=== PATIENT | female | born 1945 | race Caucasian/White ===

== ENCOUNTER 2023-05-17 10:37 | Outpatient (OUT) | payer MEDICARE, SELFPAY ==
[2023-05-17 11:01] LABS: Basophils Absolute Auto 0.1 10^3/uL (0.0-0.1); Basophils Percent Auto 0.9 % (0.2-2.0); Eosinophils Absolute Auto 0.1 10^3/uL (0.0-0.7); Eosinophils Percent Auto 1.3 % (0.9-7.0); Hematocrit 40.5 % (36.0-48.0); Hemoglobin 12.4 g/dL (12.0-16.0); Immature Granulocytes Abs Auto 0.04 10^3/uL (0.00-0.03); Immature Granulocytes Pct Auto 0.4 % (0.0-0.5); Lymphocytes Absolute Auto 2.2 10^3/uL (1.2-3.8); Lymphocytes Percent Auto 21.2 % (20.5-60.0); Mean Corpuscular HGB Conc 30.6 g/dL (29.9-35.2); Mean Corpuscular Hemoglobin 28.2 pg (26.7-34.0); Mean Corpuscular Volume 92.3 fL (81.0-99.0); Monocytes Absolute Auto 0.7 10^3/uL (0.3-0.8); Monocytes Percent Auto 6.4 % (1.7-12.0); Neutrophils Absolute Auto 7.4 10^3/uL (1.4-6.5); Neutrophils Percent Auto 69.8 % (43.0-75.0); Platelet Count 379 10^3/uL (150-450); Red Blood Count 4.39 10^6/uL (4.20-5.40); Red Cell Distribution Width 14.9 % (11.0-15.0); White Blood Count 10.5 10^3/uL (4.0-11.0)
[2023-05-17 11:23] LABS: Estimated Average Glucose 120 mg/dL; Glycohemoglobin A1C 5.8 % (4.5-6.2)
[2023-05-17 11:45] LABS: Alanine Aminotransferase 16 U/L (14-59); Albumin Globulin Ratio 0.5; Albumin Level 2.5 g/dL (3.4-5.0); Alkaline Phosphatase 118 U/L (46-116); Anion Gap 14.3; Aspartate Amino Transferase 25 U/L (15-37); BUN Creatinine Ratio 16.2; Bilirubin Total 0.4 mg/dL (0.2-1.0); Calcium 8.9 mg/dL (8.5-10.1); Carbon Dioxide 26.9 mmol/L (21.0-32.0); Chloride 106 mmol/L (98-107); Chol HDL Ratio 2.9; Cholesterol 156 mg/dL (<=200); Estimated GFR (African America 58 (>=60); Estimated GFR (Non-African Ame 48 (>=60); Free T3 1.83 pg/mL (2.18-3.98); Globulin 4.8 g/dL; Glucose 113 mg/dL (74-106); HDL Cholesterol 53 mg/dL (40-60); LDL Cholesterol Calculated 79.8 mg/dL; Magnesium 1.6 mg/dL (1.8-2.4); Potassium 4.2 mmol/L (3.5-5.1); Sodium 143 mmol/L (136-145); Thyroid Stimulating Hormone 2.045 uIU/mL (0.358-3.740); Total Protein 7.3 g/dL (6.4-8.2); Triglycerides 116 mg/dL (<=150); VLDL CHOLESTEROL 23.2 mg/dL
[2023-05-18 10:10] LABS: Insulin 40.9 uIU/mL (2.6-24.9)
== END 2023-05-17 10:38 | disposition home or self-care (01) ==
LOC: LAB 10:37
PROVIDERS: PCP Family Medicine; Visit Provider Family Medicine
DX: R00.2 Palpitations (principal); R53.83 Other fatigue; I10 Essential (primary) hypertension; E66.9 Obesity, unspecified; M10.9 Gout, unspecified; F41.1 Generalized anxiety disorder; E11.9 Type 2 diabetes mellitus without complications; Z79.899 Other long term (current) drug therapy; E78.5 Hyperlipidemia, unspecified
CPT/HCPCS: 36415; 80053; 80061; 82533; 82728; 83036; 83525; 83540; 83735; 84436; 84443; 84481; 85025

== ENCOUNTER 2023-05-31 11:02 | Outpatient (OUT) | payer MEDICARE, SELFPAY ==
--- OUTSIDE RECORDS SUMMARY | 2023-05-31 11:05 | XMS_ITS | CCD ---
Author Name Unknown Address [address] [facility] [address] [facility] [address] [place] [address] Organization [facility] Care Team Providers Care Molecular Modeler Name Role Phone ABHIJITY ., DR JACOB Admitting Unavailable HOY ., DR JACOB Attending Unavailable HOY ., DR JACOB Primary Care Unavailable HOY ., DR JACOB Admitting Unavailable HOY ., DR JACOB Attending Unavailable HOY ., DR JACOB Primary Care Unavailable HOY ., DR JACOB Consulting Unavailable HOY ., DR JACOB Admitting Unavailable HOY ., DR JACOB Attending Unavailable HOY ., DR JACOB Primary Care Unavailable HOY ., DR JACOB Consulting Unavailable Problems Active Problems Problem Classification Problem Date Documented Da te Episodic/Chronic Deficiency and other anemia (1 source) Anemia, unspecified; Translations: [ANEMIA UNSPECIFIED] Onset: 05-11-2022 Episodic Diabetes mellitus without complication (1 source) Other abnormal glucose; Translations: [OTHER ABNORMAL GLUCOSE] Onset: 05-11-2022 Episodic Disorders of lipid metabolism (1 source) Hyperlipidemia, unspecified; Translations: [HYPERLIPIDEMIA UNSPECIFIED] Onset: 11-14-2021 Chronic Essential hypertension (1 source) Essential (primary) hypertension; Translations: [ESSENTIAL PRIMARY HYPERTENSION] Onset: 11-14-2021 Chronic 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) Gout, unspecified; Translations: [GOUT UNSPECIFIED] Onset: 11-14-2021 Chronic Malaise and fatigue (5 sources) Other fatigue; Translations: [OTHER FATIGUE] Onset: 11-14-2021 Episodic Nutritional deficiencies (1 source) Vitamin D deficiency, unspecified; Translations: [VITAMIN D DEFICIENCY UNSPECIFIED] Onset: 11-14-2021 Chronic Past or Other Problems Problem Classification Problem Date Documented Da te Episodic/Chronic Cardiac dysrhythmias (4 sources) Palpitations; Translations: [PALPITATIONS] Onset: 11-12-2021 Episodic Results Test Name Value Interpretation Reference Range Facil ity INSULINon 05-07-2022 Insulin 45.8 uIU/mL Critically high 2.6-24.9 [facility] Comment on above: Performed By: #### M G, T7, TSH, CMP #### [facility] [address] [place] [address] Dr. Nida Hall CBC AUTO DIFFon 05-06-2022 BASO # 0.1 103/ul Normal 0.0-0.1 [facility] Comment on above: Performed By: #### M G, T7, TSH, CMP #### [facility] [address] [place] [address] Dr. Nida Hall Basophils/100 WBC (Bld) 1.2 % Normal 0.2-2.0 [facility] Comment on above: Performed By: #### M G, T7, TSH, CMP #### [facility] [address] [place] [address] Dr. Nida Hall EO # 0.3 103/ul Normal 0.0-0.7 [facility] Comment on above: Performed By: #### M G, T7, TSH, CMP #### [facility] [address] [place] [address] Dr. Nida Hall Eosinophils/100 WBC (Bld) 2.8 % Normal 0.9-7.0 [facility] Comment on above: Performed By: #### M G, T7, TSH, CMP #### [facility] [address] [place] [address] Dr. Nida Hall Erythrocyte distribution width (RBC) [Ratio] 15.0 % Normal 11.0-15.0 [facility] Comment on above: Performed By: #### M G, T7, TSH, CMP #### [facility] [address] [place] [address] Dr. Nida Hall Hematocrit (Bld) [Volume fraction] 41.1 % Normal 36.0-48.0 [facility] Comment on above: Performed By: #### M G, T7, TSH, CMP #### [facility] [address] [place] [address] Dr. Nida Hall Hemoglobin (Bld) [Mass/Vol] 12.7 g/dL Normal 12.0-16.0 [facility] Comment on above: Performed By: #### M G, T7, TSH, CMP #### [facility] [address] [place] [address] Dr. Nida Hall IG # 0.03 10e3/ul Normal 0.00-0.03 [facility] Comment on above: Performed By: #### M G, T7, TSH, CMP #### [facility] [address] [place] [address] Dr. Nida Hall IG % 0.3 % Normal 0.0-0.5 [facility] Comment on above: Performed By: #### M G, T7, TSH, CMP #### [facility] [address] [place] [address] Dr. Nida Hall LYMPH # 2.3 103/ul Normal 1.2-3.8 [facility] Comment on above: Performed By: #### M G, T7, TSH, CMP #### [facility] [address] [place] [address] Dr. Nida Hall Lymphocytes/100 WBC (Bld) 24.8 % Normal 20.5-60.0 [facility] Comment on above: Performed By: #### M G, T7, TSH, CMP #### [facility] [address] [place] [address] Dr. Nida Hall MANUAL DIFF REQ NO Normal [facility] Comment on above: Performed By: #### M G, T7, TSH, CMP #### [facility] [address] [place] [address] Dr. Nida Hall MCH (RBC) [Entitic mass] 26.9 pg Normal 26.7-34.0 [facility] Comment on above: Performed By: #### M G, T7, TSH, CMP #### [facility] [address] [place] [address] Dr. Nida Hall MCHC (RBC) [Mass/Vol] 30.9 g/dL Normal 29.9-35.2 [facility] Comment on above: Performed By: #### M G, T7, TSH, CMP #### [facility] [address] [place] [address] Dr. Nida Hall MCV (RBC) [Entitic vol] 87.1 fL Normal 81.0-99.0 [facility] Comment on above: Performed By: #### M G, T7, TSH, CMP #### [facility] [address] [place] [address] Dr. Nida Hall MONO # 0.7 103/ul Normal 0.3-0.8 [facility] Comment on above: Performed By: #### M G, T7, TSH, CMP #### [facility] [address] [place] [address] Dr. Nida Hall Monocytes/100 WBC (Bld) 7.8 % Normal 1.7-12.0 [facility] Comment on above: Performed By: #### M G, T7, TSH, CMP #### [facility] [address] [place] [address] Dr. Nida Hall NEUT # 5.9 103/ul Normal 1.4-6.5 [facility] Comment on above: Performed By: #### M G, T7, TSH, CMP #### [facility] [address] [place] [address] Dr. Nida Hall Neutrophils/100 WBC (Bld) 63.1 % Normal 43.0-75.0 [facility] Comment on above: Performed By: #### M G, T7, TSH, CMP #### [facility] [address] [place] [address] Dr. Nida Hall Platelet mean volume (Bld) [Entitic vol] 9.6 fL Normal 9.5-13.5 [facility] Comment on above: Performed By: #### M G, T7, TSH, CMP #### [facility] [address] [place] [address] Dr. Nida Hall PLT 385 103/ul Normal 150-450 [facility] Comment on above: Performed By: #### M G, T7, TSH, CMP #### [facility] [address] [place] [address] Dr. Nida Hall RBC 4.72 106/ul Normal 4.20-5.40 [facility] Comment on above: Performed By: #### M G, T7, TSH, CMP #### [facility] [address] [place] [address] Dr. Nida Hall WBC 9.3 103/ul Normal 4.0-11.0 [facility] Comment on above: Performed By: #### M G, T7, TSH, CMP #### [facility] [address] [place] [address] Dr. Nida Hall FERRITINon 05-06-2022 Ferritin [Mass/Vol] 16.0 ng/mL Normal 8.0-252.0 [facility] Comment on above: Performed By: #### I ENRIQUE, FERR #### [facility] [address] [place] [address] Dr. Nida Hall FREE THYROXINE INDEX T7on FTI 3.37 Normal 1.30-4.50 [facility] Comment on above: Performed By: #### M G, T7, TSH, CMP #### [facility] [address] [place] [address] Dr. Nida Hall T3U 34.0 % Normal 30.0-39.0 [facility] Comment on above: Performed By: #### M G, T7, TSH, CMP #### [facility] [address] [place] [address] Dr. Nida Hall T4 [Mass/Vol] 9.90 ug/dL Normal 4.80-13.90 [facility] Comment on above: Performed By: #### M G, T7, TSH, CMP #### [facility] [address] [place] [address] Dr. Nida Hall GLYCOHEMOGLOBIN A1Con 2022 ADA RECOMMENDATION SEE BELOW Normal [facility] Comment on above: Result Comment: ADA RECOMMENDED LIMIT 4.0 - 6.0 ADA THERAPEUTIC TARGET < 7.0 ACTION SUGGESTED > 7.0 Performed By: #### M G, T7, TSH, CMP #### [facility] [address] [place] [address] Dr. Nida Hall Glucose [Mass/Vol] 123 mg/dL Normal [facility] Comment on above: Performed By: #### M G, T7, TSH, CMP #### [facility] [address] [place] [address] Dr. Nida Hall HbA1c (Bld) [Mass fraction] 5.9 % Normal 4.5-6.2 [facility] Comment on above: Performed By: #### M G, T7, TSH, CMP #### [facility] [address] [address] [address] Nida Hall IRONon 05-06-2022 Iron [Mass/Vol] 54.0 ug/dL Normal 50.0-170.0 [facility] Comment on above: Performed By: #### I ENRIQUE, FERR #### [facility] [address] [place] [address] Dr. Nida Hall MAGNESIUMon 05-06-2022 Magnesium [Mass/Vol] 1.7 mg/dL Critically low 1.8-2.4 [facility] Comment on above: Performed By: #### M G, T7, TSH, CMP #### [facility] [address] [place] [address] Dr. Nida Hall PROF 14(COMP METB)on 023 Albumin [Mass/Vol] 2.8 g/dL Critically low 3.4-5.0 [facility] Comment on above: Performed By: #### M G, T7, TSH, CMP #### [facility] [address] [place] [address] Dr. Nida Hall Albumin/Globulin [Mass ratio] 0.6 {ratio} Normal [facility] Comment on above: Performed By: #### M G, T7, TSH, CMP #### [facility] [address] [place] [address] Dr. Nida Hall ALP [Catalytic activity/Vol] 113 U/L Normal 46-116 [facility] Comment on above: Performed By: #### M G, T7, TSH, CMP #### [facility] [address] [place] [address] Dr. Nida Hall ALT [Catalytic activity/Vol] 16 U/L Normal 14-59 [facility] Comment on above: Performed By: #### M G, T7, TSH, CMP #### [facility] [address] [address] [address] Nida Hall Anion gap [Moles/Vol] 9.9 mmol/L Normal [facility] Comment on above: Performed By: #### M G, T7, TSH, CMP #### [facility] [address] [address] [address] Nida Hall AST [Catalytic activity/Vol] 28 U/L Normal 15-37 [facility] Comment on above: Performed By: #### M G, T7, TSH, CMP #### [facility] [address] [place] [address] Dr. Nida Hall Bilirubin [Mass/Vol] 0.5 mg/dL Normal 0.2-1.0 [facility] Comment on above: Performed By: #### M G, T7, TSH, CMP #### [facility] [address] [place] [address] Dr. Nida Hall Calcium [Mass/Vol] 9.3 mg/dL Normal 8.5-10.1 [facility] Comment on above: Performed By: #### M G, T7, TSH, CMP #### [facility] [address] [place] [address] Dr. Nida Hall Chloride [Moles/Vol] 105 mmol/L Normal 98-107 [facility] Comment on above: Performed By: #### M G, T7, TSH, CMP #### [facility] [address] [place] [address] Dr. Nida Hall CO2 [Moles/Vol] 29.3 mmol/L Normal 21.0-32.0 [facility] Comment on above: Performed By: #### M G, T7, TSH, CMP #### [facility] [address] [place] [address] Dr. Nida Hall Creatinine [Mass/Vol] 0.95 mg/dL Normal 0.55-1.02 [facility] Comment on above: Performed By: #### M G, T7, TSH, CMP #### [facility] [address] [address] [address] Nida Hall EGFR-AF GUAMANIAN >60 Normal >=60 [facility] Comment on above: Performed By: #### M G, T7, TSH, CMP #### [facility] [address] [address] [address] Nida Hall EGFR-NON AF GUAMANIAN 57 mL/min/1.73m2 Critically low >=60 [facility] Comment on above: Performed By: #### M G, T7, TSH, CMP #### [facility] [address] [address] [address] Nida Hall Globulin (S) [Mass/Vol] 4.5 g/dL Normal [facility] Comment on above: Performed By: #### M G, T7, TSH, CMP #### [facility] [address] [address] [address] Nida Hall Glucose [Mass/Vol] 120 mg/dL Critically high 74-106 [facility] Comment on above: Performed By: #### M G, T7, TSH, CMP #### [facility] [address] [address] [address] Nida Hall Potassium [Moles/Vol] 4.2 mmol/L Normal 3.5-5.1 [facility] Comment on above: Performed By: #### M G, T7, TSH, CMP #### [facility] [address] [address] [address] Nida Hall Protein [Mass/Vol] 7.3 g/dL Normal 6.4-8.2 [facility] Comment on above: Performed By: #### M G, T7, TSH, CMP #### [facility] [address] [address] [address] Nida Hall Sodium [Moles/Vol] 140 mmol/L Normal 136-145 [facility] Comment on above: Performed By: #### M G, T7, TSH, CMP #### [facility] [address] [address] [address] Nida Hall Urea nitrogen [Mass/Vol] 18.0 mg/dL Normal 7.0-18.0 [facility] Comment on above: Performed By: #### M G, T7, TSH, CMP #### [facility] [address] [place] [address] Dr. Nida Hall Urea nitrogen/Creatinine [Mass ratio] 18.9 mg/mg Normal [facility] Comment on above: Performed By: #### M G, T7, TSH, CMP #### [facility] [address] [place] [address] Dr. Nida Hall TSHon 05-06-2022 TSH 2.920 uIU/mL Normal 0.358-3.740 [facility] Comment on above: Performed By: #### M G, T7, TSH, CMP #### [facility] [address] [place] [address] Dr. Nida Hall INSULINon 11-13-2021 Insulin 26.8 uIU/mL Critically high 2.6-24.9 [facility] Comment on above: Performed By: #### I NSULIN #### [facility] [address] [place] [address] Dr. Nida Hall T4, T3U, FTI LABCORPon 11-13 Free Thyroxine Index 2.3 Normal 1.2-4.9 [facility] Comment on above: Performed By: #### M G, T7, TSH, CMP #### [facility] [address] [place] [address] Dr. Nida Hall T3 Uptake 26 % Normal 24-39 [facility] Comment on above: Performed By: #### M G, T7, TSH, CMP #### [facility] [address] [place] [address] Dr. Nida Hall T4 [Mass/Vol] 8.9 ug/dL Normal 4.5-12.0 [facility] Comment on above: Performed By: #### M G, T7, TSH, CMP #### [facility] [address] [place] [address] Dr. Nida Hall VIT D 25-OH LABCORPon 2021 Vitamin D, 25-Hydroxy 55.8 ng/mL Normal 30.0-100.0 [facility] Comment on above: Result Comment: [place] min D deficiency has been defined by the [place] of [employer] and an Endocrine Society practice guideline as a level of serum 25-OH vitamin D less than 20 ng/mL (1,2). The Endocrine Society went on to further define vitamin D insufficiency as a level between 21 and 29 ng/mL (2). 1. IOM ([place] of [employer]). 2010. Dietary reference intakes for calcium and D. [place]: The National Academies Press. 2. Cristopher MF, Salazar SMITH, Carmel BETTENCOURT, et al. Evaluation, treatment, and prevention of vitamin D deficiency: an Endocrine Society clinical practice guideline. JCEM. 2010; 96(7):1911-30. Performed By: #### V ITADLC #### [facility] [address] [place] [address] Dr. Nida Hall CBC AUTO DIFFon 11-12-2021 BASO # 0.1 103/ul Normal 0.0-0.1 [facility] Comment on above: Performed By: #### C BC #### [facility] [address] [place] [address] Dr. Nida Hall Basophils/100 WBC (Bld) 0.9 % Normal 0.2-2.0 [facility] Comment on above: Performed By: #### C BC #### [facility] [address] [place] [address] Dr. Nida Hall EO # 0.1 103/ul Normal 0.0-0.7 [facility] Comment on above: Performed By: #### C BC #### [facility] [address] [place] [address] Dr. Nida Hall Eosinophils/100 WBC (Bld) 1.7 % Normal 0.9-7.0 [facility] Comment on above: Performed By: #### C BC #### [facility] [address] [place] [address] Dr. Nida Hall Erythrocyte distribution width (RBC) [Ratio] 16.1 % Critically high 11.0-15.0 [facility] Comment on above: Performed By: #### C BC #### [facility] [address] [place] [address] Dr. Nida Hall Hematocrit (Bld) [Volume fraction] 42.8 % Normal 36.0-48.0 [facility] Comment on above: Performed By: #### C BC #### [facility] [address] [place] [address] Dr. Nida Hall Hemoglobin (Bld) [Mass/Vol] 13.0 g/dL Normal 12.0-16.0 [facility] Comment on above: Performed By: #### C BC #### [facility] [address] [place] [address] Dr. Nida Hall IG # 0.04 10e3/ul Critically high 0.00-0.03 [facility] Comment on above: Performed By: #### C BC #### [facility] [address] [place] [address] Dr. Nida Hall IG % 0.5 % Normal 0.0-0.5 [facility] Comment on above: Performed By: #### C BC #### [facility] [address] [place] [address] Dr. Nida Hall LYMPH # 2.1 103/ul Normal 1.2-3.8 [facility] Comment on above: Performed By: #### C BC #### [facility] [address] [place] [address] Dr. Nida Hall Lymphocytes/100 WBC (Bld) 25.6 % Normal 20.5-60.0 [facility] Comment on above: Performed By: #### C BC #### [facility] [address] [place] [address] Dr. Nida Hall MANUAL DIFF REQ NO Normal [facility] Comment on above: Performed By: #### C BC #### [facility] [address] [place] [address] Dr. Nida Hall MCH (RBC) [Entitic mass] 27.8 pg Normal 26.7-34.0 [facility] Comment on above: Performed By: #### C BC #### [facility] [address] [place] [address] Dr. Nida Hall MCHC (RBC) [Mass/Vol] 30.4 g/dL Normal 29.9-35.2 [facility] Comment on above: Performed By: #### C BC #### [facility] [address] [place] [address] Dr. Nida Hall MCV (RBC) [Entitic vol] 91.5 fL Normal 81.0-99.0 [facility] Comment on above: Performed By: #### C BC #### [facility] [address] [place] [address] Dr. Nida Hall MONO # 0.5 103/ul Normal 0.3-0.8 [facility] Comment on above: Performed By: #### C BC #### [facility] [address] [place] [address] Dr. Nida Hall Monocytes/100 WBC (Bld) 6.5 % Normal 1.7-12.0 [facility] Comment on above: Performed By: #### C BC #### [facility] [address] [place] [address] Dr. Nida Hall NEUT # 5.3 103/ul Normal 1.4-6.5 [facility] Comment on above: Performed By: #### C BC #### [facility] [address] [place] [address] Dr. Nida Hall Neutrophils/100 WBC (Bld) 64.8 % Normal 43.0-75.0 [facility] Comment on above: Performed By: #### C BC #### [facility] [address] [place] [address] Dr. Nida Hall Platelet mean volume (Bld) [Entitic vol] 10.3 fL Normal 9.5-13.5 [facility] Comment on above: Performed By: #### C BC #### [facility] [address] [place] [address] Dr. Nida Hall PLT 336 103/ul Normal 150-450 [facility] Comment on above: Performed By: #### C BC #### [facility] [address] [place] [address] Dr. Nida Hall RBC 4.68 106/ul Normal 4.20-5.40 [facility] Comment on above: Performed By: #### C BC #### [facility] [address] [address] [address] Nida Hall WBC 8.2 103/ul Normal 4.0-11.0 [facility] Comment on above: Performed By: #### C BC #### [facility] [address] [address] [address] Nida Hall GLYCOHEMOGLOBIN A1Con 2021 ADA RECOMMENDATION SEE BELOW Normal [facility] Comment on above: Result Comment: ADA RECOMMENDED LIMIT 4.0 - 6.0 ADA THERAPEUTIC TARGET < 7.0 ACTION SUGGESTED > 7.0 Performed By: #### A 1C #### [facility] [address] [place] [address] Dr. Nida Hall Glucose [Mass/Vol] 120 mg/dL Normal [facility] Comment on above: Performed By: #### A 1C #### [facility] [address] [address] [address] Nida Hall HbA1c (Bld) [Mass fraction] 5.8 % Normal 4.5-6.2 [facility] Comment on above: Performed By: #### A 1C #### [facility] [address] [place] [address] Dr. Nida Hall IRONon 11-12-2021 Iron [Mass/Vol] 51.0 ug/dL Normal 50.0-170.0 [facility] Comment on above: Performed By: #### M G, T7, TSH, CMP #### [facility] [address] [address] [address] Nida Hall LIPID PROFILEon 11-12-2021 CHOL-HDL RATIO NORM SEE BELOW Normal [facility] Comment on above: Result Comment: 3.3 - 4.4 LOW RISK 4.4 - 7.1 AVERAGE RISK 7.1 - 11.0 MODERATE RISK >11.0 HIGH RISK Performed By: #### M G, T7, TSH, CMP #### [facility] [address] [address] [address] Nida Hall Cholesterol [Mass/Vol] 168 mg/dL Normal <=200 [facility] Comment on above: Performed By: #### M G, T7, TSH, CMP #### [facility] [address] [place] [address] Dr. Nida Hall Cholesterol in HDL [Mass/Vol] 47 mg/dL Normal 40-60 [facility] Comment on above: Performed By: #### M G, T7, TSH, CMP #### [facility] [address] [address] [address] Nida Hall Cholesterol in LDL [Mass/Vol] 102.4 mg/dL Normal [facility] Comment on above: Performed By: #### M G, T7, TSH, CMP #### [facility] [address] [place] [address] Dr. Nida Hall Cholesterol.total/Cho lesterol in HDL [Mass ratio] 3.6 {ratio} Normal [facility] Comment on above: Performed By: #### M G, T7, TSH, CMP #### [facility] [address] [place] [address] Dr. Nida Hall HDL NORMAL > or = 60 mg/dl - LOW CARDIOVASCULAR RISK <40 mg/dl - HIGH CARDIOVASCULAR RISK Normal [facility] Comment on above: Performed By: #### M G, T7, TSH, CMP #### [facility] [address] [place] [address] Dr. Nida Hall LDL CALC NORMAL SEE BELOW Normal [facility] Comment on above: Result Comment: <100 mg/dl OPTIMAL 100 - 129 mg/dl NEAR OR ABOVE OPTIMAL 130 - 159 mg/dl BORDERLINE HIGH 160 - 189 mg/dl HIGH >190 mg/dl VERY HIGH Performed By: #### M G, T7, TSH, CMP #### [facility] [address] [place] [address] Dr. Niad Hall Triglyceride [Mass/Vol] 93 mg/dL Normal <=150 [facility] Comment on above: Performed By: #### M G, T7, TSH, CMP #### [facility] [address] [place] [address] Dr. Nida Hall VLDL CALC 18.6 mg/dL Normal [facility] Comment on above: Performed By: #### M G, T7, TSH, CMP #### [facility] [address] [address] [address] Nida Hall PROF 14(COMP METB)on 022 Albumin [Mass/Vol] 2.7 g/dL Critically low 3.4-5.0 [facility] Comment on above: Performed By: #### M G, T7, TSH, CMP #### [facility] [address] [address] [address] Nida Hall Albumin/Globulin [Mass ratio] 0.6 {ratio} Normal [facility] Comment on above: Performed By: #### M G, T7, TSH, CMP #### [facility] [address] [place] [address] Dr. Nida Hall ALP [Catalytic activity/Vol] 108 U/L Normal 46-116 [facility] Comment on above: Performed By: #### M G, T7, TSH, CMP #### [facility] [address] [place] [address] Dr. Nida Hall ALT [Catalytic activity/Vol] 17 U/L Normal 14-59 [facility] Comment on above: Performed By: #### M G, T7, TSH, CMP #### [facility] [address] [place] [address] Dr. Nida Hall Anion gap [Moles/Vol] 10.9 mmol/L Normal [facility] Comment on above: Performed By: #### M G, T7, TSH, CMP #### [facility] [address] [address] [address] Nida Hall AST [Catalytic activity/Vol] 23 U/L Normal 15-37 [facility] Comment on above: Performed By: #### M G, T7, TSH, CMP #### [facility] [address] [address] [address] Nida Hall Bilirubin [Mass/Vol] 0.3 mg/dL Normal 0.2-1.0 [facility] Comment on above: Performed By: #### M G, T7, TSH, CMP #### [facility] [address] [address] [address] Nida Hall Calcium [Mass/Vol] 8.7 mg/dL Normal 8.5-10.1 [facility] Comment on above: Performed By: #### M G, T7, TSH, CMP #### [facility] [address] [address] [address] Nida Hall Chloride [Moles/Vol] 107 mmol/L Normal 98-107 [facility] Comment on above: Performed By: #### M G, T7, TSH, CMP #### [facility] [address] [place] [address] Dr. Nida Hall CO2 [Moles/Vol] 27.9 mmol/L Normal 21.0-32.0 [facility] Comment on above: Performed By: #### M G, T7, TSH, CMP #### [facility] [address] [place] [address] Dr. Nida Hall Creatinine [Mass/Vol] 0.88 mg/dL Normal 0.55-1.02 [facility] Comment on above: Performed By: #### M G, T7, TSH, CMP #### [facility] [address] [place] [address] Dr. Nida Hall EGFR-AF GUAMANIAN >60 Normal >=60 [facility] Comment on above: Performed By: #### M G, T7, TSH, CMP #### [facility] [address] [place] [address] Dr. Nida Hall EGFR-NON AF GUAMANIAN >60 Normal >=60 [facility] Comment on above: Performed By: #### M G, T7, TSH, CMP #### [facility] [address] [place] [address] Dr. Nida Hall Globulin (S) [Mass/Vol] 4.2 g/dL Normal [facility] Comment on above: Performed By: #### M G, T7, TSH, CMP #### [facility] [address] [place] [address] Dr. Nida Hall Glucose [Mass/Vol] 101 mg/dL Normal 74-106 [facility] Comment on above: Performed By: #### M G, T7, TSH, CMP #### [facility] [address] [place] [address] Dr. Nida Hall Potassium [Moles/Vol] 3.8 mmol/L Normal 3.5-5.1 [facility] Comment on above: Performed By: #### M G, T7, TSH, CMP #### [facility] [address] [place] [address] Dr. Nida Hall Protein [Mass/Vol] 6.9 g/dL Normal 6.4-8.2 [facility] Comment on above: Performed By: #### M G, T7, TSH, CMP #### [facility] [address] [place] [address] Dr. Nida Hall Sodium [Moles/Vol] 142 mmol/L Normal 136-145 [facility] Comment on above: Performed By: #### M G, T7, TSH, CMP #### [facility] [address] [place] [address] Dr. Nida Hall Urea nitrogen [Mass/Vol] 21.0 mg/dL Critically high 7.0-18.0 [facility] Comment on above: Performed By: #### M G, T7, TSH, CMP #### [facility] [address] [place] [address] Dr. Nida Hall Urea nitrogen/Creatinine [Mass ratio] 23.9 mg/mg Normal [facility] Comment on above: Performed By: #### M G, T7, TSH, CMP #### [facility] [address] [place] [address] Dr. Nida Hall TSHon 11-12-2021 TSH 0.865 uIU/mL Normal 0.358-3.740 [facility] Comment on above: Performed By: #### M G, T7, TSH, CMP #### [facility] [address] [place] [address] Dr. Nida Hall URIC ACID SERUMon 11-12-2021 Urate [Mass/Vol] 4.7 mg/dL Normal 2.6-6.0 [facility] Comment on above: Performed By: #### M G, T7, TSH, CMP #### [facility] [address] [id number] Nida Hall Encounters Encounter Date Encounter Type Care Provider Facility Start: 05-06-2022 End: 05-07-[address] CECLI ESQUEDA . Facility:[facility] Start: 11-12-2021 End: 11-13-[address] CECIL ESQUEDA . Facility:[facility] Start: 10-03-[address] CECIL ESQUEDA . Facili ty:[facility] Payers Date Payer Category Payer Medicare [id number] 1958 Self-pay 1945 Unknown [id number] 1945 Unknown [id number] 1945 Unknown [id number] Summary Purpose Family History No Family History Records Found Advance Directives No Advanced Directives Records Found Additional Source Comments INFORMATION SOURCE (unrecogn ized section and content) DATE CREATED AUTHOR 05/11/2022 [facility] FOR RECORDS PERTAINING TO PATIENTS WHO ARE OR HAVE BEEN ENROLLED IN A CHEMICAL DEPENDENCY/SUBSTANCEABUSE PROGRAM, SOME INFORMATION MAY BE OMITTED. This clinical summary was aggregated from multiple sources. Caution should be exercised in using it in the provision of clinical care. This summary normalizes information from multiple sources, and as a consequence, information in this document may materially change the coding, format and clinical context of patient data. In addition, data may be omitted in some cases. CLINICAL DECISIONS SHOULD BE BASED ON THE PRIMARY CLINICAL RECORDS. [employer] provides no warranty or guarantee of the accuracy or completeness of information in this document.
[2023-06-01 13:08] LABS: ACTH, Plasma 19.6 pg/mL (7.2-63.3)
[2023-06-10 14:35] LABS: Aldosterone LCMS, Serum 18.8 ng/dL (0.0-30.0)
== END 2023-05-31 11:03 | disposition home or self-care (01) ==
LOC: LAB 11:02
PROVIDERS: PCP Family Medicine; Visit Provider Family Medicine
DX: E34.9 Endocrine disorder, unspecified (principal)
CPT/HCPCS: 36415; 82024; 82088; 82533

== ENCOUNTER 2023-09-03 08:34 | Outpatient (OUT) | payer MEDICARE, SELFPAY ==
--- OUTSIDE RECORDS SUMMARY | 2023-09-03 08:42 | XMS_ITS | CCD ---
Author Organization [facility] Care Team Providers Care Defense Attorney Name Role Phone YIN ., DR JACOB Admitting Unavailable HOY ., [...] 05-07-2022 Insulin 45.8 uIU/mL Critically high 2.6-24.[address] [facility] Comment on above: Performed By: #### M G, T7, TSH, CMP #### [facility] [address] [place] [address] Dr. Nida Hall CBC AUTO DIFFon 05-06-2022 BASO # 0.1 103/ul Normal 0.0-0.1 [facility] Comment on above: Performed By: #### M G, T7, TSH, CMP #### [facility] [address] [place] [address] Dr. Nida Hall Basophils/100 WBC (Bld) 1.2 % Normal 0.2-2.0 [facility] Comment on above: Performed By: #### M G, T7, TSH, CMP #### [facility] [address] [place] [address] Dr. Nida Hall EO # 0.3 103/ul Normal 0.0-0.7 [facility] Comment on above: Performed By: #### M G, T7, TSH, CMP #### [facility] [address] [place] [address] Dr. Nida Hall Eosinophils/100 WBC (Bld) 2.8 % Normal 0.9-7.0 [facility] Comment on above: Performed By: #### M G, T7, TSH, CMP #### [facility] [address] [place] [address] Dr. Nida Hall Erythrocyte distribution width (RBC) [Ratio] 15.0 % Normal 11.0-15.0 [facility] Comment on above: Performed By: #### M G, T7, TSH, CMP #### [facility] [address] [place] [address] Dr. Nida Hall Hematocrit (Bld) [Volume fraction] 41.1 % Normal 36.0-48.0 [facility] Comment on above: Performed By: #### M G, T7, TSH, CMP #### [facility] [address] [place] [address] Dr. Nida Hall Hemoglobin (Bld) [Mass/Vol] 12.7 g/dL Normal 12.0-16.0 [facility] Comment on above: Performed By: #### M G, T7, TSH, CMP #### [facility] [address] [place] [address] Dr. Nida Hall IG # 0.03 10e3/ul Normal 0.00-0.03 [facility] Comment on above: Performed By: #### M G, T7, TSH, CMP #### [facility] [address] [place] [address] Dr. Nida Hall IG % 0.3 % Normal 0.0-0.5 [facility] Comment on above: Performed By: #### M G, T7, TSH, CMP #### [facility] [address] [place] [address] Dr. Nida Hall LYMPH # 2.3 103/ul Normal 1.2-3.8 [facility] Comment on above: Performed By: #### M G, T7, TSH, CMP #### [facility] [address] [place] [address] Dr. Nida Hall Lymphocytes/100 WBC (Bld) 24.8 % Normal 20.5-60.0 [facility] Comment on above: Performed By: #### M G, T7, TSH, CMP #### [facility] [address] [place] [address] Dr. Nida Hall MANUAL DIFF REQ NO Normal [facility] Comment on above: Performed By: #### M G, T7, TSH, CMP #### [facility] [address] [place] [address] Dr. Nida Hall MCH (RBC) [Entitic mass] 26.9 pg Normal 26.7-34.0 [facility] Comment on above: Performed By: #### M G, T7, TSH, CMP #### [facility] [address] [place] [address] Dr. Nida Hall MCHC (RBC) [Mass/Vol] 30.9 g/dL Normal 29.9-35.2 [facility] Comment on above: Performed By: #### M G, T7, TSH, CMP #### [facility] [address] [place] [address] Dr. Nida Hall MCV (RBC) [Entitic vol] 87.1 fL Normal 81.0-99.0 [facility] Comment on above: Performed By: #### M G, T7, TSH, CMP #### [facility] [address] [place] [address] Dr. Nida Hall MONO # 0.7 103/ul Normal 0.3-0.8 [facility] Comment on above: Performed By: #### M G, T7, TSH, CMP #### [facility] [address] [place] [address] Dr. Nida Hall Monocytes/100 WBC (Bld) 7.8 % Normal 1.7-12.0 [facility] Comment on above: Performed By: #### M G, T7, TSH, CMP #### [facility] [address] [place] [address] Dr. Nida Hall NEUT # 5.9 103/ul Normal 1.4-6.5 [facility] Comment on above: Performed By: #### M G, T7, TSH, CMP #### [facility] [address] [place] [address] Dr. Nida Hall Neutrophils/100 WBC (Bld) 63.1 % Normal 43.0-75.0 [facility] Comment on above: Performed By: #### M G, T7, TSH, CMP #### [facility] [address] [place] [address] Dr. Nida Hall Platelet mean volume (Bld) [Entitic vol] 9.6 fL Normal 9.5-13.5 [facility] Comment on above: Performed By: #### M G, T7, TSH, CMP #### [facility] [address] [place] [address] Dr. Nida Hall PLT 385 103/ul Normal 150-450 [facility] Comment on above: Performed By: #### M G, T7, TSH, CMP #### [facility] [address] [place] [address] Dr. Nida Hall RBC 4.72 106/ul Normal 4.20-5.40 [facility] Comment on above: Performed By: #### M G, T7, TSH, CMP #### [facility] [address] [address] [address] Nida Hall WBC 9.3 103/ul Normal 4.0-11.0 [facility] Comment on above: Performed By: #### M G, T7, TSH, CMP #### [facility] [address] [address] [address] Nida Hall FERRITINon 05-06-2022 Ferritin [Mass/Vol] 16.0 ng/mL Normal 8.0-252.0 [facility] Comment on above: Performed By: #### I ENRIQUE, FERR #### [facility] [address] [place] [address] Dr. Nida Hall FREE THYROXINE INDEX T7on FTI 3.37 Normal 1.30-4.50 [facility] Comment on above: Performed By: #### M G, T7, TSH, CMP #### [facility] [address] [address] [address] Nida Hall T3U 34.0 % Normal 30.0-39.0 [facility] Comment on above: Performed By: #### M G, T7, TSH, CMP #### [facility] [address] [place] [address] Dr. Nida Hall T4 [Mass/Vol] 9.90 ug/dL Normal 4.80-13.90 [facility] Comment on above: Performed By: #### M G, T7, TSH, CMP #### [facility] [address] [place] [address] Dr. Nida Hall GLYCOHEMOGLOBIN A1Con 2022 ADA RECOMMENDATION SEE BELOW Normal [facility] Comment on above: Result Comment: ADA RECOMMENDED LIMIT 4.0 - 6.0 ADA THERAPEUTIC TARGET < 7.0 ACTION SUGGESTED > 7.0 Performed By: #### M G, T7, TSH, CMP #### [facility] [address] [place] [address] Dr. Nida Hall Glucose [Mass/Vol] 123 mg/dL Normal [facility] Comment on above: Performed By: #### M G, T7, TSH, CMP #### [facility] [address] [address] [address] Nida Hall HbA1c (Bld) [Mass fraction] 5.9 % Normal 4.5-6.2 [facility] Comment on above: Performed By: #### M G, T7, TSH, CMP #### [facility] [address] [place] [address] Dr. Nida Hall IRONon 05-06-2022 Iron [Mass/Vol] 54.0 ug/dL Normal 50.0-170.0 [facility] Comment on above: Performed By: #### I ENRIQUE, FERR #### [facility] [address] [place] [address] Dr. Nida Hall MAGNESIUMon 05-06-2022 Magnesium [Mass/Vol] 1.7 mg/dL Critically low 1.8-2.4 [facility] Comment on above: Performed By: #### M G, T7, TSH, CMP #### [facility] [address] [place] [address] Dr. Nida Hall PROF 14(COMP METB)on 023 Albumin [Mass/Vol] 2.8 g/dL Critically low 3.4-5.0 [facility] Comment on above: Performed By: #### M G, T7, TSH, CMP #### [facility] [address] [place] [address] Dr. Nida Hall Albumin/Globulin [Mass ratio] 0.6 {ratio} Normal [facility] Comment on above: Performed By: #### M G, T7, TSH, CMP #### [facility] [address] [place] [address] Dr. Nida Hall ALP [Catalytic activity/Vol] 113 U/L Normal 46-116 [facility] Comment on above: Performed By: #### M G, T7, TSH, CMP #### [facility] [address] [place] [address] Dr. Nida Hall ALT [Catalytic activity/Vol] 16 U/L Normal 14-59 [facility] Comment on above: Performed By: #### M G, T7, TSH, CMP #### [facility] [address] [address] [address] Nida Hall Anion gap [Moles/Vol] 9.9 mmol/L Normal [facility] Comment on above: Performed By: #### M G, T7, TSH, CMP #### [facility] [address] [address] [address] Nida Hall AST [Catalytic activity/Vol] 28 U/L Normal 15-37 [facility] Comment on above: Performed By: #### M G, T7, TSH, CMP #### [facility] [address] [address] [address] Nida Hall Bilirubin [Mass/Vol] 0.5 mg/dL Normal 0.2-1.0 [facility] Comment on above: Performed By: #### M G, T7, TSH, CMP #### [facility] [address] [place] [address] Dr. Nida Hall Calcium [Mass/Vol] 9.3 mg/dL Normal 8.5-10.1 [facility] Comment on above: Performed By: #### M G, T7, TSH, CMP #### [facility] [address] [place] [address] Dr. Nida Hall Chloride [Moles/Vol] 105 mmol/L Normal 98-107 [facility] Comment on above: Performed By: #### M G, T7, TSH, CMP #### [facility] [address] [address] [address] Nida Hall CO2 [Moles/Vol] 29.3 mmol/L Normal 21.0-32.[address] [facility] Comment on above: Performed By: #### M G, T7, TSH, CMP #### [facility] [address] [place] [address] Dr. Nida Hall Creatinine [Mass/Vol] 0.95 mg/dL Normal 0.55-1.02 [facility] Comment on above: Performed By: #### M G, T7, TSH, CMP #### [facility] [address] [address] [address] Nida Hall EGFR-AF NIGERIEN >60 Normal >=[address] [facility] Comment on above: Performed By: #### M G, T7, TSH, CMP #### [facility] [address] [address] [address] Nida Hall EGFR-NON AF NIGERIEN 57 mL/min/1.73m2 Critically low >=60 [facility] Comment on above: Performed By: #### M G, T7, TSH, CMP #### [facility] [address] [place] [address] Dr. Nida Hall Globulin (S) [Mass/Vol] 4.5 g/dL Normal [facility] Comment on above: Performed By: #### M G, T7, TSH, CMP #### [facility] [address] [place] [address] Dr. Nida Hall Glucose [Mass/Vol] 120 mg/dL Critically high 74-106 [facility] Comment on above: Performed By: #### M G, T7, TSH, CMP #### [facility] [address] [place] [address] Dr. Nida Hall Potassium [Moles/Vol] 4.2 mmol/L Normal 3.5-5.1 [facility] Comment on above: Performed By: #### M G, T7, TSH, CMP #### [facility] [address] [place] [address] Dr. Nida Hall Protein [Mass/Vol] 7.3 g/dL Normal 6.4-8.2 [facility] Comment on above: Performed By: #### M G, T7, TSH, CMP #### [facility] [address] [place] [address] Dr. Nida Hlal Sodium [Moles/Vol] 140 mmol/L Normal 136-145 [facility] Comment on above: Performed By: #### M G, T7, TSH, CMP #### [facility] [address] [address] [address] Nida Hall Urea nitrogen [Mass/Vol] 18.0 mg/dL Normal 7.0-18.0 [facility] Comment on above: Performed By: #### M G, T7, TSH, CMP #### [facility] [address] [address] [address] iNda Hall Urea nitrogen/Creatinine [Mass ratio] 18.9 mg/mg Normal [facility] Comment on above: Performed By: #### M G, T7, TSH, CMP #### [facility] [address] [address] [address] Nida Hall TSHon 05-06-2022 TSH 2.920 uIU/mL Normal 0.358-3.740 [facility] Comment on above: Performed By: #### M G, T7, TSH, CMP #### [facility] [address] [place] [address] Dr. Nida Hall INSULINon 11-13-2021 Insulin 26.8 uIU/mL Critically high 2.6-24.[address] [facility] Comment on above: Performed By: #### I NSULIN #### [facility] [address] [place] [address] Dr. Nida Hall T4, T3U, FTI LABC[facility]Pon 11-13 Free Thyroxine Index 2.3 Normal 1.2-4.9 [facility] Comment on above: Performed By: #### M G, T7, TSH, CMP #### [facility] [address] [place] [address] Dr. Nida Hall T3 Uptake 26 % Normal 24-39 [facility] Comment on above: Performed By: #### M G, T7, TSH, CMP #### [facility] [address] [place] [address] Dr. Nida Hall T4 [Mass/Vol] 8.9 ug/dL Normal 4.5-12.0 [facility] Comment on above: Performed By: #### M G, T7, TSH, CMP #### [facility] [address] [place] [address] Dr. Nida Hall VIT D 25-OH LABCORPon 2021 Vitamin D, 25-Hydroxy 55.8 ng/mL Normal 30.0-100.0 [facility] Comment on above: Result Comment: [place] min D deficiency has been defined by the [place] [employer] and an Endocrine Society practice guideline as a level of serum 25-OH vitamin D less than 20 ng/mL (1,2). The Endocrine Society went on to further define vitamin D insufficiency as a level between 21 and 29 ng/mL (2). 1. IOM ([place] [employer]). 2010. Dietary reference intakes for calcium and D. [place]: The National Academies Press. 2. Cristopher MF, Salazar SMITH, Carmel BETTENCOURT, et al. Evaluation, treatment, and prevention of vitamin D deficiency: an Endocrine Society clinical practice guideline. JCEM. 2010; 96(7):1911-30. Performed By: #### V ITADLC #### [facility] [address] [place] [address] Dr. Nida Hall CBC AUTO DIFFon 11-12-2021 BASO # 0.1 103/ul Normal 0.0-0.1 [facility] Comment on above: Performed By: #### C BC #### [facility] [address] [place] [address] Dr. Nida Hall Basophils/100 WBC (Bld) 0.9 % Normal 0.2-2.0 [facility] Comment on above: Performed By: #### C BC #### [facility] [address] [place] [address] Dr. Nida Hall EO # 0.1 103/ul Normal 0.0-0.7 [facility] Comment on above: Performed By: #### C BC #### [facility] [address] [place] [address] Dr. Nida Hall Eosinophils/100 WBC (Bld) 1.7 % Normal 0.9-7.0 [facility] Comment on above: Performed By: #### C BC #### [facility] [address] [place] [address] Dr. Nida Hall Erythrocyte distribution width (RBC) [Ratio] 16.1 % Critically high 11.0-15.0 [facility] Comment on above: Performed By: #### C BC #### [facility] [address] [place] [address] Dr. Nida Hall Hematocrit (Bld) [Volume fraction] 42.8 % Normal 36.0-48.0 [facility] Comment on above: Performed By: #### C BC #### [facility] [address] [place] [address] Dr. Nida Hall Hemoglobin (Bld) [Mass/Vol] 13.0 g/dL Normal 12.0-16.0 [facility] Comment on above: Performed By: #### C BC #### [facility] [address] [place] [address] Dr. Nida Hall IG # 0.04 10e3/ul Critically high 0.00-0.03 [facility] Comment on above: Performed By: #### C BC #### [facility] [address] [place] [address] Dr. Nida Hall IG % 0.5 % Normal 0.0-0.5 [facility] Comment on above: Performed By: #### C BC #### [facility] [address] [place] [address] Dr. Nida Hall LYMPH # 2.1 103/ul Normal 1.2-3.8 [facility] Comment on above: Performed By: #### C BC #### [facility] [address] [place] [address] Dr. Nida Hall Lymphocytes/100 WBC (Bld) 25.6 % Normal 20.5-60.0 [facility] Comment on above: Performed By: #### C BC #### [facility] [address] [place] [address] Dr. Nida Hall MANUAL DIFF REQ NO Normal [facility] Comment on above: Performed By: #### C BC #### [facility] [address] [place] [address] Dr. Nida Hall MCH (RBC) [Entitic mass] 27.8 pg Normal 26.7-34.0 [facility] Comment on above: Performed By: #### C BC #### [facility] [address] [place] [address] Dr. Nida Hall MCHC (RBC) [Mass/Vol] 30.4 g/dL Normal 29.9-35.2 [facility] Comment on above: Performed By: #### C BC #### [facility] [address] [address] [address] Nida Hall MCV (RBC) [Entitic vol] 91.5 fL Normal 81.0-99.0 [facility] Comment on above: Performed By: #### C BC #### [facility] [address] [address] [address] Nida Hall MONO # 0.5 103/ul Normal 0.3-0.8 [facility] Comment on above: Performed By: #### C BC #### [facility] [address] [place] [address] Dr. Nida Hall Monocytes/100 WBC (Bld) 6.5 % Normal 1.7-12.0 [facility] Comment on above: Performed By: #### C BC #### [facility] [address] [place] [address] Dr. Nida Hall NEUT # 5.3 103/ul Normal 1.4-6.5 [facility] Comment on above: Performed By: #### C BC #### [facility] [address] [place] [address] Dr. Nida Hall Neutrophils/100 WBC (Bld) 64.8 % Normal 43.0-75.0 [facility] Comment on above: Performed By: #### C BC #### [facility] [address] [place] [address] Dr. Nida Hall Platelet mean volume (Bld) [Entitic vol] 10.3 fL Normal 9.5-13.5 [facility] Comment on above: Performed By: #### C BC #### [facility] [address] [place] [address] Dr. Nida Hall PLT 336 103/ul Normal 150-450 [facility] Comment on above: Performed By: #### C BC #### [facility] [address] [place] [address] Dr. Nida Hall RBC 4.68 106/ul Normal 4.20-5.40 [facility] Comment on above: Performed By: #### C BC #### [facility] [address] [address] [address] Nida Hall WBC 8.2 103/ul Normal 4.0-11.0 [facility] Comment on above: Performed By: #### C BC #### [facility] [address] [address] [address] Niad Hall GLYCOHEMOGLOBIN A1Con 2021 ADA RECOMMENDATION SEE BELOW Normal [facility] Comment on above: Result Comment: ADA RECOMMENDED LIMIT 4.0 - 6.0 ADA THERAPEUTIC TARGET < 7.0 ACTION SUGGESTED > 7.0 Performed By: #### A 1C #### [facility] [address] [place] [address] Dr. Nida Hall Glucose [Mass/Vol] 120 mg/dL Normal [facility] Comment on above: Performed By: #### A 1C #### [facility] [address] [place] [address] Dr. Nida Hlal HbA1c (Bld) [Mass fraction] 5.8 % Normal 4.5-6.2 [facility] Comment on above: Performed By: #### A 1C #### [facility] [address] [place] [address] Dr. Nida Hall IRONon 11-12-2021 Iron [Mass/Vol] 51.0 ug/dL Normal 50.0-170.0 [facility] Comment on above: Performed By: #### M G, T7, TSH, CMP #### [facility] [address] [place] [address] Dr. Nida Hall LIPID PROFILEon 11-12-2021 CHOL-HDL RATIO NORM SEE BELOW Normal [facility] Comment on above: Result Comment: 3.3 - 4.4 LOW RISK 4.4 - 7.1 AVERAGE RISK 7.1 - 11.0 MODERATE RISK >11.0 HIGH RISK Performed By: #### M G, T7, TSH, CMP #### [facility] [address] [place] [address] Dr. Nida Hall Cholesterol [Mass/Vol] 168 mg/dL Normal <=200 [facility] Comment on above: Performed By: #### M G, T7, TSH, CMP #### [facility] [address] [address] [address] Nida Hall Cholesterol in HDL [Mass/Vol] 47 mg/dL Normal 40-60 [facility] Comment on above: Performed By: #### M G, T7, TSH, CMP #### [facility] [address] [address] [address] Nida Hall Cholesterol in LDL [Mass/Vol] 102.4 mg/dL Normal [facility] Comment on above: Performed By: #### M G, T7, TSH, CMP #### [facility] [address] [address] [address] Nida Hall Cholesterol.total/Cho lesterol in HDL [Mass ratio] 3.6 {ratio} Normal [facility] Comment on above: Performed By: #### M G, T7, TSH, CMP #### [facility] [address] [address] [address] Nida Hall HDL NORMAL > or = 60 mg/dl - LOW CARDIOVASCULAR RISK <40 mg/dl - HIGH CARDIOVASCULAR RISK Normal [facility] Comment on above: Performed By: #### M G, T7, TSH, CMP #### [facility] [address] [address] [address] Nida Hall LDL CALC NORMAL SEE BELOW Normal [facility] Comment on above: Result Comment: <100 mg/dl OPTIMAL 100 - 129 mg/dl NEAR OR ABOVE OPTIMAL 130 - 159 mg/dl BORDERLINE HIGH 160 - 189 mg/dl HIGH >190 mg/dl VERY HIGH Performed By: #### M G, T7, TSH, CMP #### [facility] [address] [address] [address] Nida Hall Triglyceride [Mass/Vol] 93 mg/dL Normal <=150 [facility] Comment on above: Performed By: #### M G, T7, TSH, CMP #### [facility] [address] [address] [address] Nida Hall VLDL CALC 18.6 mg/dL Normal [facility] Comment on above: Performed By: #### M G, T7, TSH, CMP #### [facility] [address] [address] [address] Nida Hall PROF 14(COMP METB)on 022 Albumin [Mass/Vol] 2.7 g/dL Critically low 3.4-5.0 [facility] Comment on above: Performed By: #### M G, T7, TSH, CMP #### [facility] [address] [place] [address] Dr. Nida Hall Albumin/Globulin [Mass ratio] 0.6 {ratio} Normal [facility] Comment on above: Performed By: #### M G, T7, TSH, CMP #### [facility] [address] [place] [address] Dr. Nida Hall ALP [Catalytic activity/Vol] 108 U/L Normal 46-116 [facility] Comment on above: Performed By: #### M G, T7, TSH, CMP #### [facility] [address] [place] [address] Dr. Nida Hall ALT [Catalytic activity/Vol] 17 U/L Normal 14-59 [facility] Comment on above: Performed By: #### M G, T7, TSH, CMP #### [facility] [address] [place] [address] Dr. Nida Hall Anion gap [Moles/Vol] 10.9 mmol/L Normal [facility] Comment on above: Performed By: #### M G, T7, TSH, CMP #### [facility] [address] [place] [address] Dr. Nida Hall AST [Catalytic activity/Vol] 23 U/L Normal 15-37 [facility] Comment on above: Performed By: #### M G, T7, TSH, CMP #### [facility] [address] [place] [address] Dr. Nida Hall Bilirubin [Mass/Vol] 0.3 mg/dL Normal 0.2-1.0 [facility] Comment on above: Performed By: #### M G, T7, TSH, CMP #### [facility] [address] [address] [address] Nida Hall Calcium [Mass/Vol] 8.7 mg/dL Normal 8.5-10.1 [facility] Comment on above: Performed By: #### M G, T7, TSH, CMP #### [facility] [address] [address] [address] Nida Hall Chloride [Moles/Vol] 107 mmol/L Normal 98-107 [facility] Comment on above: Performed By: #### M G, T7, TSH, CMP #### [facility] [address] [address] [address] Nida Hall CO2 [Moles/Vol] 27.9 mmol/L Normal 21.0-32.[address] [facility] Comment on above: Performed By: #### M G, T7, TSH, CMP #### [facility] [address] [place] [address] Dr. Nida Hall Creatinine [Mass/Vol] 0.88 mg/dL Normal 0.55-1.02 [facility] Comment on above: Performed By: #### M G, T7, TSH, CMP #### [facility] [address] [address] [address] Nida Hall EGFR-AF NIGERIEN >60 Normal >=[address] [facility] Comment on above: Performed By: #### M G, T7, TSH, CMP #### [facility] [facility] [address] [place] [address] Dr. Nida Hall EGFR-NON AF NIGERIEN >60 Normal >=60 [facility] Comment on above: Performed By: #### M G, T7, TSH, CMP #### [facility] [address] [address] [address] Nida Hall Globulin (S) [Mass/Vol] 4.2 g/dL Normal [facility] Comment on above: Performed By: #### M G, T7, TSH, CMP #### [facility] [address] [place] [address] Dr. Nida Hall Glucose [Mass/Vol] 101 mg/dL Normal 74-106 [facility] Comment on above: Performed By: #### M G, T7, TSH, CMP #### [facility] [address] [address] [address] Nida Hall Potassium [Moles/Vol] 3.8 mmol/L Normal 3.5-5.1 [facility] Comment on above: Performed By: #### M G, T7, TSH, CMP #### [facility] [address] [address] [address] Nida Hall Protein [Mass/Vol] 6.9 g/dL Normal 6.4-8.2 [facility] Comment on above: Performed By: #### M G, T7, TSH, CMP #### [facility] [address] [place] [address] Dr. Nida Hall Sodium [Moles/Vol] 142 mmol/L Normal 136-145 [facility] Comment on above: Performed By: #### M G, T7, TSH, CMP #### [facility] [address] [place] [address] Dr. Nida Hall Urea nitrogen [Mass/Vol] 21.0 mg/dL Critically high 7.0-18.0 [facility] Comment on above: Performed By: #### M G, T7, TSH, CMP #### [facility] [address] [place] [address] Dr. Nida Hall Urea nitrogen/Creatinine [Mass ratio] 23.9 mg/mg Normal [facility] Comment on above: Performed By: #### M G, T7, TSH, CMP #### [facility] [address] [place] [address] Dr. Nida Hall TSHon 11-12-2021 TSH 0.865 uIU/mL Normal 0.358-3.740 [facility] Comment on above: Performed By: #### M G, T7, TSH, CMP #### [facility] [address] [place] [address] Dr. Nida Hall URIC ACID SERUMon 11-12-2021 Urate [Mass/Vol] 4.7 mg/dL Normal 2.6-6.[address] [facility] Comment on above: Performed By: #### M G, T7, TSH, CMP #### [facility] [address] [address] [address] Nida Hall Encounters Encounter Date Encounter Type Care Provider Facility Start: 05-06-2022 End: 05-07-[address] CECIL ESQUEDA . Facility:[facility] Start: 11-12-2021 End: 11-13-[address] CECIL ESQUEDA . Facility:[facility] Start: 10-03-[address] CECIL ESQUEDA . Facili ty:[facility] Payers Date Payer Category Payer Medicare [id number] 1958 Self-pay 1945 Unknown [id number] 1945 Unknown [id number] 1945 Unknown [id number] Summary Purpose Family History No Family History [...] BE BASED ON THE PRIMARY CLINICAL RECORDS. [employer] provides no warranty or guarantee of the accuracy or completeness of information in this document.
[2023-09-03 09:27] LABS: Basophils Absolute Auto 0.1 10^3/uL (0.0-0.1); Basophils Percent Auto 0.9 % (0.2-2.0); Eosinophils Absolute Auto 0.1 10^3/uL (0.0-0.7); Eosinophils Percent Auto 1.4 % (0.9-7.0); Hematocrit 41.8 % (36.0-48.0); Hemoglobin 12.9 g/dL (12.0-16.0); Immature Granulocytes Abs Auto 0.02 10^3/uL (0.00-0.03); Immature Granulocytes Pct Auto 0.2 % (0.0-0.5); Lymphocytes Absolute Auto 2.4 10^3/uL (1.2-3.8); Lymphocytes Percent Auto 26.1 % (20.5-60.0); Mean Corpuscular HGB Conc 30.9 g/dL (29.9-35.2); Mean Corpuscular Hemoglobin 27.6 pg (26.7-34.0); Mean Corpuscular Volume 89.3 fL (81.0-99.0); Mean Platelet Volume 10.7 fL (9.5-13.5); Monocytes Absolute Auto 0.6 10^3/uL (0.3-0.8); Monocytes Percent Auto 6.3 % (1.7-12.0); Neutrophils Absolute Auto 6.1 10^3/uL (1.4-6.5); Neutrophils Percent Auto 65.1 % (43.0-75.0); Platelet Count 360 10^3/uL (150-450); Red Blood Count 4.68 10^6/uL (4.20-5.40); Red Cell Distribution Width 15.9 % (11.0-15.0); White Blood Count 9.3 10^3/uL (4.0-11.0)
[2023-09-03 09:50] LABS: Alanine Aminotransferase 13 U/L (14-59); Albumin Globulin Ratio 0.6; Albumin Level 2.6 g/dL (3.4-5.0); Alkaline Phosphatase 117 U/L (46-116); Anion Gap 11.3; Aspartate Amino Transferase 23 U/L (15-37); BUN Creatinine Ratio 18.9; Bilirubin Total 0.5 mg/dL (0.2-1.0); Calcium 9.1 mg/dL (8.5-10.1); Carbon Dioxide 27.2 mmol/L (21.0-32.0); Chloride 106 mmol/L (98-107); Estimated GFR (African America 58 (>=60); Estimated GFR (Non-African Ame 48 (>=60); Globulin 4.3 g/dL; Glucose 124 mg/dL (74-106); Potassium 4.5 mmol/L (3.5-5.1); Sodium 140 mmol/L (136-145); Total Protein 6.9 g/dL (6.4-8.2)
== END 2023-09-03 08:35 | disposition home or self-care (01) ==
LOC: LAB 08:34
PROVIDERS: PCP Family Medicine; Visit Provider Family Medicine
DX: R53.83 Other fatigue (principal)
CPT/HCPCS: 36415; 80053; 85025

== ENCOUNTER 2024-07-06 12:58 | Inpatient (IN) | payer MEDICARE, SELFPAY ==
[2024-07-06] VITALS (38 sets, daily range): BP systolic 90–143; BP diastolic 47–82; PULSE 112–128; TEMP 36.4–36.7; O2SAT 85–97; BMI 66.7; BMI 67.1
--- NOTE | 2024-07-06 13:09 | ECG_ITS ---
[facility] Test Date: 2024-07-06 Pat Name: GRACIE SLAUGHTER Department: Room: - Gender: Female [employer]: : 1945 Requested By: 1030 Order Number: [id number] Reading MD: JOSE MIGUEL ADAMS M.D. Measurements Intervals Soso Rate: 116 P: 45 TX: 122 QRS: -4 QRSD: 102 T: 142 QT: 340 QTc: 409 Interpretive Statements 1120 Sinus tachycardia 1470 with occasional supraventricular premature complexes Left ventricular hypertrophy by voltage criteria 9150 abnormal ECG Compared to ECG 06/19/2019 10:27:44 Short TX interval no longer present Electronically Signed On 07-06-2024 17:15:40 EDT by JSOE MIGUEL ADAMS M.D.
--- NOTE | 2024-07-06 13:11 | ED_ITS ---
HPI HPI - General Adult General Chief complaint: Abdominal Pain Stated complaint: ABDOMINAL PAIN Time Seen by Provider: 07/06/24 13:04 Source: patient Mode of arrival: ambulance Limitations: no limitations History of Present Illness HPI narrative: 79-year-old female presents for abdominal pain. It is all over her abdomen but she points to the middle part. It is not clear how long she has had this. She was at another hospital and was discharged from there to [facility] about a week ago. No trauma or fever or vomiting. She has not been able to eat and states she has been vomiting when she tries to eat or drink something. Related Data Allergies Allergy/AdvReac Type Severity Reaction Status Date / Time No Known Drug Allergies Allergy Verified 07/06/24 13:23 Opioid HPI Opioid Management Most Recent Opioid Data: No Data to Display Review of Systems ROS Narrative A ten point review of systems is negative except as noted above. PFSH PFSH Social History Little interest or pleasure in doing things: not at all Feeling down, depressed, or hopeless: not at all Exam Narrative Exam Narrative: Nurses note and vital signs reviewed and patient is not hypoxic. General: The patient appears in no apparent distress. Skin: Warm, dry, no pallor noted. There is no rash noted. Head: Normocephalic, atraumatic Eye: Normal conjunctiva, no drainage Ears, Nose, Mouth, and Throat: oral mucosa is moist. Nares patent. Cardiovascular: Regular Rate and Rhythm Respiratory: Patient is in no distress, no accessory muscle use, lungs are clear to auscultation, no wheezing, rales or rhonchi GI: Morbidly obese. Mild diffuse tenderness present Musculoskeletal: Lower extremities are obese and have wrappings around the lower legs. Neurological: A&O x4, normal speech Psychiatric: Cooperative Constitutional Vital Signs, click to edit/add: Last Vital Signs Temp 97.9 F 07/06/24 14:01 Pulse 116 H 07/06/24 15:01 Resp 18 07/06/24 15:01 BP 104/73 07/06/24 15:01 Pulse Ox 93 L 07/06/24 15:03 O2 Del Method Room Air 07/06/24 12:59 Course Vital Signs Vital signs: Vital Signs Pulse Rate 117 H 07/06/24 12:59 Respiratory Rate 22 H 07/06/24 12:59 Blood Pressure 90/66 07/06/24 12:59 Pulse Oximetry 97 07/06/24 12:59 Oxygen Delivery Method Room Air 07/06/24 12:59 Temperature 97.9 F 07/06/24 14:01 Pulse Rate 116 H 07/06/24 15:01 Respiratory Rate 18 07/06/24 15:01 Blood Pressure 104/73 07/06/24 15:01 Pulse Oximetry 93 L 07/06/24 15:03 Oxygen Delivery Method Room Air 07/06/24 12:59 Medical Decision Making MDM Narrative Medical decision making narrative: Her BUN and creatinine are elevated well above her baseline. She also has a mild increase in her amylase and lipase but her CT of the abdomen is negative. She was given IV fluids and is being admitted. Findings are discussed thoroughly with the patient and her family. WBC is elevated and she is on oral steroids. She was recently treated for cellulitis of her leg. Differential Diagnosis Differential Diagnosis: Diverticulitis, constipation, acute kidney injury Lab Data Lab results reviewed: Yes I reviewed the patient's lab results Labs: Lab Results 07/06/24 07/06/24 07/06/24 Range/Units 13:34 13:34 13:34 WBC 20.5 H (4.0-11.0) 10^3/uL RBC 3.71 L (4.20-5.40) 10^6/uL Hgb 10.9 L (12.0-16.0) g/dL Hct 36.1 (36.0-48.0) % MCV 97.3 (81.0-99.0) fL MCH 29.4 (26.7-34.0) pg MCHC 30.2 (29.9-35.2) g/dL RDW 16.9 H (11.0-15.0) % Plt Count 298 (150-450) 10^3/uL MPV 10.9 (9.5-13.5) fL Neut % (Auto) 86.6 H (43.0-75.0) % Lymph % (Auto) 5.2 L (20.5-60.0) % Island % (Auto) 7.2 (1.7-12.0) % Eos % (Auto) 0.1 L (0.9-7.0) % Baso % (Auto) 0.2 (0.2-2.0) % Neut # (Auto) 17.7 H (1.4-6.5) 10^3/uL Lymph # (Auto) 1.1 L (1.2-3.8) 10^3/uL Island # (Auto) 1.5 H (0.3-0.8) 10^3/uL Eos # (Auto) 0.0 (0.0-0.7) 10^3/uL Baso # (Auto) 0.0 (0.0-0.1) 10^3/uL Abs Immat Gran (auto) 0.15 H (0.00-0.03) 10^3/uL Imm/Tot Granulo (auto) 0.7 H (0.0-0.5) % Sodium 139 (136-145) mmol/L Potassium 4.3 (3.5-5.1) mmol/L Chloride 103 (98-107) mmol/L Carbon Dioxide 20.5 L (21.0-32.0) mmol/L Anion Gap 19.8 BUN 91.0 H* (7.0-18.0) mg/dL Creatinine 3.39 H (0.55-1.02) mg/dL Est GFR ( Amer) 16 L (>=60 mL/min/1.73m^2) Est GFR (Non-Af Amer) 13 L (>=60 mL/min/1.73m^2) BUN/Creatinine Ratio 26.8 Glucose 113 H (74-106) mg/dL Calcium 8.9 (8.5-10.1) mg/dL Total Bilirubin 0.7 0.7 (0.2-1.0) mg/dL Direct Bilirubin 0.3 H (0.0-0.2) mg/dL AST 37 40 H (15-37) U/L ALT 26 (14-59) U/L Alkaline Phosphatase (46-116) U/L Total Protein (6.4-8.2) g/dL Albumin (3.4-5.0) g/dL Globulin g/dL Albumin/Globulin Ratio Amylase (25-115) U/L Lipase (16.0-77.0) U/L 07/06/24 07/06/24 07/06/24 Range/Units 13:34 13:34 13:34 WBC (4.0-11.0) 10^3/uL RBC (4.20-5.40) 10^6/uL Hgb (12.0-16.0) g/dL Hct (36.0-48.0) % MCV (81.0-99.0) fL MCH (26.7-34.0) pg MCHC (29.9-35.2) g/dL RDW (11.0-15.0) % Plt Count (150-450) 10^3/uL MPV (9.5-13.5) fL Neut % (Auto) (43.0-75.0) % Lymph % (Auto) (20.5-60.0) % Island % (Auto) (1.7-12.0) % Eos % (Auto) (0.9-7.0) % Baso % (Auto) (0.2-2.0) % Neut # (Auto) (1.4-6.5) 10^3/uL Lymph # (Auto) (1.2-3.8) 10^3/uL Island # (Auto) (0.3-0.8) 10^3/uL Eos # (Auto) (0.0-0.7) 10^3/uL Baso # (Auto) (0.0-0.1) 10^3/uL Abs Immat Gran (auto) (0.00-0.03) 10^3/uL Imm/Tot Granulo (auto) (0.0-0.5) % Sodium (136-145) mmol/L Potassium (3.5-5.1) mmol/L Chloride (98-107) mmol/L Carbon Dioxide (21.0-32.0) mmol/L Anion Gap BUN (7.0-18.0) mg/dL Creatinine (0.55-1.02) mg/dL Est GFR ( Amer) (>=60 mL/min/1.73m^2) Est GFR (Non-Af Amer) (>=60 mL/min/1.73m^2) BUN/Creatinine Ratio Glucose (74-106) mg/dL Calcium (8.5-10.1) mg/dL Total Bilirubin (0.2-1.0) mg/dL Direct Bilirubin (0.0-0.2) mg/dL AST (15-37) U/L ALT 29 (14-59) U/L Alkaline Phosphatase 344 H 342 H (46-116) U/L Total Protein 6.0 L 6.0 L (6.4-8.2) g/dL Albumin 1.9 L (3.4-5.0) g/dL Globulin g/dL Albumin/Globulin Ratio Amylase (25-115) U/L Lipase (16.0-77.0) U/L 07/06/24 07/06/24 07/06/24 Range/Units 13:34 13:34 13:34 WBC (4.0-11.0) 10^3/uL RBC (4.20-5.40) 10^6/uL Hgb (12.0-16.0) g/dL Hct (36.0-48.0) % MCV (81.0-99.0) fL MCH (26.7-34.0) pg MCHC (29.9-35.2) g/dL RDW (11.0-15.0) % Plt Count (150-450) 10^3/uL MPV (9.5-13.5) fL Neut % (Auto) (43.0-75.0) % Lymph % (Auto) (20.5-60.0) % Island % (Auto) (1.7-12.0) % Eos % (Auto) (0.9-7.0) % Baso % (Auto) (0.2-2.0) % Neut # (Auto) (1.4-6.5) 10^3/uL Lymph # (Auto) (1.2-3.8) 10^3/uL Island # (Auto) (0.3-0.8) 10^3/uL Eos # (Auto) (0.0-0.7) 10^3/uL Baso # (Auto) (0.0-0.1) 10^3/uL Abs Immat Gran (auto) (0.00-0.03) 10^3/uL Imm/Tot Granulo (auto) (0.0-0.5) % Sodium (136-145) mmol/L Potassium (3.5-5.1) mmol/L Chloride (98-107) mmol/L Carbon Dioxide (21.0-32.0) mmol/L Anion Gap BUN (7.0-18.0) mg/dL Creatinine (0.55-1.02) mg/dL Est GFR ( Amer) (>=60 mL/min/1.73m^2) Est GFR (Non-Af Amer) (>=60 mL/min/1.73m^2) BUN/Creatinine Ratio Glucose (74-106) mg/dL Calcium (8.5-10.1) mg/dL Total Bilirubin (0.2-1.0) mg/dL Direct Bilirubin (0.0-0.2) mg/dL AST (15-37) U/L ALT (14-59) U/L Alkaline Phosphatase (46-116) U/L Total Protein (6.4-8.2) g/dL Albumin 1.9 L (3.4-5.0) g/dL Globulin 4.1 4.1 g/dL Albumin/Globulin Ratio 0.5 0.5 Amylase 273 H (25-115) U/L Lipase 404.0 H (16.0-77.0) U/L Imaging Data CT scan - abdomen: Radiologist's impression: System left kidney, no evidence of urinary tract calculi, no hydronephrosis, no local inflammatory changes, no free air or fluid seen, no dilated small or large bowel, visualized lung bases are negative ECG Data Attestation: I personally reviewed and interpreted this ECG as follows: (EKG on my interpretation shows sinus rhythm with a rate of 116) Discharge Plan Discharge Chief Complaint: Abdominal Pain Clinical Impression: Acute kidney injury Patient Disposition: Admitted As Inpatient Time of Disposition Decision: 16:42 Condition: Fair Print Language: Marshallese Referrals: Tony Clancy MD [Primary Care Provider] - 1 week
[2024-07-06] MEDS: 0.9 % SODIUM CHLORIDE 1,000 ML 125 ML IV (13:41)
[2024-07-06] MEDS: MORPHINE SULFATE 4 MG/ML VIAL IV (13:41)
[2024-07-06] MEDS: ONDANSETRON PF 4 MG/2 ML VIAL IV (13:41)
[2024-07-06 13:43] LABS: Basophils Percent Auto 0.2 % (0.2-2.0); Eosinophils Percent Auto 0.1 % (0.9-7.0); Hematocrit 36.1 % (36.0-48.0); Hemoglobin 10.9 g/dL (12.0-16.0); Immature Granulocytes Abs Auto 0.15 10^3/uL (0.00-0.03); Immature Granulocytes Pct Auto 0.7 % (0.0-0.5); Lymphocytes Absolute Auto 1.1 10^3/uL (1.2-3.8); Lymphocytes Percent Auto 5.2 % (20.5-60.0); Mean Corpuscular HGB Conc 30.2 g/dL (29.9-35.2); Mean Corpuscular Hemoglobin 29.4 pg (26.7-34.0); Mean Corpuscular Volume 97.3 fL (81.0-99.0); Mean Platelet Volume 10.9 fL (9.5-13.5); Monocytes Absolute Auto 1.5 10^3/uL (0.3-0.8); Monocytes Percent Auto 7.2 % (1.7-12.0); Neutrophils Absolute Auto 17.7 10^3/uL (1.4-6.5); Neutrophils Percent Auto 86.6 % (43.0-75.0); Platelet Count 298 10^3/uL (150-450); Red Blood Count 3.71 10^6/uL (4.20-5.40); Red Cell Distribution Width 16.9 % (11.0-15.0); White Blood Count 20.5 10^3/uL (4.0-11.0)
[2024-07-06 13:56] LABS: Alanine Aminotransferase 26 U/L (14-59); Albumin Globulin Ratio 0.5; Albumin Level 1.9 g/dL (3.4-5.0); Alkaline Phosphatase 344 U/L (46-116); Amylase 273 U/L (25-115); Aspartate Amino Transferase 37 U/L (15-37); Bilirubin Direct 0.3 mg/dL (0.0-0.2); Bilirubin Total 0.7 mg/dL (0.2-1.0); Globulin 4.1 g/dL
[2024-07-06 14:49] LABS: Alanine Aminotransferase 29 U/L (14-59); Albumin Globulin Ratio 0.5; Albumin Level 1.9 g/dL (3.4-5.0); Alkaline Phosphatase 342 U/L (46-116); Anion Gap 19.8; Aspartate Amino Transferase 40 U/L (15-37); BUN Creatinine Ratio 26.8; Bilirubin Total 0.7 mg/dL (0.2-1.0); Calcium 8.9 mg/dL (8.5-10.1); Carbon Dioxide 20.5 mmol/L (21.0-32.0); Chloride 103 mmol/L (98-107); Estimated GFR (African America 16 (>=60 mL/min/1.73m^2); Estimated GFR (Non-African Ame 13 (>=60 mL/min/1.73m^2); Globulin 4.1 g/dL; Glucose 113 mg/dL (74-106); Potassium 4.3 mmol/L (3.5-5.1); Sodium 139 mmol/L (136-145)
[2024-07-06] MEDS: 0.9 % SODIUM CHLORIDE 500 ML IV (15:30)
--- NOTE | 2024-07-06 17:02 | PC.NURSE ---
Called [facility] at this time to inform them of pt being admitted. Pt family remains at bedside. Pt states pain is tolerable at this time
--- OUTSIDE RECORDS SUMMARY | 2024-07-06 17:31 | XMS_ITS | CCD ---
Author Organization [facility] Care Team Providers Care Rack Cleaner Name Role Phone YIN ., DR JACOB [...] Unavailable HOY ., DR JACOB Consulting Unavailable Terry Trevizo DO Emergency Provider [phone] Cecil Clancy MD Primary Care Provider [phone] Alex Fishman MD Admit Provider [phone] Sravanthi PETERSON, Alex Attending Provider Jass Naqvi MD Other Provider Max Pacheco MD Other Provider Anne Marie Pedroza DPM Other Provider Alex Fishman Attending Unavailable Alex Fishman Admitting Unavailable Jass Naqvi Consulting Unavailable Cecil Clancy Primary Care Unavailable Max Pacheco Consulting Unavailable Anne Marie Pedroza Unavailable Medications Current Medications Medication Drug Class(es) Dates Sig (Normalized) Sig (Original) acetaminophen 500 mg oral tablet (1 source) Start: 5 take 1-3 tablets by mouth every six hours as needed for pain Acetaminophen 500 mg Tablet Active 1000 MG PO Every 6 hours as needed for Pain Scale 1 - 3 or fever 0 June 26, 2024 12:00am clopidogrel 75 mg oral tablet (2 sources) P2Y12 Platelet Inhibitor Start: 5 take 1 tablet by mouth once daily in the morning Clopidogrel 75 mg tablet Active 75 MG PO Every morning June 20, 2024 12:00am DULoxetine 60 mg delayed release oral capsule (2 sources) Serotonin and Norepinephrine Reuptake Inhibitor Start: 5 take 1 capsule by mouth once daily in the morning Duloxetine 60 mg capsule,delayed release(DR/EC) Active 60 MG PO Every morning June 20, 2024 12:00am lansoprazole 30 mg delayed release oral capsule (2 sources) Proton Pump Inhibitor Start: 5 take 1 capsule by mouth once daily at bedtime Lansoprazole 30 mg capsule,delayed release(DR/EC) Active 30 MG PO Daily at bedtime June 20, 2024 12:00am latanoprost 0.05 mg/ml ophthalmic solution (2 sources) Prostaglandin Analog Start: 5 take 1 drop(s) into the eye(s) once daily at bedtime Latanoprost 0.005 % drops Active 1 DROPS EYE-BOTH Daily at bedtime June 20, 2024 12:00am levothyroxine sodium 0.1 mg oral tablet (2 sources) l-Thyroxine Start: 5 take 1 tablet by mouth once daily in the morning Levothyroxine (Synthroid) 100 mcg tablet Active 100 MCG PO Every morning June 20, 2024 12:00am melatonin 5 mg oral tablet (1 source) Start: 5 take 1 tablet by mouth once daily at bedtime as needed Melatonin 5 mg Tablet Active 5 MG PO Daily at bedtime as needed for Insomnia 0 June 26, 2024 12:00am meloxicam 15 mg oral tablet (2 sources) Nonsteroidal Anti-inflammatory Drug Start: 5 take 1 tablet by mouth once daily in the morning Meloxicam 15 mg tablet Active 15 MG PO Every morning June 20, 2024 12:00am methylPREDNISolone 4 mg oral tablet (1 source) Corticosteroid Start: 5 take 2 tablets by mouth once daily Methylprednisolone 4 mg Tablet Active 8 MG PO Daily 0 June 26, 2024 12:00am metoprolol tartrate 50 mg oral tablet (2 sources) beta-Adrenergic Gordy Start: 5 take 1 tablet by mouth twice daily Metoprolol Tartrate 50 mg tablet Active 50 MG PO Twice daily June 20, 2024 12:00am 24 hr mirabegron 25 mg extended release oral tablet (2 sources) beta3-Adrenergic Agonist Start: take 1 tablet by mouth once daily in the morning Mirabegron (Myrbetriq) 50 mg tablet extended release 24 hr Active 25 MG PO Every morning June 20, 2024 12:00am raloxifene hydrochloride 60 mg oral tablet (2 sources) Estrogen Agonist/Antagonist Start: take 1 tablet by mouth once daily in the morning Raloxifene 60 mg tablet Active 60 MG PO Every morning June 20, 2024 12:00am Completed/Discontinued Medications Medication Drug Class(es) Dates Sig (Normalized) Sig (Original) predniSONE 10 mg oral tablet (2 sources) Start: 06-20-2024 End: 06-26-2024 take 1 tablet by mouth once daily in the morning Prednisone 10 mg tablet Discontinued 10 MG PO Every morning June 20, 2024 12:00am June 26, 2024 3:27pm Problems Active Problems Problem Classification Problem Date Documented Date Episodic/Chronic Deficiency and other anemia (1 source) Anemia, unspecified; Translations: [ANEMIA UNSPECIFIED] Onset: 05-11-2022 Episodic Diabetes mellitus without complication (1 source) Other abnormal glucose; Translations: [OTHER ABNORMAL GLUCOSE] Onset: 05-11-2022 Episodic Diseases of white blood cells (3 sources) Leukocytosis; Translations: [Elevated white blood cell count, unspecified] Onset: 06-20-2024 06-23-2024 Chronic Disorders of lipid metabolism (1 source) Hyperlipidemia, unspecified; Translations: [HYPERLIPIDEMIA UNSPECIFIED] Onset: 11-14-2021 Chronic Essential hypertension (6 sources) Essential (primary) hypertension; Translations: [Hypertensive disorder] Onset: 11-14-2021 06-20-2024 Chronic Fracture of lower limb (3 sources) Metatarsal bone fracture; Translations: [Displaced fracture of fifth metatarsal bone, left foot, initial encounter for closed fracture] Onset: 06-20-2024 06-22-2024 Episodic 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) Gout, unspecified; Translations: [GOUT UNSPECIFIED] Onset: 11-14-2021 Chronic Malaise and fatigue (10 sources) Other fatigue; Translations: [Asthenia] Onset: 11-14-2021 Episodic Nutritional deficiencies (1 source) Vitamin D deficiency, unspecified; Translations: [VITAMIN D DEFICIENCY UNSPECIFIED] Onset: 11-14-2021 Chronic Open wounds of head; neck; and trunk (8 sources) Laceration - injury; Translations: [Open wound(s) (multiple) of unspecified site(s), without mention of complication] 06-20-2024 Episodic Other aftercare (2 sources) Long-term current use of steroid; Translations: [Long-term (current) use of steroids] 06-23-2024 Episodic Other connective tissue disease (2 sources) Recurrent falls ; Translations: [Repeated falls] 06-20-2024 Episodic Other connective tissue disease (3 sources) Repeated falls; Translations: [History of fall] Onset: 06-20-2024 06-20-2024 Episodic Other diseases of veins and lymphatics (1 source) Lymphedema; Translations: [Lymphedema, not elsewhere classified] 06-20-2024 Chronic Other diseases of veins and lymphatics (2 sources) Lymphedema, not elsewhere classified; Translations: [Other lymphedema] Onset: 06-20-2024 06-26-2024 Chronic Other diseases of veins and lymphatics (1 source) Venous insufficiency of leg; Translations: [Venous insufficiency (chronic) (peripheral)] 06-23-2024 Episodic Other diseases of veins and lymphatics (2 sources) Venous insufficiency (chronic) (peripheral); Translations: [Venous (peripheral) insufficiency, unspecified] Onset: 06-20-2024 06-26-2024 Episodic Other injuries and conditions due to external causes (1 source) Injury of lower extremity; Translations: [Unspecified injury of unspecified lower leg, initial encounter] 06-20-2024 Episodic Other injuries and conditions due to external causes (1 source) Contusion; Translations: [Unspecified multiple injuries, initial encounter] 06-23-2024 Episodic Other injuries and conditions due to external causes (2 sources) Unspecified multiple injuries, initial encounter; Translations: [Contusion of multiple sites, not elsewhere classified] Onset: 06-20-2024 06-26-2024 Episodic Other injuries and conditions due to external causes (1 source) Unspecified injury of unspecified lower leg, initial encounter; Translations: [Knee, leg, ankle, and foot injury] 06-26-2024 Episodic Other injuries and conditions due to external causes (1 source) Unspecified injury of left lower leg, initial encounter; Translations: [Unspecified injury of left lower leg, initial encounter] Onset: 06-20-2024 Episodic Other nervous system disorders (1 source) Reduced mobility; Translations: [Other abnormalities of gait and mobility] 06-20-2024 Episodic Other nervous system disorders (2 sources) Other abnormalities of gait and mobility; Translations: [Other symptoms involving nervous and musculoskeletal systems] Onset: 06-20-2024 06-26-2024 Episodic Spondylosis; intervertebral disc disorders; other back problems (3 sources) Backache; Translations: [Dorsalgia, unspecified] Onset: 06-20-2024 06-23-2024 Episodic Unclassified (1 source) A [facility] screening has identified you as FRAIL or AT RISK FOR FRAILTY. This puts you at a higher risk for infection, illness, falls, and other injuries. Here are four ways to help you reduce your risk of frailty: 1. IDENTIFY EARLY SIGNS OF FRAILTY Discuss contributing factors and concerns with your doctor 2. BE ACTIVE Walking and light strengthening exercises will help reduce weakness 3. EAT WELL Aim for three healthy meals a day that are high in protein 4. THINK POSITIVE Keep your mind active by being sociable and continuing to learn References: Stay Strong: Four Ways to Beat the Frailty Risk [email or web address].org/health/wel xibsf-teo-ohaunbhbfl/ wbfy-grorcw-nlqr-ways -ei-mhiy-uad-fra ilty-risk 06-21-2024 Urinary tract infections (3 sources) Urinary tract infectious disease; Translations: [Urinary tract infection, site not specified] Onset: 06-20-2024 06-23-2024 Episodic Past or Other Problems Problem Classification Problem Date Documented Da te Episodic/Chronic Cardiac dysrhythmias (4 sources) Palpitations; Translations: [PALPITATIONS] Onset: 11-12-2021 Episodic Results Test Name Value Interpretation Reference Range Facility Anisocytosis LM Ql (Bld)Orde red By: Fco Buck on 06-26-2024 Anisocytosis Ql (Bld) Anisocytosis [Presence] in Blood by Light microscopy [facility] B-Type Natriuretic Peptideon 06-26-2024 Natriuretic peptide B (Bld) [Mass/Vol] 35.0 pg/mL Normal 5-100 [facility] Comment on above: Order Comment: Comme nt addon Result Comment: PERF ORMED BY: [place] [address] PATHOLOGIST SUPERVISOR HOUSECLEANER KATHERYN CRISTINA M.D. Performed By: #### C BC, CMP #### [address] Basic Metabolic Panelon 04-0 Anion gap [Moles/Vol] 12.3 mmol/L Normal 6.0-15.0 [facility] Comment on above: Performed By: #### C BC, CMP #### [address] Calcium [Mass/Vol] 8.3 mg/dL Low 8.6-10.3 [facility] Comment on above: Performed By: #### C BC, CMP #### [address] Chloride [Moles/Vol] 104 mmol/L Normal 98-107 [facility] Comment on above: Performed By: #### C BC, CMP #### [address] CO2 [Moles/Vol] 24.8 mmol/L Normal 21.0-31.0 [facility] Comment on above: Performed By: #### C BC, CMP #### [address] Creatinine [Mass/Vol] 1.30 mg/dL High 0.60-1.20 [facility] Comment on above: Performed By: #### C BC, CMP #### [address] Creatinine Clr Calc Pharmacy 55.85 Normal [facility] Comment on above: Result Comment: PERF ORMED BY: [place] [address] PATHOLOGIST SUPERVISOR HOUSECLEANER KATHERYN CRISTINA M.D. Performed By: #### C BC, CMP #### [place] [address] [place] Estimated GFR 42.090 mL/Min Normal [facility] Comment on above: Performed By: #### C BC, CMP #### [facility] [address] Glucose [Mass/Vol] 137 mg/dL High 70-100 [facility] Comment on above: Result Comment: [facility][note 3] Glucose Reference Range is dependent on time and content of last meal. Glucose of more than 200 mg/dL in a nonstressed, ambulatory subject supports the diagnosis of Diabetes Mellitus. ADA recommended reference range Performed By: #### C BC, CMP #### [facility] [address] Potassium [Moles/Vol] 4.1 mmol/L Normal 3.5-5.1 [facility] Comment on above: Performed By: #### C BC, CMP #### [address] Sodium [Moles/Vol] 137 mmol/L Normal 136-145 [facility] Comment on above: Performed By: #### C BC, CMP #### [address] Urea nitrogen [Mass/Vol] 46 mg/dL High 7-25 [facility] Comment on above: Performed By: #### C BC, CMP #### [address] Basophils Auto (Bld) [#/Vol] Ordered By: Fco Buck on 06-26-2024 Basophils (Bld) [#/Vol] Automated basoph il count [facility] Basophils/100 WBC Auto (Bld) Ordered By: Fco Buck on 06-26-2024 Basophils/100 WBC (Bld) Automated basophil % [facility] Basophils/100 WBC Manual cnt (Bld)Ordered By: Fco Buck on 06-26-2024 Basophils/100 WBC (Bld) Basophils/100 leukocytes in Blood by Manual count 0-2 [facility] Calcium [Mass/volume] in Ser um or PlasmaOrdered By: Fco Buck on 06-26-2024 Calcium [Mass/Vol] Calcium [Mass/volume] in Serum or Plasma Low 8.6-10.3 [facility] Carbon dioxide, total [Moles /volume] in Serum or PlasmaOrdered By: Fco Buck on 06-26-2024 CO2 [Moles/Vol] Carbon dioxide, total [Moles/volume] in Serum or Plasma 21.0-31.0 [facility] Chloride [Moles/volume] in S janet or PlasmaOrdered By: Fco Buck on 06-26-2024 Chloride [Moles/Vol] Chloride [Moles/volume] in Serum or Plasma 98-107 [facility] Cortisolon 06-26-2024 Cortisol 4.5 ug/dL Normal [facility] Comment on above: Result Comment: Refe rence range: AM 6 - 24 ug/dl PM <10 ug/dl [facility] cloth mercerizer back tender and method: ApeniMEDEL DXI, POLYCLONAL ANTIBODY CORTISOL ASSAY. PERFORMED BY: [address] [place] [address] PATHOLOGIST SUPERVISOR HOUSECLEANER KATHERYN CRISTINA M.D. Performed By: #### C BC, CMP #### [facility] [address] [place] [address] Cortisol [Mass/volume] in Se rum or PlasmaOrdered By: Fco Buck on 06-26-2024 Cortisol [Mass/Vol] Random cortisol measurement [facility] Comment on above: [facility] cloth mercerizer back tender and method:[facility] UNICEL DXI, POLYCLONAL ANTIBODY CORTISOL ASSAY.Reference range: AM 6 - 24 ug/dl PM <10 ug/dl Creatinine [Mass/volume] in Serum or PlasmaOrdered By: Fco Buck on 06-26-2024 Creatinine [Mass/Vol] Creatinine [Mass/volume] in Serum or Plasma High 0.60-1.20 [facility] Diff and CBCon 06-26-2024 Anisocytosis Ql (Bld) Slight Normal [facility] Comment on above: Performed By: #### D IFF CBC #### [facility] [address] [place] [address] [place] Basophils/100 WBC (Bld) 1 % Normal 0-2 [facility] Comment on above: Performed By: #### D IFF CBC #### [address] Erythrocyte distribution width (RBC) [Ratio] 16.7 % High 11.9-15.3 [facility] Comment on above: Performed By: #### D IFF CBC #### [address] Giant Platelet Tally 1 /100{WBC} Normal [facility] Comment on above: Performed By: #### D IFF CBC #### [address] Hematocrit (Bld) [Volume fraction] 29.1 % Low 34.0-46.4 [facility] Comment on above: Performed By: #### D IFF CBC #### [address] Hemoglobin (Bld) [Mass/Vol] 9.3 g/dL Low 11.8-15.4 [facility] Comment on above: Performed By: #### D IFF CBC #### [address] Lymphocytes/100 WBC (Bld) 13 % Low 18-42 [facility] Comment on above: Performed By: #### D IFF CBC #### [address] MCH (RBC) [Entitic mass] 29.7 pg Normal 24.7-34.3 [facility] Comment on above: Performed By: #### D IFF CBC #### [address] MCV (RBC) [Entitic vol] 92.7 fL Normal 80-100 [facility] Comment on above: Performed By: #### D IFF CBC #### [address] Mean Corpuscular HGB Conc 32.0 g/dL Normal 32.0-35.0 [facility] Comment on above: Performed By: #### D IFF CBC #### [place] [address] [place] Microcytosis Slight Normal [facility] Comment on above: Performed By: #### D IFF CBC #### [facility] [address] [place] [address] [place] Monocytes/100 WBC (Bld) 8 % Normal 2-11 [facility] Comment on above: Performed By: #### D IFF CBC #### [facility] [address] [place] [address] [place] Nucleated Red Blood Cell 1 /100{WBC} High 0-0 [facility] Comment on above: Performed By: #### D IFF CBC #### [facility] [address] Platelet Estimate Normal Normal Normal [facility] Comment on above: Performed By: #### D IFF CBC #### [facility] [address] Platelet mean volume (Bld) [Entitic vol] 8.3 fL Normal 6.3-10.7 [facility] Comment on above: Result Comment: PERF ORMED BY: [place] [address] PATHOLOGIST SUPERVISOR HOUSECLEANER KATHERYN CRISTINA M.D. Performed By: #### D IFF CBC #### [address] Platelet Morphology Normal Normal Normal [facility] Comment on above: Result Comment: PERF ORMED BY: [place] [address] PATHOLOGIST SUPERVISOR HOUSECLEANER KATHERYN CRISTINA M.D. Performed By: #### D IFF CBC #### [facility] [address] [place] [address] [place] Platelets (Bld) [#/Vol] 327 10*3/uL Normal 150-450 [facility] Comment on above: Performed By: #### D IFF CBC #### [facility] [address] [place] [address] [place] Polychromasia Slight Normal [facility] Comment on above: Performed By: #### D IFF CBC #### [facility] [address] Promyelocytes 1 % High 0-0 [facility] Comment on above: Performed By: #### D IFF CBC #### [facility] [address] RBC (Bld) [#/Vol] 3.14 10*6/uL Low 3.60-5.00 [facility] Comment on above: Performed By: #### D IFF CBC #### [facility] [address] [place] [address] Segmented neutrophils/100 WBC (Bld) 78 % High 50-70 [facility] Comment on above: Performed By: #### D IFF CBC #### [facility] [address] [place] [address] WBC (Bld) [#/Vol] 12.5 10*3/uL High 3.8-11.6 [facility] Comment on above: Performed By: #### D IFF CBC #### [address] Eosinophils Auto (Bld) [#/Vo l]Ordered By: Fco Buck on 06-26-2024 Eosinophils (Bld) [#/Vol] Automated eosinophil count [facility] Eosinophils/100 WBC Auto (Bl d)Ordered By: Fco Buck on 06-26-2024 Eosinophils/100 WBC (Bld) Automated eosinophil % [facility] Erythrocyte distribution wid th Auto (RBC) [Ratio]Ordered By: Fco Buck on 06-26-2024 Erythrocyte distribution width (RBC) [Ratio] Erythrocyte distribution width [Ratio] by Automated count High 11.9-15.3 [facility] Erythrocyte morphology findi ng [Identifier] in BloodOrdered By: Fco Buck on 06-26-2024 RBC morphology finding Nom (Bld) RBC morphology [facility] Giant platelets/100 leukocyt es [Ratio] in Blood by Manual countOrdered By: Fco Buck on 06-26-2024 Giant platelets/100 WBC Manual cnt (Bld) [Ratio] Giant platelets/100 leukocytes [Ratio] in Blood by Manual count [facility] Glucose [Mass/volume] in Ser um or PlasmaOrdered By: Fco Buck on 06-26-2024 Glucose [Mass/Vol] Glucose [Mass/volume] in Serum or Plasma High 70-100 [facility] Comment on above: ADA recommended refe rence rangeRandom Glucose Reference Range is dependent on time and content of last meal. Glucose of more than 200 mg/dL in a nonstressed, ambulatory subject supports the diagnosis of Diabetes Mellitus. Hematocrit Auto (Bld) [Volum e fraction]Ordered By: Fco Buck on 06-26-2024 Hematocrit (Bld) [Volume fraction] Hematocrit [Volume Fraction] of Blood by Automated count Low 34.0-46.4 [facility] Hemoglobin [Mass/volume] in BloodOrdered By: Fco Buck on 06-26-2024 Hemoglobin (Bld) [Mass/Vol] Hemoglobin [Mass/volume] in Blood Low 11.8-15.4 [facility] Leukocytes [#/volume] correc maryanne for nucleated erythrocytes in Blood by Automated counOrdered By: Fco Buck on 06-26-2024 WBC corrected for nucl RBC Auto (Bld) [#/Vol] Leukocytes [#/volume] corrected for nucleated erythrocytes in Blood by Automated coun High 3.8-11.6 [facility] Lymphocytes Auto (Bld) [#/Vo l]Ordered By: Fco Buck on 06-26-2024 Lymphocytes (Bld) [#/Vol] Lymphocytes [#/volume] in Blood by Automated count [facility] Lymphocytes/100 WBC Auto (Bl d)Ordered By: Fco Buck on 06-26-2024 Lymphocytes/100 WBC (Bld) Lymphocytes/100 leukocytes in Blood by Automated count [facility] Lymphocytes/100 WBC Manual c nt (Bld)Ordered By: Fco Buck on 06-26-2024 Lymphocytes/100 WBC (Bld) Lymphocytes/100 leukocytes in Blood by Manual count Low 18-42 [facility] MCH Auto (RBC) [Entitic mass ]Ordered By: Fco Buck on 06-26-2024 MCH (RBC) [Entitic mass] MCH [Entitic ma ss] by Automated count 24.7-34.3 [facility] MCHC Auto (RBC) [Mass/Vol]Or dered By: Fco Buck on 06-26-2024 MCHC (RBC) [Mass/Vol] MCHC [Mass/volume] by Automated count 32.0-35.0 [facility] MCV Auto (RBC) [Entitic vol] Ordered By: Fco Buck on 06-26-2024 MCV (RBC) [Entitic vol] MCV [Entitic vol ume] by Automated count 80-100 [facility] Microcytes LM Ql (Bld)Ordere d By: Fco Buck on 06-26-2024 Microcytes Ql (Bld) Microcytes [Presence] in Blood by Light microscopy [facility] Monocytes Auto (Bld) [#/Vol] Ordered By: Fco Buck on 06-26-2024 Monocytes (Bld) [#/Vol] Automated blood monocyte count [facility] Monocytes/100 WBC Auto (Bld) Ordered By: Fco Bcuk on 06-26-2024 Monocytes/100 WBC (Bld) Automated monocyte % [facility] Monocytes/100 WBC Manual cnt (Bld)Ordered By: Fco Buck on 06-26-2024 Monocytes/100 WBC (Bld) Monocytes/100 leukocytes in Blood by Manual count 2-11 [facility] NM bone scan whole bodyon NM bone scan whole body [facility] [place] [address] Nuclear Medicine Report Signed Patient: Molly Navas MR#: [id number] 75 : 1945 Acct:[id number] Age/Sex: 79 / F ADM Date: 06/20/24 Loc: Room: [address] [place] [address] Type: ADM IN Attending Dr: Alex Fishman MD Copies to: MD Kingston Andrade Jr, DO Max Pacheco MD Ordering Provider: Max Pacheco MD Date of Service: 06/26/24 NM/NM bone scan whole body: low back pain after fall DOSE ORDERD WHOLE-BODY BONE SCAN: CLINICAL HISTORY: Fall 6 days ago, back pain. COMPARISON: CT abdomen and pelvis 06/22/2024 TECHNIQUE: Following the intravenous administration of 24.1 mCi of technetium 99m labeled MDP, delayed minified views of the entire skeleton were obtained. FINDINGS: There is normal distribution of radionucleotide within the axial and appendicular skeleton. Focal area of increased radiotracer activity is seen involving 2 vertebral bodies in the region of the thoracolumbar junction. No acute fracture line or significant vertebral body height loss is seen on the concurrent CT within this region. Additional activity is seen involving the shoulder and SC joints suggestive of degenerative change. NM/NM bone scan whole body IMPRESSION: FOCAL AREA OF INCREASED RADIOTRACER ACTIVITY IS SEEN INVOLVING 2 VERTEBRAL BODIES IN THE REGION OF THE THORACOLUMBAR JUNCTION WITHOUT DEFINITIVE FRACTURE LINE OR SIGNIFICANT VERTEBRAL BODY HEIGHT LOSS ON THE CONCURRENT CT. GIVEN THE HISTORY, UNDERLYING OCCULT FRACTURES CANNOT BE EXCLUDED. Impression dictated by: Kingston Linder Jr., D.O.06/26/2024 3:02 PM Dictation Location: [place] [address] Transcribed By: [facility] 06/26/24 1502 Dictated By: Kingston Linder Jr, DO 06/26/24 1500 Signed By: 06/26/24 1502 Normal [facility] Natriuretic peptide B [Mass/ Vol]Ordered By: Alex Fishman on 06-26-2024 Natriuretic peptide B (Bld) [Mass/Vol] BNP ser/plas 5-100 [facility] Neutrophils Auto (Bld) [#/Vo l]Ordered By: Fco Buck on 06-26-2024 Neutrophils (Bld) [#/Vol] Neutrophils [#/volume] in Blood by Automated count [facility] Neutrophils/100 WBC Auto (Bl d)Ordered By: Fco Buck on 06-26-2024 Neutrophils/100 WBC (Bld) Automated neutrophil % [facility] No Panel InformationOrdered By: Fco Buck on 06-26-2024 Estimated GFR (CKD-EPI) 42.090 mL/Min [facility] Creatinine Clearance (Chem 55.85 [facility] Nucleated RBC/100 WBC Manual cnt (Bld) [Ratio]Ordered By: Fco Buck on 06-26-2024 Nucleated RBC/100 WBC (Bld) [Ratio] Nucleated erythrocytes/100 leukocytes [Ratio] in Blood by Manual count High 0-0 [facility] Nucleated erythrocytes [Pres ence] in Blood by Automated countOrdered By: Fco Buck on 06-26-2024 Nucleated RBC Auto Ql (Bld) Nucleated erythrocytes [Presence] in Blood by Automated count [facility] Platelet adequacy [Presence] in Blood by Light microscopyOrdered By: Fco Buck on 06-26-2024 Platelets LM Ql (Bld) Platelet adequacy [Presence] in Blood by Light microscopy Normal [facility] Platelet mean volume Auto (B ld) [Entitic vol]Ordered By: Fco Buck on 06-26-2024 Platelet mean volume (Bld) [Entitic vol] Platelet mean volume [Entitic volume] in Blood by Automated count 6.3-10.7 [facility] Platelet morphology finding [Identifier] in BloodOrdered By: Fco Buck on 06-26-2024 Platelet morphology finding Nom (Bld) Platelet morphology finding [Identifier] in Blood Normal [facility] Platelets Auto (Bld) [#/Vol] Ordered By: Fco Buck on 06-26-2024 Platelets (Bld) [#/Vol] Platelets [#/vol ume] in Blood by Automated count 150-450 [facility] Polychromasia [Presence] in Blood by Light microscopyOrdered By: Fco Buck on 06-26-2024 Polychromasia LM Ql (Bld) Polychromasia [Presence] in Blood by Light microscopy [facility] Potassium [Moles/volume] in Serum or PlasmaOrdered By: Fco Buck on 06-26-2024 Potassium [Moles/Vol] Potassium [Moles/volume] in Serum or Plasma 3.5-5.1 [facility] Promyelocytes/100 WBC Manual cnt (Bld)Ordered By: Fco Buck on 06-26-2024 Promyelocytes/100 WBC (Bld) Promyelocytes/100 leukocytes in Blood by Manual count High 0-0 [facility] RBC Auto (Bld) [#/Vol]Ordere d By: Fco Buck on 06-26-2024 RBC (Bld) [#/Vol] Erythrocytes [#/volume] in Blood by Automated count Low 3.60-5.00 [facility] Segmented neutrophils/100 WB C Manual cnt (Bld)Ordered By: Fco Buck on 06-26-2024 Segmented neutrophils/100 WBC (Bld) Manual blood segmented neutrophils/100 leukocytes High 50-70 [facility] Serum or plasma anion gap de terminationOrdered By: Fco Buck on 06-26-2024 Anion gap [Moles/Vol] Serum or plasma anion gap determination 6.0-15.0 [facility] Sodium [Moles/volume] in Ser um or PlasmaOrdered By: cFo Buck on 06-26-2024 Sodium [Moles/Vol] Sodium [Moles/volume] in Serum or Plasma 136-145 [facility] Urea nitrogen [Mass/volume] in Serum or PlasmaOrdered By: Fco Buck on 06-26-2024 Urea nitrogen [Mass/Vol] Urea nitrogen [Mass/volume] in Serum or Plasma High 7-25 [facility] WBC Auto (Bld) [#/Vol]Ordere d By: Fco Buck on 06-26-2024 WBC (Bld) [#/Vol] Leukocytes [#/volume] in Blood by Automated count High 3.8-11.6 [facility] Band form neutrophils/100 WB C Manual cnt (Bld)Ordered By: Fco Buck on 06-25-2024 Band form neutrophils/100 WBC (Bld) Peripheral white blood cell differential % bands, microscopic exam 0-5 [facility] Basic Metabolic Panelon 04-0 Anion gap [Moles/Vol] 11.0 mmol/L Normal 6.0-15.0 [facility] Comment on above: Performed By: #### B MP #### [facility] [address] [place] [address] [place] Calcium [Mass/Vol] 8.4 mg/dL Low 8.6-10.3 [facility] Comment on above: Performed By: #### B MP #### [facility] [address] [place] [address] [place] Chloride [Moles/Vol] 104 mmol/L Normal 98-107 [facility] Comment on above: Performed By: #### B MP #### [address] CO2 [Moles/Vol] 25.1 mmol/L Normal 21.0-31.0 [facility] Comment on above: Performed By: #### B MP #### [address] Creatinine [Mass/Vol] 1.45 mg/dL High 0.60-1.20 [facility] Comment on above: Performed By: #### B MP #### [address] Creatinine Clr Calc Pharmacy 50.03 Normal [facility] Comment on above: Result Comment: PERF ORMED BY: [place] [address] PATHOLOGIST SUPERVISOR [employer]SECLE[employer] KATHERYN CRISTINA M.D. Performed By: #### B MP #### [address] Estimated GFR 36.921 mL/Min Normal [facility] Comment on above: Performed By: #### B MP #### [address] Glucose [Mass/Vol] 131 mg/dL High 70-100 [facility] Comment on above: Result Comment: [place] Glucose Reference Range is dependent on time and content of last meal. Glucose of more than 200 mg/dL in a nonstressed, ambulatory subject supports the diagnosis of Diabetes Mellitus. ADA recommended reference range Performed By: #### B MP #### [address] Potassium [Moles/Vol] 4.1 mmol/L Normal 3.5-5.1 [facility] Comment on above: Performed By: #### B MP #### [place] [address] [place] Sodium [Moles/Vol] 136 mmol/L Normal 136-145 [facility] Comment on above: Performed By: #### B MP #### [address] Urea nitrogen [Mass/Vol] 49 mg/dL High 7-25 [facility] Comment on above: Performed By: #### B MP #### [address] Diff and CBCon 06-25-2024 Anisocytosis Ql (Bld) Slight Normal [facility] Comment on above: Performed By: #### C BC, CMP #### [address] Band form neutrophils/100 WBC (Bld) 5 % Normal 0-5 [facility] Comment on above: Performed By: #### C BC, CMP #### [address] Basophils/100 WBC (Bld) 1 % Normal 0-2 [facility] Comment on above: Performed By: #### C BC, CMP #### [address] Erythrocyte distribution width (RBC) [Ratio] 16.3 % High 11.9-15.3 [facility] Comment on above: Performed By: #### C BC, CMP #### [address] Hematocrit (Bld) [Volume fraction] 27.0 % Low 34.0-46.4 [facility] Comment on above: Performed By: #### C BC, CMP #### [address] Hemoglobin (Bld) [Mass/Vol] 8.8 g/dL Low 11.8-15.4 [facility] Comment on above: Performed By: #### C BC, CMP #### [address] Lymphocytes/100 WBC (Bld) 5 % Low 18-42 [facility] Comment on above: Performed By: #### C BC, CMP #### [address] MCH (RBC) [Entitic mass] 30.3 pg Normal 24.7-34.3 [facility] Comment on above: Performed By: #### C BC, CMP #### [address] MCV (RBC) [Entitic vol] 93.1 fL Normal 80-100 [facility] Comment on above: Performed By: #### C BC, CMP #### [address] Mean Corpuscular HGB Conc 32.5 g/dL Normal 32.0-35.0 [facility] Comment on above: Performed By: #### C BC, CMP #### [address] Metamyelocytes 2 % High 0-0 [facility] Comment on above: Performed By: #### C BC, CMP #### [address] Microcytosis Slight Normal [facility] Comment on above: Performed By: #### C BC, CMP #### [place] [address] [place] Monocytes/100 WBC (Bld) 5 % Normal 2-11 [facility] Comment on above: Performed By: #### C BC, CMP #### [place] [address] [place] Nucleated Red Blood Cell 4 /100{WBC} High 0-0 [facility] Comment on above: Performed By: #### C BC, CMP #### [place] [address] [place] Platelet Estimate Normal Normal Normal [facility] Comment on above: Performed By: #### C BC, CMP #### [place] [address] [place] Platelet mean volume (Bld) [Entitic vol] 8.2 fL Normal 6.3-10.7 [facility] Comment on above: Performed By: #### C BC, CMP #### [address] Platelet Morphology Normal Normal Normal [facility] Comment on above: Result Comment: PERF ORMED BY: [place] [phone] PATHOLOGIST SUPERVISOR [employer]SECLE[employer] KATHERYN CRISTINA M.D. Performed By: #### C BC, CMP #### [address] Platelets (Bld) [#/Vol] 290 10*3/uL Normal 150-450 [facility] Comment on above: Performed By: #### C BC, CMP #### [address] Polychromasia Slight Normal [facility] Comment on above: Performed By: #### C BC, CMP #### [address] RBC (Bld) [#/Vol] 2.91 10*6/uL Low 3.60-5.00 [facility] Comment on above: Performed By: #### C BC, CMP #### [address] RBC morphology finding Nom (Bld) Normal Normal Normal [facility] Comment on above: Performed By: #### C BC, CMP #### [address] Segmented neutrophils/100 WBC (Bld) 83 % High 50-70 [facility] Comment on above: Performed By: #### C BC, CMP #### [address] WBC (Bld) [#/Vol] 12.6 10*3/uL High 3.8-11.6 [facility] Comment on above: Performed By: #### C BC, CMP #### [address] Metamyelocytes/100 WBC Manua l cnt (Bld)Ordered By: Fco Buck on 06-25-2024 Metamyelocytes/100 WBC (Bld) Metamyelocytes/100 leukocytes in Blood by Manual count High 0-0 [facility] Basic Metabolic Panelon 04 Anion gap [Moles/Vol] 11.8 mmol/L Normal 6.0-15.0 [facility] Comment on above: Performed By: #### C BC, CMP #### [address] Calcium [Mass/Vol] 8.0 mg/dL Low 8.6-10.3 [facility] Comment on above: Performed By: #### C BC, CMP #### [place] [address] [place] Chloride [Moles/Vol] 103 mmol/L Normal 98-107 [facility] Comment on above: Performed By: #### C BC, CMP #### [place] [address] [place] CO2 [Moles/Vol] 24.3 mmol/L Normal 21.0-31.0 [facility] Comment on above: Performed By: #### C BC, CMP #### [place] [address] [place] Creatinine [Mass/Vol] 1.52 mg/dL High 0.60-1.20 [facility] Comment on above: Performed By: #### C BC, CMP #### [place] [address] [place] Creatinine Clr Calc Pharmacy 47.73 Normal [facility] Comment on above: Result Comment: PERF ORMED BY: [place] [address] PATHOLOGIST SUPERVISOR [employer]LE[employer] KATHERYN CRISTINA M.D. Performed By: #### C BC, CMP #### [address] Estimated GFR 34.889 mL/Min Normal [facility] Comment on above: Performed By: #### C BC, CMP #### [place] [address] [place] Glucose [Mass/Vol] 129 mg/dL High 70-100 [facility] Comment on above: Result Comment: [place] Glucose Reference Range is dependent on time and content of last meal. Glucose of more than 200 mg/dL in a nonstressed, ambulatory subject supports the diagnosis of Diabetes Mellitus. ADA recommended reference range Performed By: #### C BC, CMP #### [address] Potassium [Moles/Vol] 4.1 mmol/L Normal 3.5-5.1 [facility] Comment on above: Performed By: #### C BC, CMP #### [address] Sodium [Moles/Vol] 135 mmol/L Low 136-145 [facility] Comment on above: Performed By: #### C BC, CMP #### [address] Urea nitrogen [Mass/Vol] 45 mg/dL High 7-25 [facility] Comment on above: Performed By: #### C BC, CMP #### [address] Complete Blood Count Auto Di ffon 06-24-2024 Basophils (Bld) [#/Vol] 0.1 10*3/uL Normal 0.0-0.2 [facility] Comment on above: Result Comment: PERF ORMED BY: [place] [address] PATHOLOGIST SUPERVISOR [employer]LE[employer] KATHERYN CRISTINA M.D. Performed By: #### C BC, CMP #### [address] Basophils/100 WBC (Bld) 0.8 % Normal . T addie [facility] Comment on above: Performed By: #### C BC, CMP #### [address] Eosinophils (Bld) [#/Vol] 0.2 10*3/uL Normal 0.0-0.45 [facility] Comment on above: Performed By: #### C BC, CMP #### [address] Eosinophils/100 WBC (Bld) 1.7 % Normal . [facility] Comment on above: Performed By: #### C BC, CMP #### [place] [address] Erythrocyte distribution width (RBC) [Ratio] 16.1 % High 11.9-15.3 [facility] Comment on above: Performed By: #### C BC, CMP #### [address] Hematocrit (Bld) [Volume fraction] 26.2 % Low 34.0-46.4 [facility] Comment on above: Performed By: #### C BC, CMP #### [address] Hemoglobin (Bld) [Mass/Vol] 8.7 g/dL Low 11.8-15.4 [facility] Comment on above: Performed By: #### C BC, CMP #### [address] Lymphocytes (Bld) [#/Vol] 1.3 10*3/uL Normal 1.00-4.8 [facility] Comment on above: Performed By: #### C BC, CMP #### [address] Lymphocytes/100 WBC (Bld) 9.0 % Normal . [facility] Comment on above: Performed By: #### C BC, CMP #### [address] MCH (RBC) [Entitic mass] 30.9 pg Normal 24.7-34.3 [facility] Comment on above: Performed By: #### C BC, CMP #### [address] MCV (RBC) [Entitic vol] 93.2 fL Normal 80-100 [facility] Comment on above: Performed By: #### C BC, CMP #### [address] Mean Corpuscular HGB Conc 33.2 g/dL Normal 32.0-35.0 [facility] Comment on above: Performed By: #### C BC, CMP #### [address] Monocytes (Bld) [#/Vol] 1.2 10*3/uL High 0.0-0.8 [facility] Comment on above: Performed By: #### C BC, CMP #### [address] Monocytes/100 WBC (Bld) 8.2 % Normal . [facility] Comment on above: Performed By: #### C BC, CMP #### [address] Neutrophils (Bld) [#/Vol] 11.3 10*3/uL High 1.8-7.7 [facility] Comment on above: Performed By: #### C BC, CMP #### [address] Neutrophils/100 WBC (Bld) 80.3 % Normal . [facility] Comment on above: Performed By: #### C BC, CMP #### [address] NRBC% 0.8 /100{WBC} High 0-0.5 [facility] Comment on above: Performed By: #### C BC, CMP #### [address] Platelet mean volume (Bld) [Entitic vol] 8.6 fL Normal 6.3-10.7 [facility] Comment on above: Performed By: #### C BC, CMP #### [address] Platelets (Bld) [#/Vol] 305 10*3/uL Normal 150-450 [facility] Comment on above: Performed By: #### C BC, CMP #### [address] RBC (Bld) [#/Vol] 2.81 10*6/uL Low 3.60-5.00 [facility] Comment on above: Performed By: #### C BC, CMP #### [place] [address] [place] WBC (Bld) [#/Vol] 14.1 10*3/uL High 3.8-11.6 [facility] Comment on above: Performed By: #### C BC, CMP #### [address] A1C with Estimated Average G judy 06-23-2024 Glucose [Mass/Vol] 123 mg/dL Normal [facility] Comment on above: Order Comment: Comme nt add-on Result Comment: PERF ORMED BY: [place] [address] PATHOLOGIST SUPERVISOR [employer]SECLE[employer] KATHERYN CRISTINA M.D. Performed By: #### C BC, CMP #### [address] HbA1c (Bld) [Mass fraction] 5.9 % High 4.3-5.6 [facility] Comment on above: Order Comment: Comme nt add-on Result Comment: Incr eased risk for diabetes: 5.7 - 6.4 diabetes: >6.4 glycemic control for adults with diabetes: <7.0 Performed By: #### C BC, CMP #### [address] Basic Metabolic Panelon Anion gap [Moles/Vol] 14.2 mmol/L Normal 6.0-15.0 [facility] Comment on above: Performed By: #### B MP #### [address] Calcium [Mass/Vol] 7.9 mg/dL Low 8.6-10.3 [facility] Comment on above: Performed By: #### B MP #### [address] Chloride [Moles/Vol] 104 mmol/L Normal 98-107 [facility] Comment on above: Performed By: #### B MP #### [address] CO2 [Moles/Vol] 24.5 mmol/L Normal 21.0-31.0 [facility] Comment on above: Performed By: #### B MP #### [address] Creatinine [Mass/Vol] 1.60 mg/dL High 0.60-1.20 [facility] Comment on above: Performed By: #### B MP #### [place] [address] [place] Creatinine Clr Calc Pharmacy 45.16 Normal [facility] Comment on above: Result Comment: PERF ORMED BY: [place] [address] PATHOLOGIST SUPERVISOR [employer]LE[employer] KATHERYN CRISTINA M.D. Performed By: #### B MP #### [address] Estimated GFR 32.807 mL/Min Normal [facility] Comment on above: Performed By: #### B MP #### [address] Glucose [Mass/Vol] 132 mg/dL High 70-100 [facility] Comment on above: Result Comment: [place] Glucose Reference Range is dependent on time and content of last meal. Glucose of more than 200 mg/dL in a nonstressed, ambulatory subject supports the diagnosis of Diabetes Mellitus. ADA recommended reference range Performed By: #### B MP #### [place] [address] [place] Potassium [Moles/Vol] 4.7 mmol/L Normal 3.5-5.1 [facility] Comment on above: Performed By: #### B MP #### [place] [address] [place] Sodium [Moles/Vol] 138 mmol/L Normal 136-145 [facility] Comment on above: Performed By: #### B MP #### [place] [address] [place] Urea nitrogen [Mass/Vol] 45 mg/dL High 7-25 [facility] Comment on above: Performed By: #### B MP #### [address] Blood estimated average gluc ose determination by estimation from glycated hemoglobinOrdered By: Twyla Grace on 06-23-2024 Average glucose Estimated from glycated hemoglobin (Bld) [Mass/Vol] Glucose mean value [Mass/volume] in Blood Estimated from glycated hemoglobin [facility] Complete Blood Count Auto Di ffon 06-23-2024 Basophils (Bld) [#/Vol] 0.1 10*3/uL Normal 0.0-0.2 [facility] Comment on above: Result Comment: PERF ORMED BY: [place] [address] PATHOLOGIST SUPERVISOR [employer]SECLE[employer] KATHERYN CRISTINA M.D. Performed By: #### C BC #### [address] Basophils/100 WBC (Bld) 0.4 % Normal . [facility] Comment on above: Performed By: #### C BC #### [address] Eosinophils (Bld) [#/Vol] 0.1 10*3/uL Normal 0.0-0.45 [facility] Comment on above: Performed By: #### C BC #### [address] Eosinophils/100 WBC (Bld) 0.6 % Normal . [facility] Comment on above: Performed By: #### C BC #### [address] Erythrocyte distribution width (RBC) [Ratio] 15.5 % High 11.9-15.3 [facility] Comment on above: Performed By: #### C BC #### [address] Hematocrit (Bld) [Volume fraction] 27.8 % Low 34.0-46.4 [facility] Comment on above: Performed By: #### C BC #### [address] Hemoglobin (Bld) [Mass/Vol] 8.9 g/dL Low 11.8-15.4 [facility] Comment on above: Performed By: #### C BC #### [address] Lymphocytes (Bld) [#/Vol] 1.1 10*3/uL Normal 1.00-4.8 [facility] Comment on above: Performed By: #### C BC #### [address] Lymphocytes/100 WBC (Bld) 6.3 % Normal . [facility] Comment on above: Performed By: #### C BC #### [address] MCH (RBC) [Entitic mass] 29.7 pg Normal 24.7-34.3 [facility] Comment on above: Performed By: #### C BC #### [address] MCV (RBC) [Entitic vol] 92.5 fL Normal 80-100 [facility] Comment on above: Performed By: #### C BC #### [address] Mean Corpuscular HGB Conc 32.1 g/dL Normal 32.0-35.0 [facility] Comment on above: Performed By: #### C BC #### [address] Monocytes (Bld) [#/Vol] 1.1 10*3/uL High 0.0-0.8 [facility] Comment on above: Performed By: #### C BC #### [address] Monocytes/100 WBC (Bld) 6.3 % Normal . [facility] Comment on above: Performed By: #### C BC #### [address] Neutrophils (Bld) [#/Vol] 14.5 10*3/uL High 1.8-7.7 [facility] Comment on above: Performed By: #### C BC #### [address] Neutrophils/100 WBC (Bld) 86.4 % Normal . [facility] Comment on above: Performed By: #### C BC #### [address] NRBC% 0.8 /100{WBC} High 0-0.5 [facility] Comment on above: Performed By: #### C BC #### [address] Platelet mean volume (Bld) [Entitic vol] 8.5 fL Normal 6.3-10.7 [facility] Comment on above: Performed By: #### C BC #### [address] Platelets (Bld) [#/Vol] 283 10*3/uL Normal 150-450 [facility] Comment on above: Performed By: #### C BC #### [address] RBC (Bld) [#/Vol] 3.00 10*6/uL Low 3.60-5.00 [facility] Comment on above: Performed By: #### C BC #### [address] WBC (Bld) [#/Vol] 16.8 10*3/uL High 3.8-11.6 [facility] Comment on above: Performed By: #### C BC #### [address] Hemoglobin A1c/Hemoglobin.to sonia in BloodOrdered By: Twyla Grace on 06-23-2024 HbA1c (Bld) [Mass fraction] Hemoglobin A1c percentage High 4.3-5.6 [facility] Comment on above: Increased risk for d iabetes: 5.7 - 6.4diabetes: >6.4glycemic control for adults with diabetes: <7.0 Basic Metabolic Panelon Anion gap [Moles/Vol] 10.8 mmol/L Normal 6.0-15.0 [facility] Comment on above: Performed By: #### C BC, CMP #### [address] Calcium [Mass/Vol] 8.2 mg/dL Low 8.6-10.3 [facility] Comment on above: Performed By: #### C BC, CMP #### [address] Chloride [Moles/Vol] 105 mmol/L Normal 98-107 [facility] Comment on above: Performed By: #### C BC, CMP #### [address] CO2 [Moles/Vol] 26.0 mmol/L Normal 21.0-31.0 [facility] Comment on above: Performed By: #### C BC, CMP #### [address] Creatinine [Mass/Vol] 1.61 mg/dL High 0.60-1.20 [facility] Comment on above: Performed By: #### C BC, CMP #### [address] Creatinine Clr Calc Pharmacy 45.24 Normal [facility] Comment on above: Result Comment: PERF ORMED BY: [place] [address] PATHOLOGIST SUPERVISOR HOUSECLEANER KATHERYN CRISTINA M.D. Performed By: #### C BC, CMP #### [address] Estimated GFR 32.563 mL/Min Normal [facility] Comment on above: Performed By: #### C BC, CMP #### [address] Glucose [Mass/Vol] 124 mg/dL High 70-100 [facility] Comment on above: Result Comment: [place] Glucose Reference Range is dependent on time and content of last meal. Glucose of more than 200 mg/dL in a nonstressed, ambulatory subject supports the diagnosis of Diabetes Mellitus. ADA recommended reference range Performed By: #### C BC, CMP #### [facility] [address] Potassium [Moles/Vol] 4.8 mmol/L Normal 3.5-5.1 [facility] Comment on above: Performed By: #### C BC, CMP #### [address] Sodium [Moles/Vol] 137 mmol/L Normal 136-145 [facility] Comment on above: Performed By: #### C BC, CMP #### [facility] [address] Urea nitrogen [Mass/Vol] 46 mg/dL High 7-25 [facility] Comment on above: Performed By: #### C BC, CMP #### [address] abdomen pelvis wo conon 0 06-22-2024 CT abdomen pelvis wo con [facility] [place] [address] [place] [address] CT Scan Report Signed Patient: Molly Navas MR#: [id number] 75 : 1945 Acct:[id number] Age/Sex: 79 / F ADM Date: 06/20/24 Loc: Room: [address] [place] [address] Type: ADM IN Attending Dr: Fco Buck MD Copies to: Fco Buck MD Ordering Provider: Fco Buck MD Date of Service: 06/22/24 CT/CT abdomen pelvis wo con: back pain and rising creatinine CT ABDOMEN AND PELVIS WITHOUT INTRAVENOUS CONTRAST: CLINICAL HISTORY: Back pain, rising creatinine COMPARISON: None TECHNIQUE: Spiral images were obtained through the abdomen and pelvis without intravenous contrast. This CT exam was performed using one or more following dose reduction techniques: Automated exposure control, adjustment of the mA and/or kV according to patient size, or use of iterative reconstruction technique. FINDINGS: Lung Bases: [Bibasilar atelectasis.] Organs:Suboptimal evaluation due to lack of IV contrast. Gallbladder has been removed. Liver spleen pancreas and adrenal glands all appear unremarkable. Right kidney appears unremarkable. Presumed left parapelvic and cortical cysts. Aorta appears normal in caliber.[ GI: Stomach is grossly unremarkable. Small bowel appears nondilated. Appendix is normal. Left colon diverticulosis.[ Pelvis:[Urinary bladder is grossly unremarkable. Uterus is atrophic. No adnexal mass.] Peritoneum/Retroperi toneum:No free air or free fluid or lymphadenopathy.[ Abd wall/Bones:Abdominal wall demonstrate no acute findings. Osseous structures demonstrate degenerative change.[ CT/CT abdomen pelvis wo con IMPRESSION: No acute process. Impression dictated by: Kingston Linder Jr., D.OChichi06/22/2024 3:20 PM Dictation Location: [place] [address] Transcribed By: [facility] 06/22/24 1520 Dictated By: Kingston Linder Jr, DO 06/22/24 1517 Signed By: 06/22/24 1520 Normal [facility] Complete Blood Count Auto Di ffon 06-22-2024 Basophils (Bld) [#/Vol] 0.2 10*3/uL Normal 0.0-0.2 [facility] Comment on above: Result Comment: PERF ORMED BY: [place] [address] PATHOLOGIST SUPERVISOR HOUSECLEANER KATHERYN CRISTINA M.D. Performed By: #### C BC #### [address] Basophils/100 WBC (Bld) 0.9 % Normal . [facility] Comment on above: Performed By: #### C BC #### [place] [address] [place] Eosinophils (Bld) [#/Vol] 0.1 10*3/uL Normal 0.0-0.45 [facility] Comment on above: Performed By: #### C BC #### [address] Eosinophils/100 WBC (Bld) 0.7 % Normal . [facility] Comment on above: Performed By: #### C BC #### [address] Erythrocyte distribution width (RBC) [Ratio] 15.7 % High 11.9-15.3 [facility] Comment on above: Performed By: #### C BC #### [address] Hematocrit (Bld) [Volume fraction] 27.3 % Low 34.0-46.4 [facility] Comment on above: Performed By: #### C BC #### [address] Hemoglobin (Bld) [Mass/Vol] 8.8 g/dL Low 11.8-15.4 [facility] Comment on above: Performed By: #### C BC #### [address] Lymphocytes (Bld) [#/Vol] 1.5 10*3/uL Normal 1.00-4.8 [facility] Comment on above: Performed By: #### C BC #### [address] Lymphocytes/100 WBC (Bld) 8.0 % Normal . [facility] Comment on above: Performed By: #### C BC #### [address] MCH (RBC) [Entitic mass] 29.6 pg Normal 24.7-34.3 [facility] Comment on above: Performed By: #### C BC #### [address] MCV (RBC) [Entitic vol] 91.5 fL Normal 80-100 [facility] Comment on above: Performed By: #### C BC #### [address] Mean Corpuscular HGB Conc 32.3 g/dL Normal 32.0-35.0 [facility] Comment on above: Performed By: #### C BC #### [address] Monocytes (Bld) [#/Vol] 0.8 10*3/uL Normal 0.0-0.8 [facility] Comment on above: Performed By: #### C BC #### [place] [address] [place] Monocytes/100 WBC (Bld) 4.4 % Normal . [facility] Comment on above: Performed By: #### C BC #### [address] Neutrophils (Bld) [#/Vol] 15.9 10*3/uL High 1.8-7.7 [facility] Comment on above: Performed By: #### C BC #### [address] Neutrophils/100 WBC (Bld) 86.0 % Normal . [facility] Comment on above: Performed By: #### C BC #### [address] NRBC% 0.1 /100{WBC} Normal 0-0.5 [facility] Comment on above: Performed By: #### C BC #### [address] Platelet mean volume (Bld) [Entitic vol] 8.3 fL Normal 6.3-10.7 [facility] Comment on above: Performed By: #### C BC #### [place] [address] [place] Platelets (Bld) [#/Vol] 267 10*3/uL Normal 150-450 [facility] Comment on above: Performed By: #### C BC #### [place] [address] [place] RBC (Bld) [#/Vol] 2.98 10*6/uL Low 3.60-5.00 [facility] Comment on above: Performed By: #### C BC #### [address] WBC (Bld) [#/Vol] 18.5 10*3/uL High 3.8-11.6 [facility] Comment on above: Performed By: #### C BC #### [address] X-ray reportOrdered By: Danie Linder on 06-22-2024 Study report [facility] [place] [address] XRay Report Signed Patient: Molly Navas MR#: [id number] : 1945 Acct:[id number] Age/Sex: 79 / F ADM Date: 5 Loc: 3T Room: [address] [place] [address] Type: ADM IN Attending Dr: Fco Buck MD Copies to: Fco Buck MD~ Ordering Provider: Fco Buck MD Date of Service: 06/22/24 XR/XR foot RT min 3V*: 5th metatarsal fracture RIGHT FOOT - 3 views CLINICAL HISTORY: Follow-up fifth metatarsal fracture COMPARISON: None FINDINGS: Diffuse soft tissue swelling. Scattered degenerative changes with plantar spurring worst at the first MTP joint.. A mildly displaced fracture is seen involving the base of the fifth metatarsal. Presumed chronic deformity involving the base of the proximal phalanx of the third digit suggesting prior injury. XR/XR foot RT min 3V* IMPRESSION: A MILDLY DISPLACED FRACTURE IS SEEN INVOLVING THE BASE OF THE FIFTH METATARSAL. NO SURROUNDING PERIOSTEAL REACTION IS SEEN TO SUGGEST HEALING RESPONSE. Impression dictated by: Kingston Linder Jr., BasilioOChichi06/22/2024 3:57 PM Dictation Location: [place] [address] Transcribed By: [facility] 06/22/24 1557 Dictated By: Kingston Linder Jr, DO 06/22/24 1554 Signed By: 06/22/24 1557 [facility] XR foot RT min 3V*on 025 XR foot RT min 3V* [facility] [place] [address] XRay Report Signed Patient: Molly Navas MR#: [id number] 75 : 1945 Acct:[id number] Age/Sex: 79 / F ADM Date: 06/20/24 Loc: 3T Room: [address] [place] [address] Type: ADM IN Attending Dr: Fco Buck MD Copies to: Fco Buck MD Ordering Provider: Fco Buck MD Date of Service: 06/22/24 XR/XR foot RT min 3V*: 5th metatarsal fracture RIGHT FOOT - 3 views CLINICAL HISTORY: Follow-up fifth metatarsal fracture COMPARISON: None FINDINGS: Diffuse soft tissue swelling. Scattered degenerative changes with plantar spurring worst at the first MTP joint.. A mildly displaced fracture is seen involving the base of the fifth metatarsal. Presumed chronic deformity involving the base of the proximal phalanx of the third digit suggesting prior injury. XR/XR foot RT min 3V* IMPRESSION: A MILDLY DISPLACED FRACTURE IS SEEN INVOLVING THE BASE OF THE FIFTH METATARSAL. NO SURROUNDING PERIOSTEAL REACTION IS SEEN TO SUGGEST HEALING RESPONSE. Impression dictated by: Kingston Linder Jr., D.OChichi06/22/2024 3:57 PM Dictation Location: [place] [address] Transcribed By: [facility] 06/22/24 1557 Dictated By: Kingston Linder Jr, DO 06/22/24 1554 Signed By: 06/22/24 1557 Normal [facility] Appearance of UrineOrdered B y: Fco Buck on 06-21-2024 Appearance (U) Urine appearance Abnormal [facility] Bacteria [Presence] in Urine by AutomatedOrdered By: Fco Buck on 06-21-2024 Bacteria Auto Ql (U) Bacteria [Presence] in Urine by Automated None Seen [facility] Basic Metabolic Panelon 04 Anion gap [Moles/Vol] 13.0 mmol/L Normal 6.0-15.0 [facility] Comment on above: Performed By: #### C BC, CMP #### [facility] [address] [place] [id number] [place] Calcium [Mass/Vol] 7.9 mg/dL Low 8.6-10.3 [facility] Comment on above: Performed By: #### C BC, CMP #### [facility] [address] [place] [id number] [place] Chloride [Moles/Vol] 105 mmol/L Normal 98-107 [facility] Comment on above: Performed By: #### C BC, CMP #### [address] CO2 [Moles/Vol] 23.9 mmol/L Normal 21.0-31.0 [facility] Comment on above: Performed By: #### C BC, CMP #### [address] Creatinine [Mass/Vol] 1.46 mg/dL High 0.60-1.20 [facility] Comment on above: Performed By: #### C BC, CMP #### [address] Creatinine Clr Calc Pharmacy 49.35 Normal [facility] Comment on above: Result Comment: PERF ORMED BY: [place] [address] PATHOLOGIST SUPERVISOR HOUSECLEANER KATHERYN CRISTINA M.D. Performed By: #### C BC, CMP #### [address] Estimated GFR 36.617 mL/Min Normal [facility] Comment on above: Performed By: #### C BC, CMP #### [address] Glucose [Mass/Vol] 177 mg/dL High 70-100 [facility] Comment on above: Result Comment: [place] Glucose Reference Range is dependent on time and content of last meal. Glucose of more than 200 mg/dL in a nonstressed, ambulatory subject supports the diagnosis of Diabetes Mellitus. ADA recommended reference range Performed By: #### C BC, CMP #### [address] Potassium [Moles/Vol] 4.9 mmol/L Normal 3.5-5.1 [facility] Comment on above: Result Comment: Hemo lysis is present at a level that could interfere with the result. Contact lab if redraw is required Performed By: #### C BC, CMP #### [address] Sodium [Moles/Vol] 137 mmol/L Significant change down 136-145 [facility] Comment on above: Performed By: #### C BC, CMP #### [address] Urea nitrogen [Mass/Vol] 43 mg/dL High 7-25 [facility] Comment on above: Performed By: #### C BC, CMP #### [address] Bilirubin Test strip Ql (U)O rdered By: Fco Buck on 06-21-2024 Bilirubin Ql (U) Bilirubin.total [Presence] in Urine by Test strip Negative [facility] Color Auto (U)Ordered By: Ra selma Buck on 06-21-2024 Color (U) Color of Urine by Auto Yellow [facility] Complete Blood Count Auto Di ffon 06-21-2024 Basophils (Bld) [#/Vol] 0.1 10*3/uL Normal 0.0-0.2 [facility] Comment on above: Result Comment: PERF ORMED BY: [place] [address] PATHOLOGIST SUPERVISOR HOUSECLEANER KATHERYN CRISTINA M.D. Performed By: #### C BC #### [address] Basophils/100 WBC (Bld) 0.6 % Normal . T addie [facility] Comment on above: Performed By: #### C BC #### [address] Eosinophils (Bld) [#/Vol] 0.1 10*3/uL Normal 0.0-0.45 [facility] Comment on above: Performed By: #### C BC #### [address] Eosinophils/100 WBC (Bld) 0.4 % Normal . [facility] Comment on above: Performed By: #### C BC #### [address] Erythrocyte distribution width (RBC) [Ratio] 16.4 % High 11.9-15.3 [facility] Comment on above: Performed By: #### C BC #### [address] Hematocrit (Bld) [Volume fraction] 28.5 % Low 34.0-46.4 [facility] Comment on above: Performed By: #### C BC #### [address] Hemoglobin (Bld) [Mass/Vol] 9.3 g/dL Low 11.8-15.4 [facility] Comment on above: Performed By: #### C BC #### [address] Lymphocytes (Bld) [#/Vol] 1.4 10*3/uL Normal 1.00-4.8 [facility] Comment on above: Performed By: #### C BC #### [address] Lymphocytes/100 WBC (Bld) 7.9 % Normal . [facility] Comment on above: Performed By: #### C BC #### [address] MCH (RBC) [Entitic mass] 30.0 pg Normal 24.7-34.3 [facility] Comment on above: Performed By: #### C BC #### [address] MCV (RBC) [Entitic vol] 92.0 fL Normal 80-100 [facility] Comment on above: Performed By: #### C BC #### [address] Mean Corpuscular HGB Conc 32.6 g/dL Normal 32.0-35.0 [facility] Comment on above: Performed By: #### C BC #### [address] Monocytes (Bld) [#/Vol] 0.7 10*3/uL Normal 0.0-0.8 [facility] Comment on above: Performed By: #### C BC #### [address] Monocytes/100 WBC (Bld) 4.3 % Normal . [facility] Comment on above: Performed By: #### C BC #### [address] Neutrophils (Bld) [#/Vol] 15.1 10*3/uL High 1.8-7.7 [facility] Comment on above: Performed By: #### C BC #### [address] Neutrophils/100 WBC (Bld) 86.8 % Normal . [facility] Comment on above: Performed By: #### C BC #### [address] NRBC% 0.2 /100{WBC} Normal 0-0.5 [facility] Comment on above: Performed By: #### C BC #### [address] Platelet mean volume (Bld) [Entitic vol] 8.3 fL Normal 6.3-10.7 [facility] Comment on above: Performed By: #### C BC #### [address] Platelets (Bld) [#/Vol] 274 10*3/uL Normal 150-450 [facility] Comment on above: Performed By: #### C BC #### [address] RBC (Bld) [#/Vol] 3.10 10*6/uL Low 3.60-5.00 [facility] Comment on above: Performed By: #### C BC #### [address] WBC (Bld) [#/Vol] 17.4 10*3/uL High 3.8-11.6 [facility] Comment on above: Performed By: #### C BC #### [place] [address] [place] Crystals [Presence] in Urine by AutomatedOrdered By: Fco Buck on 06-21-2024 Crystals Auto Ql (U) Crystals [Presence] in Urine by Automated [facility] Dipstick and Microscopicon 0 06-21-2024 Appearance (U) Cloudy Critically abnormal Clear [facility] Comment on above: Order Comment: Name Collection Type:: Clean-Voided Midstream Performed By: #### C UU, ADDONUAPLUS #### [address] Bacteria,Urine Rare Normal None Seen [facility] Comment on above: Order Comment: Name Collection Type:: Clean-Voided Midstream Performed By: #### C UU, ADDONUAPLUS #### [place] [address] [place] Bilirubin,Urine Negative Normal Negative [facility] Comment on above: Order Comment: Name Collection Type:: Clean-Voided Midstream Performed By: #### C UU, ADDONUAPLUS #### [address] Color (U) Yellow Normal Yellow [facility] Comment on above: Order Comment: Name Collection Type:: Clean-Voided Midstream Performed By: #### C UU, ADDONUAPLUS #### [address] Glucose Ql (U) Normal Normal Normal [facility] Comment on above: Order Comment: Name Collection Type:: Clean-Voided Midstream Performed By: #### C UU, ADDONUAPLUS #### [place] [address] [place] Hyaline Casts,Urine 0-8 Normal 0-8 [facility] Comment on above: Order Comment: Name Collection Type:: Clean-Voided Midstream Result Comment: PERF ORMED BY: [place] [address] PATHOLOGIST SUPERVISOR HOUSECLEANER KATHERYN CRISTINA M.D. Performed By: #### C UU, ADDONUAPLUS #### [place] [address] [place] Ketones Ql (U) Negative Normal Negative [facility] Comment on above: Order Comment: Name Collection Type:: Clean-Voided Midstream Performed By: #### C UU, ADDONUAPLUS #### [address] Leukocyte esterase Test strip Ql (U) 4+ High Negative [facility] Comment on above: Order Comment: Name Collection Type:: Clean-Voided Midstream Performed By: #### C UU, ADDONUAPLUS #### [place] [address] [place] Nitrite,Urine Negative Normal Negative [facility] Comment on above: Order Comment: Name Collection Type:: Clean-Voided Midstream Performed By: #### C UU, ADDONUAPLUS #### [place] [address] [place] Occult Blood,Urine Negative Normal Negative [facility] Comment on above: Order Comment: Name Collection Type:: Clean-Voided Midstream Result Comment: PERF ORMED BY: [place] [address] PATHOLOGIST SUPERVISOR HOUSECLEANER KATHERYN CRISTINA M.D. Performed By: #### C UU, ADDONUAPLUS #### [place] [address] [place] Othe Crystals,Urine 1+ Normal [facility] Comment on above: Order Comment: Name Collection Type:: Clean-Voided Midstream Performed By: #### C UU, ADDONUAPLUS #### [place] [address] [place] pH (U) 6.0 [pH] Normal 5.0-9.0 [facility] Comment on above: Order Comment: Name Collection Type:: Clean-Voided Midstream Performed By: #### C UU, ADDONUAPLUS #### [place] [address] [place] Protein (U) [Mass/Vol] 20 mg/dL High Negative [facility] Comment on above: Order Comment: Name Collection Type:: Clean-Voided Midstream Performed By: #### C UU, ADDONUAPLUS #### [address] RBC,Urine 5-9 High 0-4 [facility] Comment on above: Order Comment: Name Collection Type:: Clean-Voided Midstream Performed By: #### C UU, ADDONUAPLUS #### [address] Specificy [place],Urine 1.029 Normal 1.001-1.030 [facility] Comment on above: Order Comment: Name Collection Type:: Clean-Voided Midstream Performed By: #### C UU, ADDONUAPLUS #### [address] Squamous Epithelial Cell,Urine 3-4 High 0-2 [facility] Comment on above: Order Comment: Name Collection Type:: Clean-Voided Midstream Performed By: #### C UU, ADDONUAPLUS #### [address] Urobilinogen,Urine Normal Normal Normal [facility] Comment on above: Order Comment: Name Collection Type:: Clean-Voided Midstream Performed By: #### C UU, ADDONUAPLUS #### [address] WBC CLUMP, Urine Occasional High None Seen [facility] Comment on above: Order Comment: Name Collection Type:: Clean-Voided Midstream Performed By: #### C UU, ADDONUAPLUS #### [address] WBC,Urine 20-49 High 0-4 [facility] Comment on above: Order Comment: Name Collection Type:: Clean-Voided Midstream Performed By: #### C UU, ADDONUAPLUS #### [address] Epithelial cells.squamous [# /area] in Urine sediment by Automated countOrdered By: Fco Buck on 06-21-2024 Epithelial cells.squamous Auto (Urine sed) [#/Area] Epithelial cells.squamous [#/area] in Urine sediment by Automated count High 0-2 [facility] Erythrocytes [#/area] in Uri ne sediment by Automated countOrdered By: Fco Buck on 06-21-2024 RBC Auto (Urine sed) [#/Area] Erythrocytes [#/area] in Urine sediment by Automated count High 0-4 [facility] Glucose [Mass/volume] in Uri ne by Test stripOrdered By: Fco Buck on 06-21-2024 Glucose Test strip (U) [Mass/Vol] Glucose [Mass/volume] in Urine by Test strip Normal [facility] Hemoglobin Test strip Ql (U) Ordered By: Fco Buck on 06-21-2024 Hemoglobin Ql (U) Hemoglobin [Presence] in Urine by Test strip Negative [facility] Hyaline casts [#/area] in Ur ine sediment by Automated countOrdered By: Fco Buck on 06-21-2024 Hyaline casts Auto (Urine sed) [#/Area] Hyaline casts [#/area] in Urine sediment by Automated count 0-8 [facility] Ketones Test strip Ql (U)Ord ered By: Fco Buck on 06-21-2024 Ketones Ql (U) Ketones [Presence] in Urine by Test strip Negative [facility] Leukocyte clumps [Presence] in Urine by AutomatedOrdered By: Fco Buck on 06-21-2024 Leukocyte clumps Auto Ql (U) Leukocyte clumps [Presence] in Urine by Automated High None Seen [facility] Leukocyte esterase [Presence ] in Urine by Test stripOrdered By: Fco Buck on 06-21-2024 Leukocyte esterase Test strip Ql (U) Leukocyte esterase [Presence] in Urine by Test strip High Negative [facility] Leukocytes [#/area] in Urine sediment by Automated countOrdered By: Fco Buck on 06-21-2024 WBC Auto (Urine sed) [#/Area] Leukocytes [#/area] in Urine sediment by Automated count High 0-4 [facility] Nitrite Test strip Ql (U)Ord ered By: Fco Buck on 06-21-2024 Nitrite Ql (U) Nitrite [Presence] in Urine by Test strip Negative [facility] Protein Test strip (U) [Mass /Vol]Ordered By: Fco Buck on 06-21-2024 Protein (U) [Mass/Vol] Protein [Mass/volume] in Urine by Test strip High Negative [facility] Specific gravity Test strip (U) [Rel density]Ordered By: Fco Buck on 06-21-2024 Specific gravity (U) [Rel density] Specific gravity of Urine by Test strip 1.001-1.030 [facility] Urine Cultureon 06-21-2024 Bacteria identified Cx Nom (U) ORGANISM: Enterobacter cloacae complex (O:ENTCLOCPLX) [place] Count >100,000 Possible Staphylococcus species removed from report on 06/23/24. Aerobic ALBERT Charge ([id number]) ----- SUSCEPTIBILITY ---- ORGANISM: O:ENTCLOCPLX ANTIBIOTIC INTERPRETATION ALBERT Amikacin S <16 Aztreonam IB <4 Cefepime S <2 Ceftazidime IB <1 Ceftriaxone IB <1 Cefuroxime R* 16 Ciprofloxacin S <0.25 Ertapenem S <0.5 Gentamicin S <2 Levofloxacin S <0.5 Meropenem S <1 Meropenem/Vaborbacta m S <2 Nitrofurantoin I 64 Piperacillin/Tazobac mendez IB <8 Tetracycline S <4 Tigecycline S <2 Tobramycin S <2 Trimethoprim/Sulfame thoxazole S <0.5 S = SUSCEPTIBLE I = INTERMEDIATE R = RESISTANT BLANK = DATA NOT AVAILABLE, OR DRUG NOT ADVISABLE OR TESTED R* = RESISTANCE DUE TO EXTENDED SPECTRUM BETA-LACTAMASES ESBL = EXTENDED SPECTRUM BETA-LACTAMASE TFG = THYMIDINE-DEPENDENT STRAIN SOLOMON = BETA-LACTAMASE POSITIVE IB = INDUCIBLE BETA-LACTAMASE. APPEARS IN PLACE OF 'S' WITH SPECIES KNOWN TO POSSESS INDUCIBLE BETA-LACTAMASES. POTENTIALLY THEY MAY BECOME RESISTANT TO ALL B-LACTAM DRUGS. PERFORMED BY: [address] [place] [address] PATHOLOGIST SUPERVISOR HOUSECLEANER KATHERYN CRISTINA M.D. Normal [facility] Comment on above: Performed By: #### C UU, ADDCHARUUAPLUS #### [address] Urine cultureOrdered By: Lasha Buck on 06-21-2024 Bacteria identified Cx Nom (U) Abnormal [facility] Urobilinogen Test strip (U) [Mass/Vol]Ordered By: Fco Buck on 06-21-2024 Urobilinogen (U) [Mass/Vol] Urobilinogen [Mass/volume] in Urine by Test strip Normal [facility] X-ray reportOrdered By: Kevin Tomlinson on 06-21-2024 Study report [facility] [place] [address] [place] [address] XRay Report Signed Patient: Molly Navas MR#: [id number] : 1945 Acct:[id number] Age/Sex: 79 / F ADM Date: 5 Loc: Room: [address] [place] [address] Type: ADM IN Attending Dr: Fco Buck MD Copies to: Fco Buck MD~ Ordering Provider: Fco Buck MD Date of Service: 06/21/24 XR/XR tibia fibula LT 2V*: rule out fracture LEFT TIBIA AND FIBULA - - 2 views CLINICAL HISTORY: Wound to left lower leg, rule out fracture COMPARISON: None FINDINGS: There is skin isabel anteriorly. Diffuse soft tissue swelling identified greatest anteriorly. Severe medial current mild to moderate lateral degenerative changes of the knee. Mild to moderate degenerative changes of the ankle partially visualized. No fracture no fracture dislocation involving the tibia and fibula. There is however a fracture involving the base of the fifth metatarsal. XR/XR tibia fibula LT 2V* IMPRESSION: Nondisplaced Fracture of the base of the fifth metatarsal partially visualized. No additional fractures identified. Impression dictated by: Wesley Tomlinson M.D.06/21/2024 4:30 PM Dictation Location: [place] [address] Transcribed By: [facility] 06/21/24 2650 Dictated By: Wesley Tomlinson MD 06/21/24 1628 Signed By: 06/21/24 1630 [facility] Work Phone: XR tibia fibula LT 2V*on XR tibia fibula LT 2V* [facility] [place] [address] [place] [id number] XRay Report Signed Patient: Molly Navas MR#: [id number] : 1945 Acct:[id number] Age/Sex: 79 / F ADM Date: 06/20/24 Loc: Room: [address] [place] [address] Type: ADM IN Attending Dr: Fco Buck MD Copies to: Fco Buck MD Ordering Provider: Fco Buck MD Date of Service: 06/21/24 XR/XR tibia fibula LT 2V*: rule out fracture LEFT TIBIA AND FIBULA - - 2 views CLINICAL HISTORY: Wound to left lower leg, rule out fracture COMPARISON: None FINDINGS: There is skin isabel anteriorly. Diffuse soft tissue swelling identified greatest anteriorly. Severe medial current mild to moderate lateral degenerative changes of the knee. Mild to moderate degenerative changes of the ankle partially visualized. No fracture no fracture dislocation involving the tibia and fibula. There is however a fracture involving the base of the fifth metatarsal. XR/XR tibia fibula LT 2V* IMPRESSION: Nondisplaced Fracture of the base of the fifth metatarsal partially visualized. No additional fractures identified. Impression dictated by: Wesley Tomlinson M.D.06/21/2024 4:30 PM Dictation Location: [place] [address] Transcribed By: [facility] 06/21/24 1630 Dictated By: Wesley Tomlinson MD 06/21/24 1628 Signed By: 06/21/24 1630 Normal [facility] pH Test strip (U)Ordered By: Fco Buck on 06-21-2024 pH (U) pH of Urine by Test strip 5.0-9.0 [facility] Alanine aminotransferase [En zymatic activity/volume] in Serum or PlasmaOrdered By: Terry Trevizo on 06-20-2024 ALT [Catalytic activity/Vol] Alanine aminotransferase [Enzymatic activity/volume] in Serum or Plasma 7-52 [facility] Albumin [Mass/volume] in Ser um or Plasma by Bromocresol green (BCG) dye binding methoOrdered By: Terry Trevizo on 06-20-2024 Albumin BCG dye [Mass/Vol] Albumin [Mass/volume] in Serum or Plasma by Bromocresol green (BCG) dye binding metho Low 3.5-5.7 [facility] Alkaline phosphatase [Enzyma tic activity/volume] in Serum or PlasmaOrdered By: Terry Trevizo on 06-20-2024 ALP [Catalytic activity/Vol] Alkaline phosphatase [Enzymatic activity/volume] in Serum or Plasma High 34-104 [facility] Aspartate aminotransferase [ Enzymatic activity/volume] in Serum or PlasmaOrdered By: Terry Trevizo on 06-20-2024 AST [Catalytic activity/Vol] Aspartate aminotransferase [Enzymatic activity/volume] in Serum or Plasma High 13-39 [facility] Basophils Auto (Bld) [#/Vol] Ordered By: Terry Trevizo on 06-20-2024 Basophils (Bld) [#/Vol] Automated basoph il count 0.0-0.2 [facility] Basophils/100 WBC Auto (Bld) Ordered By: Terry Trevizo on 06-20-2024 Basophils/100 WBC (Bld) Automated basophil % . [facility] Bilirubin.total [Mass/volume ] in Serum or PlasmaOrdered By: Terry Trevizo on 06-20-2024 Bilirubin [Mass/Vol] Bilirubin.total [Mass/volume] in Serum or Plasma 0.3-1.0 [facility] Calcium [Mass/volume] in Ser um or PlasmaOrdered By: Terry Trevizo on 06-20-2024 Calcium [Mass/Vol] Calcium [Mass/volume] in Serum or Plasma 8.6-10.3 [facility] Carbon dioxide, total [Moles /volume] in Serum or PlasmaOrdered By: Terry Trevizo 06-20-2024 CO2 [Moles/Vol] Carbon dioxide, total [Moles/volume] in Serum or Plasma 21.0-31.0 [facility] Chloride [Moles/volume] in S janet or PlasmaOrdered By: Terry Trevizo on 06-20-2024 Chloride [Moles/Vol] Chloride [Moles/volume] in Serum or Plasma High 98-107 [facility] Complete Blood Count Auto Di ffon 06-20-2024 Basophils (Bld) [#/Vol] 0.1 10*3/uL Normal 0.0-0.2 [facility] Comment on above: Result Comment: PERF ORMED BY: [place] [address] PATHOLOGIST SUPERVISOR [employer]SECLE[employer] KATHERYN CRISTINA M.D. Performed By: #### C BC, CMP #### [address] Basophils/100 WBC (Bld) 0.5 % Normal . T addie [facility] Comment on above: Performed By: #### C BC, CMP #### [place] [address] [place] Eosinophils (Bld) [#/Vol] 0.0 10*3/uL Normal 0.0-0.45 [facility] Comment on above: Performed By: #### C BC, CMP #### [place] [address] [place] Eosinophils/100 WBC (Bld) 0.1 % Normal . [facility] Comment on above: Performed By: #### C BC, CMP #### [address] Erythrocyte distribution width (RBC) [Ratio] 16.2 % High 11.9-15.3 [facility] Comment on above: Performed By: #### C BC, CMP #### [address] Hematocrit (Bld) [Volume fraction] 34.3 % Normal 34.0-46.4 [facility] Comment on above: Performed By: #### C BC, CMP #### [address] Hemoglobin (Bld) [Mass/Vol] 11.1 g/dL Low 11.8-15.4 [facility] Comment on above: Performed By: #### C BC, CMP #### [facility] [address] Lymphocytes (Bld) [#/Vol] 1.1 10*3/uL Normal 1.00-4.8 [facility] Comment on above: Performed By: #### C BC, CMP #### [facility] [address] [place] [address] [place] Lymphocytes/100 WBC (Bld) 5.8 % Normal . [facility] Comment on above: Performed By: #### C BC, CMP #### [address] MCH (RBC) [Entitic mass] 30.0 pg Normal 24.7-34.3 [facility] Comment on above: Performed By: #### C BC, CMP #### [address] MCV (RBC) [Entitic vol] 92.6 fL Normal 80-100 [facility] Comment on above: Performed By: #### C BC, CMP #### [address] Mean Corpuscular HGB Conc 32.4 g/dL Normal 32.0-35.0 [facility] Comment on above: Performed By: #### C BC, CMP #### [place] [address] [place] Monocytes (Bld) [#/Vol] 1.1 10*3/uL High 0.0-0.8 [facility] Comment on above: Performed By: #### C BC, CMP #### [place] [address] [place] Monocytes/100 WBC (Bld) 17.41 % Normal 0.00-20.00 [facility] Comment on above: Performed By: #### C BC, CMP #### [place] [address] [place] Monocytes/100 WBC (Bld) 5.9 % Normal . [facility] Comment on above: Performed By: #### C BC, CMP #### [facility] [address] [place] [address] [place] Neutrophils (Bld) [#/Vol] 16.2 10*3/uL High 1.8-7.7 [facility] Comment on above: Performed By: #### C YENNIFER, CMP #### [facility] [address] [place] [address] [place] Neutrophils/100 WBC (Bld) 87.7 % Normal . [facility] Comment on above: Performed By: #### C YENNIFER, CMP #### [facility] [address] NRBC% 0.0 /100{WBC} Normal 0-0.5 [facility] Comment on above: Performed By: #### C YENNIFER, CMP #### [address] Platelet mean volume (Bld) [Entitic vol] 8.1 fL Normal 6.3-10.7 [facility] Comment on above: Performed By: #### C YENNIFER, CMP #### [place] [address] [place] Platelets (Bld) [#/Vol] 334 10*3/uL Normal 150-450 [facility] Comment on above: Performed By: #### C YENNIFER, CMP #### [address] RBC (Bld) [#/Vol] 3.70 10*6/uL Normal 3.60-5.00 [facility] Comment on above: Performed By: #### C YENNIFER, CMP #### [place] [address] [place] WBC (Bld) [#/Vol] 18.5 10*3/uL High 3.8-11.6 [facility] Comment on above: Performed By: #### C YENNIFER, CMP #### [address] Comprehensive Metabolic Pane christina 06-20-2024 Albumin [Mass/Vol] 3.0 g/dL Low 3.5-5.7 [facility] Comment on above: Performed By: #### C BC, CMP #### [address] Albumin/Globulin [Mass ratio] 1.0 {ratio} Normal [facility] Comment on above: Performed By: #### C BC, CMP #### [address] ALP [Catalytic activity/Vol] 247 U/L High 34-104 [facility] Comment on above: Performed By: #### C BC, CMP #### [address] ALT [Catalytic activity/Vol] 32 U/L Normal 7-52 [facility] Comment on above: Performed By: #### C BC, CMP #### [address] Anion gap [Moles/Vol] 11.5 mmol/L Normal 6.0-15.0 [facility] Comment on above: Performed By: #### C BC, CMP #### [address] AST [Catalytic activity/Vol] 40 U/L High 13-39 [facility] Comment on above: Performed By: #### C BC, CMP #### [address] Bilirubin [Mass/Vol] 0.7 mg/dL Normal 0.3-1.0 [facility] Comment on above: Performed By: #### C BC, CMP #### [address] Calcium [Mass/Vol] 8.7 mg/dL Normal 8.6-10.3 [facility] Comment on above: Performed By: #### C BC, CMP #### [place] [address] [place] Chloride [Moles/Vol] 111 mmol/L High 98-107 [facility] Comment on above: Performed By: #### C BC, CMP #### [place] [address] [place] CO2 [Moles/Vol] 25.8 mmol/L Normal 21.0-31.0 [facility] Comment on above: Performed By: #### C BC, CMP #### [address] Creatinine [Mass/Vol] 1.21 mg/dL High 0.60-1.20 [facility] Comment on above: Performed By: #### C BC, CMP #### [address] Creatinine Clr Calc Pharmacy 59.40 Normal [facility] Comment on above: Result Comment: PERF ORMED BY: [place] [address] PATHOLOGIST SUPERVISOR HOUSECLEANER KATHERYN CRISTINA M.D. Performed By: #### C BC, CMP #### [address] Estimated GFR 45.874 mL/Min Normal [facility] Comment on above: Performed By: #### C BC, CMP #### [address] Globulin (S) [Mass/Vol] 3.0 g/dL Normal [facility] Comment on above: Performed By: #### C BC, CMP #### [address] Glucose [Mass/Vol] 147 mg/dL High 70-100 [facility] Comment on above: Result Comment: [place] Glucose Reference Range is dependent on time and content of last meal. Glucose of more than 200 mg/dL in a nonstressed, ambulatory subject supports the diagnosis of Diabetes Mellitus. ADA recommended reference range Performed By: #### C BC, CMP #### [address] Potassium [Moles/Vol] 5.3 mmol/L High 3.5-5.1 [facility] Comment on above: Performed By: #### C BC, CMP #### [address] Protein [Mass/Vol] 6.0 g/dL Low 6.4-8.9 [facility] Comment on above: Performed By: #### C BC, CMP #### [facility] [address] Sodium [Moles/Vol] 143 mmol/L Normal 136-145 [facility] Comment on above: Performed By: #### C BC, CMP #### [facility] [address] Urea nitrogen [Mass/Vol] 45 mg/dL High 7-25 [facility] Comment on above: Performed By: #### C BC, CMP #### [address] Creatinine [Mass/volume] in Serum or PlasmaOrdered By: Terry Trevizo on 06-20-2024 Creatinine [Mass/Vol] Creatinine [Mass/volume] in Serum or Plasma High 0.60-1.20 [facility] ECG 12 lead ECGon 06-20-2024 ECG 12 lead ECG [facility] [place] [address] [place] [address] Electrocardiograph Report Signed Patient: Molly Navas MR#: [id number] 75 : 1945 Acct:[id number] Age/Sex: 79 / F ADM Date: 06/20/24 Loc: ER Room: Type: [facility] Attending Dr: Ordering Provider: Terry Trevizo DO Date of Service: 06/20/2404/15/35 ECG/ECG 12 lead ECG: Skin/Abscess/Foreign Body Copies to: Test Reason : Blood Pressure : 127/60 mmHG Vent. Rate : 93 BPM Atrial Rate : 93 BPM P-R Int : 132 ms QRS Dur : 84 ms QT Int : 340 ms P-R-T Axes : 66 -18 74 degrees QTcB Int : 422 ms Sinus rhythm with premature atrial complexes with aberrant conduction Nonspecific ST abnormality Abnormal ECG No previous ECGs available Confirmed by TERRY TREVIZO DO ([id number]) on 06/20/2024 3:20:31 AM Referred By: Electronically Signed By: TERRY TREVIZO DO Transcribed By: [facility] Signed By Terry Trevizo DO 0320 Normal [facility] Eosinophils Auto (Bld) [#/Vo l]Ordered By: Terry Trevizo on 06-20-2024 Eosinophils (Bld) [#/Vol] Automated eosinophil count 0.0-0.45 [facility] Eosinophils/100 WBC Auto (Bl d)Ordered By: Terry Trevizo on 06-20-2024 Eosinophils/100 WBC (Bld) Automated eosinophil % . [facility] Erythrocyte distribution wid th Auto (RBC) [Ratio]Ordered By: Terry Trevizo on 06-20-2024 Erythrocyte distribution width (RBC) [Ratio] Erythrocyte distribution width [Ratio] by Automated count High 11.9-15.3 [facility] Globulin Calc (S) [Mass/Vol] Ordered By: Terry Trevizo on 06-20-2024 Globulin (S) [Mass/Vol] Serum globulin measurement by calculation (mass/volume) [facility] Glucose [Mass/volume] in Ser um or PlasmaOrdered By: Terry Trevizo on 06-20-2024 Glucose [Mass/Vol] Glucose [Mass/volume] in Serum or Plasma High 70-100 [facility] Comment on above: ADA recommended refe rence rangeRandom Glucose Reference Range is dependent on time and content of last meal. Glucose of more than 200 mg/dL in a nonstressed, ambulatory subject supports the diagnosis of Diabetes Mellitus. Hematocrit Auto (Bld) [Volum e fraction]Ordered By: Terry Trevizo on 06-20-2024 Hematocrit (Bld) [Volume fraction] Hematocrit [Volume Fraction] of Blood by Automated count 34.0-46.4 [facility] Hemoglobin [Mass/volume] in BloodOrdered By: Terry Trevizo on 06-20-2024 Hemoglobin (Bld) [Mass/Vol] Hemoglobin [Mass/volume] in Blood Low 11.8-15.4 [facility] Leukocytes [#/volume] correc maryanne for nucleated erythrocytes in Blood by Automated counOrdered By: Terry Trevizo on 06-20-2024 WBC corrected for nucl RBC Auto (Bld) [#/Vol] Leukocytes [#/volume] corrected for nucleated erythrocytes in Blood by Automated coun High 3.8-11.6 [facility] Lymphocytes Auto (Bld) [#/Vo l]Ordered By: Terry Trevizo on 06-20-2024 Lymphocytes (Bld) [#/Vol] Lymphocytes [#/volume] in Blood by Automated count 1.00-4.8 [facility] Lymphocytes/100 WBC Auto (Bl d)Ordered By: Terry Trevizo on 06-20-2024 Lymphocytes/100 WBC (Bld) Lymphocytes/100 leukocytes in Blood by Automated count . [facility] MCH Auto (RBC) [Entitic mass ]Ordered By: Terry Trevizo on 06-20-2024 MCH (RBC) [Entitic mass] MCH [Entitic ma ss] by Automated count 24.7-34.3 [facility] MCHC Auto (RBC) [Mass/Vol]Or dered By: Terry Trevizo on 06-20-2024 MCHC (RBC) [Mass/Vol] MCHC [Mass/volume] by Automated count 32.0-35.0 [facility] MCV Auto (RBC) [Entitic vol] Ordered By: Terry Trevizo on 06-20-2024 MCV (RBC) [Entitic vol] MCV [Entitic vol ume] by Automated count 80-100 [facility] Monocyte distribution width [Entitic volume] in Blood by AutomatedOrdered By: Terry Trevizo on 06-20-2024 Monocyte distribution width Auto (Bld) [Entitic vol] Monocyte distribution width [Entitic volume] in Blood by Automated 0.00-20.00 [facility] Monocytes Auto (Bld) [#/Vol] Ordered By: Terry Trevizo on 06-20-2024 Monocytes (Bld) [#/Vol] Automated blood monocyte count High 0.0-0.8 [facility] Monocytes/100 WBC Auto (Bld) Ordered By: Terry Trevizo on 06-20-2024 Monocytes/100 WBC (Bld) Automated monocyte % . [facility] Neutrophils Auto (Bld) [#/Vo l]Ordered By: Terry Trevizo on 06-20-2024 Neutrophils (Bld) [#/Vol] Neutrophils [#/volume] in Blood by Automated count High 1.8-7.7 [facility] Neutrophils/100 WBC Auto (Bl d)Ordered By: Terry Trevizo on 06-20-2024 Neutrophils/100 WBC (Bld) Automated neutrophil % . [facility] No Panel InformationOrdered By: Terry Trevizo on 06-20-2024 Estimated GFR (CKD-EPI) 45.874 mL/Min [facility] Creatinine Clearance (Chem 59.40 [facility] Nucleated erythrocytes [Pres ence] in Blood by Automated countOrdered By: Terry Trevizo on 06-20-2024 Nucleated RBC Auto Ql (Bld) Nucleated erythrocytes [Presence] in Blood by Automated count 0-0.5 [facility] Platelet mean volume Auto (B ld) [Entitic vol]Ordered By: Terry Trevizo on 06-20-2024 Platelet mean volume (Bld) [Entitic vol] Platelet mean volume [Entitic volume] in Blood by Automated count 6.3-10.7 [facility] Platelets Auto (Bld) [#/Vol] Ordered By: Terry Trevizo on 06-20-2024 Platelets (Bld) [#/Vol] Platelets [#/vol ume] in Blood by Automated count 150-450 [facility] Potassium [Moles/volume] in Serum or PlasmaOrdered By: Terry Trevizo on 06-20-2024 Potassium [Moles/Vol] Potassium [Moles/volume] in Serum or Plasma High 3.5-5.1 [facility] Protein [Mass/volume] in Ser um or PlasmaOrdered By: Terry Trevizo on 06-20-2024 Protein [Mass/Vol] Protein [Mass/volume] in Serum or Plasma Low 6.4-8.9 [facility] RBC Auto (Bld) [#/Vol]Ordere d By: Terry Trevizo on 06-20-2024 RBC (Bld) [#/Vol] Erythrocytes [#/volume] in Blood by Automated count 3.60-5.00 [facility] Serum or plasma albumin/glob ulin mass ratioOrdered By: Terry Trevizo on 06-20-2024 Albumin/Globulin [Mass ratio] Serum or plasma albumin/globulin mass ratio [facility] Serum or plasma anion gap de terminationOrdered By: Terry Trevizo on 06-20-2024 Anion gap [Moles/Vol] Serum or plasma anion gap determination 6.0-15.0 [facility] Sodium [Moles/volume] in Ser um or PlasmaOrdered By: Terry Trevizo on 06-20-2024 Sodium [Moles/Vol] Sodium [Moles/volume] in Serum or Plasma 136-145 [facility] Urea nitrogen [Mass/volume] in Serum or PlasmaOrdered By: Terry Trevizo on 06-20-2024 Urea nitrogen [Mass/Vol] Urea nitrogen [Mass/volume] in Serum or Plasma High 7-25 [facility] WBC Auto (Bld) [#/Vol]Ordere d By: Terry Trevizo on 06-20-2024 WBC (Bld) [#/Vol] Leukocytes [#/volume] in Blood by Automated count High 3.8-11.6 [facility] INSULINon 05-07-2022 Insulin 45.8 uIU/mL Critically high 2.6-24.9 [facility] Comment on above: Performed By: #### M G, T7, TSH, CMP #### [facility] [address] [place] [address] Dr. Nida Hall CBC AUTO DIFFon 05-06-2022 BASO # 0.1 103/ul Normal 0.0-0.1 [facility] Comment on above: Performed By: #### M G, T7, TSH, CMP #### [facility] [address] [place] [address] Dr. Nida Hall Basophils/100 WBC (Bld) 1.2 % Normal 0.2-2.0 [facility] Comment on above: Performed By: #### M G, T7, TSH, CMP #### [facility] [address] [place] [address] Dr. Nida Hall EO # 0.3 103/ul Normal 0.0-0.7 [facility] Comment on above: Performed By: #### M G, T7, TSH, CMP #### [facility] [address] [place] [address] Dr. Nida Hall Eosinophils/100 WBC (Bld) 2.8 % Normal 0.9-7.0 [facility] Comment on above: Performed By: #### M G, T7, TSH, CMP #### [facility] [address] [place] [address] Dr. Nida Hall Erythrocyte distribution width (RBC) [Ratio] 15.0 % Normal 11.0-15.0 [facility] Comment on above: Performed By: #### M G, T7, TSH, CMP #### [facility] Laboratory [address] [place] [address] Dr. Nida Hall Hematocrit (Bld) [Volume fraction] 41.1 % Normal 36.0-48.0 [facility] Comment on above: Performed By: #### M G, T7, TSH, CMP #### [facility] [address] [place] [address] Dr. Nida Hall Hemoglobin (Bld) [Mass/Vol] 12.7 g/dL Normal 12.0-16.0 [facility] Comment on above: Performed By: #### M G, T7, TSH, CMP #### [facility] [address] [place] [address] Dr. Nida Hall IG # 0.03 10e3/ul Normal 0.00-0.03 [facility] Comment on above: Performed By: #### M G, T7, TSH, CMP #### [facility] [address] [place] [address] Dr. Nida Hall IG % 0.3 % Normal 0.0-0.5 [facility] Comment on above: Performed By: #### M G, T7, TSH, CMP #### [facility] [address] [place] [address] Dr. Nida Hall LYMPH # 2.3 103/ul Normal 1.2-3.8 [facility] Comment on above: Performed By: #### M G, T7, TSH, CMP #### [facility] [address] [place] [address] Dr. Nida Hall Lymphocytes/100 WBC (Bld) 24.8 % Normal 20.5-60.0 [facility] Comment on above: Performed By: #### M G, T7, TSH, CMP #### [facility] [address] [place] [address] Dr. Nida Hall MANUAL DIFF REQ NO Normal [facility] Comment on above: Performed By: #### M G, T7, TSH, CMP #### [facility] [address] [place] [address] Dr. Nida Hall MCH (RBC) [Entitic mass] 26.9 pg Normal 26.7-34.0 [facility] Comment on above: Performed By: #### M G, T7, TSH, CMP #### [facility] [address] [place] [address] Dr. Nida Hall MCHC (RBC) [Mass/Vol] 30.9 g/dL Normal 29.9-35.2 [facility] Comment on above: Performed By: #### M G, T7, TSH, CMP #### [facility] [address] [place] [address] Dr. Nida Hall MCV (RBC) [Entitic vol] 87.1 fL Normal 81.0-99.0 [facility] Comment on above: Performed By: #### M G, T7, TSH, CMP #### [facility] [address] [place] [address] Dr. Nida Hall MONO # 0.7 103/ul Normal 0.3-0.8 [facility] Comment on above: Performed By: #### M G, T7, TSH, CMP #### [facility] [address] [place] [address] Dr. Nida Hall Monocytes/100 WBC (Bld) 7.8 % Normal 1.7-12.0 [facility] Comment on above: Performed By: #### M G, T7, TSH, CMP #### [facility] [address] [place] [address] Dr. Nida Hall NEUT # 5.9 103/ul Normal 1.4-6.5 [facility] Comment on above: Performed By: #### M G, T7, TSH, CMP #### [facility] [address] [place] [address] Dr. Nida Hall Neutrophils/100 WBC (Bld) 63.1 % Normal 43.0-75.0 [facility] Comment on above: Performed By: #### M G, T7, TSH, CMP #### [facility] [address] [place] [address] Dr. Nida Hall Platelet mean volume (Bld) [Entitic vol] 9.6 fL Normal 9.5-13.5 [facility] Comment on above: Performed By: #### M G, T7, TSH, CMP #### [facility] [address] [place] [address] Dr. Nida Hall PLT 385 103/ul Normal 150-450 [facility] Comment on above: Performed By: #### M G, T7, TSH, CMP #### [facility] [address] [place] [address] Dr. Nida Hall RBC 4.72 106/ul Normal 4.20-5.40 [facility] Comment on above: Performed By: #### M G, T7, TSH, CMP #### [facility] [address] [place] [address] Dr. Nida Hall WBC 9.3 103/ul Normal 4.0-11.0 [facility] Comment on above: Performed By: #### M G, T7, TSH, CMP #### [facility] [address] [place] [address] Dr. Nida Hall FERRITINon 05-06-2022 Ferritin [Mass/Vol] 16.0 ng/mL Normal 8.0-252.0 [facility] Comment on above: Performed By: #### I ENRIQUE, FERR #### [facility] [address] [place] [address] Dr. Nida Hall FREE THYROXINE INDEX T7on FTI 3.37 Normal 1.30-4.50 [facility] Comment on above: Performed By: #### M G, T7, TSH, CMP #### [facility] [address] [place] [address] Dr. Nida Hall T3U 34.0 % Normal 30.0-39.0 [facility] Comment on above: Performed By: #### M G, T7, TSH, CMP #### [facility] [address] [place] [address] Dr. Nida Hall T4 [Mass/Vol] 9.90 ug/dL Normal 4.80-13.[address] [facility] Comment on above: Performed By: #### M G, T7, TSH, CMP #### [facility] [address] [address] [address] Nida Hall GLYCOHEMOGLOBIN A1Con 2022 ADA RECOMMENDATION SEE BELOW Normal [facility] Comment on above: Result Comment: ADA RECOMMENDED LIMIT 4.0 - 6.0 ADA THERAPEUTIC TARGET < 7.0 ACTION SUGGESTED > 7.0 Performed By: #### M G, T7, TSH, CMP #### [facility] [address] [address] [address] Nida Hall Glucose [Mass/Vol] 123 mg/dL Normal [facility] Comment on above: Performed By: #### M G, T7, TSH, CMP #### [facility] [address] [place] [address] Dr. Nida Hall HbA1c (Bld) [Mass fraction] 5.9 % Normal 4.5-6.2 [facility] Comment on above: Performed By: #### M G, T7, TSH, CMP #### [facility] [address] [address] [address] Nida Hall IRONon 05-06-2022 Iron [Mass/Vol] 54.0 ug/dL Normal 50.0-170.0 [facility] Comment on above: Performed By: #### I ENRIQUE, FERR #### [facility] [address] [place] [address] Dr. Nida Hall MAGNESIUMon 05-06-2022 Magnesium [Mass/Vol] 1.7 mg/dL Critically low 1.8-2.4 [facility] Comment on above: Performed By: #### M G, T7, TSH, CMP #### [facility] [address] [address] [address] Nida Hall PROF 14(COMP METB)on 023 Albumin [Mass/Vol] 2.8 g/dL Critically low 3.4-5.0 [facility] Comment on above: Performed By: #### M G, T7, TSH, CMP #### [facility] [address] [address] [address] Nida Hall Albumin/Globulin [Mass ratio] 0.6 {ratio} Normal [facility] Comment on above: Performed By: #### M G, T7, TSH, CMP #### [facility] [address] [address] [address] Nida Hall ALP [Catalytic activity/Vol] 113 U/L Normal 46-116 [facility] Comment on above: Performed By: #### M G, T7, TSH, CMP #### [facility] [address] [address] [address] Nida Hall ALT [Catalytic activity/Vol] 16 U/L Normal 14-59 [facility] Comment on above: Performed By: #### M G, T7, TSH, CMP #### [facility] [address] [place] [address] Dr. Nida Hall Anion gap [Moles/Vol] 9.9 mmol/L Normal [facility] Comment on above: Performed By: #### M G, T7, TSH, CMP #### [facility] [address] [address] [address] Nida Hall AST [Catalytic activity/Vol] 28 U/L Normal 15-37 [facility] Comment on above: Performed By: #### M G, T7, TSH, CMP #### [facility] [address] [address] [address] Nida Hall Bilirubin [Mass/Vol] 0.5 mg/dL Normal 0.2-1.0 [facility] Comment on above: Performed By: #### M G, T7, TSH, CMP #### [facility] [address] [address] [address] Nida Hall Calcium [Mass/Vol] 9.3 mg/dL Normal 8.5-10.1 [facility] Comment on above: Performed By: #### M G, T7, TSH, CMP #### [facility] [address] [address] [address] Nida Hall Chloride [Moles/Vol] 105 mmol/L Normal 98-107 [facility] Comment on above: Performed By: #### M G, T7, TSH, CMP #### [facility] [address] [place] [address] Dr. Nida Hall CO2 [Moles/Vol] 29.3 mmol/L Normal 21.0-32.0 [facility] Comment on above: Performed By: #### M G, T7, TSH, CMP #### [facility] [address] [place] [address] Dr. Nida Hall Creatinine [Mass/Vol] 0.95 mg/dL Normal 0.55-1.02 [facility] Comment on above: Performed By: #### M G, T7, TSH, CMP #### [facility] [address] [place] [address] Dr. Nida Hall EGFR-AF NIGERIAN >60 Normal >=60 [facility] Comment on above: Performed By: #### M G, T7, TSH, CMP #### [facility] [address] [place] [address] Dr. Nida Hall EGFR-NON AF NIGERIAN 57 mL/min/1.73m2 Critically low >=60 [facility] Comment on above: Performed By: #### M G, T7, TSH, CMP #### [facility] [address] [place] [address] Dr. Nida Hall Globulin (S) [Mass/Vol] 4.5 g/dL Normal [facility] Comment on above: Performed By: #### M G, T7, TSH, CMP #### [facility] [address] [place] [address] Dr. Nida Hall Glucose [Mass/Vol] 120 mg/dL Critically high 74-106 [facility] Comment on above: Performed By: #### M G, T7, TSH, CMP #### [facility] [address] [place] [address] Dr. Nida Hall Potassium [Moles/Vol] 4.2 mmol/L Normal 3.5-5.1 [facility] Comment on above: Performed By: #### M G, T7, TSH, CMP #### [facility] [address] [address] [address] Nida Hall Protein [Mass/Vol] 7.3 g/dL Normal 6.4-8.2 [facility] Comment on above: Performed By: #### M G, T7, TSH, CMP #### [facility] [address] [address] [address] Nida Hall Sodium [Moles/Vol] 140 mmol/L Normal 136-145 [facility] Comment on above: Performed By: #### M G, T7, TSH, CMP #### [facility] [address] [place] [address] Dr. Nida Hall Urea nitrogen [Mass/Vol] 18.0 mg/dL Normal 7.0-18.0 [facility] Comment on above: Performed By: #### M G, T7, TSH, CMP #### [facility] [address] [place] [address] Dr. Nida Hall Urea nitrogen/Creatinine [Mass ratio] 18.9 mg/mg Normal [facility] Comment on above: Performed By: #### M G, T7, TSH, CMP #### [facility] [address] [place] [address] Dr. Nida Hall TSHon 05-06-2022 TSH 2.920 uIU/mL Normal 0.358-3.[address] [facility] Comment on above: Performed By: #### M G, T7, TSH, CMP #### [facility] [address] [place] [address] Dr. Nida Hall INSULINon 11-13-2021 Insulin 26.8 uIU/mL Critically high 2.6-24.9 [facility] Comment on above: Performed By: #### I NSULIN #### [facility] [address] [place] [address] Dr. Nida Hall T4, T3U, FTI [facility] 11-13 Free Thyroxine Index 2.3 Normal 1.2-4.9 [facility] Comment on above: Performed By: #### M G, T7, TSH, CMP #### [facility] [address] [address] [address] Nida Hall T3 Uptake 26 % Normal 24-39 [facility] Comment on above: Performed By: #### M G, T7, TSH, CMP #### [facility] [address] [id number] Nida Hall T4 [Mass/Vol] 8.9 ug/dL Normal 4.5-12.0 [facility] Comment on above: Performed By: #### M G, T7, TSH, CMP #### [facility] [address] [address] [address] Nida Hall VIT D 25-OH [facility] 2021 Vitamin D, 25-Hydroxy 55.8 ng/mL Normal 30.0-100.0 [facility] Comment on above: Result Comment: [place] min D deficiency has been defined by the [place] of [employer] and an Endocrine Society practice guideline as a level of serum 25-OH vitamin D less than 20 ng/mL (1,2). The Endocrine Society went on to further define vitamin D insufficiency as a level between 21 and 29 ng/mL (2). 1. IOM ([place] of [employer]). 2010. Dietary reference intakes for calcium and D. [place]: The National Academies Press. 2. Cristopher [place], Salazar [place], [place] BETTENCOURT, et al. Evaluation, treatment, and prevention of vitamin D deficiency: an Endocrine Society clinical practice guideline. JCEM. 2010; 96(7):1911-30. Performed By: #### V ITADLC #### [facility] [address] [address] [address] Nida Hall CBC AUTO DIFFon 11-12-2021 BASO # 0.1 103/ul Normal 0.0-0.1 [facility] Comment on above: Performed By: #### C BC #### [facility] [address] [address] [address] Nida Hall Basophils/100 WBC (Bld) 0.9 % Normal 0.2-2.0 [facility] Comment on above: Performed By: #### C BC #### [facility] [address] [place] [address] Dr. Nida Hall EO # 0.1 103/ul Normal 0.0-0.7 [facility] Comment on above: Performed By: #### C BC #### [facility] [address] [place] [address] Dr. Nida Hall Eosinophils/100 WBC (Bld) 1.7 % Normal 0.9-7.0 [facility] Comment on above: Performed By: #### C BC #### [facility] [address] [place] [address] Dr. Nida Hall Erythrocyte distribution width (RBC) [Ratio] 16.1 % Critically high 11.0-15.0 [facility] Comment on above: Performed By: #### C BC #### [facility] [address] [place] [address] Dr. Nida Hall Hematocrit (Bld) [Volume fraction] 42.8 % Normal 36.0-48.0 [facility] Comment on above: Performed By: #### C BC #### [facility] [address] [place] [address] Dr. Nida Hall Hemoglobin (Bld) [Mass/Vol] 13.0 g/dL Normal 12.0-16.0 [facility] Comment on above: Performed By: #### C BC #### [facility] [address] [place] [address] Dr. Nida Hall IG # 0.04 10e3/ul Critically high 0.00-0.03 [facility] Comment on above: Performed By: #### C BC #### [facility] [address] [place] [address] Dr. Nida Hall IG % 0.5 % Normal 0.0-0.5 [facility] Comment on above: Performed By: #### C BC #### [facility] [address] [place] [address] Dr. Nida Hall LYMPH # 2.1 103/ul Normal 1.2-3.8 [facility] Comment on above: Performed By: #### C BC #### [facility] [address] [place] [address] Dr. Nida Hall Lymphocytes/100 WBC (Bld) 25.6 % Normal 20.5-60.0 [facility] Comment on above: Performed By: #### C BC #### [facility] [address] [place] [address] Dr. Nida Hall MANUAL DIFF REQ NO Normal [facility] Comment on above: Performed By: #### C BC #### [facility] [address] [place] [address] Dr. Nida Hall MCH (RBC) [Entitic mass] 27.8 pg Normal 26.7-34.0 [facility] Comment on above: Performed By: #### C BC #### [facility] [address] [place] [address] Dr. Nida Hall MCHC (RBC) [Mass/Vol] 30.4 g/dL Normal 29.9-35.2 [facility] Comment on above: Performed By: #### C BC #### [facility] [address] [place] [address] Dr. Nida Hall MCV (RBC) [Entitic vol] 91.5 fL Normal 81.0-99.0 [facility] Comment on above: Performed By: #### C BC #### [facility] [address] [place] [address] Dr. Nida Hall MONO # 0.5 103/ul Normal 0.3-0.8 [facility] Comment on above: Performed By: #### C BC #### [facility] [address] [place] [address] Dr. Nida Hall Monocytes/100 WBC (Bld) 6.5 % Normal 1.7-12.0 [facility] Comment on above: Performed By: #### C BC #### [facility] [address] [place] [address] Dr. Nida Hall NEUT # 5.3 103/ul Normal 1.4-6.5 [facility] Comment on above: Performed By: #### C BC #### [facility] [address] [place] [address] Dr. Nida Hall Neutrophils/100 WBC (Bld) 64.8 % Normal 43.0-75.0 [facility] Comment on above: Performed By: #### C BC #### [facility] [address] [place] [address] Dr. Nida Hall Platelet mean volume (Bld) [Entitic vol] 10.3 fL Normal 9.5-13.5 [facility] Comment on above: Performed By: #### C BC #### [facility] [address] [place] [address] Dr. Nida Hall PLT 336 103/ul Normal 150-450 [facility] Comment on above: Performed By: #### C BC #### [facility] [address] [place] [address] Dr. Nida Hall RBC 4.68 106/ul Normal 4.20-5.40 [facility] Comment on above: Performed By: #### C BC #### [facility] [address] [place] [address] Dr. Nida Hall WBC 8.2 103/ul Normal 4.0-11.0 [facility] Comment on above: Performed By: #### C BC #### [facility] [address] [place] [address] Dr. Nida Hall GLYCOHEMOGLOBIN A1Con 2021 ADA RECOMMENDATION SEE BELOW Normal [facility] Comment on above: Result Comment: ADA RECOMMENDED LIMIT 4.0 - 6.0 ADA THERAPEUTIC TARGET < 7.0 ACTION SUGGESTED > 7.0 Performed By: #### A 1C #### [facility] [address] [place] [address] Dr. Nida Hall Glucose [Mass/Vol] 120 mg/dL Normal [facility] Comment on above: Performed By: #### A 1C #### [facility] [address] [place] [address] Dr. Nida Hall HbA1c (Bld) [Mass fraction] 5.8 % Normal 4.5-6.2 [facility] Comment on above: Performed By: #### A 1C #### [facility] [address] [place] [address] Dr. Nida Hall IRONon 11-12-2021 Iron [Mass/Vol] 51.0 ug/dL Normal 50.0-170.0 [facility] Comment on above: Performed By: #### M G, T7, TSH, CMP #### [facility] [address] [address] [address] Nida Hall LIPID PROFILEon 11-12-2021 CHOL-HDL RATIO NORM SEE BELOW Normal [facility] Comment on above: Result Comment: 3.3 - 4.4 LOW RISK 4.4 - 7.1 AVERAGE RISK 7.1 - 11.0 MODERATE RISK >11.0 HIGH RISK Performed By: #### M G, T7, TSH, CMP #### [facility] [address] [address] [address] Nida Hall Cholesterol [Mass/Vol] 168 mg/dL Normal <=200 [facility] Comment on above: Performed By: #### M G, T7, TSH, CMP #### [facility] [address] [address] [address] Nida Hall Cholesterol in HDL [Mass/Vol] 47 mg/dL Normal 40-60 [facility] Comment on above: Performed By: #### M G, T7, TSH, CMP #### [facility] [address] [address] [address] Nida Hall Cholesterol in LDL [Mass/Vol] 102.4 mg/dL Normal [facility] Comment on above: Performed By: #### M G, T7, TSH, CMP #### [facility] [address] [address] [address] Nida Hall Cholesterol.total/Choles terol in HDL [Mass ratio] 3.6 {ratio} Normal [facility] Comment on above: Performed By: #### M G, T7, TSH, CMP #### [facility] [address] [address] [address] Nida Hall HDL NORMAL > or = 60 mg/dl - LOW CARDIOVASCULAR RISK <40 mg/dl - HIGH CARDIOVASCULAR RISK Normal [facility] Comment on above: Performed By: #### M G, T7, TSH, CMP #### [facility] [address] [address] [address] Nida Hall LDL CALC NORMAL SEE BELOW Normal [facility] Comment on above: Result Comment: <100 mg/dl OPTIMAL 100 - 129 mg/dl NEAR OR ABOVE OPTIMAL 130 - 159 mg/dl BORDERLINE HIGH 160 - 189 mg/dl HIGH >190 mg/dl VERY HIGH Performed By: #### M G, T7, TSH, CMP #### [facility] [address] [address] [address] Nida Hall Triglyceride [Mass/Vol] 93 mg/dL Normal <=150 [facility] Comment on above: Performed By: #### M G, T7, TSH, CMP #### [facility] [address] [place] [address] Dr. Nida Hall VLDL CALC 18.6 mg/dL Normal [facility] Comment on above: Performed By: #### M G, T7, TSH, CMP #### [facility] [address] [place] [address] Dr. Nida Hall PROF 14(COMP METB)on 022 Albumin [Mass/Vol] 2.7 g/dL Critically low 3.4-5.0 [facility] Comment on above: Performed By: #### M G, T7, TSH, CMP #### [facility] [address] [place] [address] Dr. Nida Hall Albumin/Globulin [Mass ratio] 0.6 {ratio} Normal [facility] Comment on above: Performed By: #### M G, T7, TSH, CMP #### [facility] [address] [place] [address] Dr. Nida Hall ALP [Catalytic activity/Vol] 108 U/L Normal 46-116 [facility] Comment on above: Performed By: #### M G, T7, TSH, CMP #### [facility] [address] [place] [address] Dr. Nida Hall ALT [Catalytic activity/Vol] 17 U/L Normal 14-59 [facility] Comment on above: Performed By: #### M G, T7, TSH, CMP #### [facility] [address] [address] [address] Nida Hall Anion gap [Moles/Vol] 10.9 mmol/L Normal [facility] Comment on above: Performed By: #### M G, T7, TSH, CMP #### [facility] [address] [address] [address] Nida Hall AST [Catalytic activity/Vol] 23 U/L Normal 15-37 [facility] Comment on above: Performed By: #### M G, T7, TSH, CMP #### [facility] [address] [place] [address] Dr. Nida Hall Bilirubin [Mass/Vol] 0.3 mg/dL Normal 0.2-1.0 [facility] Comment on above: Performed By: #### M G, T7, TSH, CMP #### [facility] [address] [address] [address] Nida Hall Calcium [Mass/Vol] 8.7 mg/dL Normal 8.5-10.1 [facility] Comment on above: Performed By: #### M G, T7, TSH, CMP #### [facility] [address] [address] [address] Nida Hall Chloride [Moles/Vol] 107 mmol/L Normal 98-107 [facility] Comment on above: Performed By: #### M G, T7, TSH, CMP #### [facility] [address] [address] [address] Nida Hall CO2 [Moles/Vol] 27.9 mmol/L Normal 21.0-32.0 [facility] Comment on above: Performed By: #### M G, T7, TSH, CMP #### [facility] [address] [address] [address] Nida Hall Creatinine [Mass/Vol] 0.88 mg/dL Normal 0.55-1.02 [facility] Comment on above: Performed By: #### M G, T7, TSH, CMP #### [facility] [address] [address] [address] Nida Hall EGFR-AF NIGERIAN >60 Normal >=60 [facility] Comment on above: Performed By: #### M G, T7, TSH, CMP #### [facility] [address] [address] [address] Nida Hall EGFR-NON AF NIGERIAN >60 Normal >=60 [facility] Comment on above: Performed By: #### M G, T7, TSH, CMP #### [facility] [address] [address] [address] Nida Hall Globulin (S) [Mass/Vol] 4.2 g/dL Normal T [facility] Comment on above: Performed By: #### M G, T7, TSH, CMP #### [facility] [address] [address] [address] Nida Hall Glucose [Mass/Vol] 101 mg/dL Normal 74-106 [facility] Comment on above: Performed By: #### M G, T7, TSH, CMP #### [facility] [address] [address] [address] Nida Hall Potassium [Moles/Vol] 3.8 mmol/L Normal 3.5-5.1 [facility] Comment on above: Performed By: #### M G, T7, TSH, CMP #### [facility] [address] [address] [address] Nida Hall Protein [Mass/Vol] 6.9 g/dL Normal 6.4-8.2 [facility] Comment on above: Performed By: #### M G, T7, TSH, CMP #### [facility] [address] [address] [address] Nida Hall Sodium [Moles/Vol] 142 mmol/L Normal 136-145 [facility] Comment on above: Performed By: #### M G, T7, TSH, CMP #### [facility] [address] [place] [address] Dr. Nida Hall Urea nitrogen [Mass/Vol] 21.0 mg/dL Critically high 7.0-18 .0 [facility] Comment on above: Performed By: #### M G, T7, TSH, CMP #### [facility] Laboratory [address] [address] [address] Nida Hall Urea nitrogen/Creatinine [Mass ratio] 23.9 mg/mg Normal [facility] Comment on above: Performed By: #### M G, T7, TSH, CMP #### [facility] [address] [address] [address] Nida Hall TSHon 11-12-2021 TSH 0.865 uIU/mL Normal 0.358-3.740 [facility] Comment on above: Performed By: #### M G, T7, TSH, CMP #### [facility] [address] [address] [address] Nida Hall URIC ACID SERUMon 11-12-2021 Urate [Mass/Vol] 4.7 mg/dL Normal 2.6-6.0 [facility] Comment on above: Performed By: #### M G, T7, TSH, CMP #### [facility] [address] [address] [address] Nida Hall Vital Signs Date Time Vital Sign Value Performing Clinician Faci lity 06-26-2024 16:00-0400 Body temperature 98.1 [degF] Terry Trevizo DO Work Phone: [facility] 06-26-2024 16:00-0400 Diastolic blood pressure 89 mm[Hg] Terry Tupa DO Work Phone: [facility] 06-26-2024 16:00-0400 Heart rate 80 /min Terry Tupa DO Work Phone: [facility] 06-26-2024 16:00-0400 Respiratory rate 18 /min Terry Arredondopa DO Work Phone: [facility] 06-26-2024 16:00-0400 SaO2% (BldA) [Mass fraction] 93 % Terry Tupa DO Work Phone: [facility] 06-26-2024 16:00-0400 Systolic blood pressure 158 mm[Hg] Terry Arredondopa DO Work Phone: [facility] 06-26-2024 10:26-0400 Body weight 173.7 kg Terry Arredondopa DO Work Phone: [facility] 06-23-2024 14:09-0400 Body height 154.94 cm Terry Tupa DO Work Phone: [facility] 06-20-2024 03:42-0400 Diastolic blood pressure 81 mm[Hg] Terry Tupa DO Work Phone: [facility] 06-20-2024 03:42-0400 Heart rate 101 /min Terry Tupa DO Work Phone: [facility] 06-20-2024 03:42-0400 Respiratory rate 18 /min Terry Tupa DO Work Phone: [facility] 06-20-2024 03:42-0400 SaO2% (BldA) [Mass fraction] 97 % Terry Tupa DO Work Phone: [facility] 06-20-2024 03:42-0400 Systolic blood pressure 138 mm[Hg] Terry Tupa DO Work Phone: [facility] 06-20-2024 00:32-0400 Body height 154.94 cm Terry Tupa DO Work Phone: [facility] 06-20-2024 00:32-0400 Body temperature 98.9 [degF] Terry Tupa DO Work Phone: [facility] 06-20-2024 00:32-0400 Body weight 173.8 kg Terry Tupa DO Work Phone: [facility] Encounters Encounter Date Encounter Type Care Provider Facility Start: 06-23-2024 Non-patient / Non-visit Gonzalo fernandez Tupa DO Work Phone: [facility] Work Phone: Start: 06-20-2024 End: 06-26-2024 Evaluation and management of inpatient Terry Tupa DO Work Phone: [facility] [place] [facility] Work Phone: Start: 05-06-2022 End: 05-07-[address] CECIL CLANCY . Facility: Start: 11-12-2021 End: 11-13-[address] CECIL CLANCY . Facility: Start: 10-03-[address] CECIL CLANCY . Facili ty:H1 Procedures Date Procedure Procedure Detail Performing Clinician Start: 06-26-2024 NM bone scan whole body Terry Arredondopa DO Work Phone: Start: 06-22-2024 CT of abdomen and pe lvis without contrast Terry Tupa DO Work Phone: Start: 06-22-2024 X-ray of right foot Pat sher Tupa DO Work Phone: Start: 06-21-2024 Urine culture Terry Hall upa DO Work Phone: Start: 06-21-2024 Plain X-ray of left tibia and left fibula Terry Arredondopa DO Work Phone: Plan of Treatment Date Care Activity Detail Author Start: 06-26-2024 [facility] Start: 06-22-2024 Referral to utility driver [facility] Start: 06-22-2024 Referral to infectio us diseases physician [facility] Start: 06-20-2024 Administration of prophylactic treatment [facility] Start: 06-20-2024 Repair Left Lower Le g Skin, External Approach Repair Left Lower Leg Skin, External Approach [facility] Start: 06-20-2024 Physical therapy procedure [facility] Start: 06-20-2024 Referral to general surgeon [facility] Start: 06-20-2024 Referral to occupati onal therapist [facility] Start: 06-20-2024 End: 06-20-2024 [facility] Start: 06-20-2024 Hospital admission [facility] Patient referral [facility] Work Phone: Immunizations Immunization Date Immunization Notes Care Provider Fa cility 06-20-2024 tetanus toxoid, redu karol diphtheria toxoid, and acellular pertussis vaccine, adsorbed Terry Trevizo DO Work Phone: [facility] Payers Date Payer Category Payer Medicare [id number] 1958 Medicare [id number] 1958 Self-pay 1945 Unknown [id number] 1945 Unknown [id number] 1945 Unknown [id number] Private Health Insurance [employer] [facility] PFFS 1 [id number] Unknown [id number] Social History Date Type Detail Facility Start: 06-20-2024 Tobacco smoking status NHIS Never smoked tobacco (finding) [facility] Start: 06-20-2024 End: 06-26-2024 Sex Female (finding) [facility] Start: 1945 Sex Assigned At Female [facility] Start: 06-23-2024 Tobacco smoking status NHIS Ex-smoker (finding) [facility] Start: 06-21-2024 End: 06-21-2024 SDOH Follow up SDOH Follow up [facility] Work Phone: NEGATED: Highlighted row [facility] Goals Date Patient Goal Desired Activity /State Functional Status Date Assessment Result Facility 06-26-2024 Functional status Patient at Baseline [facility] Work Phone: Mental Status Date Assessment Result Facility 06-26-2024 Cognitive function Cognitive Sta tus Patient at Baseline [facility] Work Phone: Clinical Notes 06-20-2024 to 06-26-2024 Note Date & Type Note Facility 06-26-2024 Nuclear medicine Diagnostic study note [facility] [place] [address] [place], [place] [id number] Nuclear Medicine Report Signed Patient: Molly Navas MR#: [id number] : 1945 Acct:[id number] Age/Sex: 79 / F ADM Date: 5 Loc: Room: [address] [place] [address] Type: ADM IN Attending Dr: Alex Fihsman MD Copies to: MD Kingston Andrade Jr, DO Max Pacheco MD~ Ordering Provider: Max Pacheco MD Date of Service: 06/26/24 NM/NM bone scan whole body: low back pain after fall DOSE ORDERD WHOLE-BODY BONE SCAN: CLINICAL HISTORY: Fall 6 days ago, back pain. COMPARISON: CT abdomen and pelvis 06/22/2024 TECHNIQUE: Following the intravenous administration of 24.1 mCi of technetium 99m labeled MDP, delayed minified views of the entire skeleton were obtained. FINDINGS: There is normal distribution of radionucleotide within the axial and appendicular skeleton. Focal area of increased radiotracer activity is seen involving 2 vertebral bodies in the region of the thoracolumbar junction. No acute fracture line or significant vertebral body height loss is seen on the concurrent CT within this region. Additional activity is seen involving the shoulder and SC joints suggestive of degenerative change. NM/NM bone scan whole body IMPRESSION: FOCAL AREA OF INCREASED RADIOTRACER ACTIVITY IS SEEN INVOLVING 2 VERTEBRAL BODIES IN THE REGION OF THE THORACOLUMBAR JUNCTION WITHOUT DEFINITIVE FRACTURE LINE OR SIGNIFICANT VERTEBRAL BODY HEIGHT LOSS ON THE CONCURRENT CT. GIVEN THE HISTORY, UNDERLYING OCCULT FRACTURES CANNOT BE EXCLUDED. Impression dictated by: Kingston Linder Jr., D.O.06/26/2024 3:02 PM Dictation Location: [address] [address] Transcribed By: [facility] 06/26/24 1502 Dictated By: Kingston Linder Jr, DO 06/26/24 1500 Signed By: 06/26/24 1502 [facility] 06-26-2024 Progress note Note Date/Time June 26, 2024 11:2 1am [facility] [address] [place], [place] [id number] Infect. Disease Progress Note Signed Patient: Molly Navas MR#: [id number] : 1945 Acct:[id number] Age/Sex: 79 / F Adm Date: Loc: 3T Room: [address] [place] [address] Type: ADM IN Attending Dr: Alex Fishman MD Copies to: ~ Date of Service: 06/26/2024 Subjective Interval history: Is complaining of feeling achy all over. Still has back pain but it is more noticeable when she is being turned. She states she still screams. Bone scan has been ordered. Antibiotics switched to ertapenem over the weekend Exam Physical Exam Vital Signs: Temp Pulse Resp BP Pulse Ox O2 Del Method 97.8 F 110 H 20 142/75 H 93 L Room Air 06/26/24 08:00 06/26/24 08:00 06/26/24 08:00 06/26/24 08:00 06/26/24 08:00 06/26/24 08:00 Const General: comfortable Orientation: oriented x3 HEENT Head: normal to inspection Ears: hearing grossly normal bilaterally Nose: external nose normal Eyes General: appearance normal, both eyes and all related structures Neck Neck: normal visual inspection Chest Chest palpation & inspection: normal inspection of the chest Resp Effort & Inspection: normal respiratory effort Cardio Palpation: normal PMI Rate: regular rate GI Inspection: normal to inspection Palpation: soft and nontender Neuro General: patient oriented x3 Objective Labs CBC/BMP: CBC, BMP 06/26/24 06:31 Corrected WBC 12.5 H Uncorrected WBC Count 12.5 H RBC 3.14 L Hgb 9.3 L Hct 29.1 L Plt Count 327 Sodium 137 Potassium 4.1 Chloride 104 Carbon Dioxide 24.8 Anion Gap 12.3 BUN 46 H Creatinine 1.30 H Calcium 8.3 L Labs: 06/26/24 06:31 BUN 46 H Creatinine 1.30 H Microbiology Microbiology: Microbiology - Results from entire visit 06/21/24 05:00 Urine - Clean-Voided Midstream Urine Culture - Final Enterobacter cloacae complex Allergies and Medications Allergies and Active Meds Allergies No Known Allergies Allergy (Verified 06/20/24 00:40) Active Medications Acetaminophen (Acetaminophen 500 Mg Tablet) 1,000 mg PO Q6HR PRN PRN Reason: Pain Scale 1 - 3 or fever Stop: 06/20/25 03:40 Last Admin: 06/22/24 06:34 Dose: 1,000 mg Clopidogrel Bisulfate (Clopidogrel Bisulfate 75 Mg Tablet) [facility] [place] Stop: 06/20/25 08:59 Last Admin: 06/26/24 10:17 Dose: 75 mg Duloxetine HCl (Duloxetine 60 Mg Capsule.Dr) 60 [facility] [place] Stop: 06/20/25 08:59 Last Admin: 06/26/24 10:17 Dose: 60 mg Heparin Sodium (Porcine) (Heparin 5,000 Unit/Ml Vial) 5,000 unit SUBCUT Q8HR [facility] Stop: 06/22/25 13:59 Last Admin: 06/26/24 06:33 Dose: 5,000 unit Hydromorphone HCl (Hydromorphone 1 Mg/Ml Syringe) 1 mg IV-PUSH Q2H PRN PRN Reason: Pain Scale 7 - 10 Last Admin: 06/22/24 13:07 Dose: 1 mg Ertapenem (Invanz) 1 gm in 100 mls @ 200 mls/hr IV Q24H [facility] Last Admin: 06/25/24 15:56 Dose: 200 mls/hr Latanoprost (Latanoprost 0.005% Op Soln 50 Drops/2.5 Ml Bottle) 1 drops EYE-BOTH QHS [facility] Stop: 06/20/25 21:59 Last Admin: 06/25/24 22:09 Dose: 1 drops Levothyroxine Sodium (Levothyroxine 100 Mcg Tablet) 100 mcg PO DAILY.0630 [facility] Stop: 06/20/25 06:29 Last Admin: 06/26/24 06:33 Dose: 100 mcg Melatonin (Melatonin 5 Mg Tablet) 5 mg PO QHS PRN PRN Reason: Insomnia Stop: 06/20/25 03:46 Last Admin: 06/24/24 22:16 Dose: 5 mg Metoprolol Tartrate (Metoprolol Tartrate 50 Mg Tablet) 50 mg PO BID [facility] Stop: 06/20/25 08:59 Last Admin: 06/26/24 10:17 Dose: 50 mg Mirabegron (Mirabegron 25 Mg Tab.Er.24h) 25 mg PO [facility] Stop: 06/20/25 08:59 Last Admin: 06/26/24 10:17 Dose: 25 mg Nystatin (Nystatin 100,000 Unit/Gram Powder 15 Gm Bottle) 1 applic TOPICAL BID [facility] Stop: 06/21/25 13:14 Last Admin: 06/26/24 10:18 Dose: 1 applic Ondansetron HCl (Ondansetron 4 Mg/2 Ml Vial) 4 mg IV-PUSH Q6H PRN PRN Reason: Nausea And Vomiting Stop: 06/20/25 03:46 Oxycodone HCl (Oxycodone Ir 5 Mg Tablet) 5 mg PO Q6HR PRN PRN Reason: Pain Scale 4 - 7 Last Admin: 06/24/24 22:15 Dose: 5 mg Pantoprazole Sodium (Pantoprazole 40 Mg Tablet.Dr) 40 mg PO QHS [facility] Stop: 06/20/25 21:59 Last Admin: 06/25/24 22:08 Dose: 40 mg Raloxifene HCl (Raloxifene 60 Mg Tablet) 60 mg PO QAM [facility] Stop: 06/20/25 08:59 Last Admin: 06/26/24 10:23 Dose: 60 mg Sodium Chloride (Sodium Chloride 0.9 % 10 Ml Syringe) 0 ml IV-PUSH PRN PRN PRN Reason: Flush Stop: 06/20/25 00:39 Last Admin: 06/22/24 12:28 Dose: 5 ml Sodium Chloride (Sodium Chloride 0.9 % 10 Ml Syringe) 0 ml IV-PUSH PRN PRN PRN Reason: Flush Stop: 06/20/25 03:46 Sodium Chloride (Sodium Chloride 0.9 % 10 Ml Syringe) 0 ml IV-PUSH QSHIFT [facility] Stop: 06/20/25 05:59 Last Admin: 06/26/24 06:33 Dose: 10 ml A&P - Infectious Disease Assessment/Plan (1) Traumatic leg injury: Qualifiers: Encounter type: initial encounter Laterality: left Qualified Code(s): S89.92XA - Unspecified injury of left lower leg, initial encounter (2) Lymphedema: (3) Back pain: (4) Leukocytosis: (5) Frequent falls: (6) Laceration: (7) UTI (urinary tract infection): (8) Chronic use of steroids: Plan Left lower extremity traumatic injury addressed on Wednesday without local signs ofinfection. Urine culture came back with Enterobacter cloacae over the weekend and ceftriaxone was therefore broadened to ertapenem based on possibility of inducible beta-lactamase. Given back pain and fall though CT scan abdomen pelvis not seem to think acute bone scan was ordered and awaiting for this to bedone. Antibiotics will likely be discontinued if bone scan does not show any thing suggesting a possible infection. White count has trended down some. She is on chronic steroids which could keep her baseline and elevated value to beginwith. Documented By: Max Pacheco MD 06/26/24 1116 Signed By: <Electronically signed by MD Max Pacheco> 06/26/24 1121 [facility] Work Phone: 1(461) 882-802304-07-2025 [place] [address] Infect. Disease Progress Note Signed Patient: Molly Navas MR#: [id number] : 1945 Acct:[id number] Age/Sex: 79 / F Adm Date: 5 Loc: Room: [address] [place] [address] Type: ADM IN Attending Dr: Alex Fishman MD Copies to: ~ Date of Service: 06/26/2024 Subjective Interval history: Is complaining of feeling achy all over. Still has back pain but it is more noticeable when she is being turned. She states she still screams. Bone scan has been ordered. Antibiotics switched to ertapenem over the weekend Exam Physical Exam Vital Signs: Temp Pulse Resp BP Pulse Ox O2 Del Method 97.8 F 110 H 20 142/75 H 93 L Room Air 06/26/24 08:00 06/26/24 08:00 06/26/24 08:00 06/26/24 08:00 06/26/24 08:00 06/26/24 08:00 Const General: comfortable Orientation: oriented x3 HEENT Head: normal to inspection Ears: hearing grossly normal bilaterally Nose: external nose normal Eyes General: appearance normal, both eyes and all related structures Neck Neck: normal visual inspection Chest Chest palpation & inspection: normal inspection of the chest Resp Effort & Inspection: normal respiratory effort Cardio Palpation: normal PMI Rate: regular rate GI Inspection: normal to inspection Palpation: soft and nontender Neuro General: patient oriented x3 Objective Labs CBC/BMP: CBC, BMP 06/26/24 06:31 Corrected WBC 12.5 H Uncorrected WBC Count 12.5 H RBC 3.14 L Hgb 9.3 L Hct 29.1 L Plt Count 327 Sodium 137 Potassium 4.1 Chloride 104 Carbon Dioxide 24.8 Anion Gap 12.3 BUN 46 H Creatinine 1.30 H Calcium 8.3 L Labs: 06/26/24 06:31 BUN 46 H Creatinine 1.30 H Microbiology Microbiology: Microbiology - Results from entire visit 06/21/24 05:00 Urine - Clean-Voided Midstream Urine Culture - Final Enterobacter cloacae complex Allergies and Medications Allergies and Active Meds Allergies No Known Allergies Allergy (Verified 06/20/24 00:40) Active Medications Acetaminophen (Acetaminophen 500 Mg Tablet) 1,000 mg PO Q6HR PRN PRN Reason: Pain Scale 1 - 3 or fever Stop: 06/20/25 03:40 Last Admin: 06/22/24 06:34 Dose: 1,000 mg Clopidogrel Bisulfate (Clopidogrel Bisulfate 75 Mg Tablet) 75 mg PO [facility] Stop: 06/20/25 08:59 Last Admin: 06/26/24 10:17 Dose: 75 mg Duloxetine HCl (Duloxetine 60 Mg Capsule.Dr) 60 mg PO [facility] Stop: 06/20/25 08:59 Last Admin: 06/26/24 10:17 Dose: 60 mg Heparin Sodium (Porcine) (Heparin 5,000 Unit/Ml Vial) 5,000 unit SUBCUT Q8HR [facility] Stop: 06/22/25 13:59 Last Admin: 06/26/24 06:33 Dose: 5,000 unit Hydromorphone HCl (Hydromorphone 1 Mg/Ml Syringe) 1 mg IV-PUSH Q2H PRN PRN Reason: Pain Scale 7 - 10 Last Admin: 06/22/24 13:07 Dose: 1 mg Ertapenem (Invanz) 1 gm in 100 mls @ 200 mls/hr IV Q24H [facility] Last Admin: 06/25/24 15:56 Dose: 200 mls/hr Latanoprost (Latanoprost 0.005% Op Soln 50 Drops/2.5 Ml Bottle) 1 drops EYE-BOTH QHS [facility] Stop: 06/20/25 21:59 Last Admin: 06/25/24 22:09 Dose: 1 drops Levothyroxine Sodium (Levothyroxine 100 Mcg Tablet) 100 mcg PO DAILY.629 [facility] Stop: 06/20/25 06:29 Last Admin: 06/26/24 06:33 Dose: 100 mcg Melatonin (Melatonin 5 Mg Tablet) 5 mg PO QHS PRN PRN Reason: Insomnia Stop: 06/20/25 03:46 Last Admin: 06/24/24 22:16 Dose: 5 mg Metoprolol Tartrate (Metoprolol Tartrate 50 Mg Tablet) 50 mg PO BID [facility] Stop: 06/20/25 08:59 Last Admin: 06/26/24 10:17 Dose: 50 mg Mirabegron (Mirabegron 25 Mg Tab.Er.24h) 25 mg PO QAM [facility] Stop: 06/20/25 08:59 Last Admin: 06/26/24 10:17 Dose: 25 mg Nystatin (Nystatin 100,000 Unit/Gram Powder 15 Gm Bottle) 1 applic TOPICAL BID [facility] Stop: 06/21/25 13:14 Last Admin: 06/26/24 10:18 Dose: 1 applic Ondansetron HCl (Ondansetron 4 Mg/2 Ml Vial) 4 mg IV-PUSH Q6H PRN PRN Reason: Nausea And Vomiting Stop: 06/20/25 03:46 Oxycodone HCl (Oxycodone Ir 5 Mg Tablet) 5 mg PO Q6HR PRN PRN Reason: Pain Scale 4 - 7 Last Admin: 06/24/24 22:15 Dose: 5 mg Pantoprazole Sodium (Pantoprazole 40 Mg Tablet.Dr) 40 mg PO QHS [facility] Stop: 06/20/25 21:59 Last Admin: 06/25/24 22:08 Dose: 40 mg Raloxifene HCl (Raloxifene 60 Mg Tablet) [facility] Stop: 06/20/25 08:59 Last Admin: 06/26/24 10:23 Dose: 60 mg Sodium Chloride (Sodium Chloride 0.9 % 10 Ml Syringe) 0 ml IV-PUSH PRN PRN PRN Reason: Flush Stop: 06/20/25 00:39 Last Admin: 06/22/24 12:28 Dose: 5 ml Sodium Chloride (Sodium Chloride 0.9 % 10 Ml Syringe) 0 ml IV-PUSH PRN PRN PRN Reason: Flush Stop: 06/20/25 03:46 Sodium Chloride (Sodium Chloride 0.9 % 10 Ml Syringe) 0 ml IV-PUSH QSHIFT [facility] Stop: 06/20/25 05:59 Last Admin: 06/26/24 06:33 Dose: 10 ml A&P - Infectious Disease Assessment/Plan (1) Traumatic leg injury: Qualifiers: Encounter type: initial encounter Laterality: left Qualified Code(s): S89.92XA - Unspecified injuryof left lower leg, initial encounter (2) Lymphedema: (3) Back pain: (4) Leukocytosis: (5) Frequent falls: (6) Laceration: (7) UTI (urinary tract infection): (8) Chronic use of steroids: Plan Left lower extremity traumatic injury addressed on Wednesday without local signs ofinfection. Urine culture came back with Enterobacter cloacae over the weekend and ceftriaxone was therefore broadened to ertapenem based on possibility of inducible beta-lactamase. Given back pain and fall though CT scan abdomen pelvis not seem to think acute bone scan was ordered and awaiting for this to bedone. Antibiotics will likely be discontinued if bone scan does not show any thing suggesting a possible infection. White count has trended down some. She is on chronic steroids which could keep her baseline and elevated value to beginwith. Documented By: Max Pacheco MD 06/26/24 1116 Signed By: 06/26/24 1121 [facility]04-06-2025 Progress note Author Fco Buck [facility] Note Date/Time June 25, 2024 5:35 pm [facility] [address] [place] [address] Hospitalist Progress Note Signed Patient: Molly Navas MR#: [id number] : 1945 Acct:[id number] Age/Sex: 79 / F Adm Date: 5 Loc: 3T Room: [address] [place] [address] Type: ADM IN Attending Dr: Fco Buck MD Copies to: ~ Date of Service: 06/25/2024 Subjective Subjective Narrative: No clinical changes at this time, understands plan for discharge after finalizedabx regimen Exam Physical Exam Vital Signs: Temp Pulse Resp BP Pulse Ox O2 Del Method 98.3 F 107 H 18 142/84 H 95 Room Air 06/25/24 04:00 06/25/24 04:00 06/25/24 04:00 06/25/24 04:00 06/25/24 04:00 06/25/24 04:00 Narrative: General: cooperative and comfortable Orientation: alert, awake and oriented x3 Head: normal to inspection Neck: normal visual inspection Cardio: no JVD, regular rate, regular rhythm Chest palpation & inspection: normal inspection of the chest Resp Effort & Inspection: normal respiratory effort Abd: soft, non-tender, non-distended Extremities: bilateral upper extremities wrapped in gauze and LLE in brace. [14-07-02] Back: Has overlying TTP over lumbar spine Objective Lab Results 06/25/24 05:15 06/25/24 05:15 Meds Allergies and Active Meds Allergies No Known Allergies Allergy (Verified 06/20/24 00:40) Active Meds: Active Medications Generic Name Dose Route Start Last Admin Trade Name Freq PRN Reason Stop Dose Admin Acetaminophen 1,000 mg 06/20/24 03:41 06/22/24 06:34 Acetaminophen 500 Mg Tablet PO 06/20/25 03:40 1,000 mg Q6HR PRN Administration Pain Scale 1 - 3 or fever Clopidogrel Bisulfate 75 mg 06/20/24 09:00 06/24/24 08:03 Clopidogrel Bisulfate 75 Mg Tablet PO 06/20/25 08:59 75 mg QAM ZI Administration Duloxetine HCl 60 mg 06/20/24 09:00 06/24/24 08:04 Duloxetine 60 Mg Capsule.Dr PO 06/20/25 08:59 60 mg QAM ZI Administration Heparin Sodium (Porcine) 5,000 unit 06/22/24 14:00 06/25/24 06:41 Heparin 5,000 Unit/Ml Vial SUBCUT 06/22/25 13:59 5,000 unit Q8HR ZI Administration Hydromorphone HCl 1 mg 06/22/24 11:56 06/22/24 13:07 Hydromorphone 1 Mg/Ml Syringe IV-PUSH 1 mg Q2H PRN Administration Pain Scale 7 - 10 Ertapenem 1 gm in 100 mls @ 200 mls/hr 06/24/24 15:30 06/24/24 15:40 Invanz IV 200 mls/hr Q24H ZI Administration Latanoprost 1 drops 06/20/24 22:00 06/24/24 22:16 Latanoprost 0.005% Op Soln 50 Drops/2.5 Ml Bottle EYE-BOTH 06/20/25 21:59 1 drops QHS ZI Administration Levothyroxine Sodium 100 mcg 06/20/24 06:30 04/06/25 06:41 Levothyroxine 100 Mcg Tablet PO 06/20/25 06:29 100 mcg DAILY.0630 ZI Administration Melatonin 5 mg 06/20/24 03:47 06/24/24 22:16 Melatonin 5 Mg Tablet PO 06/20/25 03:46 5 mg QHS PRN Administration Insomnia Metoprolol Tartrate 50 mg 06/20/24 09:00 06/24/24 22:16 Metoprolol Tartrate 50 Mg Tablet PO 06/20/25 08:59 50 mg BID ZI Administration Mirabegron 25 mg 06/20/24 09:00 06/24/24 08:06 Mirabegron 25 Mg Tab.Er.24h PO 06/20/25 08:59 25 mg QAM ZI Administration Nystatin 1 applic 06/21/24 13:15 06/24/24 22:16 Nystatin 100,000 Unit/Gram Powder 15 Gm Bottle TOPICAL 06/21/25 13:14 1 applic BID ZI Administration Ondansetron HCl 4 mg 06/20/24 03:47 Ondansetron 4 Mg/2 Ml Vial IV-PUSH 06/20/25 03:46 Q6H PRN Nausea And Vomiting Oxycodone HCl 5 mg 06/20/24 03:41 06/24/24 22:15 Oxycodone Ir 5 Mg Tablet PO 5 mg Q6HR PRN Administration Pain Scale 4 - 7 Pantoprazole Sodium 40 mg 06/20/24 22:00 06/24/24 22:15 Pantoprazole 40 Mg Tablet. PO 06/20/25 21:59 40 mg QHS ZI Administration Raloxifene HCl 60 mg 06/20/24 09:00 06/24/24 08:06 Raloxifene 60 Mg Tablet PO 06/20/25 08:59 60 mg QAM ZI Administration Sodium Chloride 0 ml 06/20/24 00:40 06/22/24 12:28 Sodium Chloride 0.9 % 10 Ml Syringe IV-PUSH 06/20/25 00:39 5 ml PRN PRN Administration Flush Sodium Chloride 0 ml 06/20/24 03:47 Sodium Chloride 0.9 % 10 Ml Syringe IV-PUSH 06/20/25 03:46 PRN PRN Flush Sodium Chloride 0 ml 06/20/24 06:00 06/25/24 06:41 Sodium Chloride 0.9 % 10 Ml Syringe IV-PUSH 06/20/25 05:59 10 ml QSHIFT ZI Administration A&P - Hospitalist Assessment/Plan (1) HTN (hypertension): (2) Skin tear: (3) Laceration: (4) Weakness: (5) Frequent falls: (6) Fracture of fifth metatarsal bone of left foot: Plan Tachycardia with leukocytosis Back pain LLE laceration and skin tear h/o HTN - On home metoprolol tartrate 50 mg bid - started ceftriaxone 06/21/24 for UTI - no evidence of laceration on lumbar spine, CT a/p ruled out fracture and pyleonephritis - plain film Xray shows - Inpatient wound nurse - podiatry consult for 5th metatarsal fracture - no plans for intervention, fracture is chronic - infectious disease consulted for leukocytosis, corticosteroids vs UTI - urine culture shows enterobacter cloacae - intermediate sensitivity to ceftriaxone, received 4 days - Day 2 ertapenem, defer to infectious disease ROLF - unclear baseline Cr, 1.21 on admission - CT a/p ruled out obstructive uropathy as above - stabilized at 1.60 after day 1 abx, continues to downtrend - continue to trend Weakness Frequent falls - Plans for discharge to SNF Chronic conditions Hypothyroidism?levothyroxine History of CVA?clopidogrel Depression?duloxetine GERD Overactive bladder Prednisone is on patient's list of home medications, she reports she was put on that due to her weakness?will hold for now - has been on for the past 6 months, 10 mg daily by PCP. Will consider referral to rheum on discharge DVT PPx?sqh 5k q8h Diet order?regular CODE STATUS?full code Dispo- awaiting precert for Thom Documented By: Fco Buck MD 06/25/24 0858 Signed By: <Electronically signed by Fco Buck MD> 06/25/24 6665 [facility] Work Phone: [phone]) 884-454104-06-[address] [address] Hospitalist Progress Note Signed Patient: Molly Navas MR#: [id number] : 1945 Acct:[id number] Age/Sex: 79 / F Adm Date: 04/01/2 5 Loc: 3T Room: 4B5461-1 Type: ADM IN Attending Dr: Fco Buck MD Copies to: ~ Date of Service: 06/25/2024 Subjective Subjective Narrative: No clinical changes at this time, understands plan for discharge after finalizedabx regimen Exam Physical Exam Vital Signs: Temp Pulse Resp BP Pulse Ox O2 Del Method 98.3 F 107 H 18 142/84 H 95 Room Air 06/25/24 04:00 06/25/24 04:00 06/25/24 04:00 06/25/24 04:00 06/25/24 04:00 06/25/24 04:00 Narrative: General: cooperative and comfortable Orientation: alert, awake and oriented x3 Head: normal to inspection Neck: normal visual inspection Cardio: no JVD, regular rate, regular rhythm Chest palpation & inspection: normal inspection of the chest Resp Effort & Inspection: normal respiratory effort Abd: soft, non-tender, non-distended Extremities: bilateral upper extremities wrapped in gauze and LLE in brace. [14-07-02] Back: Has overlying TTP over lumbar spine Objective Lab Results 06/25/24 05:15 06/25/24 05:15 Meds Allergies and Active Meds Allergies No Known Allergies Allergy (Verified 06/20/24 00:40) Active Meds: Active Medications Generic Name Dose Route Start Last Admin Trade Name Freq PRN Reason Stop Dose Admin Acetaminophen 1,000 mg 06/20/24 03:41 06/22/24 06:34 Acetaminophen 500 Mg Tablet PO 06/20/25 03:40 1,000 mg Q6HR PRN Administration Pain Scale 1 - 3 or fever Clopidogrel Bisulfate 75 mg 06/20/24 09:00 06/24/24 08:03 Clopidogrel Bisulfate 75 Mg Tablet PO 06/20/25 08:59 75 mg QAM ZI Administration Duloxetine HCl 60 mg 06/20/24 09:00 06/24/24 08:04 Duloxetine 60 Mg Capsule. PO 06/20/25 08:59 60 mg QAM ZI Administration Heparin Sodium (Porcine) 5,000 unit 06/22/24 14:00 06/25/24 06:41 Heparin 5,000 Unit/Ml Vial SUBCUT 06/22/25 13:59 5,000 unit Q8HR ZI Administration Hydromorphone HCl 1 mg 06/22/24 11:56 06/22/24 13:07 Hydromorphone 1 Mg/Ml Syringe IV-PUSH 1 mg Q2H PRN Administration Pain Scale 7 - 10 Ertapenem 1 gm in 100 mls @ 200 mls/hr 06/24/24 15:30 06/24/24 15:40 Invanz IV 200 mls/hr Q24H ZI Administration Latanoprost 1 drops 06/20/24 22:00 06/24/24 22:16 Latanoprost 0.005% Op Soln 50 Drops/2.5 Ml Bottle EYE-BOTH 06/20/25 21:59 1 drops QHS ZI Administration Levothyroxine Sodium 100 mcg 06/20/24 06:30 06/25/24 06:41 Levothyroxine 100 Mcg Tablet PO 06/20/25 06:29 100 mcg DAILY.0630 ZI Administration Melatonin 5 mg 06/20/24 03:47 06/24/24 22:16 Melatonin 5 Mg Tablet PO 06/20/25 03:46 5 mg QHS PRN Administration Insomnia Metoprolol Tartrate 50 mg 06/20/24 09:00 06/24/24 22:16 Metoprolol Tartrate 50 Mg Tablet PO 06/20/25 08:59 50 mg BID ZI Administration Mirabegron 25 mg 06/20/24 09:00 06/24/24 08:06 Mirabegron 25 Mg Tab.Er.24h PO 06/20/25 08:59 25 mg QAM ZI Administration Nystatin 1 applic 06/21/24 13:15 06/24/24 22:16 Nystatin 100,000 Unit/Gram Powder 15 Gm Bottle TOPICAL 06/21/25 13:14 1 applic BID ZI Administration Ondansetron HCl 4 mg 06/20/24 03:47 Ondansetron 4 Mg/2 Ml Vial IV-PUSH 06/20/25 03:46 Q6H PRN Nausea And Vomiting Oxycodone HCl 5 mg 06/20/24 03:41 06/24/24 22:15 Oxycodone Ir 5 Mg Tablet PO 5 mg Q6HR PRN Administration Pain Scale 4 - 7 Pantoprazole Sodium 40 mg 06/20/24 22:00 06/24/24 22:15 Pantoprazole 40 Mg Tablet.Dr PO 06/20/25 21:59 40 mg QHS ZI Administration Raloxifene HCl 60 mg 06/20/24 09:00 06/24/24 08:06 Raloxifene 60 Mg Tablet PO 06/20/25 08:59 60 mg QAM ZI Administration Sodium Chloride 0 ml 06/20/24 00:40 06/22/24 12:28 Sodium Chloride 0.9 % 10 Ml Syringe IV-PUSH 06/20/25 00:39 5 ml PRN PRN Administration Flush Sodium Chloride 0 ml 06/20/24 03:47 Sodium Chloride 0.9 % 10 Ml Syringe IV-PUSH 06/20/25 03:46 PRN PRN Flush Sodium Chloride 0 ml 06/20/24 06:00 06/25/24 06:41 Sodium Chloride 0.9 % 10 Ml Syringe IV-PUSH 06/20/25 05:59 10 ml QSHIFT ZI Administration A&P - Hospitalist Assessment/Plan (1) HTN (hypertension): (2) Skin tear: (3) Laceration: (4) Weakness: (5) Frequent falls: (6) Fracture of fifth metatarsal bone of left foot: Plan Tachycardia with leukocytosis Back pain LLE laceration and skin tear h/o HTN - On home metoprolol tartrate 50 mg bid - started ceftriaxone 06/21/24 for UTI - no evidence of laceration on lumbar spine, CT a/p ruled out fracture and pyleonephritis - plain film Xray shows - Inpatient wound nurse - podiatry consult for 5th metatarsal fracture - no plans for intervention, fracture is chronic - infectious disease consulted for leukocytosis, corticosteroids vs UTI - urine culture shows enterobacter cloacae - intermediate sensitivity to ceftriaxone, received 4 days - Day 2 ertapenem, defer to infectious disease ROLF - unclear baseline Cr, 1.21 on admission - CT a/p ruled out obstructive uropathy as above - stabilized at 1.60 after day 1 abx, continues to downtrend - continue to trend Weakness Frequent falls - Plans for discharge to SNF Chronic conditions Hypothyroidism?levothyroxine History of CVA?clopidogrel Depression?duloxetine GERD Overactive bladder Prednisone is on patient's list of home medications, she reports she was put on that due to her weakness?will hold for now - has been on for the past 6 months, 10 mg daily by PCP. Will consider referral to rheum on discharge DVT PPx?sqh 5k q8h Diet order?regular CODE STATUS?full code Dispo- awaiting precert for Thom Documented By: Fco Buck MD 06/25/24 0858 Signed By: 06/25/24 1735 [facility]04-05-2025 Progress note Author Fco Buck [facility] Note Date/Time June 24, 2024 3:17 pm [facility] [address] [place] [address] Hospitalist Progress Note Signed Patient: Molly Navas MR#: [id number] : 1945 Acct:[id number] Age/Sex: 79 / F Adm Date: 5 Loc: 3T Room: [address] [place] [address] Type: ADM IN Attending Dr: Fco Buck MD Copies to: ~ Date of Service: 06/24/2024 Subjective Subjective Narrative: No issues overnight, no clinical changes, evaluated by ID and podiatry yesterday. Tolerating diet. Exam Physical Exam Vital Signs: Temp Pulse Resp BP Pulse Ox O2 Del Method 98.3 F 99 20 138/72 96 Room Air 06/24/24 12:00 06/24/24 12:00 06/24/24 12:00 06/24/24 12:00 06/24/24 12:00 06/24/24 12:00 Narrative: General: cooperative and comfortable Orientation: alert, awake and oriented x3 Head: normal to inspection Neck: normal visual inspection Cardio: no JVD, regular rate, regular rhythm Chest palpation & inspection: normal inspection of the chest Resp Effort & Inspection: normal respiratory effort Abd: soft, non-tender, non-distended Extremities: bilateral upper extremities wrapped in gauze and LLE in brace. [14-07-02] Back: Has overlying TTP over lumbar spine Objective Lab Results 06/24/24 05:10 06/24/24 05:10 Meds Allergies and Active Meds Allergies No Known Allergies Allergy (Verified 06/20/24 00:40) Active Meds: Active Medications Generic Name Dose Route Start Last Admin Trade Name Freq PRN Reason Stop Dose Admin Acetaminophen 1,000 mg 06/20/24 03:41 06/22/24 06:34 Acetaminophen 500 Mg Tablet PO 06/20/25 03:40 1,000 mg Q6HR PRN Administration Pain Scale 1 - 3 or fever Clopidogrel Bisulfate 75 mg 06/20/24 09:00 06/24/24 08:03 Clopidogrel Bisulfate 75 Mg Tablet PO 06/20/25 08:59 75 mg QAM ZI Administration Duloxetine HCl 60 mg 06/20/24 09:00 06/24/24 08:04 Duloxetine 60 Mg Capsule. PO 06/20/25 08:59 60 mg QAM ZI Administration Heparin Sodium (Porcine) 5,000 unit 06/22/24 14:00 06/24/24 14:23 Heparin 5,000 Unit/Ml Vial SUBCUT 06/22/25 13:59 5,000 unit Q8HR ZI Administration Hydromorphone HCl 1 mg 06/22/24 11:56 06/22/24 13:07 Hydromorphone 1 Mg/Ml Syringe IV-PUSH 1 mg Q2H PRN Administration Pain Scale 7 - 10 Ceftriaxone Sodium 1 gm in 50 mls @ 100 mls/hr 06/21/24 09:30 06/24/24 10:00 Rocephin IV 06/25/24 23:55 100 mls/hr Q24H ZI Administration Latanoprost 1 drops 06/20/24 22:00 06/23/24 21:24 Latanoprost 0.005% Op Soln 50 Drops/2.5 Ml Bottle EYE-BOTH 06/20/25 21:59 1 drops QHS ZI Administration Levothyroxine Sodium 100 mcg 06/20/24 06:30 06/24/24 05:59 Levothyroxine 100 Mcg Tablet PO 06/20/25 06:29 100 mcg DAILY.0630 ZI Administration Melatonin 5 mg 06/20/24 03:47 06/20/24 21:18 Melatonin 5 Mg Tablet PO 06/20/25 03:46 5 mg QHS PRN Administration Insomnia Metoprolol Tartrate 50 mg 06/20/24 09:00 06/24/24 08:05 Metoprolol Tartrate 50 Mg Tablet PO 06/20/25 08:59 50 mg BID ZI Administration Mirabegron 25 mg 06/20/24 09:00 06/24/24 08:06 Mirabegron 25 Mg Tab.Er.24h PO 06/20/25 08:59 25 mg QAM ZI Administration Nystatin 1 applic 06/21/24 13:15 06/24/24 09:59 Nystatin 100,000 Unit/Gram Powder 15 Gm Bottle TOPICAL 06/21/25 13:14 1 applic BID ZI Administration Ondansetron HCl 4 mg 06/20/24 03:47 Ondansetron 4 Mg/2 Ml Vial IV-PUSH 06/20/25 03:46 Q6H PRN Nausea And Vomiting Oxycodone HCl 5 mg 06/20/24 03:41 06/24/24 09:59 Oxycodone Ir 5 Mg Tablet PO 5 mg Q6HR PRN Administration Pain Scale 4 - 7 Pantoprazole Sodium 40 mg 06/20/24 22:00 06/23/24 21:24 Pantoprazole 40 Mg Tablet.Dr PO 06/20/25 21:59 40 mg QHS ZI Administration Raloxifene HCl 60 mg 06/20/24 09:00 06/24/24 08:06 Raloxifene 60 Mg Tablet PO 06/20/25 08:59 60 mg QAM ZI Administration Sodium Chloride 0 ml 06/20/24 00:40 06/22/24 12:28 Sodium Chloride 0.9 % 10 Ml Syringe IV-PUSH 06/20/25 00:39 5 ml PRN PRN Administration Flush Sodium Chloride 0 ml 06/20/24 03:47 Sodium Chloride 0.9 % 10 Ml Syringe IV-PUSH 06/20/25 03:46 PRN PRN Flush Sodium Chloride 0 ml 06/20/24 06:00 06/24/24 14:23 Sodium Chloride 0.9 % 10 Ml Syringe IV-PUSH 06/20/25 05:59 10 ml QSHIFT ZI Administration A&P - Hospitalist Assessment/Plan (1) HTN (hypertension): (2) Skin tear: (3) Laceration: (4) Weakness: (5) Frequent falls: (6) Fracture of fifth metatarsal bone of left foot: Plan Tachycardia with leukocytosis Back pain LLE laceration and skin tear h/o HTN - On home metoprolol tartrate 50 mg bid - started ceftriaxone 06/21/24 for UTI - no evidence of laceration on lumbar spine, CT a/p ruled out fracture and pyleonephritis - plain film Xray shows - Inpatient wound nurse - podiatry consult for 5th metatarsal fracture - no plans for intervention, fracture is chronic - infectious disease consulted for leukocytosis - corticosteroids vs UTI - urine culture shows enterobacter cloacae, intermediate sensitivity to ceftriaxone will escalate to ertapenem ROLF - unclear baseline Cr, 1.21 on admission - CT a/p ruled out obstructive uropathy as above - stabilized at 1.60 after day 1 abx, down trending today - continue to trend Weakness Frequent falls - Plans for discharge to SNF Chronic conditions Hypothyroidism?levothyroxine History of CVA?clopidogrel Depression?duloxetine GERD Overactive bladder Prednisone is on patient's list of home medications, she reports she was put on that due to her weakness?will hold for now - has been on for the past 6 months, 10 mg daily by PCP. Will consider referral to rheum on discharge DVT PPx?sqh 5k q8h Diet order?regular CODE STATUS?full code Dispo- awaiting precert for [place] Documented By: Fco Buck MD 06/24/24 6438 Signed By: <Electronically signed by Fco Buck MD> 06/24/24 [facility] Work Phone: [phone]) 227-434804-05-2025 [place] [address] Hospitalist Progress Note Signed Patient: Molly Navas MR#: [id number] : 1945 Acct:[id number] Age/Sex: 79 / F Adm Date: 5 Loc: 3T Room: [address] [place] [address] Type: ADM IN Attending Dr: Fco Buck MD Copies to: ~ Date of Service: 06/24/2024 Subjective Subjective Narrative: No issues overnight, no clinical changes, evaluated by ID and podiatry yesterday. Tolerating diet. Exam Physical Exam Vital Signs: Temp Pulse Resp BP Pulse Ox O2 Del Method 98.3 F 99 20 138/72 96 Room Air 06/24/24 12:00 06/24/24 12:00 06/24/24 12:00 06/24/24 12:00 06/24/24 12:00 06/24/24 12:00 Narrative: General: cooperative and comfortable Orientation: alert, awake and oriented x3 Head: normal to inspection Neck: normal visual inspection Cardio: no JVD, regular rate, regular rhythm Chest palpation & inspection: normal inspection of the chest Resp Effort & Inspection: normal respiratory effort Abd: soft, non-tender, non-distended Extremities: bilateral upper extremities wrapped in gauze and LLE in brace. [14-07-02] Back: Has overlying TTP over lumbar spine Objective Lab Results 06/24/24 05:10 06/24/24 05:10 Meds Allergies and Active Meds Allergies No Known Allergies Allergy (Verified 06/20/24 00:40) Active Meds: Active Medications Generic Name Dose Route Start Last Admin Trade Name Freq PRN Reason Stop Dose Admin Acetaminophen 1,000 mg 06/20/24 03:41 06/22/24 06:34 Acetaminophen 500 Mg Tablet PO 06/20/25 03:40 1,000 mg Q6HR PRN Administration Pain Scale 1 - 3 or fever Clopidogrel Bisulfate 75 mg 06/20/24 09:00 06/24/24 08:03 Clopidogrel Bisulfate 75 Mg Tablet PO 06/20/25 08:59 75 mg QAM ZI Administration Duloxetine HCl 60 mg 06/20/24 09:00 06/24/24 08:04 Duloxetine 60 Mg Capsule. PO 06/20/25 08:59 60 mg QAM ZI Administration Heparin Sodium (Porcine) 5,000 unit 06/22/24 14:00 06/24/24 14:23 Heparin 5,000 Unit/Ml Vial SUBCUT 06/22/25 13:59 5,000 unit Q8HR ZI Administration Hydromorphone HCl 1 mg 06/22/24 11:56 06/22/24 13:07 Hydromorphone 1 Mg/Ml Syringe IV-PUSH 1 mg Q2H PRN Administration Pain Scale 7 - 10 Ceftriaxone Sodium 1 gm in 50 mls @ 100 mls/hr 06/21/24 09:30 06/24/24 10:00 Rocephin IV 06/25/24 23:55 100 mls/hr Q24H ZI Administration Latanoprost 1 drops 06/20/24 22:00 06/23/24 21:24 Latanoprost 0.005% Op Soln 50 Drops/2.5 Ml Bottle EYE-BOTH 06/20/25 21:59 1 drops QHS ZI Administration Levothyroxine Sodium 100 mcg 06/20/24 06:30 06/24/24 05:59 Levothyroxine 100 Mcg Tablet PO 06/20/25 06:29 100 mcg DAILY.0630 ZI Administration Melatonin 5 mg 06/20/24 03:47 06/20/24 21:18 Melatonin 5 Mg Tablet PO 06/20/25 03:46 5 mg QHS PRN Administration Insomnia Metoprolol Tartrate 50 mg 06/20/24 09:00 06/24/24 08:05 Metoprolol Tartrate 50 Mg Tablet PO 06/20/25 08:59 50 mg BID ZI Administration Mirabegron 25 mg 06/20/24 09:00 06/24/24 08:06 Mirabegron 25 Mg Tab.Er.24h PO 06/20/25 08:59 25 mg QAM ZI Administration Nystatin 1 applic 06/21/24 13:15 06/24/24 09:59 Nystatin 100,000 Unit/Gram Powder 15 Gm Bottle TOPICAL 06/21/25 13:14 1 applic BID ZI Administration Ondansetron HCl 4 mg 06/20/24 03:47 Ondansetron 4 Mg/2 Ml Vial IV-PUSH 06/20/25 03:46 Q6H PRN Nausea And Vomiting Oxycodone HCl 5 mg 06/20/24 03:41 06/24/24 09:59 Oxycodone Ir 5 Mg Tablet PO 5 mg Q6HR PRN Administration Pain Scale 4 - 7 Pantoprazole Sodium 40 mg 06/20/24 22:00 06/23/24 21:24 Pantoprazole 40 Mg Tablet.Dr PO 06/20/25 21:59 40 mg QHS ZI Administration Raloxifene HCl 60 mg 06/20/24 09:00 06/24/24 08:06 Raloxifene 60 Mg Tablet PO 06/20/25 08:59 60 mg QAM ZI Administration Sodium Chloride 0 ml 06/20/24 00:40 06/22/24 12:28 Sodium Chloride 0.9 % 10 Ml Syringe IV-PUSH 06/20/25 00:39 5 ml PRN PRN Administration Flush Sodium Chloride 0 ml 06/20/24 03:47 Sodium Chloride 0.9 % 10 Ml Syringe IV-PUSH 06/20/25 03:46 PRN PRN Flush Sodium Chloride 0 ml 06/20/24 06:00 06/24/24 14:23 Sodium Chloride 0.9 % 10 Ml Syringe IV-PUSH 06/20/25 05:59 10 ml QSHIFT ZI Administration A&P - Hospitalist Assessment/Plan (1) HTN (hypertension): (2) Skin tear: (3) Laceration: (4) Weakness: (5) Frequent falls: (6) Fracture of fifth metatarsal bone of left foot: Plan Tachycardia with leukocytosis Back pain LLE laceration and skin tear h/o HTN - On home metoprolol tartrate 50 mg bid - started ceftriaxone 06/21/24 for UTI - no evidence of laceration on lumbar spine, CT a/p ruled out fracture and pyleonephritis - plain film Xray shows - Inpatient wound nurse - podiatry consult for 5th metatarsal fracture - no plans for intervention, fracture is chronic - infectious disease consulted for leukocytosis - corticosteroids vs UTI - urine culture shows enterobacter cloacae, intermediate sensitivity to ceftriaxone will escalate to ertapenem ROLF - unclear baseline Cr, 1.21 on admission - CT a/p ruled out obstructive uropathy as above - stabilized at 1.60 after day 1 abx, down trending today - continue to trend Weakness Frequent falls - Plans for discharge to SNF Chronic conditions Hypothyroidism?levothyroxine History of CVA?clopidogrel Depression?duloxetine GERD Overactive bladder Prednisone is on patient's list of home medications, she reports she was put on that due to her weakness?will hold for now - has been on for the past 6 months, 10 mg daily by PCP. Will consider referral to rheum on discharge DVT PPx?sqh 5k q8h Diet order?regular CODE STATUS?full code Dispo- awaiting precert for [place] Documented By: Fco Buck MD 06/24/24 1457 Signed By: 06/24/24 [facility]04-04-2025 Consult note Author Anne Marie Pedroza [facility] Note Date/Time June 23, 2024 6:27 pm [facility] [address] [place] [address] Podiatry Consult Note Signed Patient: Molly Navas MR#: [id number] : 1945 Acct:[id number] Age/Sex: 79 / F Adm Date: 5 Loc: 3T Room: [address] [place] [address] Type: ADM IN Attending Dr: Fco Buck MD Copies to: ANDREA Thorpe MD Rahul Prasad, MD~ HPI Data of Consult Consult Date: 06/23/24 Requesting Physician: Fco Buck MD Primary Care Provider: Cecil Clancy MD Consult Narrative Reason for consult: left foot fracture History of present illness: Ms. Navas is a 79 year old female seen at bedside who was admitted for falls and weakness. Patient states she had fallen a couple of times earlier in the week and required EMS assist to pick her up. Her last fall resulted in her footand ankle and leg being wedged and she also needed assistance in order to get her left leg unstuck. Patient relates no pain in her foot left does relate a history of a weeping wound on her right ankle that she has had a neighbor friendhelping her bandage. She states this wound was looking much better. Patient relates that she has had no history with her leg swelling or lymphedema in the past denies any use or need for compression stockings. She does admit she has progressively become more weak and struggles with her mobility. Patient does not relate any significant past medical history in regards to her feet. Patientwas alert and oriented and cooperative throughout the visit Review of Systems Review of Systems Review of systems: A 10 point review of systems was obtained, negative unless noted in the HPI or below. Constitutional Constitutional: Denies fever(s), Reports frequent falls, Denies headache(s) and Reports weakness Eyes Eyes: Denies loss of vision ENT Ears, Nose, Mouth, and Throat: Denies headache(s) Cardiovascular Cardiovascular: Denies chest pain, Denies dyspnea, Reports leg edema, Reports leg ulcers, Reports pedal edema and Denies syncope Respiratory Respiratory: Denies cough, Denies dyspnea and Denies wheezing Gastrointestinal Gastrointestinal: Denies abdominal pain, Denies change in stool character and Denies nausea Musculoskeletal Musculoskeletal: Reports abnormal gait, Reports muscle weakness and Reports myalgias Neurologic Neurologic: Reports abnormal gait, Reports frequent falls, Denies headache(s), Denies loss of vision, Denies syncope and Reports weakness Allergic/Immunologic Allergic/Immunologic: Denies wheezing [facility] Medical History (Updated 06/23/24 @ 18:23 by Anne Marie Pedroza DPM) Asthma SVT (supraventricular tachycardia) HTN (hypertension) CVA (cerebral vascular accident) says she was told she had small stroke in the past, no deficits Hypothyroidism Surgical History H/O hernia repair with mesh History of cholecystectomy Family History Mother Diabetes Brother Cancer Lung Father Myocardial infarction Social History Smoking Status: Former smoker Tobacco Type: cigarettes Substance Use Type: None Meds Medications and Allergies Allergies No Known Allergies Allergy (Verified 06/20/24 00:40) Home Medications clopidogrel 75 mg tablet 75 mg PO QAM 06/20/24 [History Confirmed 06/20/24] duloxetine 60 mg capsule,delayed release 60 mg PO QAM 06/20/24 [History Confirmed 06/20/24] lansoprazole 30 mg capsule,delayed release 30 mg PO QHS 06/20/24 [History Confirmed 06/20/24] latanoprost 0.005 % eye drops 1 drp Eye-Both QHS 06/20/24 [History Confirmed 06/20/24] levothyroxine 100 mcg tablet (Synthroid) 100 mcg PO QAM 06/20/24 [History Confirmed 06/20/24] meloxicam 15 mg tablet 15 mg PO QAM 06/20/24 [History Confirmed 06/20/24] metoprolol tartrate 50 mg tablet 50 mg PO BID 06/20/24 [History Confirmed 06/20/24] mirabegron 50 mg tablet,extended release 24 hr (Myrbetriq) 25 mg PO QAM 06/20/24[History Confirmed 06/20/24] prednisone 10 mg tablet 10 mg PO QAM 06/20/24 [History Confirmed 06/20/24] raloxifene 60 mg tablet 60 mg PO QAM 06/20/24 [History Confirmed 06/20/24] Exam Physical Exam Vital Signs: Temp Pulse Resp BP Pulse Ox O2 Del Method 98.2 F 91 18 112/78 94 L Room Air 06/23/24 16:02 06/23/24 16:02 06/23/24 16:02 06/23/24 16:02 06/23/24 16:02 06/23/24 16:02 Narrative: Pedal exam reveals weakly palpable pulses DP and PT through compressed edema. Capillary refill time less than 3 seconds 1 through 5 digits bilateral. Epicritic and protective and site sensations intact bilateral. Removal of Raman wrap to reveal significant pedal pitting edema bilateral. Patient's left foot reveals ecchymotic tissue distally especially hallux and third toe. Patient does not have any pain upon palpation of her left foot that is not consistent with her baseline chronic arthritis. Right foot reveals erythema that is blanching patient has superficial wound on the dorsal medial aspect of her midfoot over the area of the first metatarsal midshaft, small medial foot superficial ulceration overlying the first metatarsal head area, and also a dimesized ulceration lateral right ankle that has a pink fibrous base all ulcerations are consistent with venous edema. Right lateral midfoot and heel area nonfluctuant eccymosis. Results - Podiatry Labs 06/23/24 05:41 06/23/24 05:41 Microbiology Microbiology: Microbiology - Results from entire visit 06/21/24 05:00 Urine - Clean-Voided Midstream Urine Culture - Final Enterobacter cloacae complex Assessment/Plan (1) Venous insufficiency of both lower extremities: Assessment/Problem Details: Venous insufficiency with lymphedema and presence of venous ulcerations right foot and ankle Plan: Compression dressings while patient is inpatient bilateral feet and legs. Upon discharge if right foot and ankle ulcerations are still present recommend Unna boot applied once weekly until wounds are healed then follow with compression stockings. Code(s): I87.2 - Venous insufficiency (chronic) (peripheral) (2) Multiple contusions: Assessment/Problem Details: Contusions left hallux and third toe, right lateral foot and heel. Plan: No treatment is needed for these contusions as they will heal with time. Reviewed radiographs and feel patient had an old fifth metatarsal avulsion fracture that bone fragment did not heal back to the fifth metatarsal base. Patient is not having symptoms and is not very mobile or ambulatory so do not feel that any treatment is needed for this. Discussed all of these issues with the patient as well as my recommendation and all questions were answered that were asked. Code(s): T07.XXXA - Unspecified multiple injuries, initial encounter Documented By: Anne Marie Pedroza DPM 06/23/241812 Signed By: <Electronically signed by ANDREA Pedroza> 06/23/241826 [facility] Work Phone: [phone] 969-145504-04-2025 Progress note Author Fco Buck [facility] Note Date/Time June 23, 2024 6:08 pm [facility] [address] [place] [address] Hospitalist Progress Note Signed Patient: Molly Navas MR#: [id number] : 1945 Acct:[id number] Age/Sex: 79 / F Adm Date: 5 Loc: 3T Room: [address] [place] [address] Type: ADM IN Attending Dr: Fco Buck MD Copies to: ~ Date of Service: 06/23/2024 Subjective Subjective Narrative: No issues overnight, tolerating diet, pain relatively improved. Exam Physical Exam Vital Signs: Temp Pulse Resp BP Pulse Ox O2 Del Method 98.2 F 99 18 122/88 96 Room Air 06/23/24 08:01 06/23/24 08:01 06/23/24 08:01 06/23/24 08:01 06/23/24 08:01 06/23/24 08:02 Narrative: General: cooperative and comfortable Orientation: alert, awake and oriented x3 Head: normal to inspection Neck: normal visual inspection Cardio: no JVD, regular rate, regular rhythm Chest palpation & inspection: normal inspection of the chest Resp Effort & Inspection: normal respiratory effort Abd: soft, non-tender, non-distended Extremities: bilateral upper extremities wrapped in gauze and LLE in brace. [14-07-02] Back: Has overlying TTP over lumbar spine Objective Lab Results 06/23/24 05:41 06/23/24 05:41 Microbiology Results Microbiology 06/21/24 05:00 Urine - Clean-Voided Midstream Urine Culture - Final Enterobacter cloacae complex Meds Allergies and Active Meds Allergies No Known Allergies Allergy (Verified 06/20/24 00:40) Active Meds: Active Medications Generic Name Dose Route Start Last Admin Trade Name Freq PRN Reason Stop Dose Admin Acetaminophen 1,000 mg 06/20/24 03:41 06/22/24 06:34 Acetaminophen 500 Mg Tablet PO 06/20/25 03:40 1,000 mg Q6HR PRN Administration Pain Scale 1 - 3 or fever Clopidogrel Bisulfate 75 mg 06/20/24 09:00 06/23/24 08:02 Clopidogrel Bisulfate 75 Mg Tablet PO 06/20/25 08:59 75 mg QAM ZI Administration Duloxetine HCl 60 mg 06/20/24 09:00 06/23/24 08:02 Duloxetine 60 Mg Capsule.Dr PO 06/20/25 08:59 60 mg QAM ZI Administration Heparin Sodium (Porcine) 5,000 unit 06/22/24 14:00 06/23/24 06:09 Heparin 5,000 Unit/Ml Vial SUBCUT 06/22/25 13:59 5,000 unit Q8HR ZI Administration Hydromorphone HCl 1 mg 06/22/24 11:56 06/22/24 13:07 Hydromorphone 1 Mg/Ml Syringe IV-PUSH 1 mg Q2H PRN Administration Pain Scale 7 - 10 Ceftriaxone Sodium 1 gm in 50 mls @ 100 mls/hr 06/21/24 09:30 06/23/24 08:02 Rocephin IV 100 mls/hr Q24H ZI Administration Latanoprost 1 drops 06/20/24 22:00 06/22/24 21:16 Latanoprost 0.005% Op Soln 50 Drops/2.5 Ml Bottle EYE-BOTH 06/20/25 21:59 1 drops QHS ZI Administration Levothyroxine Sodium 100 mcg 06/20/24 06:30 06/23/24 06:09 Levothyroxine 100 Mcg Tablet PO 06/20/25 06:29 100 mcg DAILY.0630 ZI Administration Melatonin 5 mg 06/20/24 03:47 06/20/24 21:18 Melatonin 5 Mg Tablet PO 06/20/25 03:46 5 mg QHS PRN Administration Insomnia Metoprolol Tartrate 50 mg 06/20/24 09:00 06/23/24 08:02 Metoprolol Tartrate 50 Mg Tablet PO 06/20/25 08:59 50 mg BID ZI Administration Mirabegron 25 mg 06/20/24 09:00 06/23/24 08:02 Mirabegron 25 Mg Tab.Er.24h PO 06/20/25 08:59 25 mg QAM ZI Administration Nystatin 1 applic 06/21/24 13:15 06/23/24 08:02 Nystatin 100,000 Unit/Gram Powder 15 Gm Bottle TOPICAL 06/21/25 13:14 1 applic BID ZI Administration Ondansetron HCl 4 mg 06/20/24 03:47 Ondansetron 4 Mg/2 Ml Vial IV-PUSH 06/20/25 03:46 Q6H PRN Nausea And Vomiting Oxycodone HCl 5 mg 06/20/24 03:41 06/23/24 08:06 Oxycodone Ir 5 Mg Tablet PO 5 mg Q6HR PRN Administration Pain Scale 4 - 7 Pantoprazole Sodium 40 mg 06/20/24 22:00 06/22/24 21:15 Pantoprazole 40 Mg Tablet. PO 06/20/25 21:59 40 mg QHS ZI Administration Raloxifene HCl 60 mg 06/20/24 09:00 06/23/24 08:02 Raloxifene 60 Mg Tablet PO 06/20/25 08:59 60 mg QAM ZI Administration Sodium Chloride 0 ml 06/20/24 00:40 06/22/24 12:28 Sodium Chloride 0.9 % 10 Ml Syringe IV-PUSH 06/20/25 00:39 5 ml PRN PRN Administration Flush Sodium Chloride 0 ml 06/20/24 03:47 Sodium Chloride 0.9 % 10 Ml Syringe IV-PUSH 06/20/25 03:46 PRN PRN Flush Sodium Chloride 0 ml 06/20/24 06:00 06/23/24 06:09 Sodium Chloride 0.9 % 10 Ml Syringe IV-PUSH 06/20/25 05:59 10 ml QSHIFT ZI Administration A&P - Hospitalist Assessment/Plan (1) HTN (hypertension): (2) Skin tear: (3) Laceration: (4) Weakness: (5) Frequent falls: (6) Fracture of fifth metatarsal bone of left foot: Plan Tachycardia with leukocytosis Back pain LLE laceration and skin tear h/o HTN - On home metoprolol tartrate 50 mg bid - started ceftriaxone 06/21/24 for UTI - no evidence of laceration on lumbar spine, CT a/p ruled out fracture and pyleonephritis - plain film Xray shows - Inpatient wound nurse - podiatry consult for 5th metatarsal fracture - infectious disease consulted for leukocytosis - unlikely from soft tissue tear - UTI vs chronic from steroid use ROLF - unclear baseline Cr, 1.21 on admission - stabilized at 1.60 after day 1 abx - CT a/p ruled out obstructive uropathy as above - will continue to trend Weakness Frequent falls - Plans for discharge to SNF, Chronic conditions Hypothyroidism?levothyroxine History of CVA?clopidogrel Depression?duloxetine GERD Overactive bladder Prednisone is on patient's list of home medications, she reports she was put on that due to her weakness?will hold for now - has been on for the past 6 months, 10 mg daily by PCP. Will consider referral to rheum on discharge DVT PPx?sqh 5k q8h Diet order?regular CODE STATUS?full code Documented By: Fco Buck MD 06/23/24 0930 Signed By: <Electronically signed by Fco Buck MD> 06/23/24 3642 [facility] Work Phone: [phone]) 822-130604-04-2025 [place] [address] Podiatry Consult Note Signed Patient: Molly Navas MR#: [id number] : 1945 Acct:[id number] Age/Sex: 79 / F Adm Date: 5 Loc: Room: [address] [place] [address] Type: ADM IN Attending Dr: Fco Buck MD Copies to: ANDREA Thorpe MD Rahul Prasad, MD~ HPI Data of Consult Consult Date: 06/23/24 Requesting Physician: Fco Buck MD Primary Care Provider: Cecil Clancy MD Consult Narrative Reason for consult: left foot fracture History of present illness: Ms. Navas is a 79 year old female seen at bedside who was admitted for falls and weakness. Patientstates she had fallen a couple of times earlier in the week and required EMS assist to pick her up.Her last fall resulted in her footand ankle and leg being wedged and she also needed assistance in order to get her left leg unstuck. Patient relates no pain in her foot left does relate a history ofa weeping wound on her right ankle that she has had a neighbor friendhelping her bandage. She states this wound was looking much better. Patient relates that she has had no history with her leg swelling or lymphedema in the past denies any use or need for compression stockings. She does admit she has progressively become more weak and struggles with her mobility. Patient does not relate any significant past medical history in regards to her feet. Patientwas alert and oriented and cooperative throughout the visit Review of Systems Review of Systems Review of systems: A 10 point review of systems was obtained, negative unless noted in the HPI or below. Constitutional Constitutional: Denies fever(s), Reports frequent falls, Denies headache(s) and Reports weakness Eyes Eyes: Denies loss of vision ENT Ears, Nose, Mouth, and Throat: Denies headache(s) Cardiovascular Cardiovascular: Denies chest pain, Denies dyspnea, Reports leg edema, Reports leg ulcers, Reports pedal edema and Denies syncope Respiratory Respiratory: Denies cough, Denies dyspnea and Denies wheezing Gastrointestinal Gastrointestinal: Denies abdominal pain, Denies change in stool character and Denies nausea Musculoskeletal Musculoskeletal: Reports abnormal gait, Reports muscle weakness and Reports myalgias Neurologic Neurologic: Reports abnormal gait, Reports frequent falls, Denies headache(s), Denies loss of vision, Denies syncope and Reports weakness Allergic/Immunologic Allergic/Immunologic: Denies wheezing [facility] Medical History (Updated 06/23/24 @ 18:23 by Anne Marie Pedroza DPM) Asthma SVT (supraventricular tachycardia) HTN (hypertension) CVA (cerebral vascular accident) says she was told she had small stroke in the past, no deficits Hypothyroidism Surgical History H/O hernia repair with mesh History of cholecystectomy Family History Mother Diabetes Brother Cancer Lung Father Myocardial infarction Social History Smoking Status: Former smoker Tobacco Type: cigarettes Substance Use Type: None Meds Medications and Allergies Allergies No Known Allergies Allergy (Verified 06/20/24 00:40) Home Medications clopidogrel 75 mg tablet 75 mg PO PENDING SALE TO [facility] 06/20/24 [History Confirmed 06/20/24] duloxetine 60 mg capsule,delayed release 60 mg PO QA 06/20/24 [History Confirmed 06/20/24] lansoprazole 30 mg capsule,delayed release 30 mg PO QHS 06/20/24 [History Confirmed 06/20/24] latanoprost 0.005 % eye drops 1 drp Eye-Both Q 06/20/24 [History Confirmed 06/20/24] levothyroxine 100 mcg tablet (Synthroid) 100 mcg PO QA 06/20/24 [History Confirmed 06/20/24] meloxicam 15 mg tablet 15 mg PO PENDING SALE TO [facility] 06/20/24 [History Confirmed 06/20/24] metoprolol tartrate 50 mg tablet 50 mg PO BID 06/20/24 [History Confirmed 06/20/24] mirabegron 50 mg tablet,extended release 24 hr (Myrbetriq) 25 mg PO QAM 06/20/24[History Confirmed 06/20/24] prednisone 10 mg tablet 10 mg PO QAM 06/20/24 [History Confirmed 06/20/24] raloxifene 60 mg tablet 60 mg PO QAM 06/20/24 [History Confirmed 06/20/24] Exam Physical Exam Vital Signs: Temp Pulse Resp BP Pulse Ox O2 Del Method 98.2 F 91 18 112/78 94 L Room Air 06/23/24 16:02 06/23/24 16:02 06/23/24 16:02 06/23/24 16:02 06/23/24 16:02 06/23/24 16:02 Narrative: Pedal exam reveals weakly palpable pulses DP and PT through compressed edema. Capillary refill timeless than 3 seconds 1 through 5 digits bilateral. Epicritic and protective and site sensations intact bilateral. Removal of Raman wrap to reveal significant pedal pitting edema bilateral. Patient's left foot reveals ecchymotic tissue distally especially hallux and third toe. Patient does not have anypain upon palpation of her left foot that is not consistent with her baseline chronic arthritis. Right foot reveals erythema that is blanching patient has superficial wound on the dorsal medial aspect of her midfoot over the area of the first metatarsal midshaft, small medial foot superficial ulcera tion overlying the first metatarsal head area, and also a dimesized ulceration lateral right ankle that has a pink fibrous base all ulcerations are consistent with venous edema. Right lateral midfootand heel area nonfluctuant eccymosis. Results - Podiatry Labs 06/23/24 05:41 06/23/24 05:41 Microbiology Microbiology: Microbiology - Results from entire visit 06/21/24 05:00 Urine - Clean-Voided Midstream Urine Culture - Final Enterobacter cloacae complex Assessment/Plan (1) Venous insufficiency of both lower extremities: Assessment/Problem Details: Venous insufficiency with lymphedema and presence of venous ulcerations right foot and ankle Plan: Compression dressings while patient is inpatient bilateral feet and legs. Upon discharge if right foot and ankle ulcerations are still present recommend Unna boot applied once weekly until wounds arehealed then follow with compression stockings. Code(s): I87.2 - Venous insufficiency (chronic) (peripheral) (2) Multiple contusions: Assessment/Problem Details: Contusions left hallux and third toe, right lateral foot and heel. Plan: No treatment is needed for these contusions as they will heal with time. Reviewed radiographs and feel patient had an old fifth metatarsal avulsion fracture that bone fragment did not heal back to the fifth metatarsal base. Patient is not having symptoms and is not very mobile or ambulatory so do not feel that any treatment is needed for this. Discussed all of these issues with the patient as well as my recommendation and all questions were answered that were asked. Code(s): T07.XXXA - Unspecified multiple injuries, initial encounter Documented By: Anne Marie Pedroza DPM 06/23/241812 Signed By: 06/23/241826 [facility]04-04-2025 [place] [address] Hospitalist Progress Note Signed Patient: Molly Navas MR#: [id number] : 1945 Acct:[id number] Age/Sex: 79 / F Adm Date: 5 Loc: 3T Room: [address] [place] [address] Type: ADM IN Attending Dr: Fco Buck MD Copies to: ~ Date of Service: 06/23/2024 Subjective Subjective Narrative: No issues overnight, tolerating diet, pain relatively improved. Exam Physical Exam Vital Signs: Temp Pulse Resp BP Pulse Ox O2 Del Method 98.2 F 99 18 122/88 96 Room Air 06/23/24 08:01 06/23/24 08:01 06/23/24 08:01 06/23/24 08:01 06/23/24 08:01 06/23/24 08:02 Narrative: General: cooperative and comfortable Orientation: alert, awake and oriented x3 Head: normal to inspection Neck: normal visual inspection Cardio: no JVD, regular rate, regular rhythm Chest palpation & inspection: normal inspection of the chest Resp Effort & Inspection: normal respiratory effort Abd: soft, non-tender, non-distended Extremities: bilateral upper extremities wrapped in gauze and LLE in brace. [25-04-03] Back: Has overlying TTP over lumbar spine Objective Lab Results 06/23/24 05:41 06/23/24 05:41 Microbiology Results Microbiology 06/21/24 05:00 Urine - Clean-Voided Midstream Urine Culture - Final Enterobacter cloacae complex Meds Allergies and Active Meds Allergies No Known Allergies Allergy (Verified 06/20/24 00:40) Active Meds: Active Medications Generic Name Dose Route Start Last Admin Trade Name Freq PRN Reason Stop Dose Admin Acetaminophen 1,000 mg 06/20/24 03:41 06/22/24 06:34 Acetaminophen 500 Mg Tablet PO 06/20/25 03:40 1,000 mg Q6HR PRN Administration Pain Scale 1 - 3 or fever Clopidogrel Bisulfate 75 mg 06/20/24 09:00 06/23/24 08:02 Clopidogrel Bisulfate 75 Mg Tablet PO 06/20/25 08:59 75 mg QAM ZI Administration Duloxetine HCl 60 mg 06/20/24 09:00 06/23/24 08:02 Duloxetine 60 Mg Capsule. PO 06/20/25 08:59 60 mg QAM ZI Administration Heparin Sodium (Porcine) 5,000 unit 06/22/24 14:00 06/23/24 06:09 Heparin 5,000 Unit/Ml Vial SUBCUT 06/22/25 13:59 5,000 unit Q8HR ZI Administration Hydromorphone HCl 1 mg 06/22/24 11:56 06/22/24 13:07 Hydromorphone 1 Mg/Ml Syringe IV-PUSH 1 mg Q2H PRN Administration Pain Scale 7 - 10 Ceftriaxone Sodium 1 gm in 50 mls @ 100 mls/hr 06/21/24 09:30 06/23/24 08:02 Rocephin IV 100 mls/hr Q24H ZI Administration Latanoprost 1 drops 06/20/24 22:00 06/22/24 21:16 Latanoprost 0.005% Op Soln 50 Drops/2.5 Ml Bottle EYE-BOTH 06/20/25 21:59 1 drops QHS ZI Administration Levothyroxine Sodium 100 mcg 06/20/24 06:30 06/23/24 06:09 Levothyroxine 100 Mcg Tablet PO 06/20/25 06:29 100 mcg DAILY.0630 ZI Administration Melatonin 5 mg 06/20/24 03:47 06/20/24 21:18 Melatonin 5 Mg Tablet PO 06/20/25 03:46 5 mg QHS PRN Administration Insomnia Metoprolol Tartrate 50 mg 06/20/24 09:00 06/23/24 08:02 Metoprolol Tartrate 50 Mg Tablet PO 06/20/25 08:59 50 mg BID ZI Administration Mirabegron 25 mg 06/20/24 09:00 06/23/24 08:02 Mirabegron 25 Mg Tab.Er.24h PO 06/20/25 08:59 25 mg QAM ZI Administration Nystatin 1 applic 06/21/24 13:15 06/23/24 08:02 Nystatin 100,000 Unit/Gram Powder 15 Gm Bottle TOPICAL 06/21/25 13:14 1 applic BID ZI Administration Ondansetron HCl 4 mg 06/20/24 03:47 Ondansetron 4 Mg/2 Ml Vial IV-PUSH 06/20/25 03:46 Q6H PRN Nausea And Vomiting Oxycodone HCl 5 mg 06/20/24 03:41 06/23/24 08:06 Oxycodone Ir 5 Mg Tablet PO 5 mg Q6HR PRN Administration Pain Scale 4 - 7 Pantoprazole Sodium 40 mg 06/20/24 22:00 06/22/24 21:15 Pantoprazole 40 Mg Tablet.Dr PO 06/20/25 21:59 40 mg QHS ZI Administration Raloxifene HCl 60 mg 06/20/24 09:00 06/23/24 08:02 Raloxifene 60 Mg Tablet PO 06/20/25 08:59 60 mg QAM ZI Administration Sodium Chloride 0 ml 06/20/24 00:40 06/22/24 12:28 Sodium Chloride 0.9 % 10 Ml Syringe IV-PUSH 06/20/25 00:39 5 ml PRN PRN Administration Flush Sodium Chloride 0 ml 06/20/24 03:47 Sodium Chloride 0.9 % 10 Ml Syringe IV-PUSH 06/20/25 03:46 PRN PRN Flush Sodium Chloride 0 ml 06/20/24 06:00 06/23/24 06:09 Sodium Chloride 0.9 % 10 Ml Syringe IV-PUSH 06/20/25 05:59 10 ml QSHIFT ZI Administration A&P - Hospitalist Assessment/Plan (1) HTN (hypertension): (2) Skin tear: (3) Laceration: (4) Weakness: (5) Frequent falls: (6) Fracture of fifth metatarsal bone of left foot: Plan Tachycardia with leukocytosis Back pain LLE laceration and skin tear h/o HTN - On home metoprolol tartrate 50 mg bid - started ceftriaxone 06/21/24 for UTI - no evidence of laceration on lumbar spine, CT a/p ruled out fracture and pyleonephritis - plain film Xray shows - Inpatient wound nurse - podiatry consult for 5th metatarsal fracture - infectious disease consulted for leukocytosis - unlikely from soft tissue tear - UTI vs chronic from steroid use ROLF - unclear baseline Cr, 1.21 on admission - stabilized at 1.60 after day 1 abx - CT a/p ruled out obstructive uropathy as above - will continue to trend Weakness Frequent falls - Plans for discharge to SNF, Chronic conditions Hypothyroidism?levothyroxine History of CVA?clopidogrel Depression?duloxetine GERD Overactive bladder Prednisone is on patient's list of home medications, she reports she was put on that due to her weakness?will hold for now - has been on for the past 6 months, 10 mg daily by PCP. Will consider referral to rheum on discharge DVT PPx?sqh 5k q8h Diet order?regular CODE STATUS?full code Documented By: Fco Buck MD 06/23/24 0930 Signed By: 06/23/24 1808 [facility]04-04-2025 Consult note Author Max Pacheco [facility] Note Date/Time June 23, 2024 3:20 pm [facility] [address] [place] [address] Infect. Disease Consult Note Signed Patient: Molly Navas MR#: [id number] : 1945 Acct:[id number] Age/Sex: 79 / F Adm Date: 5 Loc: Room: [address] [place] [address] Type: ADM IN Attending Dr: cFo Buck MD Copies to: MD Max Thurman MD Rahul Prasad, MD~ HPI Data of Consult Consult date: 06/23/24 Requesting Physician: Fco Buck MD Primary Care Provider: Cecil Clancy MD Consult Narrative Reason for consult: SSTI, leukocytosis History of present illness: Ms. Navas is a 79 year old female with history of CVA on clopidogrel, hypothyroidism, chronic lymphedema, history of daily prednisone use past 6 months for weakness , frequent falls, and current multiple body wounds who presented to ED on 06/20 after falling out of scooter trying to transfer to bathroom sink. She sustained a significant 15cm lower left leg laceration with exposed subcutaneous fat and closed with a combination of isabel and sutures inED, which was complicated by easy tearing of the skin. Pt has been afebrile since admission. WBC 18.5 on admission improved to 16.8 today. She was started on ceftriaxone 06/21 for UTI. ID is consulted to weigh in on need for debridement of leg SSTI and UTI/leukocytosis. General surgery is following who recommended RAMAN compression. Discharge planning is underway for SNF. Inpatient wound RN reports no concern for wound infection. Due to early signs ofnecrosis from large skin tear flaps that will be difficult to revascularize fully, she is anticipating that the pt will need some outpatient debridement at upcoming wound care clinic appointment on July 11. CC: Fco Buck MD Review of Systems Review of Systems All other systems reviewed & are negative unless noted below or in HPI [facility] Medical History (Updated 06/23/24 @ 15:16 by Max Pacheco MD) Asthma SVT (supraventricular tachycardia) HTN (hypertension) CVA (cerebral vascular accident) says she was told she had small stroke in the past, no deficits Hypothyroidism Surgical History H/O hernia repair with mesh History of cholecystectomy Family History Mother Diabetes Brother Cancer Lung Father Myocardial infarction Social History Smoking Status: Former smoker Tobacco Type: cigarettes Substance Use Type: None Allergies and Medications Allergies and Active Meds Allergies No Known Allergies Allergy (Verified 06/20/24 00:40) Active Medications Acetaminophen (Acetaminophen 500 Mg Tablet) 1,000 mg PO Q6HR PRN PRN Reason: Pain Scale 1 - 3 or fever Stop: 06/20/25 03:40 Last Admin: 06/22/24 06:34 Dose: 1,000 mg Clopidogrel Bisulfate (Clopidogrel Bisulfate 75 Mg Tablet) 75 mg PO QAM ZI Stop: 06/20/25 08:59 Last Admin: 06/23/24 08:02 Dose: 75 mg Duloxetine HCl (Duloxetine 60 Mg Capsule.Dr) 60 mg PO QAM [facility] Stop: 06/20/25 08:59 Last Admin: 06/23/24 08:02 Dose: 60 mg Heparin Sodium (Porcine) (Heparin 5,000 Unit/Ml Vial) 5,000 unit SUBCUT Q8HR ZI Stop: 06/22/25 13:59 Last Admin: 06/23/24 06:09 Dose: 5,000 unit Hydromorphone HCl (Hydromorphone 1 Mg/Ml Syringe) 1 mg IV-PUSH Q2H PRN PRN Reason: Pain Scale 7 - 10 Last Admin: 06/22/24 13:07 Dose: 1 mg Ceftriaxone Sodium (Rocephin) 1 gm in 50 mls @ 100 mls/hr IV Q24H [facility] Last Admin: 06/23/24 11:02 Dose: Not Given Latanoprost (Latanoprost 0.005% Op Soln 50 Drops/2.5 Ml Bottle) 1 drops EYE-BOTH QHS [facility] Stop: 06/20/25 21:59 Last Admin: 06/22/24 21:16 Dose: 1 drops Levothyroxine Sodium (Levothyroxine 100 Mcg Tablet) 100 mcg PO DAILY.0630 [facility] Stop: 06/20/25 06:29 Last Admin: 06/23/24 06:09 Dose: 100 mcg Melatonin (Melatonin 5 Mg Tablet) 5 mg PO QHS PRN PRN Reason: Insomnia Stop: 06/20/25 03:46 Last Admin: 06/20/24 21:18 Dose: 5 mg Metoprolol Tartrate (Metoprolol Tartrate 50 Mg Tablet) 50 mg PO BID [facility] Stop: 06/20/25 08:59 Last Admin: 06/23/24 08:02 Dose: 50 mg Mirabegron (Mirabegron 25 Mg Tab.Er.24h) [facility] [place]: 06/20/25 08:59 Last Admin: 06/23/24 08:02 Dose: 25 mg Nystatin (Nystatin 100,000 Unit/Gram Powder 15 Gm Bottle) 1 applic TOPICAL BID [facility] Stop: 06/21/25 13:14 Last Admin: 06/23/24 08:02 Dose: 1 applic Ondansetron HCl (Ondansetron 4 Mg/2 Ml Vial) 4 mg IV-PUSH Q6H PRN PRN Reason: Nausea And Vomiting Stop: 06/20/25 03:46 Oxycodone HCl (Oxycodone Ir 5 Mg Tablet) 5 mg PO Q6HR PRN PRN Reason: Pain Scale 4 - 7 Last Admin: 06/23/24 08:06 Dose: 5 mg Pantoprazole Sodium (Pantoprazole 40 Mg Tablet.Dr) 40 mg PO QHS [facility] Stop: 06/20/25 21:59 Last Admin: 06/22/24 21:15 Dose: 40 mg Raloxifene HCl (Raloxifene 60 Mg Tablet) 60 mg PO QAM [facility] Stop: 06/20/25 08:59 Last Admin: 06/23/24 08:02 Dose: 60 mg Sodium Chloride (Sodium Chloride 0.9 % 10 Ml Syringe) 0 ml IV-PUSH PRN PRN PRN Reason: Flush Stop: 06/20/25 00:39 Last Admin: 06/22/24 12:28 Dose: 5 ml Sodium Chloride (Sodium Chloride 0.9 % 10 Ml Syringe) 0 ml IV-PUSH PRN PRN PRN Reason: Flush Stop: 06/20/25 03:46 Sodium Chloride (Sodium Chloride 0.9 % 10 Ml Syringe) 0 ml IV-PUSH QSHIFT [facility] Stop: 06/20/25 05:59 Last Admin: 06/23/24 06:09 Dose: 10 ml Exam Physical Exam Vital Signs: Temp Pulse Resp BP Pulse Ox O2 Del Method 98 F 97 18 128/82 97 Room Air 06/23/24 11:00 06/23/24 11:00 06/23/24 11:00 06/23/24 11:00 06/23/24 11:00 06/23/24 11:00 Narrative: Vital Signs Temp 98 F 06/23/24 11:00 Pulse 97 06/23/24 11:00 Resp 18 06/23/24 11:00 BP 128/82 06/23/24 11:00 Pulse Ox 97 06/23/24 11:00 O2 Del Method Room Air 06/23/24 11:00 Intake & Output 06/22/24 06/22/24 06/23/24 11:59 23:59 11:59 Intake Total 300 / 725 425 / 725 360 / 360 Output Total 200 / 350 150 / 350 Balance 100 / 375 275 / 375 360 / 360 Weight 177.1 kg 175.1 kg Intake: IV 50 / 50 cefTRIAXone 1GM-*NS* 1 gm In 50 50 / 50 ml @ 100 mls/hr IV Q24H [facility] Rx #:[id number] Oral 300 / 675 375 / 675 360 / 360 Output: Urine 150 / 150 Urine Amount (Catheter) 200 / 200 [place] 200 / 200 Other: # Unmeasured Voids 1 # Incontinent Voids 2 2 # Bowel Movements 0 # Incontinent Bowel Movements 1 0 Date of Last Bowel Movement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 Attending Dr: Fco Buck MD Copies to: Fco Buck MD~ Ordering Provider: Fco Buck MD Date of Service: 06/22/24 CT/CT abdomen pelvis wo con: back pain and rising creatinine CT ABDOMEN AND PELVIS WITHOUT INTRAVENOUS CONTRAST: CLINICAL HISTORY: Back pain, rising creatinine COMPARISON: None TECHNIQUE: Spiral images were obtained through the abdomen and pelvis without intravenous contrast.This CT exam was performed using one or more following dose reduction techniques: Automated exposure control, adjustment of the mA and/or kV according to patient size, or use of iterative reconstruction technique. FINDINGS: Lung Bases: [Bibasilar atelectasis.] Organs:Suboptimal evaluation due to lack of IV contrast. Gallbladder has been removed. Liver spleenpancreas and adrenal glands all appear unremarkable. Right kidney appears unremarkable. Presumed left parapelvic and cortical cysts. Aorta appears normal in caliber.[ GI: Stomach is grossly unremarkable. Small bowel appears nondilated. Appendix is normal. Left colondiverticulosis.[ Pelvis:[Urinary bladder is grossly unremarkable. Uterus is atrophic. No adnexal mass.] Peritoneum/Retroperitoneum:No free air or free fluid or lymphadenopathy.[ Abd wall/Bones:Abdominal wall demonstrate no acute findings. Osseous structures demonstrate degenerative change.[ CT/CT abdomen pelvis wo con IMPRESSION: No acute process. Impression dictated by: Kingston Linder Jr., D.O.06/22/2024 3:20 PM Dictation Location: [place] [address] Transcribed By: [facility] 06/22/24 1520 Dictated By: Kingston Linder Jr, DO 06/22/24 1517 Signed By: 06/22/24 [facility]0 [facility]04-02-2025 Progress note Author Jass Naqvi [facility] Note Date/Time June 21, 2024 3:53 pm [facility] [address] [place] [address] General Surgery Progress Note Signed Patient: Molly Navas MR#: [id number] : 1945 Acct:[id number] Age/Sex: 79 / F Adm Date: 5 Loc: 3T Room: 5T2869-5 Type: ADM IN Attending Dr: Fco Buck MD Copies to: ~ Date of Service: 06/21/2024 Subjective Subjective Patient reports: no new complaints HPI: Female, 79 years old, is on day 2 of her hospitalization for a laceration on herleft pretibial area. No new overnight events. Patient has minimal pain in the left lower extremity. patient finds that the new Raman wraps are more comfortable. She is complaining of back pain but believes longterm facility will helpwith her strength. Patient was able to use the restroom yesterday, both urine and bowel movements. Denies nausea, vomiting, fever,and sweating. Patient has been eating but does complain of decreased appetite. Vitals have been stable with occasional increases heart rate occasionally. Patient has no new complaints at this time. Allergies & Medications Medications and Allergies Allergies No Known Allergies Allergy (Verified 06/20/24 00:40) Home Medications clopidogrel 75 mg tablet 75 mg PO QAM 06/20/24 [History Confirmed 06/20/24] duloxetine 60 mg capsule,delayed release 60 mg PO QAM 06/20/24 [History Confirmed 06/20/24] lansoprazole 30 mg capsule,delayed release 30 mg PO QHS 06/20/24 [History Confirmed 06/20/24] latanoprost 0.005 % eye drops 1 drp Eye-Both QHS 06/20/24 [History Confirmed 06/20/24] levothyroxine 100 mcg tablet (Synthroid) 100 mcg PO QAM 06/20/24 [History Confirmed 06/20/24] meloxicam 15 mg tablet 15 mg PO QAM 06/20/24 [History Confirmed 06/20/24] metoprolol tartrate 50 mg tablet 50 mg PO BID 06/20/24 [History Confirmed 06/20/24] mirabegron 50 mg tablet,extended release 24 hr (Myrbetriq) 25 mg PO QAM 06/20/24[History Confirmed 06/20/24] prednisone 10 mg tablet 10 mg PO QAM 06/20/24 [History Confirmed 06/20/24] raloxifene 60 mg tablet 60 mg PO PENDING SALE TO [facility] 06/20/24 [History Confirmed 06/20/24] Active Medications Acetaminophen (Acetaminophen 500 Mg Tablet) 1,000 mg PO Q6HR PRN PRN Reason: Pain Scale 1 - 3 or fever Stop: 06/20/25 03:40 Clopidogrel Bisulfate (Clopidogrel Bisulfate 75 Mg Tablet) 75 mg PO [facility] Stop: 06/20/25 08:59 Last Admin: 06/20/24 10:09 Dose: Not Given Duloxetine HCl (Duloxetine 60 Mg Capsule.) 60 mg PO [facility] Stop: 06/20/25 08:59 Last Admin: 06/20/24 18:25 Dose: 60 mg Latanoprost (Latanoprost 0.005% Op Soln 50 Drops/2.5 Ml Bottle) 1 drops EYE-BOTH QHS [facility] Stop: 06/20/25 21:59 Last Admin: 06/20/24 21:18 Dose: 1 drops Levothyroxine Sodium (Levothyroxine 100 Mcg Tablet) 100 mcg PO DAILY.629 [facility] Stop: 06/20/25 06:29 Last Admin: 06/21/24 05:30 Dose: Not Given Melatonin (Melatonin 5 Mg Tablet) 5 mg PO QHS PRN PRN Reason: Insomnia Stop: 06/20/25 03:46 Last Admin: 06/20/24 21:18 Dose: 5 mg Metoprolol Tartrate (Metoprolol Tartrate 50 Mg Tablet) 50 mg PO BID [facility] Stop: 06/20/25 08:59 Last Admin: 06/20/24 21:18 Dose: 50 mg Mirabegron (Mirabegron 25 Mg Tab.Er.24h) 25 mg PO [facility] Stop: 06/20/25 08:59 Last Admin: 06/20/24 08:04 Dose: 25 mg Ondansetron HCl (Ondansetron 4 Mg/2 Ml Vial) 4 mg IV-PUSH Q6H PRN PRN Reason: Nausea And Vomiting Stop: 06/20/25 03:46 Oxycodone HCl (Oxycodone Ir 5 Mg Tablet) 5 mg PO Q6HR PRN PRN Reason: Pain Scale 4 - 7 Last Admin: 06/20/24 11:39 Dose: 5 mg Pantoprazole Sodium (Pantoprazole 40 Mg Tablet.) 40 mg PO QHS [facility] Stop: 06/20/25 21:59 Last Admin: 06/20/24 21:18 Dose: 40 mg Raloxifene HCl (Raloxifene 60 Mg Tablet) 60 mg PO QAM [facility] Stop: 06/20/25 08:59 Last Admin: 06/20/24 08:04 Dose: 60 mg Sodium Chloride (Sodium Chloride 0.9 % 10 Ml Syringe) 0 ml IV-PUSH PRN PRN PRN Reason: Flush Stop: 06/20/25 00:39 Sodium Chloride (Sodium Chloride 0.9 % 10 Ml Syringe) 0 ml IV-PUSH PRN PRN PRN Reason: Flush Stop: 06/20/25 03:46 Sodium Chloride (Sodium Chloride 0.9 % 10 Ml Syringe) 0 ml IV-PUSH QSHIFT [facility] Stop: 06/20/25 05:59 Last Admin: 06/21/24 05:30 Dose: Not Given Exam Physical Exam Vital Signs: Temp Pulse Resp BP Pulse Ox O2 Del Method 97.8 F 103 H 18 132/80 95 Room Air 06/20/24 20:08 06/21/24 04:40 06/21/24 04:40 06/21/24 04:40 06/21/24 04:40 06/21/24 04:40 Const General: cooperative, comfortable and no acute distress Nutritional Appearance: obese Orientation: alert, awake and oriented x3 Eyes Conjunctivae: conjunctivae normal Sclera: sclerae normal (Anicteric) Resp Effort & Inspection: normal respiratory effort, able to speak in complete sentences, no audible wheezes and no cough Auscultation: clear to auscultation bilaterally, no rales, no rhonchi and no wheezes Cardio Rate: regular rate Rhythm: regular rhythm Pulses: radial pulses present GI Inspection: normal to inspection and obesity Palpation: soft, no guarding and nontender Auscultation: normal bowel sounds Skin Other: Left lower leg dressing is taken down. There are at least 2 large lacerations approximated with isabel and sutures. Patient does have significant edema/lymphedema of the leg with weeping of edema fluid at the wound sites. Patient also has significant ecchymosis Neuro General: patient alert, patient awake and patient oriented x3 Speech: speech normal Extrem Other: Both upper and lower bilateral extremities are wrapped. 6 inch Raman wrap was used in the left leg which the patient finds comfortable. Psych Affect: normal affect Thought Process: normal Judgment: judgment good Objective Pain Assessment Left Leg: Pain Description: Chronic and Sharp Pain Intensity: 2 Intake & Output 24 hour I&O: Intake & Output 06/20/24 06/20/24 06/21/24 15:59 23:59 07:59 Intake Total 2150 / 2250 75 / 75 Output Total 1800 / 1800 100 / 100 Balance 350 / 450 - Weight 174.4 kg Labs 06/21/24 09:34 06/21/24 09:34 Laboratory Results - Last 48 hrs. 06/21/24 05:00: Urine Color Yellow, Urine Appearance Cloudy A, Urine pH 6.0, Ur Specific [place] 1.029, Urine Protein 20 H, Urine Glucose (UA) Normal, Urine Ketones Negative, Urine Occult Blood Negative, Urine Nitrite Negative, Urine Bilirubin Negative, Urine Urobilinogen Normal, Ur Leukocyte Esterase 4+ H, UrineRBC 5-9 H, Urine WBC 20-49 H, Urine WBC Clumps Occasional H, Ur Squamous Epith Cells 3-4 H, Other Crystals 1+, Urine Bacteria Rare, Hyaline Casts 0-8 06/20/24 04:08: Corrected WBC 18.5 H, Uncorrected WBC Count 18.5 H, RBC 3.70, Hgb 11.1 L, Hct 34.3, MCV 92.6, MCH 30.0, MCHC 32.4, RDW 16.2 H, Plt Count 334, MPV 8.1, Neut % (Auto) 87.7, Lymph % (Auto) 5.8, [place] % (Auto) 5.9, Eos % (Auto)0.1, Baso % (Auto) 0.5, Nucleat RBC Rel Count 0.0, Neut # (Auto) 16.2 H, Lymph #(Auto) 1.1, [place] # (Auto) 1.1 H, Eos # (Auto) 0.0, Baso # (Auto) 0.1, Monocyte Dist Width 17.41, PHA Creatinine Clear 59.40, Sodium 143, Potassium 5.3 H, Chloride 111 H, Carbon Dioxide 25.8, Anion Gap 11.5, BUN 45 H, Creatinine 1.21 H, Est GFR (CKD-EPI) 45.874, Glucose 147 H, Calcium 8.7, Total Bilirubin 0.7, AST 40 H, ALT 32, Alkaline Phosphatase 247 H, Total Protein 6.0 L, Albumin 3.0 L, Globulin 3.0, Albumin/Globulin Ratio 1.0 A&P - General Surgery Assessment/Plan (1) Traumatic leg injury: Qualifiers: Encounter type: initial encounter Laterality: left Qualified Code(s): S89.92XA - Unspecified injury of left lower leg, initial encounter (2) Lymphedema: (3) Decreased mobility: (4) Frequent falls: Plan Continue current dressing changes. Discharge planning in progress. Probably through skilled care. Can follow-up with me at the [facility] wound care center. Documented By: Jass Naqvi MD 06/21/24 0701 Signed By: <Electronically signed by MD Jass Naqvi> 06/21/24 1553 [facility] Work Phone: 1(773) 470-796504-02-2025 [place] [address] General Surgery Progress Note Signed Patient: Molly Navas MR#: [id number] : 1945 Acct:[id number] Age/Sex: 79 / F Adm Date: 5 Loc: Room: [address] [place] [address] Type: ADM IN Attending Dr: Fco Buck MD Copies to: ~ Date of Service: 06/21/2024 Subjective Subjective Patient reports: no new complaints HPI: Female, 79 years old, is on day 2 of her hospitalization for a laceration on herleft pretibial area. No new overnight events. Patient has minimal pain in the left lower extremity. patient finds that the new Raman wraps are more comfortable. She is complaining of back pain but believes skilled nursingfacility will helpwith her strength. Patient was able to use the restroom yesterday, both urine andbowel movements. Denies nausea, vomiting, fever,and sweating. Patient has been eating but does complain of decreased appetite. Vitals have been stable with occasional increases heart rate occasionally. Patient has no new complaints at this time. Allergies & Medications Medications and Allergies Allergies No Known Allergies Allergy (Verified 06/20/24 00:40) Home Medications clopidogrel 75 mg tablet 75 mg PO QAM 06/20/24 [History Confirmed 06/20/24] duloxetine 60 mg capsule,delayed release 60 mg PO QA 06/20/24 [History Confirmed 06/20/24] lansoprazole 30 mg capsule,delayed release 30 mg PO QHS 06/20/24 [History Confirmed 06/20/24] latanoprost 0.005 % eye drops 1 drp Eye-Both QHS 06/20/24 [History Confirmed 06/20/24] levothyroxine 100 mcg tablet (Synthroid) 100 mcg PO QA 06/20/24 [History Confirmed 06/20/24] meloxicam 15 mg tablet 15 mg PO QA 06/20/24 [History Confirmed 06/20/24] metoprolol tartrate 50 mg tablet 50 mg PO BID 06/20/24 [History Confirmed 06/20/24] mirabegron 50 mg tablet,extended release 24 hr (Myrbetriq) 25 mg PO PENDING SALE TO [facility] 06/20/24[History Confirmed 06/20/24] prednisone 10 mg tablet 10 mg PO [facility] 06/20/24 [History Confirmed 06/20/24] raloxifene 60 mg tablet 60 mg PO [facility] 06/20/24 [History Confirmed 06/20/24] Active Medications Acetaminophen (Acetaminophen 500 Mg Tablet) 1,000 mg PO Q6HR PRN PRN Reason: Pain Scale 1 - 3 or fever Stop: 06/20/25 03:40 Clopidogrel Bisulfate (Clopidogrel Bisulfate 75 Mg Tablet) 75 mg PO [facility] Stop: 06/20/25 08:59 Last Admin: 06/20/24 10:09 Dose: Not Given Duloxetine HCl (Duloxetine 60 Mg Capsule.Dr) 60 mg PO [facility] Stop: 06/20/25 08:59 Last Admin: 06/20/24 18:25 Dose: 60 mg Latanoprost (Latanoprost 0.005% Op Soln 50 Drops/2.5 Ml Bottle) 1 drops EYE-BOTH QHS [facility] Stop: 06/20/25 21:59 Last Admin: 06/20/24 21:18 Dose: 1 drops Levothyroxine Sodium (Levothyroxine 100 Mcg Tablet) 100 mcg PO DAILY.629 [facility] Stop: 06/20/25 06:29 Last Admin: 06/21/24 05:30 Dose: Not Given Melatonin (Melatonin 5 Mg Tablet) 5 mg PO QHS PRN PRN Reason: Insomnia Stop: 06/20/25 03:46 Last Admin: 06/20/24 21:18 Dose: 5 mg Metoprolol Tartrate (Metoprolol Tartrate 50 Mg Tablet) 50 mg PO BID [facility] Stop: 06/20/25 08:59 Last Admin: 06/20/24 21:18 Dose: 50 mg Mirabegron (Mirabegron 25 Mg Tab.Er.24h) 25 mg PO QAM [facility] Stop: 06/20/25 08:59 Last Admin: 06/20/24 08:04 Dose: 25 mg Ondansetron HCl (Ondansetron 4 Mg/2 Ml Vial) 4 mg IV-PUSH Q6H PRN PRN Reason: Nausea And Vomiting Stop: 06/20/25 03:46 Oxycodone HCl (Oxycodone Ir 5 Mg Tablet) 5 mg PO Q6HR PRN PRN Reason: Pain Scale 4 - 7 Last Admin: 06/20/24 11:39 Dose: 5 mg Pantoprazole Sodium (Pantoprazole 40 Mg Tablet.Dr) 40 mg PO QHS [facility] Stop: 06/20/25 21:59 Last Admin: 06/20/24 21:18 Dose: 40 mg Raloxifene HCl (Raloxifene 60 Mg Tablet) 60 mg PO [facility] Stop: 06/20/25 08:59 Last Admin: 06/20/24 08:04 Dose: 60 mg Sodium Chloride (Sodium Chloride 0.9 % 10 Ml Syringe) 0 ml IV-PUSH PRN PRN PRN Reason: Flush Stop: 06/20/25 00:39 Sodium Chloride (Sodium Chloride 0.9 % 10 Ml Syringe) 0 ml IV-PUSH PRN PRN PRN Reason: Flush Stop: 06/20/25 03:46 Sodium Chloride (Sodium Chloride 0.9 % 10 Ml Syringe) 0 ml IV-PUSH QSHIFT [facility] Stop: 06/20/25 05:59 Last Admin: 06/21/24 05:30 Dose: Not Given Exam Physical Exam Vital Signs: Temp Pulse Resp BP Pulse Ox O2 Del Method 97.8 F 103 H 18 132/80 95 Room Air 06/20/24 20:08 06/21/24 04:40 06/21/24 04:40 06/21/24 04:40 06/21/24 04:40 06/21/24 04:40 Const General: cooperative, comfortable and no acute distress Nutritional Appearance: obese Orientation: alert, awake and oriented x3 Eyes Conjunctivae: conjunctivae normal Sclera: sclerae normal (Anicteric) Resp Effort & Inspection: normal respiratory effort, able to speak in complete sentences, no audiblewheezes and no cough Auscultation: clear to auscultation bilaterally, no rales, no rhonchi and no wheezes Cardio Rate: regular rate Rhythm: regular rhythm Pulses: radial pulses present GI Inspection: normal to inspection and obesity Palpation: soft, no guarding and nontender Auscultation: normal bowel sounds Skin Other: Left lower leg dressing is taken down. There are at least 2 large lacerations approximated with isabel and sutures. Patient does have significant edema/lymphedema of the leg with weeping of edema fluid at the wound sites. Patient also has significant ecchymosis Neuro General: patient alert, patient awake and patient oriented x3 Speech: speech normal Extrem Other: Both upper and lower bilateral extremities are wrapped. 6 inch Raman wrap was used in the left leg which the patient finds comfortable. Psych Affect: normal affect Thought Process: normal Judgment: judgment good Objective Pain Assessment Left Leg: Pain Description: Chronic and Sharp Pain Intensity: 2 Intake & Output 24 hour I&O: Intake & Output 06/20/24 06/20/24 06/21/24 15:59 23:59 07:59 Intake Total 2150 / 2250 75 / 75 Output Total 1800 / 1800 100 / 100 Balance 350 / 450 -25 / -25 Weight 174.4 kg Labs 06/21/24 09:34 06/21/24 09:34 Laboratory Results - Last 48 hrs. 06/21/24 05:00: Urine Color Yellow, Urine Appearance Cloudy A, Urine pH 6.0, Ur Specific [place] 1.029, Urine Protein 20 H, Urine Glucose (UA) Normal, Urine Ketones Negative, Urine Occult Blood Negative, Urine Nitrite Negative, Urine Bilirubin Negative, Urine Urobilinogen Normal, Ur Leukocyte Esterase 4+ H, UrineRBC 5-9 H, Urine WBC 20-49 H, Urine WBC Clumps Occasional H, Ur Squamous Epith Cells 3-4 H, Other Crystals 1+, Urine Bacteria Rare, Hyaline Casts 0-8 06/20/24 04:08: Corrected WBC 18.5 H, Uncorrected WBC Count 18.5 H, RBC 3.70, Hgb 11.1 L, Hct 34.3,MCV 92.6, MCH 30.0, MCHC 32.4, RDW 16.2 H, Plt Count 334, MPV 8.1, Neut % (Auto) 87.7, Lymph % (Auto) 5.8, [place] % (Auto) 5.9, Eos % (Auto)0.1, Baso % (Auto) 0.5, Nucleat RBC Rel Count 0.0, Neut # (Auto) 16.2 H, Lymph #(Auto) 1.1, [place] # (Auto) 1.1 H, Eos # (Auto) 0.0, Baso # (Auto) 0.1, Monocyte Dist Width 17.41, PHA Creatinine Clear 59.40, Sodium 143, Potassium 5.3 H, Chloride 111 H, Carbon Dioxide 25.8, Anion Gap 11.5, BUN 45 H, Creatinine 1.21 H, Est GFR (CKD-EPI) 45.874, Glucose 147 H, Calcium 8.7, Total Bilirubin 0.7, AST 40 H, ALT 32, Alkaline Phosphatase 247 H, Total Protein 6.0 L, Albumin 3.0 L, Globulin 3.0, Albumin/Globulin Ratio 1.0 A&P - General Surgery Assessment/Plan (1) Traumatic leg injury: Qualifiers: Encounter type: initial encounter Laterality: left Qualified Code(s): S89.92XA - Unspecified injuryof left lower leg, initial encounter (2) Lymphedema: (3) Decreased mobility: (4) Frequent falls: Plan Continue current dressing changes. Discharge planning in progress. Probably through skilled care. Can follow-up with me at the [facility] wound care center. Documented By: Jass Naqvi MD 06/21/24 0701 Signed By: 06/21/24 1553 [facility]04-02-2025 Progress note Author Fco Buck [facility] Note Date/Time June 21, 2024 1:21 pm [facility] [address] [place], [place] [id number] Hospitalist Progress Note Signed Patient: Molly Navas MR#: [id number] : 1945 Acct:[id number] Age/Sex: 79 / F Adm Date: 5 Loc: 3T Room: [address] [place] [address] Type: ADM IN Attending Dr: Fco Buck MD Copies to: ~ Date of Service: 06/21/2024 Subjective Subjective Narrative: No acute events overnight, this a.m. tachycardic, does note persistent back pain. Denies any fevers, chills, nausea. Agreeable to placement to longterm facility. Exam Physical Exam Vital Signs: Temp Pulse Resp BP Pulse Ox O2 Del Method 98.1 F 109 H 20 138/78 95 Room Air 06/21/24 08:00 06/21/24 08:00 06/21/24 08:00 06/21/24 08:00 06/21/24 08:00 06/21/24 08:00 Narrative: General: cooperative and comfortable Orientation: alert, awake and oriented x3 Head: normal to inspection Neck: normal visual inspection Cardio: no JVD, regular rate, regular rhythm Chest palpation & inspection: normal inspection of the chest Resp Effort & Inspection: normal respiratory effort Abd: soft, non-tender, non-distended Back: Has overlying TTP over lumbar spine Extremities: bilateral upper extremities wrapped in gauze and LLE in brace. Objective Lab Results 06/21/24 09:34 06/21/24 09:34 Meds Allergies and Active Meds Allergies No Known Allergies Allergy (Verified 06/20/24 00:40) Active Meds: Active Medications Generic Name Dose Route Start Last Admin Trade Name Freq PRN Reason Stop Dose Admin Acetaminophen 1,000 mg 06/20/24 03:41 Acetaminophen 500 Mg Tablet PO 06/20/25 03:40 Q6HR PRN Pain Scale 1 - 3 or fever Clopidogrel Bisulfate 75 mg 06/20/24 09:00 06/21/24 08:30 Clopidogrel Bisulfate 75 Mg Tablet PO 06/20/25 08:59 75 mg QAM ZI Administration Duloxetine HCl 60 mg 06/20/24 09:00 06/21/24 08:30 Duloxetine 60 Mg Capsule. PO 06/20/25 08:59 60 mg QAM ZI Administration Latanoprost 1 drops 06/20/24 22:00 06/20/24 21:18 Latanoprost 0.005% Op Soln 50 Drops/2.5 Ml Bottle EYE-BOTH 06/20/25 21:59 1drops QHS ZI Administration Levothyroxine Sodium 100 mcg 06/20/24 06:30 06/21/24 05:30 Levothyroxine 100 Mcg Tablet PO 06/20/25 06:29 Not Given DAILY.0630 ZI Melatonin 5 mg 06/20/24 03:47 06/20/24 21:18 Melatonin 5 Mg Tablet PO 06/20/25 03:46 5 mg QHS PRN Administration Insomnia Metoprolol Tartrate 50 mg 06/20/24 09:00 06/21/24 08:30 Metoprolol Tartrate 50 Mg Tablet PO 06/20/25 08:59 50 mg BID ZI Administration Mirabegron 25 mg 06/20/24 09:00 06/21/24 08:30 Mirabegron 25 Mg Tab.Er.24h PO 06/20/25 08:59 25 mg QAM ZI Administration Ondansetron HCl 4 mg 06/20/24 03:47 Ondansetron 4 Mg/2 Ml Vial IV-PUSH 06/20/25 03:46 Q6H PRN Nausea And Vomiting Oxycodone HCl 5 mg 06/20/24 03:41 06/21/24 08:33 Oxycodone Ir 5 Mg Tablet PO 5 mg Q6HR PRN Administration Pain Scale 4 - 7 Pantoprazole Sodium 40 mg 06/20/24 22:00 06/20/24 21:18 Pantoprazole 40 Mg Tablet.Dr PO 06/20/25 21:59 40 mg QHS ZI Administration Raloxifene HCl 60 mg 06/20/24 09:00 06/21/24 08:30 Raloxifene 60 Mg Tablet PO 06/20/25 08:59 60 mg QAM ZI Administration Sodium Chloride 0 ml 06/20/24 00:40 Sodium Chloride 0.9 % 10 Ml Syringe IV-PUSH 06/20/25 00:39 PRN PRN Flush Sodium Chloride 0 ml 06/20/24 03:47 Sodium Chloride 0.9 % 10 Ml Syringe IV-PUSH 06/20/25 03:46 PRN PRN Flush Sodium Chloride 0 ml 06/20/24 06:00 06/21/24 05:30 Sodium Chloride 0.9 % 10 Ml Syringe IV-PUSH 06/20/25 05:59 Not Given [facility]SHIFT [facility] A&P - Hospitalist Assessment/Plan (1) HTN (hypertension): (2) Skin tear: (3) Laceration: (4) Weakness: (5) Frequent falls: Plan LLE laceration and skin tear - Inpatient wound nurse -evaluated by general surgery, plans for conservative management with Raman wrap and basic dressing - Will obtain plain film imaging to r/o fracture Tachycardia with evidence of UTI Back pain h/o HTN - On home metoprolol tartrate 50 mg bid - start ceftriaxone - no evidence of laceration on lumbar spine, CT a/p to rule out fracture and pyleonephritis Weakness Frequent falls - Plans for discharge to SNF, placement on going Chronic conditions Hypothyroidism?levothyroxine History of CVA?clopidogrel Depression?duloxetine GERD Overactive bladder Prednisone is on patient's list of home medications, she reports she was put on that due to her weakness?will hold for now - has been on for the past 6 months, 10 mg daily by PCP. Will consider referral to rheum on discharge DVT PPx?sqh 5k q8h Diet order?regular CODE STATUS?full code Documented By: Foc Buck MD 06/21/24 0910 Signed By: <Electronically signed by Fco Buck MD> 06/21/24 [facility] Work Phone: 1(614) 769-889904-02-2025 [place] [address] Hospitalist Progress Note Signed Patient: Molly Navas MR#: [id number] : 1945 Acct:[id number] Age/Sex: 79 / F Adm Date: 5 Loc: 3T Room: [address] [place] [address] Type: ADM IN Attending Dr: Fco Buck MD Copies to: ~ Date of Service: 06/21/2024 Subjective Subjective Narrative: No acute events overnight, this a.m. tachycardic, does note persistent back pain. Denies any fevers, chills, nausea. Agreeable to placement to longterm facility. Exam Physical Exam Vital Signs: Temp Pulse Resp BP Pulse Ox O2 Del Method 98.1 F 109 H 20 138/78 95 Room Air 06/21/24 08:00 06/21/24 08:00 06/21/24 08:00 06/21/24 08:00 06/21/24 08:00 06/21/24 08:00 Narrative: General: cooperative and comfortable Orientation: alert, awake and oriented x3 Head: normal to inspection Neck: normal visual inspection Cardio: no JVD, regular rate, regular rhythm Chest palpation & inspection: normal inspection of the chest Resp Effort & Inspection: normal respiratory effort Abd: soft, non-tender, non-distended Back: Has overlying TTP over lumbar spine Extremities: bilateral upper extremities wrapped in gauze and LLE in brace. Objective Lab Results 06/21/24 09:34 06/21/24 09:34 Meds Allergies and Active Meds Allergies No Known Allergies Allergy (Verified 06/20/24 00:40) Active Meds: Active Medications Generic Name Dose Route Start Last Admin Trade Name Freq PRN Reason Stop Dose Admin Acetaminophen 1,000 mg 06/20/24 03:41 Acetaminophen 500 Mg Tablet PO 06/20/25 03:40 Q6HR PRN Pain Scale 1 - 3 or fever Clopidogrel Bisulfate 75 mg 06/20/24 09:00 06/21/24 08:30 Clopidogrel Bisulfate 75 Mg Tablet PO 06/20/25 08:59 75 mg QAM ZI Administration Duloxetine HCl 60 mg 06/20/24 09:00 06/21/24 08:30 Duloxetine 60 Mg Capsule.Dr PO 06/20/25 08:59 60 mg QAM ZI Administration Latanoprost 1 drops 06/20/24 22:00 06/20/24 21:18 Latanoprost 0.005% Op Soln 50 Drops/2.5 Ml Bottle EYE-BOTH 06/20/25 21:59 1drops QHS ZI Administration Levothyroxine Sodium 100 mcg 06/20/24 06:30 06/21/24 05:30 Levothyroxine 100 Mcg Tablet PO 06/20/25 06:29 Not Given DAILY.0630 ZI Melatonin 5 mg 06/20/24 03:47 06/20/24 21:18 Melatonin 5 Mg Tablet PO 06/20/25 03:46 5 mg QHS PRN Administration Insomnia Metoprolol Tartrate 50 mg 06/20/24 09:00 06/21/24 08:30 Metoprolol Tartrate 50 Mg Tablet PO 06/20/25 08:59 50 mg BID ZI Administration Mirabegron 25 mg 06/20/24 09:00 06/21/24 08:30 Mirabegron 25 Mg Tab.Er.24h PO 06/20/25 08:59 25 mg QAM ZI Administration Ondansetron HCl 4 mg 06/20/24 03:47 Ondansetron 4 Mg/2 Ml Vial IV-PUSH 06/20/25 03:46 Q6H PRN Nausea And Vomiting Oxycodone HCl 5 mg 06/20/24 03:41 06/21/24 08:33 Oxycodone Ir 5 Mg Tablet PO 5 mg Q6HR PRN Administration Pain Scale 4 - 7 Pantoprazole Sodium 40 mg 06/20/24 22:00 06/20/24 21:18 Pantoprazole 40 Mg Tablet. PO 06/20/25 21:59 40 mg QHS ZI Administration Raloxifene HCl 60 mg 06/20/24 09:00 06/21/24 08:30 Raloxifene 60 Mg Tablet PO 06/20/25 08:59 60 mg QAM ZI Administration Sodium Chloride 0 ml 06/20/24 00:40 Sodium Chloride 0.9 % 10 Ml Syringe IV-PUSH 06/20/25 00:39 PRN PRN Flush Sodium Chloride 0 ml 06/20/24 03:47 Sodium Chloride 0.9 % 10 Ml Syringe IV-PUSH 06/20/25 03:46 PRN PRN Flush Sodium Chloride 0 ml 06/20/24 06:00 06/21/24 05:30 Sodium Chloride 0.9 % 10 Ml Syringe IV-PUSH 06/20/25 05:59 Not Given QSHIFT ZI A&P - Hospitalist Assessment/Plan (1) HTN (hypertension): (2) Skin tear: (3) Laceration: (4) Weakness: (5) Frequent falls: Plan LLE laceration and skin tear - Inpatient wound nurse -evaluated by general surgery, plans for conservative management with Raman wrap and basic dressing - Will obtain plain film imaging to r/o fracture Tachycardia with evidence of UTI Back pain h/o HTN - On home metoprolol tartrate 50 mg bid - start ceftriaxone - no evidence of laceration on lumbar spine, CT a/p to rule out fracture and pyleonephritis Weakness Frequent falls - Plans for discharge to SNF, placement on going Chronic conditions Hypothyroidism?levothyroxine History of CVA?clopidogrel Depression?duloxetine GERD Overactive bladder Prednisone is on patient's list of home medications, she reports she was put on that due to her weakness?will hold for now - has been on for the past 6 months, 10 mg daily by PCP. Will consider referral to rheum on discharge DVT PPx?sqh 5k q8h Diet order?regular CODE STATUS?full code Documented By: Fco Buck MD 06/21/24 0910 Signed By: 06/21/24 1321 [facility]04-01-2025 Consult note Author Jass Naqvi [facility] Note Date/Time June 20, 2024 7:11 pm [facility] [address] [place] [address] General Surgery Consult Note Signed Patient: Molly Navas MR#: [id number] : 1945 Acct:[id number] Age/Sex: 79 / F Adm Date: 5 Loc: Room: [address] [place] [address] Type: ADM IN Attending Dr: Fco Buck MD Copies to: MD Cecil Garcia MD Rahul Prasad, MD~ History of Present Illness Date of consult: 06/20/2024 Reason for consult: wound care Requesting/Attending Provider: Fco Buck MD History of present illness: Ms. Navas is a 79-year-old female with a PMH of hypothyroidism, Hypertension, osteoarthritis, Cerebral vascular accident 15 years ago the presented to the emergency room tonight after a fall at home. No loss of consciousness. the patient states she has been falling more frequently and had to call EMS this prior wednesday. Patient lives alone. Her leg gave out as she was trying to transfer from her scooter to the bathroom sink and got caught underneath kitchen cabinets. Patient has extensive lymphedema with weeping. The left leg has an extensive laceration. She has wounds and lacerations all over her body including Right lower extremity and bilateral upper extremities. The patient is on Plavix. She has been on she has been on prednisone for the past 6 months 10 mg daily by her PCP . she denies anysignificant issues with her heart and lungs. Patient states that she ambulates at most 10 feet. She is able to do some transfers with difficulty. She has noted herself becoming weaker. Patient useselectric scooter. White blood cell: 18.5 BUN 45 creatinine 1.21 Alk phos 247 Review of Systems Constitutional Constitutional: Denies fever(s), Reports frequent falls and Denies headache(s) Cardiovascular Cardiovascular: Denies chest pain, Denies dyspnea, Reports leg edema, Reports leg ulcers and Reports pedal edema Respiratory Respiratory: Denies cough, Denies dyspnea and Denies wheezing Gastrointestinal Gastrointestinal: Denies abdominal pain, Denies change in stool character and Denies nausea Musculoskeletal Musculoskeletal: Reports abnormal gait, Reports muscle weakness and Reports myalgias Neurologic Neurologic: Reports frequent falls, Denies headache(s), Denies loss of vision, Denies syncope and Reports weakness [facility] Medical History (Updated 06/20/24 @ 19:10 by Jass Naqvi MD) Asthma SVT (supraventricular tachycardia) HTN (hypertension) CVA (cerebral vascular accident) says she was told she had small stroke in the past, no deficits Hypothyroidism Surgical History H/O hernia repair with mesh History of cholecystectomy Family History Mother Diabetes Brother Cancer Lung Father Myocardial infarction Social History Smoking Status: Former smoker Tobacco Type: cigarettes Substance Use Type: None Allergies & Medications Medications and Allergies Allergies No Known Allergies Allergy (Verified 06/20/24 00:40) Home Medications clopidogrel 75 mg tablet 75 mg PO QA 06/20/24 [History Confirmed 06/20/24] duloxetine 60 mg capsule,delayed release 60 mg PO QA 06/20/24 [History Confirmed 06/20/24] lansoprazole 30 mg capsule,delayed release 30 mg PO QHS 06/20/24 [History Confirmed 06/20/24] latanoprost 0.005 % eye drops 1 drp Eye-Both QHS 06/20/24 [History Confirmed 06/20/24] levothyroxine 100 mcg tablet (Synthroid) 100 mcg PO QAM 06/20/24 [History Confirmed 06/20/24] meloxicam 15 mg tablet 15 mg PO QAM 06/20/24 [History Confirmed 06/20/24] metoprolol tartrate 50 mg tablet 50 mg PO BID 06/20/24 [History Confirmed 06/20/24] mirabegron 50 mg tablet,extended release 24 hr (Myrbetriq) 25 mg PO PENDING SALE TO [facility] 06/20/24[History Confirmed 06/20/24] prednisone 10 mg tablet 10 mg PO [facility]ENDING SALE TO [facility] 06/20/24 [History Confirmed 06/20/24] raloxifene 60 mg tablet 60 mg PO [facility]ENDING SALE TO [facility] 06/20/24 [History Confirmed 06/20/24] Active Medications Acetaminophen (Acetaminophen 500 Mg Tablet) 1,000 mg PO Q6HR PRN PRN Reason: Pain Scale 1 - 3 or fever Stop: 06/20/25 03:40 Clopidogrel Bisulfate (Clopidogrel Bisulfate 75 Mg Tablet) 75 mg PO [facility] Stop: 06/20/25 08:59 Duloxetine HCl (Duloxetine 60 Mg Capsule.Dr) 60 mg PO [facility] Stop: 06/20/25 08:59 Sodium Bicarbonate 150 meq/ (Dextrose) 1,150 mls @ 100 mls/hr IV .[id number] [facility] Stop: 06/21/24 04:59 Last Admin: 06/20/24 08:04 Dose: 100 mls/hr Latanoprost (Latanoprost 0.005% Op Soln 50 Drops/2.5 Ml Bottle) 1 drops EYE-BOTH QHS [facility] Stop: 06/20/25 21:59 Levothyroxine Sodium (Levothyroxine 100 Mcg Tablet) 100 mcg PO DAILY.0630 [facility] Stop: 06/20/25 06:29 Last Admin: 06/20/24 08:04 Dose: 100 mcg Melatonin (Melatonin 5 Mg Tablet) 5 mg PO QHS PRN PRN Reason: Insomnia Stop: 06/20/25 03:46 Metoprolol Tartrate (Metoprolol Tartrate 50 Mg Tablet) 50 mg PO BID [facility] Stop: 06/20/25 08:59 Last Admin: 06/20/24 08:04 Dose: 50 mg Mirabegron (Mirabegron 25 Mg Tab.Er.24h) 25 mg PO [facility] Stop: 06/20/25 08:59 Last Admin: 06/20/24 08:04 Dose: 25 mg Ondansetron HCl (Ondansetron 4 Mg/2 Ml Vial) 4 mg IV-PUSH Q6H PRN PRN Reason: Nausea And Vomiting Stop: 06/20/25 03:46 Oxycodone HCl (Oxycodone Ir 5 Mg Tablet) 5 mg PO Q6HR PRN PRN Reason: Pain Scale 4 - 7 Pantoprazole Sodium (Pantoprazole 40 Mg Tablet.Dr) 40 mg PO QHS [facility] Stop: 06/20/25 21:59 Raloxifene HCl (Raloxifene 60 Mg Tablet) 60 mg PO QAM [facility] Stop: 06/20/25 08:59 Last Admin: 06/20/24 08:04 Dose: 60 mg Sodium Chloride (Sodium Chloride 0.9 % 10 Ml Syringe) 0 ml IV-PUSH PRN PRN PRN Reason: Flush Stop: 06/20/25 00:39 Sodium Chloride (Sodium Chloride 0.9 % 10 Ml Syringe) 0 ml IV-PUSH PRN PRN PRN Reason: Flush Stop: 06/20/25 03:46 Sodium Chloride (Sodium Chloride 0.9 % 10 Ml Syringe) 0 ml IV-PUSH QSHIFT [facility] Stop: 06/20/25 05:59 Last Admin: 06/20/24 07:21 Dose: Not Given Exam Physical Exam Vital Signs: Temp Pulse Resp BP Pulse Ox O2 Del Method 97.9 F 117 H 20 150/78 H 99 Room Air 06/20/24 06:00 06/20/24 06:00 06/20/24 06:00 06/20/24 06:00 06/20/24 06:00 06/20/24 07:30 Const General: cooperative, comfortable and no acute distress Nutritional Appearance: obese Orientation: alert, awake and oriented x3 Resp Effort & Inspection: normal respiratory effort, able to speak in complete sentences, symmetric chest movement, no audible wheezes and no cough Auscultation: clear to auscultation bilaterally, no rales, no rhonchi and no wheezes Cardio Rate: tachycardic Rhythm: regular rhythm Pulses: radial pulses present GI Inspection: normal to inspection Skin Lesions: lesion noted Trauma: laceration (left pretibial region) Other: Left lower leg dressing is taken down. There are at least 2 large lacerations approximated with isabel and sutures. Patient does have significant edema/lymphedema of the leg with weeping of edema fluid at the wound sites. Patient also has significant ecchymosis Neuro General: patient alert, patient awake and patient oriented x3 Cranial Nerves: CN's II-XII intact bilaterally Speech: speech normal Extrem General: edema and pedal edema Psych Affect: normal affect Speech and Movement: speech and movement normal Insight: insight good Results - Gen. Surgery Intake and Output 24 hour I&O: Intake & Output 06/19/24 06/20/24 06/20/24 23:59 07:59 15:59 Intake Total 100 / 100 Output Total 0 / 0 Balance 100 / 100 Weight 174.6 kg Labs 06/20/24 04:08 06/20/24 04:08 Laboratory Results - last 72 hr 06/20/24 04:08: Corrected WBC 18.5 H, Uncorrected WBC Count 18.5 H, RBC 3.70, Hgb 11.1 L, Hct 34.3, MCV 92.6, MCH 30.0, MCHC 32.4, RDW 16.2 H, Plt Count 334, MPV 8.1, Neut % (Auto) 87.7, Lymph % (Auto) 5.8, [place] % (Auto) 5.9, Eos % (Auto)0.1, Baso % (Auto) 0.5, Nucleat RBC Rel Count 0.0, Neut # (Auto) 16.2 H, Lymph #(Auto) 1.1, [place] # (Auto) 1.1 H, Eos # (Auto) 0.0, Baso # (Auto) 0.1, Monocyte Dist Width 17.41, PHA Creatinine Clear 59.40, Sodium 143, Potassium 5.3 H, Chloride 111 H, Carbon Dioxide 25.8, Anion Gap 11.5, BUN 45 H, Creatinine 1.21 H, Est GFR (CKD-EPI) 45.874, Glucose 147 H, Calcium 8.7, Total Bilirubin 0.7, AST 40 H, ALT 32, Alkaline Phosphatase 247 H, Total Protein 6.0 L, Albumin 3.0 L, Globulin 3.0, Albumin/Globulin Ratio 1.0 A&P - General Surgery (1) Traumatic leg injury: Qualifiers: Encounter type: initial encounter Laterality: left Qualified Code(s): S89.92XA - Unspecified injury of left lower leg, initial encounter (2) Lymphedema: (3) Decreased mobility: (4) Frequent falls: Plan Will add compression with Raman wraps to the current dressing changes. With lymphedema, these will be difficult wounds to heal. Patient would probably benefit from a short stay at skilled care for dressing changes as well as for therapy to help increase her strength to aid with ambulation/transfers. Documented By: Jass Naqvi MD 06/20/24 0815 Signed By: <Electronically signed by MD Jass Naqvi> 06/20/241910 [facility] Work Phone: [phone]) 656-604204-01-2025 [place] [address] General Surgery Consult Note Signed Patient: Molly Navas MR#: [id number] : 1945 Acct:[id number] Age/Sex: 79 / F Adm Date: 5 Loc: Room: [address] [place] [address] Type: ADM IN Attending Dr: Fco Buck MD Copies to: MD Cecil Garcia MD Rahul Prasad, MD~ History of Present Illness Date of consult: 06/20/2024 Reason for consult: wound care Requesting/Attending Provider: Fco Buck MD History of present illness: Ms. Navas is a 79-year-old female with a PMH of hypothyroidism, Hypertension, osteoarthritis, Cerebral vascular accident 15 years ago the presented to the emergency room tonight after a fall at home. No loss of consciousness. the patient states she has been falling more frequently and had to call EMS this prior wednesday. Patient lives alone. Her leg gave out as she was trying to transfer from her scooter to the bathroom sink and got caughtunderneath kitchen cabinets. Patient has extensive lymphedema with weeping. The left leg has an extensive laceration. She has wounds and lacerations all over her body including Right lower extremity and bilateral upper extremities. The patient is on Plavix. She has been on she has been on prednisone for the past 6 months 10 mg daily by her PCP . she denies anysignificant issues with her heart andlungs. Patient states that she ambulates at most 10 feet. She is able to do some transfers with difficulty. She has noted herself becoming weaker. Patient useselectric scooter. White blood cell: 18.5 BUN 45 creatinine 1.21 Alk phos 247 Review of Systems Constitutional Constitutional: Denies fever(s), Reports frequent falls and Denies headache(s) Cardiovascular Cardiovascular: Denies chest pain, Denies dyspnea, Reports leg edema, Reports leg ulcers and Reports pedal edema Respiratory Respiratory: Denies cough, Denies dyspnea and Denies wheezing Gastrointestinal Gastrointestinal: Denies abdominal pain, Denies change in stool character and Denies nausea Musculoskeletal Musculoskeletal: Reports abnormal gait, Reports muscle weakness and Reports myalgias Neurologic Neurologic: Reports frequent falls, Denies headache(s), Denies loss of vision, Denies syncope and Reports weakness [facility] Medical History (Updated 06/20/24 @ 19:10 by Jass Naqvi MD) Asthma SVT (supraventricular tachycardia) HTN (hypertension) CVA (cerebral vascular accident) says she was told she had small stroke in the past, no deficits Hypothyroidism Surgical History H/O hernia repair with mesh History of cholecystectomy Family History Mother Diabetes Brother Cancer Lung Father Myocardial infarction Social History Smoking Status: Former smoker Tobacco Type: cigarettes Substance Use Type: None Allergies & Medications Medications and Allergies Allergies No Known Allergies Allergy (Verified 06/20/24 00:40) Home Medications clopidogrel 75 mg tablet 75 mg PO QA 06/20/24 [History Confirmed 06/20/24] duloxetine 60 mg capsule,delayed release 60 mg PO QAM 06/20/24 [History Confirmed 06/20/24] lansoprazole 30 mg capsule,delayed release 30 mg PO QHS 06/20/24 [History Confirmed 06/20/24] latanoprost 0.005 % eye drops 1 drp Eye-Both Q 06/20/24 [History Confirmed 06/20/24] levothyroxine 100 mcg tablet (Synthroid) 100 mcg PO QAM 06/20/24 [History Confirmed 06/20/24] meloxicam 15 mg tablet 15 mg PO QAM 06/20/24 [History Confirmed 06/20/24] metoprolol tartrate 50 mg tablet 50 mg PO BID 06/20/24 [History Confirmed 06/20/24] mirabegron 50 mg tablet,extended release 24 hr (Myrbetriq) 25 mg PO QAM 06/20/24[History Confirmed 06/20/24] prednisone 10 mg tablet 10 mg PO QAM 06/20/24 [History Confirmed 06/20/24] raloxifene 60 mg tablet 60 mg PO PENDING SALE TO [facility] 06/20/24 [History Confirmed 06/20/24] Active Medications Acetaminophen (Acetaminophen 500 Mg Tablet) 1,000 mg PO Q6HR PRN PRN Reason: Pain Scale 1 - 3 or fever Stop: 06/20/25 03:40 Clopidogrel Bisulfate (Clopidogrel Bisulfate 75 Mg Tablet) 75 mg PO [facility] Stop: 06/20/25 08:59 Duloxetine HCl (Duloxetine 60 Mg Capsule.) 60 mg PO [facility] Stop: 06/20/25 08:59 Sodium Bicarbonate 150 meq/ (Dextrose) 1,150 mls @ 100 mls/hr IV .[id number] [facility] Stop: 06/21/24 04:59 Last Admin: 06/20/24 08:04 Dose: 100 mls/hr Latanoprost (Latanoprost 0.005% Op Soln 50 Drops/2.5 Ml Bottle) 1 drops EYE-BOTH QHS [facility] Stop: 06/20/25 21:59 Levothyroxine Sodium (Levothyroxine 100 Mcg Tablet) 100 mcg PO DAILY.0630 [facility] Stop: 06/20/25 06:29 Last Admin: 06/20/24 08:04 Dose: 100 mcg Melatonin (Melatonin 5 Mg Tablet) 5 mg PO QHS PRN PRN Reason: Insomnia Stop: 06/20/25 03:46 Metoprolol Tartrate (Metoprolol Tartrate 50 Mg Tablet) 50 mg PO BID [facility] Stop: 06/20/25 08:59 Last Admin: 06/20/24 08:04 Dose: 50 mg Mirabegron (Mirabegron 25 Mg Tab.Er.24h) 25 mg PO [facility] Stop: 06/20/25 08:59 Last Admin: 06/20/24 08:04 Dose: 25 mg Ondansetron HCl (Ondansetron 4 Mg/2 Ml Vial) 4 mg IV-PUSH Q6H PRN PRN Reason: Nausea And Vomiting Stop: 06/20/25 03:46 Oxycodone HCl (Oxycodone Ir 5 Mg Tablet) 5 mg PO Q6HR PRN PRN Reason: Pain Scale 4 - 7 Pantoprazole Sodium (Pantoprazole 40 Mg Tablet.) 40 mg PO QHS [facility] Stop: 06/20/25 21:59 Raloxifene HCl (Raloxifene 60 Mg Tablet) 60 mg PO QAM ZI Stop: 06/20/25 08:59 Last Admin: 06/20/24 08:04 Dose: 60 mg Sodium Chloride (Sodium Chloride 0.9 % 10 Ml Syringe) 0 ml IV-PUSH PRN PRN PRN Reason: Flush Stop: 06/20/25 00:39 Sodium Chloride (Sodium Chloride 0.9 % 10 Ml Syringe) 0 ml IV-PUSH PRN PRN PRN Reason: Flush Stop: 06/20/25 03:46 Sodium Chloride (Sodium Chloride 0.9 % 10 Ml Syringe) 0 ml IV-PUSH QSHIFT ZI Stop: 06/20/25 05:59 Last Admin: 06/20/24 07:21 Dose: Not Given Exam Physical Exam Vital Signs: Temp Pulse Resp BP Pulse Ox O2 Del Method 97.9 F 117 H 20 150/78 H 99 Room Air 06/20/24 06:00 06/20/24 06:00 06/20/24 06:00 06/20/24 06:00 06/20/24 06:00 06/20/24 07:30 Const General: cooperative, comfortable and no acute distress Nutritional Appearance: obese Orientation: alert, awake and oriented x3 Resp Effort & Inspection: normal respiratory effort, able to speak in complete sentences, symmetric chest movement, no audible wheezes and no cough Auscultation: clear to auscultation bilaterally, no rales, no rhonchi and no wheezes Cardio Rate: tachycardic Rhythm: regular rhythm Pulses: radial pulses present GI Inspection: normal to inspection Skin Lesions: lesion noted Trauma: laceration (left pretibial region) Other: Left lower leg dressing is taken down. There are at least 2 large lacerations approximated with isabel and sutures. Patient does have significant edema/lymphedema of the leg with weeping of edema fluid at the wound sites. Patient also has significant ecchymosis Neuro General: patient alert, patient awake and patient oriented x3 Cranial Nerves: CN's II-XII intact bilaterally Speech: speech normal Extrem General: edema and pedal edema Psych Affect: normal affect Speech and Movement: speech and movement normal Insight: insight good Results - Gen. Surgery Intake and Output 24 hour I&O: Intake & Output 06/19/24 06/20/24 06/20/24 23:59 07:59 15:59 Intake Total 100 / 100 Output Total 0 / 0 Balance 100 / 100 Weight 174.6 kg Labs 06/20/24 04:08 06/20/24 04:08 Laboratory Results - last 72 hr 06/20/24 04:08: Corrected WBC 18.5 H, Uncorrected WBC Count 18.5 H, RBC 3.70, Hgb 11.1 L, Hct 34.3,MCV 92.6, MCH 30.0, MCHC 32.4, RDW 16.2 H, Plt Count 334, MPV 8.1, Neut % (Auto) 87.7, Lymph % (Auto) 5.8, [place] % (Auto) 5.9, Eos % (Auto)0.1, Baso % (Auto) 0.5, Nucleat RBC Rel Count 0.0, Neut # (Auto) 16.2 H, Lymph #(Auto) 1.1, [place] # (Auto) 1.1 H, Eos # (Auto) 0.0, Baso # (Auto) 0.1, Monocyte Dist Width 17.41, PHA Creatinine Clear 59.40, Sodium 143, Potassium 5.3 H, Chloride 111 H, Carbon Dioxide 25.8, Anion Gap 11.5, BUN 45 H, Creatinine 1.21 H, Est GFR (CKD-EPI) 45.874, Glucose 147 H, Calcium 8.7, Total Bilirubin 0.7, AST 40 H, ALT 32, Alkaline Phosphatase 247 H, Total Protein 6.0 L, Albumin 3.0 L, Globulin 3.0, Albumin/Globulin Ratio 1.0 A&P - General Surgery (1) Traumatic leg injury: Qualifiers: Encounter type: initial encounter Laterality: left Qualified Code(s): S89.92XA - Unspecified injuryof left lower leg, initial encounter (2) Lymphedema: (3) Decreased mobility: (4) Frequent falls: Plan Will add compression with Raman wraps to the current dressing changes. With lymphedema, these will bedifficult wounds to heal. Patient would probably benefit from a short stay at skilled care for dressing changes as well as for therapy to help increase her strength to aid with ambulation/transfers. Documented By: Jass Naqvi MD 06/20/24 0815 Signed By: 06/20/241910 [facility]04-01-2025 Progress note Author Fco Buck [facility] Note Date/Time June 20, 2024 12:4 4pm [facility] [address] [place] [address] Hospitalist Progress Note Signed Patient: Molly Navas MR#: [id number] : 1945 Acct:[id number] Age/Sex: 79 / F Adm Date: 5 Loc: 3T Room: [address] [place] [address] Type: ADM IN Attending Dr: Fco Buck MD Copies to: ~ Date of Service: 06/20/2024 Subjective Subjective Narrative: Admitted overnight after fall, significant LLE laceration, attempted closure in ER with brace placed. Currently comfortable and confirms lack of loss of consciousness or head trauma. Exam Physical Exam Vital Signs: Temp Pulse Resp BP Pulse Ox O2 Del Method 97.9 F 117 H 20 150/78 H 99 Room Air 06/20/24 06:00 06/20/24 06:00 06/20/24 06:00 06/20/24 06:00 06/20/24 06:00 06/20/24 07:30 Narrative: General: cooperative and comfortable Orientation: alert, awake and oriented x3 Head: normal to inspection Neck: normal visual inspection Cardio: no JVD, regular rate, regular rhythm Chest palpation & inspection: normal inspection of the chest Resp Effort & Inspection: normal respiratory effort Abd: soft, non-tender, non-distended Extremities: bilateral upper extremities wrapped in gauze and LLE in brace. Objective Lab Results 06/20/24 04:08 06/20/24 04:08 Meds Allergies and Active Meds Allergies No Known Allergies Allergy (Verified 06/20/24 00:40) Active Meds: Active Medications Generic Name Dose Route Start Last Admin Trade Name Freq PRN Reason Stop Dose Admin Acetaminophen 1,000 mg 06/20/24 03:41 Acetaminophen 500 Mg Tablet PO 06/20/25 03:40 Q6HR PRN Pain Scale 1 - 3 or fever Clopidogrel Bisulfate 75 mg 06/20/24 09:00 Clopidogrel Bisulfate 75 Mg Tablet PO 06/20/25 08:59 QAM ZI Duloxetine HCl 60 mg 06/20/24 09:00 Duloxetine 60 Mg Capsule.Dr [place] 06/20/25 08:59 QAM ZI Sodium Bicarbonate 150 meq/ 1,150 mls @ 100 mls/hr 06/20/24 06:00 Dextrose IV 06/21/24 04:59 .[id number] [facility] Latanoprost 1 drops 06/20/24 22:00 Latanoprost 0.005% Op Soln 50 Drops/2.5 Ml Bottle EYE-BOTH 06/20/25 21:59 QHS [facility] Levothyroxine Sodium 100 mcg 06/20/24 06:30 Levothyroxine 100 Mcg Tablet PO 06/20/25 06:29 DAILY.0630 [facility] Melatonin 5 mg 06/20/24 03:47 Melatonin 5 Mg Tablet PO 06/20/25 03:46 QHS PRN Insomnia Metoprolol Tartrate 50 mg 06/20/24 09:00 Metoprolol Tartrate 50 Mg Tablet PO 06/20/25 08:59 BID ZI Mirabegron 25 mg 06/20/24 09:00 Mirabegron 25 Mg Tab.Er.24h PO 06/20/25 08:59 QAM [facility] Ondansetron HCl 4 mg 06/20/24 03:47 Ondansetron 4 Mg/2 Ml Vial IV-PUSH 06/20/25 03:46 Q6H PRN Nausea And Vomiting Oxycodone HCl 5 mg 06/20/24 03:41 Oxycodone Ir 5 Mg Tablet PO Q6HR PRN Pain Scale 4 - 7 Pantoprazole Sodium 40 mg 06/20/24 22:00 Pantoprazole 40 Mg Tablet.Dr PO 06/20/25 21:59 QHS [facility] Raloxifene HCl 60 mg 06/20/24 09:00 Raloxifene 60 Mg Tablet PO 06/20/25 08:59 [facility] Sodium Chloride 0 ml 06/20/24 00:40 Sodium Chloride 0.9 % 10 Ml Syringe IV-PUSH 06/20/25 00:39 PRN PRN Flush Sodium Chloride 0 ml 06/20/24 03:47 Sodium Chloride 0.9 % 10 Ml Syringe IV-PUSH 06/20/25 03:46 PRN PRN Flush Sodium Chloride 0 ml 06/20/24 06:00 06/20/24 07:21 Sodium Chloride 0.9 % 10 Ml Syringe IV-PUSH 06/20/25 05:59 Not Given [facility] A&P - Hospitalist Assessment/Plan (1) HTN (hypertension): (2) Skin tear: (3) Laceration: (4) Weakness: (5) Frequent falls: Plan HTN - Metoprolol LLE laceration and skin tear - Consult general surgery to assess - Inpatient wound nurse ? Labs pending, no sign of infection at this time Weakness Frequent falls - Consult PT/OT, anticipate placement to SNF Chronic conditions Hypothyroidism?levothyroxine History of CVA?clopidogrel Depression?duloxetine GERD Overactive bladder Prednisone is on patient's list of home medications, she reports she was put on that due to her weakness?will hold for now - has been on for the past 6 months, 10 mg daily by PCP. Will consider referral to rheum on discharge DVT PPx?will hold for now due to large laceration/skin tear to left lower extremity Diet order?regular CODE STATUS?full code Documented By: Fco Buck MD 06/20/24 0891 Signed By: <Electronically signed by Fco Buck MD> 06/20/24 2422 [facility] Work Phone: 1(872) 155-875804-01-2025 [place] [address] Hospitalist Progress Note Signed Patient: Molly Navas MR#: [id number] : 1945 Acct:[id number] Age/Sex: 79 / F Adm Date: 5 Loc: Room: [address] [place] [address] Type: ADM IN Attending Dr: Fco Buck MD Copies to: ~ Date of Service: 06/20/2024 Subjective Subjective Narrative: Admitted overnight after fall, significant LLE laceration, attempted closure in ER with brace placed. Currently comfortable and confirms lack of loss of consciousness or head trauma. Exam Physical Exam Vital Signs: Temp Pulse Resp BP Pulse Ox O2 Del Method 97.9 F 117 H 20 150/78 H 99 Room Air 06/20/24 06:00 06/20/24 06:00 06/20/24 06:00 06/20/24 06:00 06/20/24 06:00 06/20/24 07:30 Narrative: General: cooperative and comfortable Orientation: alert, awake and oriented x3 Head: normal to inspection Neck: normal visual inspection Cardio: no JVD, regular rate, regular rhythm Chest palpation & inspection: normal inspection of the chest Resp Effort & Inspection: normal respiratory effort Abd: soft, non-tender, non-distended Extremities: bilateral upper extremities wrapped in gauze and LLE in brace. Objective Lab Results 06/20/24 04:08 06/20/24 04:08 Meds Allergies and Active Meds Allergies No Known Allergies Allergy (Verified 06/20/24 00:40) Active Meds: Active Medications Generic Name Dose Route Start Last Admin Trade Name Freq PRN Reason Stop Dose Admin Acetaminophen 1,000 mg 06/20/24 03:41 Acetaminophen 500 Mg Tablet PO 06/20/25 03:40 Q6HR PRN Pain Scale 1 - 3 or fever Clopidogrel Bisulfate 75 mg 06/20/24 09:00 Clopidogrel Bisulfate 75 Mg Tablet PO 06/20/25 08:59 QAM ZI Duloxetine HCl 60 mg 06/20/24 09:00 Duloxetine 60 Mg Capsule.Dr PO 06/20/25 08:59 [facility] Sodium Bicarbonate 150 meq/ 1,150 mls @ 100 mls/hr 06/20/24 06:00 Dextrose IV 06/21/24 04:59 .[id number] ZI Latanoprost 1 drops 06/20/24 22:00 Latanoprost 0.005% Op Soln 50 Drops/2.5 Ml Bottle EYE-BOTH 06/20/25 21:59 QHS ZI Levothyroxine Sodium 100 mcg 06/20/24 06:30 Levothyroxine 100 Mcg Tablet PO 06/20/25 06:29 DAILY.0630 ZI Melatonin 5 mg 06/20/24 03:47 Melatonin 5 Mg Tablet PO 06/20/25 03:46 QHS PRN Insomnia Metoprolol Tartrate 50 mg 06/20/24 09:00 Metoprolol Tartrate 50 Mg Tablet PO 06/20/25 08:59 BID ZI Mirabegron 25 mg 06/20/24 09:00 Mirabegron 25 Mg Tab.Er.24h PO 06/20/25 08:59 QAM ZI Ondansetron HCl 4 mg 06/20/24 03:47 Ondansetron 4 Mg/2 Ml Vial IV-PUSH 06/20/25 03:46 Q6H PRN Nausea And Vomiting Oxycodone HCl 5 mg 06/20/24 03:41 Oxycodone Ir 5 Mg Tablet PO Q6HR PRN Pain Scale 4 - 7 Pantoprazole Sodium 40 mg 06/20/24 22:00 Pantoprazole 40 Mg Tablet. PO 06/20/25 21:59 QHS ZI Raloxifene HCl 60 mg 06/20/24 09:00 Raloxifene 60 Mg Tablet PO 06/20/25 08:59 QAM ZI Sodium Chloride 0 ml 06/20/24 00:40 Sodium Chloride 0.9 % 10 Ml Syringe IV-PUSH 06/20/25 00:39 PRN PRN Flush Sodium Chloride 0 ml 06/20/24 03:47 Sodium Chloride 0.9 % 10 Ml Syringe IV-PUSH 06/20/25 03:46 PRN PRN Flush Sodium Chloride 0 ml 06/20/24 06:00 06/20/24 07:21 Sodium Chloride 0.9 % 10 Ml Syringe IV-PUSH 06/20/25 05:59 Not Given QSHIFT ZI A&P - Hospitalist Assessment/Plan (1) HTN (hypertension): (2) Skin tear: (3) Laceration: (4) Weakness: (5) Frequent falls: Plan HTN - Metoprolol LLE laceration and skin tear - Consult general surgery to assess - Inpatient wound nurse ? Labs pending, no sign of infection at this time Weakness Frequent falls - Consult PT/OT, anticipate placement to SNF Chronic conditions Hypothyroidism?levothyroxine History of CVA?clopidogrel Depression?duloxetine GERD Overactive bladder Prednisone is on patient's list of home medications, she reports she was put on that due to her weakness?will hold for now - has been on for the past 6 months, 10 mg daily by PCP. Will consider referral to rheum on discharge DVT PPx?will hold for now due to large laceration/skin tear to left lower extremity Diet order?regular CODE STATUS?full code Documented By: Fco Buck MD 06/20/24 0811 Signed By: 06/20/24 1244 [facility]04-01-2025 History and physical note Author Meredith Lema [facility] Note Date/Time June 20, 2024 5:57 am [facility] [address] [place] [address] Hospitalist H&P Signed Patient: Molly Navas MR#: [id number] : 1945 Acct:[id number] Age/Sex: 79 / F Adm Date: 5 Loc: 3T Room: [address] [place] [address] Type: ADM IN Attending Dr: Alex iFshman MD Copies to: MD Cecil Andrade MD Paula G Smith, SOCIAL WORK JOB TITLES~ HPI DATE OF EXAMINATION: 06/20/24 CHIEF COMPLAINT: fall and LLE wound HISTORY OF PRESENT ILLNESS: Ms. Navas is a 79-year-old pleasant female with a PMH of hypothyroidism, HTN, osteoarthritis, CVA the presented to the emergency room tonight after a fall at home. Patient states that for the last month she has had increasing weakness athome. Had an electric scooter into the house to help her get around. She states that she had went into the bathroom and when she stood up to go to the toilet her right leg gave out and her left knee dropped to the floor and her foot slid under the sink cabinet. She did call for help and they pulled her legout from under the sink she had a huge skin tear with adipose tissue exposed. She currently rates her pain a 2/10 to her left leg. She denies hitting her head, denies LOC. She reports some discomfort to her lower back. Patient statesthat her right knee and hip have been giving out for the last month, she reports2 falls before this 1 tonight. States that she has had increasing difficulty getting around at home. She denies chest pain, shortness of breath, fever, chills, nausea or vomiting. Reports 3 steps into her house and she cannot walk the steps anymore. States that Wednesday she is having a ramp put in. She has a doctor's appointment on with her PCP, wants to have a hospital bed and electric wheelchair to help get around the house. She is a non-smoker, nondrinker, denies illicit drug use. ER physician attempted to close the skin tear without success. General surgery was consulted per the ER physician. She was medicated with tetanus shot, received some ketamine and a 1 L bolus of fluid. Lab work is pending. EKG is sinus rhythm with PACs. She will be admitted as inpatient to the [facility] floor. Review of Systems Review of Systems Review of systems: A 10 point review of systems was obtained, negative unless noted in the HPI or below. [facility] Medical History (Updated 06/20/24 @ 04:12 by Meredith Lema APRN) Asthma SVT (supraventricular tachycardia) HTN (hypertension) CVA (cerebral vascular accident) says she was told she had small stroke in the past, no deficits Hypothyroidism Surgical History (Updated 06/20/24 @ 04:05 by Meredith Lema APRN) H/O hernia repair with mesh History of cholecystectomy Family History (Updated 06/20/24 @ 04:06 by Meredith Lema APRN) Mother Diabetes Brother Cancer Lung Father Myocardial infarction Social History Household Members: none Housing: [facility] Smoking Status: Never smoker Substance Use Type: None Meds Medications and Allergies Allergies No Known Allergies Allergy (Verified 06/20/24 00:40) Home Medications clopidogrel 75 mg tablet 75 mg PO QA 06/20/24 [History Confirmed 06/20/24] duloxetine 60 mg capsule,delayed release 60 mg PO QA 06/20/24 [History Confirmed 06/20/24] lansoprazole 30 mg capsule,delayed release 30 mg PO QHS 06/20/24 [History Confirmed 06/20/24] latanoprost 0.005 % eye drops 1 drp Eye-Both Q 06/20/24 [History Confirmed 06/20/24] levothyroxine 100 mcg tablet (Synthroid) 100 mcg PO QAM 06/20/24 [History Confirmed 06/20/24] meloxicam 15 mg tablet 15 mg PO QA 06/20/24 [History Confirmed 06/20/24] metoprolol tartrate 50 mg tablet 50 mg PO BID 06/20/24 [History Confirmed 06/20/24] mirabegron 50 mg tablet,extended release 24 hr (Myrbetriq) 25 mg PO QAM 06/20/24[History Confirmed 06/20/24] prednisone 10 mg tablet 10 mg PO QAM 06/20/24 [History Confirmed 06/20/24] raloxifene 60 mg tablet 60 mg PO QAM 06/20/24 [History Confirmed 06/20/24] Exam Physical Exam Vital Signs: Temp Pulse Resp BP Pulse Ox O2 Del Method 98.9 F 101 H 18 138/81 97 Room Air 06/20/24 00:32 06/20/24 03:42 06/20/24 03:42 06/20/24 03:42 06/20/24 03:42 06/20/24 03:42 Narrative: CONST- Appears well -developed and well nourished. Morbidly obese?BMI 72.4 HEAD - Normocephalic and atraumatic EENT-Sclera nonicteric, conjunctive are non-erythemic, dry oral mucosa, pharynx clear NECK-Supple, no cervical lymphadenopathy CARDIAC-tachycardic, regular rhythm, S1 & S2. PULM-diminished without wheeze or rhonchi, RA, no accessory muscle use or cough noted ABD - Soft. Bowel sounds are normal. No distention. No tenderness EXTREM-lymphedema BLE calves, tenderness and pain to LLE SKIN- W/D good turgor- large skin tear to LLE-dressing dry and intact, knee immobilizer intact, bruising to BUE, skin tear to LFA and upper left arm, scabbed areas to abdomen MS- MAEX4 spontaneously with equal with equal strength- generalized weakness NEURO- A&Ox3 speech clear and tongue midline, equal facial symmetry, no focal motor deficits PSYCH-Mood, affect, and behavior appropriate Assessment & Plan Assessment/Plan (1) HTN (hypertension): (2) Skin tear: (3) Laceration: (4) Weakness: (5) Frequent falls: Plan HTN - Metoprolol LLE laceration and skin tear - Consult general surgery - Consult inpatient wound nurse ? Labs pending, no sign of infection at this time Weakness Frequent falls - Consult PT/OT Chronic conditions Hypothyroidism?levothyroxine History of CVA?clopidogrel Depression?duloxetine GERD Overactive bladder Prednisone is on patient's list of home medications, she reports she was put on that due to her weakness?will hold for now DVT PPx?will hold for now due to large laceration/skin tear to left lower extremity Diet order?regular CODE STATUS?full code IP vs OBS Justification Based on differential dx, clinical care plan, and risk of adverse events, if untreated, in my clinical judgement this patient requires an acute care setting as: INPATIENT because of an expectation of an over 2 midnight stay. Estimated length of stay (# of days): 3 Documented By: Meredith Lema APRN 06/20/24 6429 Signed By: <Electronically signed by LALIT Lema> 06/20/24 1030 <Electronically signed by Alex Fishman MD> 06/20/24 0557 [facility] Work Phone: 1(833) 538-472904-01-2025 [place] [id number] Hospitalist H&P Signed Patient: Molly Navas MR#: [id number] : 1945 Acct:[id number] Age/Sex: 79 / F Adm Date: 5 Loc: 3T Room: [address] [place] [address] Type: ADM IN Attending Dr: Alex Fishman MD Copies to: MD Cecil Andrade MD Paula G Smith, SOCIAL WORK JOB TITLES~ HPI DATE OF EXAMINATION: 06/20/24 CHIEF COMPLAINT: fall and LLE wound HISTORY OF PRESENT ILLNESS: Ms. Navas is a 79-year-old pleasant female with a PMH of hypothyroidism, HTN, osteoarthritis, CVA the presented to the emergency room tonight after a fall at home. Patient states that for the last month she has had increasing weakness athome. Had an electric scooter into the house to help her get around. She states that she had went into the bathroom and when she stood up to go to the toilet herright leg gave out and her left knee dropped to the floor and her foot slid under the sink cabinet.She did call for help and they pulled her legout from under the sink she had a huge skin tear with adipose tissue exposed. She currently rates her pain a 2/10 to her left leg. She denies hitting her head, denies LOC. She reports some discomfort to her lower back. Patient statesthat her right knee and hip have been giving out for the last month, she reports2 falls before this 1 tonight. States that she has had increasing difficulty getting around at home. She denies chest pain, shortness of breath, fever, chills, nausea or vomiting. Reports 3 steps into her house and she cannot walk the steps anymore. States that Wednesday she is having a ramp put in. She has a doctor's appointment on with her PCP, wants to have a hospital bed and electric wheelchair to help get around the house. She is a non-smoker, nondrinker, denies illicit drug use. ER physician attempted to close the skin tear without success. General surgery was consulted per the ER physician. She was medicated with tetanus shot, received some ketamine and a 1 L bolus of fluid. Lab work is pending. EKG is sinus rhythm with PACs. She will be admitted as inpatient to the [facility] floor. Review of Systems Review of Systems Review of systems: A 10 point review of systems was obtained, negative unless noted in the HPI or below. [facility] Medical History (Updated 06/20/24 @ 04:12 by Meredith Lema APRN) Asthma SVT (supraventricular tachycardia) HTN (hypertension) CVA (cerebral vascular accident) says she was told she had small stroke in the past, no deficits Hypothyroidism Surgical History (Updated 06/20/24 @ 04:05 by Meredith Lema APRN) H/O hernia repair with mesh History of cholecystectomy Family History (Updated 06/20/24 @ 04:06 by Meredith Lema APRN) Mother Diabetes Brother Cancer Lung Father Myocardial infarction Social History Household Members: none Housing: [facility] Smoking Status: Never smoker Substance Use Type: None Meds Medications and Allergies Allergies No Known Allergies Allergy (Verified 06/20/24 00:40) Home Medications clopidogrel 75 mg tablet 75 mg PO QAM 06/20/24 [History Confirmed 06/20/24] duloxetine 60 mg capsule,delayed release 60 mg PO QAM 06/20/24 [History Confirmed 06/20/24] lansoprazole 30 mg capsule,delayed release 30 mg PO QHS 06/20/24 [History Confirmed 06/20/24] latanoprost 0.005 % eye drops 1 drp Eye-Both QHS 06/20/24 [History Confirmed 06/20/24] levothyroxine 100 mcg tablet (Synthroid) 100 mcg PO QAM 06/20/24 [History Confirmed 06/20/24] meloxicam 15 mg tablet 15 mg PO QAM 06/20/24 [History Confirmed 06/20/24] metoprolol tartrate 50 mg tablet 50 mg PO BID 06/20/24 [History Confirmed 06/20/24] mirabegron 50 mg tablet,extended release 24 hr (Myrbetriq) 25 mg PO QAM 06/20/24[History Confirmed 06/20/24] prednisone 10 mg tablet 10 mg PO QAM 06/20/24 [History Confirmed 06/20/24] raloxifene 60 mg tablet 60 mg PO QAM 06/20/24 [History Confirmed 06/20/24] Exam Physical Exam Vital Signs: Temp Pulse Resp BP Pulse Ox O2 Del Method 98.9 F 101 H 18 138/81 97 Room Air 06/20/24 00:32 06/20/24 03:42 06/20/24 03:42 06/20/24 03:42 06/20/24 03:42 06/20/24 03:42 Narrative: CONST- Appears well -developed and well nourished. Morbidly obese?BMI 72.4 HEAD - Normocephalic and atraumatic EENT-Sclera nonicteric, conjunctive are non-erythemic, dry oral mucosa, pharynx clear NECK-Supple, no cervical lymphadenopathy CARDIAC-tachycardic, regular rhythm, S1 & S2. PULM-diminished without wheeze or rhonchi, RA, no accessory muscle use or cough noted ABD - Soft. Bowel sounds are normal. No distention. No tenderness EXTREM-lymphedema BLE calves, tenderness and pain to LLE SKIN- W/D good turgor- large skin tear to LLE-dressing dry and intact, knee immobilizer intact, bruising to BUE, skin tear to LFA and upper left arm, scabbed areas to abdomen MS- MAEX4 spontaneously with equal with equal strength- generalized weakness NEURO- A&Ox3 speech clear and tongue midline, equal facial symmetry, no focal motor deficits PSYCH-Mood, affect, and behavior appropriate Assessment & Plan Assessment/Plan (1) HTN (hypertension): (2) Skin tear: (3) Laceration: (4) Weakness: (5) Frequent falls: Plan HTN - Metoprolol LLE laceration and skin tear - Consult general surgery - Consult inpatient wound nurse ? Labs pending, no sign of infection at this time Weakness Frequent falls - Consult PT/OT Chronic conditions Hypothyroidism?levothyroxine History of CVA?clopidogrel Depression?duloxetine GERD Overactive bladder Prednisone is on patient's list of home medications, she reports she was put on that due to her weakness?will hold for now DVT PPx?will hold for now due to large laceration/skin tear to left lower extremity Diet order?regular CODE STATUS?full code IP vs OBS Justification Based on differential dx, clinical care plan, and risk of adverse events, if untreated, in my clinical judgement this patient requires an acute care setting as: INPATIENT because of an expectation ofan over 2 midnight stay. Estimated length of stay (# of days): 3 Documented By: Meredith Lema, LALIT 06/20/24 0353 Signed By: 06/20/24 0417 06/20/24 0557 [facility]04-01-2025 Evaluation note* Diagnosis Onset Date Resolution Status Admit Date Frequent falls acute June 20, 2024 2:48am HTN (hypertension) acute June 20, 2024 2:48am Laceration acute June 20 2:48am Skin tear acute June 20 2:48am Weakness acute June 20 2:48am [facility] Work Phone: 1(408) 953-357104-01-2025 Evaluation note* Diagnosis Onset Date Resolution Status Admit Date Back pain acute June 20 2:48am Chronic use of steroids acute A 2024 2:48am Decreased mobility acute June 20, 2024 2:48am Fracture of fifth metatarsal bone of left foot acute June 20, 2024 2:48am Frequent falls acute June 20, 2024 2:48am HTN (hypertension) acute June 20, 2024 2:48am Laceration acute June 20 2:48am Leukocytosis acute June 20, 2 025 2:48am Lymphedema acute June 20 2:48am Multiple contusions acute June 20, 2024 2:48am Skin tear acute June 20 2:48am Traumatic leg injury acute 2024 2:48am UTI (urinary tract infection) acute June 20, 2024 2:48am Venous insufficiency of both lower extremities acute June 20 2:48am Weakness acute June 20 2:48am [facility] Work Phone: Summary Purpose Family History No Family History Records Found Relationship Condition Age at Onset Recorded Date/T carin mother Diabetes mellitus Unknown brother Malignant neoplasm Unknown father Myocardial infarction Unknown Advance Directives No Advanced Directives Records Found Advance Directive Response Recorded Date/ Time Advance Directives No June 20 1:08am Chief Complaint and Reason for Visit Chief Complaint Admit Date leg lac June 20, 2024 2:48 am Reason for Visit Admit Date Frequent falls June 20, 2024 2:48 am HTN (hypertension) June 20, 2024 2:48 am Laceration June 20, 2024 2:48 am Skin tear June 20, 2024 2:48 am Weakness June 20, 2024 2:48 am Chief Complaint Admit Date leg lac June 20, 2024 2:48 am leg lac June 23, 2024 11:2 7am Reason for Visit Admit Date Back pain June 20, 2024 2:48 am Chronic use of steroids June 20, 2024 2:48am Decreased mobility June 20, 2024 2:48 am Fracture of fifth metatarsal bone of lef t foot June 20, 2024 2:48am Frequent falls June 20, 2024 2:48 am HTN (hypertension) June 20, 2024 2:48 am Laceration June 20, 2024 2:48 am Leukocytosis June 20, 2024 2:48 am Lymphedema June 20, 2024 2:48 am Multiple contusions June 20, 2024 2:48 am Skin tear June 20, 2024 2:48 am Traumatic leg injury June 20, 2024 2:4 8am UTI (urinary tract infection) June 20, 2024 2:48am Venous insufficiency of both lower extre mities June 20, 2024 2:48am Weakness June 20, 2024 2:48 am Additional Source Comments INFORMATION SOURCE (unrecogn ized section and content) DATE CREATED AUTHOR 05/11/2022 [facility] DATE CREATED AUTHOR AUTHOR'S ORGANIZ ATION 07/04/2024 [facility] Care Teams (unrecognized sec tion and content) Team Status: Active Member Role Status Dates Cecil Clancy MD Primary Care Provider Active Team Status: Inactive Member Role Status Dates Terry Trevizo DO Emergency Provider Active St art: June 20, 2024 End: June 26, 2024 Cecil Clancy MD Primary Care Provider Active Start: June 20, 2024 End: June 26, 2024 Alex Fishman MD Admit Provider, Atte nding Provider Active Start: June 20, 2024 End: June 26, 2024 Jass Naqvi MD Other Provider Active Start: June 20, 2024 End: June 26, 2024 Max Pacheco MD Other Provider Active Start: June 20, 2024 End: June 26, 2024 Anne Marie Pedroza DPM Other Provider Active Start: Ap ril 2024 End: June 26, 2024 Team Status: Active Member Role Status Dates Terry Trevizo DO Emergency Provider Active St art: June 23, 2024 Cecil Clancy MD Primary Care Provider Active Start: June 23, 2024 Alex Fishman MD Admit Provider Active Start: June 23, 2024 Fco Buck MD Other Provider Active Start: A pril 2024 Jass Naqvi MD Other Provider Active Start: June 23, 2024 Max Pacheco MD Attending Provider, Other Provider Active Start: June 23, 2024 Anne Marie Pedroza DPM Other Provider Active Start: Ap ril 2024 Team Status: Active Member Role Status Dates Terry Trevizo , DO Emergency Provider Active St art: June 20, 2024 Cecil Clancy MD Primary Care Provider Active Start: June 20, 2024 Alex Fishman MD Admit Provider, Attending Provider Active Start: June 20, 2024 Goals (unrecognized section and content) Goals may be documented in a n alternate section FOR RECORDS PERTAINING TO PATIENTS WHO ARE [...] BE BASED ON THE PRIMARY CLINICAL RECORDS. [facility] [employer] provides no warranty or guarantee of the accuracy or completeness of information in this document.
--- NOTE | 2024-07-06 18:18 | P.HP_ITS ---
HPI H&P: HPI History of Present Illness Chief complaint: ABDOMINAL PAIN ROLF Narrative: Patient recently hospitalized and then transferred to rehabilitation long-term care, she was hospitalized for left leg wound, last 24 hours at the long term, having increasing cough and shortness of breath, diffuse rhonchi, ordered a chest x-ray, after much discussion with the nurses it seems like she was progressively getting worse, she is a decreased intake of last 3 to 4 days, referred to ER. In ER found to have acute renal failure, leukocytosis significant for sepsis with multisystem organ dysfunction When I saw patient up in the medical surgical floor, she was getting rearranged in bed, labored with her breathing, she is very fatigued and abdomen this lady for well over 15 years Opioid HPI Opioid Management Most Recent Pain and Opioid Data: No Data to Display Review of Systems ROS Status of ROS 10 or more systems reviewed and unremark able except as noted in history and below PFSH PFSH Social History Little interest or pleasure in doing things: not at all Feeling down, depressed, or hopeless: not at all Meds Home Medications and Allergies Home Medications ?Medication ?Instructions ?Recorded ?Confirmed ?Type Lactobacillus acidoph-L.bulgaricus 1 tab PO BID 07/06/24 07/06/24 History 1 million cell tablet (Floranex) acetaminophen 500 mg tablet 1,000 mg PO Q6H PRN pain 07/06/24 07/06/24 History (Tylenol Extra Strength) albuterol sulfate 90 mcg/actuation 2 inh inhalation Q4H PRN shortness 07/06/24 07/06/24 History aerosol inhaler (Ventolin HFA) of breath or wheezing calcium alginate-honey 4 X 5 07/06/24 07/06/24 History bandage (MediHoney (calcium alginate-honey)) clopidogrel 75 mg tablet (Plavix) 75 mg PO DAILY 07/06/24 07/06/24 History duloxetine 60 mg capsule,delayed 60 mg PO DAILY 07/06/24 07/06/24 History release (Cymbalta) fluticasone 100 mcg-salmeterol 50 1 inh inhalation DAILY 07/06/24 07/06/24 History mcg/dose blistr powdr for inhalation (Advair Diskus) latanoprost 0.005 % eye drops 1 drp ophthalmic (eye) .QHS 07/06/24 07/06/24 History levofloxacin 750 mg tablet 750 mg PO DAILY 07/06/24 07/06/24 History levothyroxine 100 mcg tablet 100 mcg PO .ACB 07/06/24 07/06/24 History (Synthroid) melatonin 5 mg tablet 5 mg PO HS PRN sleep 07/06/24 07/06/24 History meloxicam 15 mg tablet 15 mg PO DAILY 07/06/24 07/06/24 History methylprednisolone 4 mg tablet 8 mg PO QAM 07/06/24 07/06/24 History (Medrol) metoprolol tartrate 50 mg tablet 50 mg PO BID 07/06/24 07/06/24 History (Lopressor) mirabegron 25 mg tablet,extended 25 mg PO DAILY 07/06/24 07/06/24 History release 24 hr pantoprazole 40 mg tablet,delayed 40 mg PO BID 07/06/24 07/06/24 History release raloxifene 60 mg tablet 60 mg PO DAILY 07/06/24 07/06/24 History sodium chloride-hypochlorous acid 1 irrig irrigation DAILY 07/06/24 07/06/24 History 0.033 % irrigation solution (Vashe) sucralfate 1 gram tablet (Carafate) 1 g PO ACHS 07/06/24 07/06/24 History wound dressings (Triad Wound 1 applic topical BID 07/06/24 07/06/24 History Dressing paste) Allergies Allergy/AdvReac Type Severity Reaction Status Date / Time No Known Drug Allergies Allergy Verified 07/06/24 13:23 Exam Constitutional Vital Signs, click to edit/add: Last Vital Signs Temp 97.9 F 07/06/24 14:01 Pulse 117 H 07/06/24 17:10 Resp 22 H 07/06/24 17:10 BP 129/82 07/06/24 17:01 Pulse Ox 91 L 07/06/24 17:10 O2 Del Method Room Air 07/06/24 12:59 Documenting provider has reviewed patient's vital signs: yes Common normals: apparent distress (Respiratory distress as well as severe fatigue) Chest Common normals: inspection of chest normal and palpation of chest normal Respiratory Common normals: abnormal respiratory effort (Shortness of breath and cough throughout the evaluation) Auscultation: rhonchi and wheezes Cardio Common normals: regular rhythm; irregular rate Rate: tachycardic GI Common normals: Normal to inspection, nondistended, normoactive bowel sounds present and soft to palpation; tender Palpation: tender (Diffusely tender, mild rebound tenderness) Extremity Common normals: normal to inspection (Dressing to bilateral lower extremity, large amount below left knee) Neuro Common normals: oriented x3, CN's II-XII intact bilaterally and moves all extremities Results Labs Labs: Short CBC 07/06/24 Range/Units 13:34 WBC 20.5 H (4.0-11.0) 10^3/uL Hgb 10.9 L (12.0-16.0) g/dL Hct 36.1 (36.0-48.0) % Plt Count 298 (150-450) 10^3/uL BMP 07/06/24 13:34 Sodium 139 Potassium 4.3 Chloride 103 Carbon Dioxide 20.5 L BUN 91.0 H* Creatinine 3.39 H Glucose 113 H Calcium 8.9 Liver Function 07/06/24 07/06/24 07/06/24 Range/Units 13:34 13:34 13:34 Total Bilirubin 0.7 0.7 (0.2-1.0) mg/dL Direct Bilirubin 0.3 H (0.0-0.2) mg/dL AST 37 40 H (15-37) U/L ALT 26 (14-59) U/L Alkaline Phosphatase (46-116) U/L Albumin (3.4-5.0) g/dL 07/06/24 07/06/24 07/06/24 Range/Units 13:34 13:34 13:34 Total Bilirubin (0.2-1.0) mg/dL Direct Bilirubin (0.0-0.2) mg/dL AST (15-37) U/L ALT 29 (14-59) U/L Alkaline Phosphatase 344 H 342 H (46-116) U/L Albumin 1.9 L 1.9 L (3.4-5.0) g/dL Assessment and Plan Assessment and Plan (1) Acute kidney injury: (2) Sinus tachycardia: (3) Respiratory distress: (4) Acute bronchitis: (5) Hypoxia: (6) Labile hypertension: (7) Leukocytosis: (8) Iron deficiency anemia: (9) Acute renal failure: (10) Elevated liver function tests: (11) Acute pancreatitis: (12) Depression: (13) Hypothyroid: (14) GERD (gastroesophageal reflux disease): (15) Osteopenia: (16) Bladder spasm: Plan Admission findings: Sinus tachycardia, respiratory distress, labile hypertension with elevated blood pressure and then dropped below 100 systolic, hypoxic with O2 sat of 90%, significant leukocytosis, acute renal failure (baseline creatinine of 1.11, admission creatinine of 3.39 which is 305.9% above baseline which would be acute renal failure), elevated liver function tests, elevated amylase and lipase resulting in sepsis, possibly severe lactate is pending, secondary to the acute pancreatitis and complicated by acute healthcare acquired bronchitis and complicated by multisystem organ dysfunction-liver, pancreas, heme, renal Sepsis-likely severe with labile hypertension although lactate is pending secondary to acute pancreatitis and complicated by nosocomial bronchiolitis, viral studies also pending-IV antibiotics, blood cultures, sputum cultures, urine culture Multisystem organ dysfunction secondary to the severe sepsis as outlined above- multisystem's include pancreas, liver, heme, renal Acute pancreatitis-will unable to do ultrasound as a follow-up secondary to her morbid obesity-check amylase and lipase in a.m. Acute respiratory distress secondary to healthcare acquired likely bronchitis resulting in acute exacerbation of COPD-chest x-ray results pending-aerosol treatments antibiotics as outlined above, IV steroids Iron deficiency anemia-monitor daily Elevated liver function test-likely secondary to above-repeat in a.m. Severe protein calorie malnutrition-patient currently n.p.o. secondary to the pancreatitis, consider IV albumin Lower extremity wounds-wound consultation GERD-IV Protonix Depression-will restart home medications once pancreatitis is resolved Hypothyroidism-check levels Admission status: Patient with evidence for sepsis, likely severe with multisystem organ dysfunction, medically necessary treatment will span 2 midnights as a minimum, inpatient status
[2024-07-06 19:16] LABS: Troponin I High Sensitivity 26.8 pg/mL (4.0-51.3)
[2024-07-06 19:22] LABS: Magnesium 1.7 mg/dL (1.8-2.4); Thyroid Stimulating Hormone 1.719 uIU/mL (0.358-3.740)
[2024-07-06 19:25] LABS: Lactate/Lactic Acid 2.7 mmol/L (0.4-2.0)
[2024-07-06] MEDS: PANTOPRAZOLE SODIUM 40 MG VIAL IV (21:09)
[2024-07-06] MEDS: METHYLPREDNISOLONE SOD SUCC PF 125 MG/2 ML VIAL IVP (21:09)
[2024-07-06] MEDS: PIPERACILLIN SODIUM/TAZOBACTAM 3.375 GM in 0.9 % SODIUM CHLORIDE 50 ML IV (21:10)
[2024-07-06] MEDS: 0.9 % SODIUM CHLORIDE 1,000 ML 250 ML IV (21:12)
[2024-07-06 22:15] LABS: Internal Control Within Normal Limits
[2024-07-06 22:16] LABS: Influenza Virus A Antigen Negative; Influenza Virus B Antigen Negative; Internal Control Within Normal Limits; Respiratory Syncytial Virus Detected (NOT DETECTE); SARS-CoV-2 Ag NEGATIVE (NEGATIVE)
[2024-07-06 22:18] LABS: Lactate/Lactic Acid 1.9 mmol/L (0.4-2.0)
[2024-07-06] MEDS: LEVOFLOXACIN IN DEXTROSE 5 % 750 MG/150 ML PREMIX 100 MG IV (22:39)
[2024-07-06] MEDS: IPRATROPIUM/ALBUTEROL SULFATE 3 ML AMPUL.NEB IH (23:39)
[2024-07-07] VITALS (9 sets, daily range): BP systolic 92–139; BP diastolic 50–90; PULSE 112–134; TEMP 36.1–36.6; O2SAT 90–97
[2024-07-07] MEDS: METHYLPREDNISOLONE SOD SUCC PF 125 MG/2 ML VIAL IVP (02:20)
[2024-07-07] MEDS: 0.9 % SODIUM CHLORIDE 1,000 ML 125 ML IV ×2 (03:07→10:14)
[2024-07-07] MEDS: IPRATROPIUM/ALBUTEROL SULFATE 3 ML AMPUL.NEB IH ×4 (04:05→23:21)
[2024-07-07] MEDS: PIPERACILLIN SODIUM/TAZOBACTAM 3.375 GM in 0.9 % SODIUM CHLORIDE 50 ML IV ×2 (04:10→21:00)
--- NOTE | 2024-07-07 05:38 | PC.NURSE ---
Pure wick canister with a crack in the plactic. Pure wick removed. Pure wick observed to have urine on it. Canister and pure wick changed at this time.
--- NOTE | 2024-07-07 06:03 | P.PN_ITS ---
Progress Note: Subjective Subjective Interval history: Still with significant cough and dyspnea during the evaluation, seems fatigued but is early in the day, abdominal pain seems some better Exam Constitutional Vital Signs, click to edit/add: Last Vital Signs Temp 97.2 F L 07/07/24 04:00 Pulse 114 H 07/07/24 04:10 Resp 18 07/07/24 04:10 BP 102/50 07/07/24 04:00 Pulse Ox 94 L 07/07/24 04:10 O2 Del Method Room Air 07/07/24 04:10 Documenting provider has reviewed patient's vital signs: yes Common normals: apparent distress (Respiratory distress with dyspnea unchanged) Chest Common normals: inspection of chest normal and palpation of chest normal Respiratory Common normals: abnormal respiratory effort (Shortness of breath and cough throughout the evaluation) Auscultation: rhonchi (Some better air exchange) and wheezes Cardio Common normals: regular rhythm; irregular rate Rate: tachycardic GI Common normals: Normal to inspection, nondistended, normoactive bowel sounds present and soft to palpation; tender Palpation: tender (Still diffusely tender but rebound tenderness has resolved) Extremity Common normals: abnormal to inspection (Dressing to bilateral lower extremity, large open area below left knee) Neuro Common normals: oriented x3, CN's II-XII intact bilaterally and moves all extremities Progress Note: Objective Labs Labs: Short CBC 07/06/24 Range/Units 13:34 WBC 20.5 H (4.0-11.0) 10^3/uL Hgb 10.9 L (12.0-16.0) g/dL Hct 36.1 (36.0-48.0) % Plt Count 298 (150-450) 10^3/uL BMP 07/06/24 13:34 Sodium 139 Potassium 4.3 Chloride 103 Carbon Dioxide 20.5 L BUN 91.0 H* Creatinine 3.39 H Glucose 113 H Calcium 8.9 Liver Function 07/06/24 07/06/24 07/06/24 Range/Units 13:34 13:34 13:34 Total Bilirubin 0.7 0.7 (0.2-1.0) mg/dL Direct Bilirubin 0.3 H (0.0-0.2) mg/dL AST 37 40 H (15-37) U/L ALT 26 (14-59) U/L Alkaline Phosphatase (46-116) U/L Albumin (3.4-5.0) g/dL 07/06/24 07/06/24 07/06/24 Range/Units 13:34 13:34 13:34 Total Bilirubin (0.2-1.0) mg/dL Direct Bilirubin (0.0-0.2) mg/dL AST (15-37) U/L ALT 29 (14-59) U/L Alkaline Phosphatase 344 H 342 H (46-116) U/L Albumin 1.9 L 1.9 L (3.4-5.0) g/dL Progress Note: A&P Assessment and Plan (1) Acute kidney injury: (2) Sinus tachycardia: (3) Respiratory distress: (4) Acute bronchitis: (5) Hypoxia: (6) Labile hypertension: (7) Leukocytosis: (8) Iron deficiency anemia: (9) Acute renal failure: (10) Elevated liver function tests: (11) Acute pancreatitis: (12) Depression: (13) Hypothyroid: (14) GERD (gastroesophageal reflux disease): (15) Osteopenia: (16) Bladder spasm: Plan Admission findings: Sinus tachycardia, respiratory distress, labile hypertension with elevated blood pressure and then dropped below 100 systolic, hypoxic with O2 sat of 90%, significant leukocytosis, lactic acidosis, acute renal failure (baseline creatinine of 1.11, admission creatinine of 3.39 which is 305.9% above baseline which would be acute renal failure), elevated liver function tests, elevated amylase and lipase resulting in severe sepsis, secondary to the acute pancreatitis and complicated by acute healthcare acquired bronchitis and complicated by multisystem organ dysfunction-liver, pancreas, heme, renal Severe sepsis- secondary to acute pancreatitis and complicated by nosocomial bronchiolitis, viral study positive for RSV-IV antibiotics, blood cultures, sputum cultures, urine culture, steroids, aerosols Multisystem organ dysfunction secondary to the severe sepsis as outlined above- multisystem's include pancreas, liver, heme, renal Acute pancreatitis-amylase and lipase not returned to normal but much improved, will try patient on fat-free diet Acute respiratory distress secondary to healthcare acquired likely bronchitis resulting in acute exacerbation of COPD-maintain current steroids, antibiotics and aerosol treatments Iron deficiency anemia-monitor daily Elevated liver function test-likely secondary to above-repeat in a.m. Severe protein calorie malnutrition-patient currently n.p.o. secondary to the pancreatitis, consider IV albumin Lower extremity wounds-wound consultation GERD-IV Protonix Depression-will restart home medications once pancreatitis is resolved Hypothyroidism-check levels Admission status: Patient with evidence for sepsis, likely severe with multisystem organ dysfunction, medically necessary treatment will span 2 midnights as a minimum, inpatient status Urinary Catheter Management Urinary Catheter Management Pure Wick: Cath placed during this visit: yes Urethral indwelling: No Insertion date: 07/07/24 Insertion time: 05:39
[2024-07-07 06:46] LABS: Hematocrit 34.1 % (36.0-48.0); Hemoglobin 10.2 g/dL (12.0-16.0); Mean Corpuscular HGB Conc 29.9 g/dL (29.9-35.2); Mean Corpuscular Hemoglobin 29.7 pg (26.7-34.0); Mean Corpuscular Volume 99.4 fL (81.0-99.0); Mean Platelet Volume 10.8 fL (9.5-13.5); Platelet Count 297 10^3/uL (150-450); Red Blood Count 3.43 10^6/uL (4.20-5.40); Red Cell Distribution Width 17.2 % (11.0-15.0); White Blood Count 24.8 10^3/uL (4.0-11.0)
[2024-07-07 07:12] LABS: Alanine Aminotransferase 18 U/L (14-59); Albumin Globulin Ratio 0.4; Albumin Level 1.8 g/dL (3.4-5.0); Alkaline Phosphatase 325 U/L (46-116); Amylase 126 U/L (25-115); Anion Gap 21.1; Aspartate Amino Transferase 38 U/L (15-37); BUN Creatinine Ratio 23.6; Bilirubin Total 0.7 mg/dL (0.2-1.0); Calcium 8.4 mg/dL (8.5-10.1); Carbon Dioxide 17.9 mmol/L (21.0-32.0); Chloride 107 mmol/L (98-107); Estimated GFR (African America 14 (>=60 mL/min/1.73m^2); Estimated GFR (Non-African Ame 11 (>=60 mL/min/1.73m^2); Globulin 4.1 g/dL; Glucose 167 mg/dL (74-106); Sodium 141 mmol/L (136-145); Total Protein 5.9 g/dL (6.4-8.2)
[2024-07-07 07:28] LABS: Band Neutrophils Absolute 1.7 10^3/uL (0.0-0.3); Lymphocytes Absolute Manual 0.24 10^3/uL (1.20-3.80); Monocytes Absolute Manual 0.24 10^3/uL (0.30-0.80); Segmented Neut Absolute Manual 22.56 10^3/uL (1.4-6.5)
--- NOTE | 2024-07-07 08:21 | CM.NOTE ---
Rounds made with Dr. Clancy, will increase diet today. PT and OT will evaluate pt today for discharge planning. Pt came from [facility] and will be precert to return.
--- NOTE | 2024-07-07 09:46 | CM.NOTE ---
Important Message From Medicare discussed with pt, pt verbalizes understanding and signs paper. Original given to pt and copy placed in pt's chart.
[2024-07-07] MEDS: OXYBUTYNIN CHLORIDE 5 MG TAB XL PO (10:13)
[2024-07-07] MEDS: MAGNESIUM OXIDE 400 MG TABLET PO ×2 (10:13→21:04)
[2024-07-07] MEDS: CLOPIDOGREL BISULFATE 75 MG TABLET PO (10:13)
[2024-07-07] MEDS: L. ACIDOPHILUS/L.BULGARICUS TABLET 1 TAB PO ×2 (10:13→21:04)
[2024-07-07] MEDS: DULOXETINE HCL 60 MG CAPSULE.DR PO (10:13)
[2024-07-07] MEDS: 0.9 % SODIUM CHLORIDE 1,000 ML 250 ML IV (10:13)
--- NOTE | 2024-07-07 10:17 | CM.NOTE ---
Faxed Care Management referral, progress notes and face sheet to [facility] for updates and to start precert.
--- NOTE | 2024-07-07 10:25 | CM.NOTE ---
Spoke with Kim Vázquez at the [facility] regarding pt request to return back to [facility] at discharge. Case Management referral, progress notes and face sheet sent for review. Discussed also with pt's family regarding return to [facility] and if they did a bed hold, family were going over to the [facility] this am for a meeting with admissions to decide plan of care for pt. Case Management will await to hear back from the [facility] to see if able to start a precert.
[2024-07-07] MEDS: BUDESONIDE 0.5 MG/2 ML AMPULE NEB IH ×2 (10:52→23:21)
--- NOTE | 2024-07-07 11:53 | CM.NOTE ---
Faxed OT note to [facility] and e-mailed Will to make sure precert would be started.
--- NOTE | 2024-07-07 12:05 | CM.NOTE ---
Spoke with pt and friend at bedside regarding plan to go back to [facility], both voice that she has completed a bed hold and definitely plans on returning to the [facility] at discharge.
--- NOTE | 2024-07-07 12:51 | CM.NOTE ---
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 Sent Will barrera Vicco e-mail for heads up that pt could possibly discharge on pipe or steam fitter furnace installer antibiotics awaiting cultures.
[2024-07-07] MEDS: METHYLPREDNISOLONE SOD SUCC PF 125 MG/2 ML VIAL 60 MG IVP ×2 (13:03→17:30)
--- NOTE | 2024-07-07 13:07 | CM.NOTE ---
Spoke with Kim from [facility] to update that pt will D/C on antibiotics unsure of what antibiotic at this time awaiting cultures. [facility] will start precert today for patient.
[2024-07-07 13:37] LABS: Bilirubin Urine NEGATIVE (NEGATIVE); Blood Urine NEGATIVE (NEGATIVE); Clarity Urine CLEAR (CLEAR); Color Urine YELLOW (YELLOW); Glucose Urine UA NEGATIVE (NEGATIVE); Ketones Urine NEGATIVE (NEGATIVE); Leukocyte Esterase Urine TRACE (NEGATIVE); Nitrite Urine NEGATIVE (NEGATIVE); Protein Urine 30 mg/dL (NEG/TRACE); Specific Gravity Urine 1.025 (1.005-1.025); Urobilinogen Urine 0.2 EU/dL (0.2-1.0)
[2024-07-07 13:43] LABS: WBC Urine 0-2 #/HPF (NONE SEEN)
[2024-07-07 13:44] LABS: Bacteria Urine TRACE #/HPF (NONE SEEN); Calcium Oxalate Crystals Urine RARE; Cast Seen? NONE SEEN #/LPF (NONE SEEN); Crystals Seen? Seen #/HPF (None Seen); Mucus Urine NONE SEEN (NONE SEEN); RBC Urine 0-2 #/HPF (0-2); Squamous Epithelial Cell Urine RARE #/LPF (NONE/RARE)
[2024-07-07 13:45] LABS: Urine Culture Indicated ALREADY ORDERED
--- NOTE | 2024-07-07 15:00 | PC.NURSE ---
Dressing changed on wounds located on left leg, right leg, left arm, right arm, and left side of abdomen according to orders.
--- NOTE | 2024-07-07 16:35 | PM.ANBPRC ---
Anesthesia Bedside Procedure Procedural Section Pre-procedural diagnosis: Sepsis, Limited, Unable to gain IV access. Post-procedural diagnosis: Same as above Written consent obtained: patient Verification/time out: correct patient Name of person performing procedure: Dr. Maurice Cooper Assistance, if any: Preethi Garcia Indication procedural sedation: other ASA class: IV Time of last PO intake: 11am Mallampati classification: II. soft palate, fauces, uvula visible Preparation: pulse oximeter Additional Procedures Description/Findings: Patient is a 79 y.o female with morbid obesity, difficult IV access, and currently diagnosed w/sepsis, in need of IV access for antibiotic administration. AOC was requested per Dr. Clancy for vascular access, ideally a picc or Central line accordingly. After evaluation of the patient at bedside it was discovered that she is NOT the most ideal candidate for central catheterization and the u/s was obtained from ER and vascular access was obtained with a 20Ga 1.88 IV catheter with moderate flow and blood return. Floor RN assessed the access and agreed to its adequacy to provide fluid optimization and antibiotic therapy until the patient gains overall improvement and healing from multiple sites of bruising and skin ulceration. We are appreciative for your consultation and fervent to facilitate in this patient's care and improvent. Please reach if we can be of any further assistance. Conclusion: patient tolerated procedure
[2024-07-07 17:01] LABS: BUN Creatinine Ratio 24.3; Calcium 8.1 mg/dL (8.5-10.1); Carbon Dioxide 17.3 mmol/L (21.0-32.0); Chloride 106 mmol/L (98-107); Estimated GFR (African America 13 (>=60 mL/min/1.73m^2); Estimated GFR (Non-African Ame 11 (>=60 mL/min/1.73m^2); Glucose 131 mg/dL (74-106); Potassium 4.3 mmol/L (3.5-5.1); Sodium 140 mmol/L (136-145)
[2024-07-07] MEDS: LACTATED RINGER'S SOLUTION 1,000 ML 250 ML IV ×2 (17:53→21:57)
[2024-07-07] MEDS: ONDANSETRON PF 4 MG/2 ML VIAL IV (17:53)
[2024-07-07] MEDS: PROSTAT 15 GM PROTEIN/100 CAL 30 ML LIQUID PACKET PO (21:04)
[2024-07-07] MEDS: ENSURE CLEAR 237 ML LIQUID PO (21:04)
[2024-07-07] MEDS: SUCRALFATE 1 GM TABLET PO (21:04)
[2024-07-07] MEDS: JUVEN PACKET 1 PACKET PO (21:04)
[2024-07-07] MEDS: PANTOPRAZOLE SODIUM 40 MG VIAL IV (21:06)
[2024-07-07] MEDS: WOUND DRESSINGS TP (21:08)
[2024-07-07 22:04] LABS: A. calcoaceticus-baumannii Cpx NOT DETECTED (NOT DETECTE); Bacteroides fragilis NOT DETECTED (NOT DETECTE); Candida albicans NOT DETECTED (NOT DETECTE); Candida auris NOT DETECTED (NOT DETECTE); Candida glabrata NOT DETECTED (NOT DETECTE); Candida krusei NOT DETECTED (NOT DETECTE); Candida parapsilosis NOT DETECTED (NOT DETECTE); Candida tropicalis NOT DETECTED (NOT DETECTE); Cryptococcus neoformans/gattii NOT DETECTED (NOT DETECTE); Enterobacter cloacae complex NOT DETECTED (NOT DETECTE); Enterobacterales NOT DETECTED (NOT DETECTE); Enterococcus faecalis NOT DETECTED (NOT DETECTE); Enterococcus faecium NOT DETECTED (NOT DETECTE); Haemophilus influenzae NOT DETECTED (NOT DETECTE); Klebsiella aerogenes NOT DETECTED (NOT DETECTE); Klebsiella pneumoniae group NOT DETECTED (NOT DETECTE); Listeria monocytogenes NOT DETECTED (NOT DETECTE); Neisseria meningitidis NOT DETECTED (NOT DETECTE); Proteus spp. NOT DETECTED (NOT DETECTE); Pseudomonas aeruginosa NOT DETECTED (NOT DETECTE); Salmonella spp. NOT DETECTED (NOT DETECTE); Serratia marcescens NOT DETECTED (NOT DETECTE); Staphylococcus epidermidis NOT DETECTED (NOT DETECTE); Staphylococcus lugdunensis NOT DETECTED (NOT DETECTE); Stenotrophomonas maltophilia NOT DETECTED (NOT DETECTE); Streptococcus agalactiae NOT DETECTED (NOT DETECTE); Streptococcus pneumoniae NOT DETECTED (NOT DETECTE); Streptococcus pyogenes NOT DETECTED (NOT DETECTE); Streptococcus spp. NOT DETECTED (NOT DETECTE)
[2024-07-07 23:32] LABS: Source Blood
[2024-07-07 23:34] LABS: Staphylococcus spp. DETECTED (NOT DETECTE)
[2024-07-08] VITALS (9 sets, daily range): BP systolic 122–147; BP diastolic 68–82; PULSE 99–130; TEMP 36.3–36.5; O2SAT 90–98
[2024-07-08] MEDS: METHYLPREDNISOLONE SOD SUCC PF 125 MG/2 ML VIAL 60 MG IVP ×2 (00:26→05:31)
[2024-07-08] MEDS: LACTATED RINGER'S SOLUTION 1,000 ML 100 ML IV (02:07)
[2024-07-08] MEDS: IPRATROPIUM/ALBUTEROL SULFATE 3 ML AMPUL.NEB IH ×4 (04:18→22:34)
[2024-07-08] MEDS: LEVOTHYROXINE SODIUM 100 MCG TABLET PO (05:31)
[2024-07-08 07:31] LABS: Hematocrit 33.7 % (36.0-48.0); Hemoglobin 10.3 g/dL (12.0-16.0); Mean Corpuscular HGB Conc 30.6 g/dL (29.9-35.2); Mean Corpuscular Hemoglobin 29.7 pg (26.7-34.0); Mean Corpuscular Volume 97.1 fL (81.0-99.0); Mean Platelet Volume 10.6 fL (9.5-13.5); Platelet Count 318 10^3/uL (150-450); Red Blood Count 3.47 10^6/uL (4.20-5.40); Red Cell Distribution Width 17.4 % (11.0-15.0)
[2024-07-08 07:49] LABS: Anion Gap 23.3; Carbon Dioxide 14.3 mmol/L (21.0-32.0); Chloride 108 mmol/L (98-107); Glucose 132 mg/dL (74-106); Potassium 4.6 mmol/L (3.5-5.1); Sodium 141 mmol/L (136-145)
[2024-07-08 08:06] LABS: White Blood Count 31.5 10^3/uL (4.0-11.0)
[2024-07-08 08:23] LABS: Anisocytosis 1+; Band Neutrophils Absolute 1.6 10^3/uL (0.0-0.3); Hypochromasia 1+; Lymphocytes Absolute Manual 0.94 10^3/uL (1.20-3.80); Monocytes Absolute Manual 0.31 10^3/uL (0.30-0.80); Nucleated Red Blood Cells 1; Polychromasia 1+; Segmented Neut Absolute Manual 28.66 10^3/uL (1.4-6.5)
[2024-07-08] MEDS: SUCRALFATE 1 GM TABLET PO ×4 (08:59→21:43)
[2024-07-08] MEDS: CLOPIDOGREL BISULFATE 75 MG TABLET PO (08:59)
[2024-07-08] MEDS: MAGNESIUM OXIDE 400 MG TABLET PO ×2 (08:59→21:43)
[2024-07-08] MEDS: L. ACIDOPHILUS/L.BULGARICUS TABLET 1 TAB PO ×2 (08:59→21:43)
[2024-07-08] MEDS: OXYBUTYNIN CHLORIDE 5 MG TAB XL PO (08:59)
[2024-07-08] MEDS: DULOXETINE HCL 60 MG CAPSULE.DR PO (08:59)
[2024-07-08] MEDS: PIPERACILLIN SODIUM/TAZOBACTAM 3.375 GM in 0.9 % SODIUM CHLORIDE 50 ML IV (09:04)
[2024-07-08] MEDS: ENSURE CLEAR 237 ML LIQUID PO ×2 (09:42→21:43)
[2024-07-08] MEDS: WOUND DRESSINGS TP ×2 (09:43→22:52)
--- NOTE | 2024-07-08 09:53 | PT.DAILY ---
Physical Therapy Daily Note PT Daily Note/Assess Start: 07/08/24 09:45 Freq: Status: Active Protocol: Document 07/08/24 09:45 [id number] (Rec: 07/08/24 09:53 [id number]) Physical Therapy Daily Note/Assessment Time In/Time Out Time In 07:57 Time Out 08:13 Pain In Pain Level 0 Pain Out Pain Level 0 Subjective Subjective Patient received supine in bed and agreeable to working with PT. States her stomach is calm currently. Friend is present during treatment. Therapeutic Exercise Time Therapeutic Exercise 16 Minutes (minutes) Therapeutic Exercise 1 Units Therapeutic Exercise Treatment Therapeutic Exercise JIMMY LE ther ex at 15x for AAROM - MOD to MAX A +1, Treatment included ankle pumps, quad/glut sets, SLR, heel slides, hip ABD to increase strength. Worked on JIMMY SHLD HABD reaching just past midline to improve trunk rotation for 5 reps each. Patient holds onto bed rail on opposite side to help with lifting shoulder to reach. Call simmons within reach and all post treatment needs met . Therapeutic Activity Treatment Bed Mobility Ability Maximum Assist,1 Person Assist Total Physical Therapy Time Total Therapy 16 Minutes Total Physical 1 Therapy Units Summary Daily Note Summary Patient is able to perform 15 reps of JIMMY LE with MOD to MAX +1. Patient is able to initiate UE reaching to midline to work on ability to help with bed mobility. Patient reports no upset stomach after treatment. Patient would benefit from SNF to address functional weakness in order to return to prior level of function.
[2024-07-08] MEDS: 0.9 % SODIUM CHLORIDE 1,000 ML 1000 ML IV (12:00)
--- NOTE | 2024-07-08 12:00 | PC.NURSE ---
sql report writer and student at bedside, dressing changes to bilateral legs and left abdomen completed. Patient tolerated well. Rolled patient and replaced bed pad and disposable rolando. Repositioned patient in bed as best as possible
[2024-07-08] MEDS: PREDNISONE 20 MG TABLET 40 MG PO (12:01)
[2024-07-08] MEDS: AMMONIUM LACTATE 226 GM BOTTLE 1 APPLIC TOPICAL ×2 (12:01→22:52)
[2024-07-08] MEDS: SODIUM BICARBONATE 150 MEQ in DEXTROSE 5 % IN WATER 1,000 ML 100 MEQ IV (12:02)
[2024-07-08] MEDS: METOPROLOL TARTRATE 50 MG TABLET PO ×2 (12:02→21:43)
[2024-07-08] MEDS: BUDESONIDE 0.5 MG/2 ML AMPULE NEB IH ×2 (12:06→22:34)
[2024-07-08 12:24] LABS: ABG PCO2 28.9 mmHg (35.0-45.0); Allen Test POSITIVE (POSITIVE); Base Excess ABG -10.1 mmol/L (-2.0-2.0); HCO3 ABG 15.6 mmol/L (22.0-26.0); O2 Mode RA; Oxygen Saturation ABG 99.4 %; pH ABG 7.341 (7.350-7.450)
[2024-07-08 12:25] LABS: Puncture Site RR
[2024-07-08] MEDS: DOXYCYCLINE MONOHYDRATE 100 MG CAPSULE PO ×2 (13:46→21:43)
[2024-07-08] MEDS: SODIUM BICARBONATE 325 MG TABLET 650 MG PO ×2 (13:46→21:43)
[2024-07-08 15:30] LABS: BUN Creatinine Ratio 23.7; Calcium 7.7 mg/dL (8.5-10.1); Carbon Dioxide 14.7 mmol/L (21.0-32.0); Chloride 112 mmol/L (98-107); Estimated GFR (African America 11 (>=60 mL/min/1.73m^2); Estimated GFR (Non-African Ame 9 (>=60 mL/min/1.73m^2); Glucose 147 mg/dL (74-106); Sodium 142 mmol/L (136-145)
--- NOTE | 2024-07-08 16:00 | PC.NURSE ---
senior grant writer notified Dr. Lopez of urine output and CMP results. Notified him that the potassium read critical but that the lab person did not believe it to be accurate because the blood sample had partially hemolyzed. Also sent pictures of lab values via [employer] text
--- NOTE | 2024-07-08 16:39 | PM.IMPN1 ---
Progress Note: A&P Assessment and Plan (1) Sepsis: Assessment and Plan: Improved hemodynamics but persistent leukocytosis but this could be due to current use of high dose steroids also. D/c Levaquin, Zosyn. Wound culture from LLE wound was growing MRSA. Will switch to PO Doxcycline. Avoiding vancomycin due to ROLF. Qualifiers: Sepsis type: sepsis due to unspecified organism Sepsis acute organ dysfunction status: with acute organ dysfunction Severe sepsis acute organ dysfunction type: acute renal failure Acute renal failure type: with acute tubular necrosis Severe sepsis shock status: without septic shock Qualified Code(s): A41.9 - Sepsis, unspecified organism; R65.20 - Severe sepsis without septic shock; N17.0 - Acute kidney failure with tubular necrosis (2) Acute pancreatitis: Assessment and Plan: Improving. Still nauseous but denies vomiting and abdominal pain. C/w Regular diet. C/w IVF, pain control. Qualifiers: Pancreatitis type: unspecified pancreatitis type Acute pancreatitis complication: no infection or necrosis Qualified Code(s): K85.90 - Acute pancreatitis without necrosis or infection, unspecified (3) COPD exacerbation: Assessment and Plan: Improved. Switch to PO Prednisone. (4) Cellulitis of left lower extremity: Assessment and Plan: Chronic LLE Wound. Wound care consulted. Started on Doxycycline for MRSA growth in wound culture (5) Tachycardia: Assessment and Plan: Improved after Lopressor resumed. (6) Leukocytosis: Assessment and Plan: Multifactorial and sec to dehydration, cellulitis, pancreatitis and steroid use. Qualifiers: Leukocytosis type: leukemoid reaction Qualified Code(s): D72.823 - Leukemoid reaction (7) Acute kidney injury: Assessment and Plan: Now has ATN with minimal UO, metabolic acidosis. No acute indication for HD. Started on Bicarb drip. If persistent acidosis, oligouria, will need nephrology evaluation and possibly ANIMAL KEEPER HEAD. Monitor UO, serum creatinine closely. If no improvement, will initiate transfer for higher level of care. (8) Acute bronchitis: Assessment and Plan: RSV bronchitis, no consolidation on CXR. Repeat CXR. Decrease IV Steroids to PO prednisone as minimal resp symptoms. Qualifiers: Bronchitis organism: RSV Qualified Code(s): J20.5 - Acute bronchitis due to respiratory syncytial virus (9) Hypoxia: Assessment and Plan: Resolved. Hypoxic on presenation (10) Depression: Assessment and Plan: C/w home medications. Decrease cymbalta dose to adjust for change in renal function. Qualifiers: Depression Type: major depressive disorder Major depression recurrence: recurrent Active/Remission status: in full remission Qualified Code(s): F33.42 - Major depressive disorder, recurrent, in full remission (11) Hypothyroid: Assessment and Plan: C/w levothyroxine Qualifiers: Hypothyroidism type: unspecified Qualified Code(s): E03.9 - Hypothyroidism, unspecified (12) Morbid obesity: Assessment and Plan: Will benefit from weight loss. Internal Medicine - PN: Subj Subjective Interval history: Seen and examined. Overall feeling better. Tachypneic during exam. No abdominal pain but feels nauseous. Denies vomiting. Exam Constitutional Vital Signs, click to edit/add: Last Vital Signs Temp 97.7 F 07/08/24 12:00 Pulse 110 H 07/08/24 12:00 Resp 16 07/08/24 12:00 BP 147/79 H 07/08/24 12:00 Pulse Ox 98 07/08/24 12:17 O2 Del Method Room Air 07/08/24 12:17 General appearance: cooperative and comfortable Nutritional appearance: obese Respiratory Effort & inspection: able to speak in complete sentences and tachypneic Auscultation: clear to auscultation bilaterally and diminished lung sounds Cardio Common normals: regular rhythm, S1 normal heart sound and S2 normal heart sound Rate: tachycardic GI Common normals: Normal to inspection, nondistended, normoactive bowel sounds present, soft to palpation, non-tender and no hepatosplenomegaly Extremity Other: LLE - large open wound anteriorly, on leg with muscular layer exposed. Granulation tissue noted. Irregular margins. No associated cellulitis RLE - small wound on leg posteriorly. Neuro Common normals: oriented x3, moves all extremities and no focal motor deficits Psych Common normals: mental status grossly normal, thought process normal, denies hallucinations and denies homicidal ideation Internal Medicine - PN: Obj Da Labs Labs: Laboratory Results - last 24 hr 07/06/24 07/07/24 07/08/24 18:22 16:44 07:20 WBC 31.5 H* RBC 3.47 L Hgb 10.3 L Hct 33.7 L MCV 97.1 MCH 29.7 MCHC 30.6 RDW 17.4 H Plt Count 318 MPV 10.6 Seg Neuts % (Manual) 91.0 H Band Neutrophils % 5.0 Lymphocytes % (Manual) 3.0 L Monocytes % (Manual) 1.0 L Eosinophils % (Manual) 0.0 L Basophils % (Manual) 0.0 L Neutrophils # (Manual) 28.66 H Band Neutrophils # 1.6 H Lymphocytes # (Manual) 0.94 L Monocytes # (Manual) 0.31 Eosinophils # (Manual) 0.00 Basophils # (Manual) 0.00 Nucleated RBCs 1 Polychromasia 1+ Hypochromasia 1+ Anisocytosis 1+ Puncture Site ABG pH ABG pCO2 ABG pO2 ABG HCO3 ABG O2 Saturation ABG Base Excess Anthony Test Sodium 140 141 Potassium 4.3 4.6 Chloride 106 108 H Carbon Dioxide 17.3 L 14.3 L Anion Gap 21.0 23.3 BUN 98.0 H* 103.0 H* Creatinine 4.03 H Est GFR ( Amer) 13 L Est GFR (Non-Af Amer) 11 L BUN/Creatinine Ratio 24.3 Glucose 131 H 132 H Calcium 8.1 L Total Bilirubin AST ALT Alkaline Phosphatase Total Protein Albumin Globulin Albumin/Globulin Ratio Amylase Lipase Specimen Source Blood A.calcoaceticus-baumannii cmplx PCR Not detected Bacteroides fragilis Not detected Chetna albicans (PCR) Not detected Chetna auris (PCR) Not detected C. glabrata (PCR) Not detected C. krusei (PCR) Not detected C. parapsilosis (PCR) Not detected C. tropicalis (PCR) Not detected C. neoform/gattii (PCR) Not detected Enterobacterales (PCR) Not detected E. cloacae complex PCR Not detected Enterococc faecalis PCR Not detected Enterococc faecium PCR Not detected E. coli (PCR) Not detected H. influenzae (PCR) Not detected Klebsiella aerogenes (PCR) Not detected Klebsiella oxytoca PCR Not detected K. pneumoniae group (PCR) Not detected List. monocytogenes PCR Not detected N. meningitidis (PCR) Not detected Proteus spp. (copies/mL) Not detected Salmonella spp. (PCR) Not detected Serratia marcescens PCR Not detected Staphylococcus sp PCR Detected A* Staph aureus (PCR) Not detected mecA/C & MREJ Resist Gene Not applicable mecA/C-Methicil Resis Gene Not applicable mcr-1 Colistin Res Gene PCR Not applicable Staph epidermidis (PCR) Not detected Staph lugdunensis (TEM-PCR) Not detected S. maltophilia (PCR) Not detected Streptococcus sp PCR Not detected Strep agalactiae (PCR) Not detected Strep pneumoniae (PCR) Not detected S. pyogenes (PCR) Not detected P. aeruginosa (PCR) Not detected Shahab/B-Vanco Res Genes Not applicable blaIMP Car res Gene PCR Not applicable KPC (blaKPC) Detect PCR Not applicable NDM (blaNDM) Detect PCR Not applicable OXA-48 Carbapenem Resis Gene (PCR) Not applicable blaVIM Car Res Gene PCR Not applicable CTX-M ESBL (PCR) Not applicable 07/08/24 07/08/24 12:20 15:01 WBC RBC Hgb Hct MCV MCH MCHC RDW Plt Count MPV Seg Neuts % (Manual) Band Neutrophils % Lymphocytes % (Manual) Monocytes % (Manual) Eosinophils % (Manual) Basophils % (Manual) Neutrophils # (Manual) Band Neutrophils # Lymphocytes # (Manual) Monocytes # (Manual) Eosinophils # (Manual) Basophils # (Manual) Nucleated RBCs Polychromasia Hypochromasia Anisocytosis Puncture Site Rr ABG pH 7.341 L ABG pCO2 28.9 L ABG pO2 132.0 H ABG HCO3 15.6 L ABG O2 Saturation 99.4 ABG Base Excess -10.1 L Anthony Test Positive Sodium 142 Potassium Chloride 112 H Carbon Dioxide 14.7 L Anion Gap BUN 107.0 H* Creatinine 4.51 H Est GFR ( Amer) 11 L Est GFR (Non-Af Amer) 9 L BUN/Creatinine Ratio 23.7 Glucose 147 H Calcium 7.7 L Total Bilirubin AST ALT Alkaline Phosphatase Total Protein Albumin Globulin Albumin/Globulin Ratio Amylase Lipase Specimen Source A.calcoaceticus-baumannii cmplx PCR Bacteroides fragilis Chetna albicans (PCR) Chetna auris (PCR) C. glabrata (PCR) C. krusei (PCR) C. parapsilosis (PCR) C. tropicalis (PCR) C. neoform/gattii (PCR) Enterobacterales (PCR) E. cloacae complex PCR Enterococc faecalis PCR Enterococc faecium PCR E. coli (PCR) H. influenzae (PCR) Klebsiella aerogenes (PCR) Klebsiella oxytoca PCR K. pneumoniae group (PCR) List. monocytogenes PCR N. meningitidis (PCR) Proteus spp. (copies/mL) Salmonella spp. (PCR) Serratia marcescens PCR Staphylococcus sp PCR Staph aureus (PCR) mecA/C & MREJ Resist Gene mecA/C-Methicil Resis Gene mcr-1 Colistin Res Gene PCR Staph epidermidis (PCR) Staph lugdunensis (TEM-PCR) S. maltophilia (PCR) Streptococcus sp PCR Strep agalactiae (PCR) Strep pneumoniae (PCR) S. pyogenes (PCR) P. aeruginosa (PCR) Shahab/B-Vanco Res Genes blaIMP Car res Gene PCR KPC (blaKPC) Detect PCR NDM (blaNDM) Detect PCR OXA-48 Carbapenem Resis Gene (PCR) blaVIM Car Res Gene PCR CTX-M ESBL (PCR) Urinary Catheter Management Urinary Catheter Management Pure Wick: Cath placed during this visit: yes Urethral indwelling: No Insertion date: 07/07/24 Insertion time: 05:39 Urethral: Cath placed during this visit: yes Urethral indwelling: Yes Reason for continuing: measure accurate output Insertion date: 07/07/24 Insertion time: 19:20
[2024-07-08] MEDS: PANTOPRAZOLE SODIUM 40 MG VIAL IV (21:43)
[2024-07-08] MEDS: LATANOPROST 0.005% 2.5 ML BOTTLE 1 DROP OP (21:43)
[2024-07-08] MEDS: PROSTAT 15 GM PROTEIN/100 CAL 30 ML LIQUID PACKET PO (21:43)
[2024-07-08] MEDS: JUVEN PACKET 1 PACKET PO (21:43)
--- NOTE | 2024-07-08 23:00 | PC.NURSE ---
Dressing to both arms, left side of abdomen, and right ankle changed. Triad paste applied to right buttock, mike care performed.
--- NOTE | 2024-07-08 23:44 | RESP.RT ---
Placed pt on home cpap unit for the night
[2024-07-09] VITALS (7 sets, daily range): BP systolic 113–126; BP diastolic 61–84; PULSE 97–104; TEMP 36.4–36.6; O2SAT 92–97
[2024-07-09] MEDS: IPRATROPIUM/ALBUTEROL SULFATE 3 ML AMPUL.NEB IH ×3 (04:41→17:22)
[2024-07-09] MEDS: SODIUM BICARBONATE 325 MG TABLET 650 MG PO ×2 (05:49→13:44)
[2024-07-09] MEDS: LEVOTHYROXINE SODIUM 100 MCG TABLET PO (05:49)
[2024-07-09 06:34] LABS: Hemoglobin 9.2 g/dL (12.0-16.0); Mean Corpuscular HGB Conc 30.7 g/dL (29.9-35.2); Mean Corpuscular Hemoglobin 29.4 pg (26.7-34.0); Mean Corpuscular Volume 95.8 fL (81.0-99.0); Mean Platelet Volume 10.7 fL (9.5-13.5); Platelet Count 273 10^3/uL (150-450); Red Blood Count 3.13 10^6/uL (4.20-5.40); Red Cell Distribution Width 17.2 % (11.0-15.0); White Blood Count 27.3 10^3/uL (4.0-11.0)
[2024-07-09 06:45] LABS: Alanine Aminotransferase 28 U/L (14-59); Albumin Globulin Ratio 0.4; Albumin Level 1.7 g/dL (3.4-5.0); Alkaline Phosphatase 436 U/L (46-116); Anion Gap 18.4; Aspartate Amino Transferase 56 U/L (15-37); BUN Creatinine Ratio 22.6; Bilirubin Total 0.6 mg/dL (0.2-1.0); Calcium 8.1 mg/dL (8.5-10.1); Carbon Dioxide 22.4 mmol/L (21.0-32.0); Chloride 103 mmol/L (98-107); Estimated GFR (African America 11 (>=60 mL/min/1.73m^2); Estimated GFR (Non-African Ame 9 (>=60 mL/min/1.73m^2); Globulin 3.8 g/dL; Glucose 116 mg/dL (74-106); Potassium 3.8 mmol/L (3.5-5.1); Sodium 140 mmol/L (136-145); Total Protein 5.5 g/dL (6.4-8.2)
[2024-07-09 06:59] LABS: Band Neutrophils Absolute 0.5 10^3/uL (0.0-0.3); Segmented Neut Absolute Manual 22.38 10^3/uL (1.4-6.5)
[2024-07-09 07:00] LABS: Eosinophils Absolute Manual 1.91 10^3/uL (0.00-0.70); Lymphocytes Absolute Manual 1.09 10^3/uL (1.20-3.80); Metamyelocytes Absolute Manual 0.27; Monocytes Absolute Manual 1.09 10^3/uL (0.30-0.80)
[2024-07-09] MEDS: DOXYCYCLINE MONOHYDRATE 100 MG CAPSULE PO (08:32)
[2024-07-09] MEDS: CLOPIDOGREL BISULFATE 75 MG TABLET PO (08:32)
[2024-07-09] MEDS: MAGNESIUM OXIDE 400 MG TABLET PO (08:33)
[2024-07-09] MEDS: OXYBUTYNIN CHLORIDE 5 MG TAB XL PO (08:33)
[2024-07-09] MEDS: SUCRALFATE 1 GM TABLET PO ×2 (08:33→12:01)
[2024-07-09] MEDS: METOPROLOL TARTRATE 50 MG TABLET PO (08:33)
[2024-07-09] MEDS: PREDNISONE 20 MG TABLET 40 MG PO (08:33)
[2024-07-09] MEDS: L. ACIDOPHILUS/L.BULGARICUS TABLET 1 TAB PO (08:33)
[2024-07-09] MEDS: DULOXETINE HCL 30 MG CAPSULE.DR PO (08:33)
[2024-07-09] MEDS: ENSURE CLEAR 237 ML LIQUID PO (08:33)
[2024-07-09] MEDS: AMMONIUM LACTATE 226 GM BOTTLE 1 APPLIC TOPICAL (10:46)
[2024-07-09] MEDS: WOUND DRESSINGS TP (10:49)
[2024-07-09] MEDS: BUDESONIDE 0.5 MG/2 ML AMPULE NEB IH (11:19)
[2024-07-09 11:44] LABS: Chol HDL Ratio 3.2; Cholesterol 73 mg/dL (<=200); HDL Cholesterol 23 mg/dL (40-60); Triglycerides 136 mg/dL (<=150); VLDL CHOLESTEROL 27.2 mg/dL
--- NOTE | 2024-07-09 12:25 | PC.NURSE ---
patients gown and rolando wet from drainage from wound. Rolando changed, gown changed, sheet and bed spread changed
--- NOTE | 2024-07-09 14:20 | PC.NURSE ---
all dressings changed at this time. patient tolerated well
--- NOTE | 2024-07-09 14:20 | PC.NURSE ---
patient and friend at bedside notified of having bed at [facility] and time of transfer
--- NOTE | 2024-07-09 17:35 | PC.NURSE ---
report given to [facility] nurse. all questions answered
--- NOTE | 2024-07-09 18:37 | PM.DS1 ---
DS: Providers Provider Date of admission: 07/06/24 17:19 Primary care physician: Tony Clancy MD Admitting clinician: Tony Clancy Attending physician on admission: Tony Clancy Consults: 07/06/24 17:59 Consult to Pharmacy Routine Consulting Provider: Reason for consultation: Please [place] me when Med Rec is Updated Has provider been notified: No Occupational Therapy Eval and Treat Routine Reason for consultation: Only if needed for Rehab Has provider been notified: No Physical Therapy Eval and Treat Routine Reason for consultation: Eval and Treat Has provider been notified: No 07/06/24 18:37 Consult to Wound Care Routine Consulting Provider: Will Valderrama Reason for consultation: Leg wounds Has provider been notified: No 07/07/24 08:24 Consult to PICC Line RN Routine Consulting Provider: Tony Clancy Reason for consultation: midline - IV AB 2-3 weeks Has provider been notified: No Attending physician on discharge: Shaikh Jessica Discharging clinician: Shaikh Jessica Anticipated date of discharge: 07/09/24 DS: Diagnosis Discharge Diagnosis (1) Sepsis: Assessment and plan: Resolved. Stable hemodynamics with improvement in patient's leukocytosis. Overall, patient also feels subjectively better. Qualifiers: Acute renal failure type: with acute tubular necrosis Sepsis acute organ dysfunction status: with acute organ dysfunction Sepsis type: sepsis due to unspecified organism Severe sepsis acute organ dysfunction type: acute renal failure Severe sepsis shock status: without septic shock Qualified Code(s): A41.9 - Sepsis, unspecified organism; R65.20 - Severe sepsis without septic shock; N17.0 - Acute kidney failure with tubular necrosis (2) Acute pancreatitis: Assessment and plan: Still reports nausea. But no vomiting. Lipase normal now. Tolerating PO diet. US Liver/GB pending. Qualifiers: Acute pancreatitis complication: no infection or necrosis Pancreatitis type: unspecified pancreatitis type Qualified Code(s): K85.90 - Acute pancreatitis without necrosis or infection, unspecified (3) COPD exacerbation: Assessment and plan: Minimal cough and wheezing. On PO prednisone now. Was on high dose steroids that were discontinued on 07/08. Prior to admission, patient was on medrol. (4) Cellulitis of left lower extremity: Assessment and plan: Wound culture from 06/28 growing MRSA. Was already on Levaquin/Doxycycline for it. C/w doxycycline. No need for Levaquin. (5) Tachycardia: Assessment and plan: Resolved. Likely due to increased sympathetic drive along with the fact that patient had not been receiving her Lopressor.. (6) Leukocytosis: Assessment and plan: Mild improved. Multifactorial and likely sec to dehydration, pancreatitis, high dose steroid use. Monitor off of IV abx. C/w oral doxycycline for Cellulitis. Qualifiers: Leukocytosis type: leukemoid reaction Qualified Code(s): D72.823 - Leukemoid reaction (7) Acute kidney injury: Assessment and plan: Now has ATN with oligouria. Discussed with Nephrology. Will need HD. Patient accepted for transfer to [facility]. Was discharged to [facility] for higher level of care. (8) Acute bronchitis: Assessment and plan: Due to RSV. Was doing well from resp pov. Qualifiers: Bronchitis organism: RSV Qualified Code(s): J20.5 - Acute bronchitis due to respiratory syncytial virus (9) Hypoxia: Assessment and plan: Resolved. Due to RSV bronchitis. (10) Depression: Assessment and plan: Stable mood. Qualifiers: Active/Remission status: in full remission Depression Type: major depressive disorder Major depression recurrence: recurrent Qualified Code(s): F33.42 - Major depressive disorder, recurrent, in full remission (11) Hypothyroid: Assessment and plan: c/w levothyroxine. Qualifiers: Hypothyroidism type: unspecified Qualified Code(s): E03.9 - Hypothyroidism, unspecified (12) Morbid obesity: Assessment and plan: Will benefit from weight loss. DS: Summary Hospital Course Hospital Course: 79 y o female with Pmhx of HTN, HLD, morbid obesity who was recently discharged from [facility] earlier this month to local rehab facility started to develop worsening cough, SOB, wheezing along with nausea,vomiting and abdominal pain. Patient was sent to [facility] ED for further evaluation and was found to have Acute pancreatitis, ROLF and Leukocytosis. Patient also tested positive for RSV. Initially patient was hypoxic and required supplemental Oxygen. Patient was treated with IV hydration, IV levaquin/Zosyn for empirical antibacterial treatment for sepsis. She received supportive care for acute pancreatitis and her GI symptoms gradually improved with resolution of abdominal pain and patient was able to tolerate PO diet. Patient also received high dose systemic steroids for COPD exacerbation, RSV bronchitis. Her resp symptoms also improved, along with her hypoxia. She was switched to PO prednisone subsequently. Her abx were narrowed down to PO Doxycycline for LLE Cellulitis. She had recent wound culture that was positive for MRSA. Patient's creatinine upon arrival was 3.39, that despite IV fluids, continued to worsen with minimal UO and trended upto 4.7 on day of discharge. Given her progressive decline in renal function, her case was discussed with Skimmer Scoop Operator at [facility] and patient was accepted for transfer as she would likely need HD for her Acute renal failure. Patient medically stable for transfer to [facility]. Risks vs benefits were discussed with the patient. Status at Discharge Functional status at discharge: bed bound Overall status at discharge: patient is not back to baseline Time Spent with Patient Time attestation: Total time spent providing and/or coordinating discharge services: Time spent: greater than 30 minutes Exam Constitutional Vital Signs, click to edit/add: Last Vital Signs Temp 97.5 F L 07/09/24 16:00 Pulse 97 H 07/09/24 17:25 Resp 16 07/09/24 16:00 BP 126/77 07/09/24 16:00 Pulse Ox 93 L 07/09/24 17:25 O2 Del Method Room Air 07/09/24 17:25 General appearance: cooperative and comfortable Nutritional appearance: obese Respiratory Effort & inspection: able to speak in complete sentences and tachypneic Auscultation: clear to auscultation bilaterally and diminished lung sounds Cardio Common normals: regular rhythm, S1 normal heart sound and S2 normal heart sound Rate: tachycardic GI Common normals: Normal to inspection, nondistended, normoactive bowel sounds present, soft to palpation, non-tender and no hepatosplenomegaly Extremity Other: LLE - large open wound anteriorly, on leg with muscular layer exposed. Granulation tissue noted. Irregular margins. No associated cellulitis RLE - small wound on leg posteriorly. Neuro Common normals: oriented x3, moves all extremities and no focal motor deficits Psych Common normals: mental status grossly normal, thought process normal, denies hallucinations and denies homicidal ideation DS: Data Data Completed and Pending Labs on day of discharge: Labs from last 24 hours 07/09/24 06:23 WBC 27.3 H RBC 3.13 L Hgb 9.2 L Hct 30.0 L MCV 95.8 MCH 29.4 MCHC 30.7 RDW 17.2 H Plt Count 273 MPV 10.7 Seg Neuts % (Manual) 82.0 H Band Neutrophils % 2.0 Lymphocytes % (Manual) 4.0 L Monocytes % (Manual) 4.0 Eosinophils % (Manual) 7.0 Basophils % (Manual) 0.0 L Metamyelocytes % 1.0 Neutrophils # (Manual) 22.38 H Band Neutrophils # 0.5 H Lymphocytes # (Manual) 1.09 L Monocytes # (Manual) 1.09 H Eosinophils # (Manual) 1.91 H Basophils # (Manual) 0.00 Metamyelocytes # 0.27 Sodium 140 Potassium 3.8 Chloride 103 Carbon Dioxide 22.4 Anion Gap 18.4 BUN 108.0 H* Creatinine 4.78 H Est GFR ( Amer) 11 L Est GFR (Non-Af Amer) 9 L BUN/Creatinine Ratio 22.6 Glucose 116 H Calcium 8.1 L Total Bilirubin 0.6 AST 56 H ALT 28 Alkaline Phosphatase 436 H Total Protein 5.5 L Albumin 1.7 L Globulin 3.8 Albumin/Globulin Ratio 0.4 Triglycerides 136 Cholesterol 73 LDL Cholesterol, Calc 23.0 VLDL Cholesterol 27.2 HDL Cholesterol 23 L Cholesterol/HDL Ratio 3.2 Preliminary micro results at discharge 07/06/24 18:22 Aerobic Susc Result 2 - Preliminary Bld Spc Aerobic Bld [place] 07/06/24 18:34 Blood Culture Result 2 - Preliminary Blood NO GROWTH AT 36-48 HOURS. FINAL TO FOLLOW. 07/07/24 13:15 Urine Culture - Preliminary Urine Catheterized Pending - Specimen sent to [facility] 07/06/24 18:22 Blood Culture Result 1 - Preliminary Blood Discharge Plan Discharge Disposition: [facility] Condition: Fair Discharge Date/Time: 07/09/24 17:42 Discharge Location: [facility]
--- NOTE | 2024-07-10 09:07 | SWNOTE1 ---
ROMARIO updated Will and Viviane that pt was transferred to [facility] over the weekend.
== END 2024-07-09 17:42 | disposition short-term general hospital (02) | DRG 871 ==
LOC: ER 16:42 → MS 07-07 17:53
PROVIDERS: Admitting Provider Family Medicine; Emergency Provider Emergency Medicine; PCP Family Medicine; Visit Provider Internal Medicine
DX: A41.9 Sepsis, unspecified organism (principal); E43 Unspecified severe protein-calorie malnutrition; K85.90 Acute pancreatitis without necrosis or infection, unspecified; N17.0 Acute kidney failure with tubular necrosis; J44.1 Chronic obstructive pulmonary disease with (acute) exacerbation; L03.116 Cellulitis of left lower limb; Z68.44 Body mass index [BMI] 60.0-69.9, adult; F33.42 Major depressive disorder, recurrent, in full remission; R65.20 Severe sepsis without septic shock; E86.0 Dehydration; D72.823 Leukemoid reaction; T38.0X5A Adverse effect of glucocorticoids and synthetic analogues, initial encounter; J20.5 Acute bronchitis due to respiratory syncytial virus; E66.01 Morbid (severe) obesity due to excess calories; R09.02 Hypoxemia; E03.9 Hypothyroidism, unspecified; Y95 Nosocomial condition; D50.9 Iron deficiency anemia, unspecified; K21.9 Gastro-esophageal reflux disease without esophagitis; M85.80 Other specified disorders of bone density and structure, unspecified site; N32.89 Other specified disorders of bladder; Z86.14 Personal history of Methicillin resistant Staphylococcus aureus infection; Z79.02 Long term (current) use of antithrombotics/antiplatelets; Z79.82 Long term (current) use of aspirin; Z79.890 Hormone replacement therapy; Z79.1 Long term (current) use of non-steroidal anti-inflammatories (NSAID); Z79.899 Other long term (current) drug therapy; Z74.01 Bed confinement status; Z79.52 Long term (current) use of systemic steroids
CPT/HCPCS: 36415; 36600; 51702; 71045; 74176; 76770; 80048; 80053; 80061; 80076; 81001; 82150; 82800; 82805; 83605; 83690; 83735; 83880; 84436; 84443; 84484; 85007; 85025; 85027; 87040; 87070; 87086; 87106; 87150; 87186; 87205; 87420; 87804; 87811; 93005; 94640; 94667; 94668; 94761; 96361; 96374; 96375; 97110; 97161; 97165; 97530; 99285; J2270; J2405; J2543; J2919; J7512